=== PATIENT | female | born 1940 | race Caucasian/White ===

== ENCOUNTER 2017-09-09 10:00 | Inpatient (IN) | payer MEDICARE, SELFPAY ==
--- NOTE | 2017-09-09 08:21 | VDLE_ITS ---
Reason For Study: edema RIGHT LEFT CFV is partially compressible with decreased GSV is normal. flow. CFV is compressible, spontaneous, phasic, FV, POP V, T/P Trunk, PTV, Peroneal V, and competent, and demonstrates normal Gastroc V are dilated and noncompressible. augmentation. GSV is normal. Prox and mid FV are compressible. Distal FV Procedure is dilated and noncompressible. Exam performed portable in ED. Pop V, T/P Trunk, and Gastroc V are dilated The exam was diagnostic. and noncompressible. A preliminary report was called and/or faxed to Jessica QUINONES. Interpretation Summary Acute deep vein thrombosis is noted in the right common femoral vein. Acute deep vein thrombosis is noted in the right femoral vein. Acute deep vein thrombosis is noted in the right popliteal vein. Acute deep vein thrombosis is noted in the right tibio-peroneal trunk. Acute deep vein thrombosis is noted in the right posterior tibial vein. Acute deep vein thrombosis is noted in the right peroneal vein. Acute deep vein thrombosis is noted in the right gastrocnemius vein. Acute deep vein thrombosis is noted in the distal left femoral vein. Acute deep vein thrombosis is noted in the left popliteal vein. Acute deep vein thrombosis is noted in the left tibio-peroneal trunk. Acute deep vein thrombosis is noted in the left gastrocnemius vein. The left common femoral vein, posterior tibial vein, and peroneal vein are patent and compressible. The great saphenous veins are patent and compressible bilaterally. Ordering Physician: Fern Chris Performed By: Sanjay Fitch RVT
--- NOTE | 2017-09-09 11:40 | CT_ITS ---
STUDY: CTA CHEST REASON FOR EXAM: Female, 76 years old. Hypoxia RADIATION DOSAGE (If Supplied By Facility): CTDIvol = ( 17.14 ) mGy, DLP = ( 564.76 ) mGycm TECHNIQUE: The examination was performed with the intravenous administration of 100ml ml of Isovue 370 contrast material. Post-processing of the angiographic images was performed, with multiplanar reformation and 3D reconstruction. Individualized dose optimization techniques were used for this CT. COMPARISON: None. FINDINGS: Normal enhancement of the main pulmonary artery and right and left pulmonary arteries. Moderate size bilateral lobar, segmental and subsegmental pulmonary emboli. Normal thoracic aorta and visualized great vessels. There is no demonstrated aortic dissection. Normal heart and pericardium. Normal mediastinum. Normal hilar regions. Normal visualized trachea and bronchi. The lungs are well expanded. Normal pulmonary parenchyma. Normal pleura. Normal chest wall structures. There are degenerative changes of thoracic spine. Normal visualized upper abdomen. CT/CTA Chest W/WO Contrast IMPRESSION: Normal enhancement of the main pulmonary artery and right and left pulmonary arteries. Moderate size bilateral lobar, segmental and subsegmental pulmonary emboli. Electronically Signed: John Negrete MD at 8:03 EDT Tel , Service support ,
--- NOTE | 2017-09-09 12:09 | EKG12_ITS ---
Test Reason : SOB Blood Pressure : / mmHG Vent. Rate : 091 BPM Atrial Rate : 091 BPM P-R Int : 196 ms QRS Dur : 100 ms QT Int : 358 ms P-R-T Axes : 037 000 013 degrees QTc Int : 440 ms Normal sinus rhythm Normal ECG Confirmed by NAREN AMANDA, STACEY ([id number]), industrial editor BAKARI PONCE ([id number]) on 09/15/2017 5:24:05 PM Referred By: JAJA Confirmed By:STACEY SNEED MD
--- NOTE | 2017-09-09 15:02 | DT_ITS ---
This patient was seen during an EMR downtime September 06, 2017 - September 13, 2017. This patient may have a combination of paper and electronic documentation or all paper documentation. All documentation is viewable within the e-chart portion of [facility] for each patient visit.
--- NOTE | 2017-09-10 11:49 | ECHOD_ITS ---
Reason For Study: Bilateral pulm. embolus Procedure This was a 2D Doppler, Color Flow transthoracic echocardiogram. Exam performed portable in patient room. Left Ventricle Normal LV size. Left ventricular systolic function is normal. The estimated ejection fraction is 55 %. Septal bounce. Transmitral diastolic flow velocities suggest mild (stage 1) diastolic dysfunction (reversed pattern). No regional wall motion abnormalities noted. Right Ventricle Mildly dilated right ventricle. Mild global right ventricular systolic dysfunction. Atria Normal left atrium. Normal right atrium. Mitral Valve Normal mitral valve. Tricuspid Valve Normal tricuspid valve. Mild to moderate (1-2+) tricuspid valve insufficiency. Pulmonary artery systolic pressure is 52 mmHg. Moderate pulmonary hypertension. Aortic Valve Normal aortic valve. Trisinus/trileaflet aortic valve. Pulmonic Valve The pulmonic valve is not well visualized. Great Vessels Normal aortic root. Pericardium/Pleural No pericardial effusion. MMode/2D Measurements & Calculations LVIDd: 3.4 cm IVSd: 1.3 cm Ao root diam: 3.1 cm LVIDs: 2.6 cm LVPWd: 1.3 cm LA dimension: 2.6 cm RVDd: 3.0 cm FS: 23.6 % LAV(MOD-bp): 26.9 ml EDV(MOD-sp4): 34.6 ml SV(MOD-sp4): 24.8 ml LAV(MOD-bp) Indexed: 13.4 ml/m2 ESV(MOD-sp4): 9.9 ml LAV(MOD-sp2): 25.4 ml EF(MOD-sp4): 71.5 % LAV(MOD-sp4): 26.9 ml LA A4 area: 11.5 cm2 RA A4 area: 10.5 cm2 Doppler Measurements & Calculations MV E max sang: 65.0 cm/sec Lat Peak E' Sang: 8.0 cm/sec Med Peak E' Sang: 5.7 cm/sec MV A max sang: 104.6 cm/sec E/E' lat: 8.2 E/E' med: 11.4 MV E/A: 0.62 Ao V2 max: 181.0 cm/sec LV V1 max: 96.3 cm/sec PA V2 max: 86.1 cm/sec Ao max P.1 mmHg LV V1 max P.7 mmHg TR max sang: 346.2 cm/sec TR max P.9 mmHg Interpretation Summary Normal LV size. Left ventricular systolic function is normal. The estimated ejection fraction is 55 %. Transmitral diastolic flow velocities suggest mild (stage 1) diastolic dysfunction (reversed pattern). Pulmonary artery systolic pressure is 52 mmHg. Moderate pulmonary hypertension. Ordering Physician: Obinna Fair Referring Physician: MD Vel Graham Performed By: Salena, Yi, RDCS
--- NOTE | 2017-09-10 13:05 | EKG12_ITS ---
Test Reason : AM EKG Blood Pressure : / mmHG Vent. Rate : 090 BPM Atrial Rate : 090 BPM P-R Int : 198 ms QRS Dur : 080 ms QT Int : 352 ms P-R-T Axes : 041 -29 -19 degrees QTc Int : 430 ms Normal sinus rhythm Leftward axis Poor R wave progression Inferior infarct , age undetermined Abnormal ECG When compared with ECG of 20-MAR-2014 07:53, Nonspecific T wave abnormality now evident in Anterior leads Confirmed by BALTAZAR AMANDA, GENARO ([id number]), video tape editor BAKARI PONCE ([id number]) on 09/17/2017 1:54:36 PM Referred By: DR SCANLON Confirmed By:GENARO LEDESMA MD
[2017-09-11 12:36] LABS: Red Blood Cells-Urine 0 SEEN /hpf (0-5); Squamous Epithelial Cells - UA 0 SEEN /hpf (5-10)
[2017-09-11 12:36] LABS: BNP,B-Type NATRIURETIC PEPTIDE 67.4 pg/mL (0-100)
[2017-09-11 12:39] LABS: Amorphous Sediment 2+; Bacteria 1+ /hpf (None Seen); Color, Urine Yellow (Yellow); Glucose, Dipstick 1000 mg/dl (Normal); Hyaline Cast 0-5 SEEN /lpf (0-5); Ketone-Dipstick Negative (Negative); Leukocyte Esterase-Dipstick Negative /ul (Negative); Mucous, Urine 1+ /hpf (<or=2+); Nitrite-Dipstick Negative (Negative); Occult Blood-Urine Negative /ul (Negative); Protein-Dipstick 30 mg/dl (Negative); Specific Gravity, Urine 1.025 (1.002-1.030); Urine Bilirubin Dipstick Negative (Negative); Urine Clarity Clear (Clear); Urine Urobilinogen Normal (Normal); White Blood Cells 5-10 SEEN /hpf (0-5)
[2017-09-11 13:48] LABS: Glucose 322 mg/dL (74-106)
[2017-09-11 13:49] LABS: Anion Gap 9 (5-15); BUN 32 mg/dL (7-18); BUN/Creat Ratio 25.8 RATIO (10-20); Calcium,Total 9.4 mg/dL (8.5-10.1); Chloride 109 mmol/L (98-107); Creatinine, Serum 1.24 mg/dL (0.55-1.02); EST Glomerular Filtration Rate 45 mL/min (>60); Est Glom Filt Rate - Afr Amer 55 mL/min (>60); Potassium 4.4 mmol/L (3.5-5.1); Sodium Level 142 mmol/L (136-145)
[2017-09-12 13:05] LABS: Absolute Lymphocyte Count 2.47 X10^3/ul (0.83-4.51); Absolute Neutrophil Count 4.3 X10^3/uL (2.0-7.7); Basophil# 0.04 X10^3/uL; Basophil% 0.5 % (0-1); Eosinophil# 0.34 X10^3/uL; Eosinophils% 4.5 % (0-5); Hematocrit 36.1 % (37-47); Hemoglobin 11.8 g/dl (12.0-15.0); Lymphocyte # 2.47 X10^3/ul (4.0); Lymphocyte % 32.9 % (19-41); Mean Corp Hgb Conc 32.7 g/gl (32-36); Mean Corpuscular Hgb 29.4 pg (27.0-32.0); Mean Corpuscular Volume 89.8 fL (81-99); Mean Platelet Vol. 9.7 fl (6.2-12.0); Monocyte% 5.3 % (0-10); Neutrophil # 4.25 X10^3/uL (2.7-7.7); Neutrophil % 56.7 % (47-70); POSITIVE COUNT NO; POSITIVE DIFFERENTIAL NO; POSITIVE MORPHOLOGY NO; Platelet Count 145 K/mm3 (150-450); RBC Distribution Width CV 13.2 % (11.6-14.6); RBC Distribution Width SD 43.1 fl (35.1-43.9); Red Blood Count 4.02 M/mm3 (4.2-5.4); White Blood Count 7.5 K/mm3 (4.4-11.0)
[2017-09-13 17:18] LABS: Basophil# 0.05 X10^3/uL; Basophil% 0.5 % (0-1); Eosinophil# 0.19 X10^3/uL; Hematocrit 38.8 % (37-47); Hemoglobin 12.3 g/dl (12.0-15.0); Lymphocyte % 27.5 % (19-41); Mean Corp Hgb Conc 31.7 g/gl (32-36); Mean Corpuscular Hgb 29.2 pg (27.0-32.0); Mean Corpuscular Volume 92.2 fL (81-99); Mean Platelet Vol. 10.6 fl (6.2-12.0); Monocyte# 0.58 X10^3/uL; Monocyte% 6.1 % (0-10); Neutrophil # 6.01 X10^3/uL (2.7-7.7); Neutrophil % 63.6 % (47-70); POSITIVE COUNT NO; POSITIVE DIFFERENTIAL NO; POSITIVE MORPHOLOGY NO; Platelet Count 174 K/mm3 (150-450); RBC Distribution Width CV 13.5 % (11.6-14.6); RBC Distribution Width SD 43.9 fl (35.1-43.9); White Blood Count 9.5 K/mm3 (4.4-11.0)
[2017-09-13 22:24] LABS: ALB/GLOB Ratio 0.8 RATIO (0.9-2.4); AST(SGOT) 17 U/L (15-37); Alanine Aminotransfer ALT/SGPT 30 U/L (13-56); Albumin, Serum 3.4 g/dL (3.2-5.0); Alkaline Phosphatase 70 U/L (45-117); Anion Gap 8 (5-15); BUN 20 mg/dL (7-18); BUN/Creat Ratio 20.6 RATIO (10-20); Calcium,Total 9.5 mg/dL (8.5-10.1); Chloride 109 mmol/L (98-107); Cholesterol 191 mg/dL (200); Creatinine, Serum 0.97 mg/dL (0.55-1.02); EST Glomerular Filtration Rate 60 mL/min (>60); Est Glom Filt Rate - Afr Amer 73 mL/min (>60); Globulin 4.1 g/dL (2.2-4.2); Glucose 232 mg/dL (74-106); High Density Lipoprotein 45 mg/dL; Potassium 4.3 mmol/L (3.5-5.1); Protein, Total 7.5 g/dL (6.4-8.2); Sodium Level 143 mmol/L (136-145); Thyroid Stim Hormone (TSH) 3.73 uIU/mL (0.358-3.74); Triglycerides 175 mg/dL; Very Low Density Lipoprotein 35 mg/dL (5-40)
[2017-09-17 20:31] LABS: Bedside Glucose 224 mg/dL (70-110)
[2017-09-17 20:33] LABS: Bedside Glucose 229 mg/dL (70-110)
[2017-09-17 20:34] LABS: Bedside Glucose 245 mg/dL (70-110)
== END 2017-09-10 17:10 | disposition home or self-care (01) | DRG 176 ==
LOC: ED 15:01 → PCU 15:02
PROVIDERS: Admitting Provider Internal Medicine; Emergency Provider Emergency Medicine; Family Provider Family Medicine; PCP Family Medicine; Visit Provider Internal Medicine
DX: I26.99 Other pulmonary embolism without acute cor pulmonale (principal); R09.02 Hypoxemia; I82.413 Acute embolism and thrombosis of femoral vein, bilateral; I82.433 Acute embolism and thrombosis of popliteal vein, bilateral; I82.443 Acute embolism and thrombosis of tibial vein, bilateral; I82.4Z3 Acute embolism and thrombosis of unspecified deep veins of distal lower extremity, bilateral; E11.65 Type 2 diabetes mellitus with hyperglycemia; E11.40 Type 2 diabetes mellitus with diabetic neuropathy, unspecified; I10 Essential (primary) hypertension; M19.90 Unspecified osteoarthritis, unspecified site; G89.29 Other chronic pain; G25.81 Restless legs syndrome; Z79.84 Long term (current) use of oral hypoglycemic drugs; Z79.899 Other long term (current) drug therapy
CPT/HCPCS: 36415; 71275; 80048; 80053; 80061; 81001; 82962; 83735; 83880; 84443; 84484; 85025; 93005; 93306; 93970; 94640; 96361; 96365; 96366; 97162; 97166; 97802; 99284; J7030; Q9967; A4216; G8978; G8979; G8987; G8988; J2405

== ENCOUNTER 2017-10-05 21:52 | Emergency (ER) | payer MEDICARE, SELFPAY ==
[2017-10-05 21:53] VITALS: BP 172/92; PULSE 89; RESP 18; TEMP 36.5; O2SAT 98; BMI 39.4
[2017-10-05 22:05] VITALS: RESP 18
[2017-10-05 22:09] VITALS: BP 169/88
[2017-10-05] MEDS: Ibuprofen 600 MG Tablet PO (22:24)
[2017-10-05] MEDS: Penicillin Vk 250 MG Tablet 500 MG PO (22:24)
[2017-10-05] MEDS: oxyCODONE 5 MG Tablet PO (22:25)
--- NOTE | 2017-10-05 22:27 | ED.VISSUMM ---
- ER Visit Summary Date of Service: 10/05/17 Chief Complaint: Dental pain History of Present Illness: The patient is a 76 F who states that today around 1:00 or 2:00 she began having pain in the right lower tooth is probably a premolar. She states all of her teeth are badly to come out. She is on Xarelto. She needs to go through numerous steps to get dental extraction. Patient takes Percocet twice a day did not take her evening dose however. She presents here for pain medicine. Patient denies any chest pain new back pain shortness of breath or paresthesias in the arms or legs Physical Examination: Afebrile vital signs are stable Gen: Well-nourished well-developed Head: Normocephalic atraumatic Eyes: Perrl EOMI ENT: TMs clear no rhinorrhea moist mucous membranes widespread dental decay. The right lower premolar tooth does show focal decay and tenderness on palpation. There is no mandibular swelling. Neck: Supple no lymphadenopathy no JVD nontender CVS: Regular rate rhythm no murmurs normal S1-S2 Respiratory: No distress clear to auscultation bilaterally chest nontender Abdomen: Soft nontender nondistended normal bowel sounds no masses Back: Nontender Extremity: Nontender no edema Skin: Normal color no rash Neuro: alert orientated ?3 CN II-XII intact normal strength sensation reflexes gait cerebellar Psych: Normal affect normal mood Emergency Department Course and Treatment: I do not think that this represents aortic dissection are other catastrophic condition. Patient has evidence of dental decay. I gave her a dose of Motrin, OxyIR, and penicillin. Will discharge home with the same. She needs to see dentistry as soon as possible. Impression: 1. Odontalgia This note was generated with [employer] dictation software. It may contain incorrect words, spelling, and punctuation that were not noted in review of the chart prior to signing ED Disposition - Plan for ED Patient: Disposition: Home or Assisted Living Chief Complaint: Dental Instructions: ED Cavity Dental Prescriptions: Oxycodone [Oxyir] 5 mg PO Q6H PRN PRN 3 Days #10 tab PRN Reason: Pain Ibuprofen [Motrin] 800 mg PO TID PRN PRN #20 tab PRN Reason: Pain Penicillin V Potassium 500 mg PO 4X/DAY #40 tab Referrals: Vel Graham MD [Primary Care Provider] - As soon as possible Additional Instructions: See dentistry as soon as possible
--- NOTE | 2017-10-05 22:32 | ED.DCSUM_ITS ---
- ER Visit Summary Date of Service: 10/05/17 Chief Complaint: Dental pain History of Present Illness: The patient is a 76 F who states that today around 1 :00 or 2:00 she began having pain in the right lower tooth is probably a premolar. She states all of her teeth are badly to come out. She is on Xarelto. She needs to go through numerous steps to get dental extraction. Patient takes Percocet twice a day did not take her evening dose however. She presents here for pain medicine. Patient denies any chest pain new back pain shortness of breath or paresthesias in the arms or legs Physical Examination: Afebrile vital signs are stable Gen: Well-nourished well-developed Head: Normocephalic atraumatic Eyes: Perrl EOMI ENT: TMs clear no rhinorrhea moist mucous membranes widespread dental decay. The right lower premolar tooth does show focal decay and tenderness on palpation. There is no mandibular swelling. Neck: Supple no lymphadenopathy no JVD nontender CVS: Regular rate rhythm no murmurs normal S1-S2 Respiratory: No distress clear to auscultation bilaterally chest nontender Abdomen: Soft nontender nondistended normal bowel sounds no masses Back: Nontender Extremity: Nontender no edema Skin: Normal color no rash Neuro: alert orientated ?3 CN II-XII intact normal strength sensation reflexes gait cerebellar Psych: Normal affect normal mood Emergency Department Course and Treatment: I do not think that this represents aortic dissection are other catastrophic condition. Patient has evidence of dental decay. I gave her a dose of Motrin, OxyIR, and penicillin. Will discharge home with the same. She needs to see dentistry as soon as possible. Impression: 1. Odontalgia This note was generated with [employer] dictation software. It may contain incorrect words, spelling, and punctuation that were not noted in review of the chart prior to signing ED Disposition - Plan for ED Patient: Disposition: Home or Assisted Living Chief Complaint: Dental Instructions: ED Cavity Dental Prescriptions: Oxycodone [Oxyir] 5 mg PO Q6H PRN PRN 3 Days #10 tab PRN Reason: Pain Ibuprofen [Motrin] 800 mg PO TID PRN PRN #20 tab PRN Reason: Pain Penicillin V Potassium 500 mg PO 4X/DAY #40 tab Referrals: Vel Graham MD [Primary Care Provider] - As soon as possible Additional Instructions: See dentistry as soon as possible
[2017-10-05 22:50] VITALS: RESP 20
== END 2017-10-05 22:51 | disposition home or self-care (01) ==
PROVIDERS: Emergency Provider Emergency Medicine; Family Provider Family Medicine; PCP Family Medicine
DX: K08.89 Other specified disorders of teeth and supporting structures (principal); K02.9 Dental caries, unspecified; E11.9 Type 2 diabetes mellitus without complications; Z86.718 Personal history of other venous thrombosis and embolism; Z86.711 Personal history of pulmonary embolism; Z79.02 Long term (current) use of antithrombotics/antiplatelets; Z79.84 Long term (current) use of oral hypoglycemic drugs; Z79.891 Long term (current) use of opiate analgesic; Z79.899 Other long term (current) drug therapy
CPT/HCPCS: 99282

== ENCOUNTER 2018-10-31 15:51 | Emergency (ER) | payer MEDICARE, SELFPAY ==
[2018-10-31 15:51] VITALS: BP 132/62; PULSE 72; RESP 16; TEMP 36.8; O2SAT 92; BMI 38.9
--- NOTE | 2018-10-31 16:02 | ED.DCSUM_ITS ---
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 Negative for: Parasthesia, Weakness Narrative: When patient tripped, she twisted and was near her car and tried to catch herself with her right upper extremity, injuring her right upper arm in the process. She fell to her knees where she has chronic arthritis, and she was unable to get up but states that she chronically if falling to the ground, would not be able to get up because of severe arthritis in both of her knees. She states she has no other injury other than her right arm. She did not hit her head. She has chronic pain in her low back for which she takes Percocet in the a.m. and in the p.m., she took her Percocet earlier today for that. It is no different now with regards to the pain in her low back and she has no other neck or back injury/pain now. She denies any pain in her rib cage or trouble b reathing. She denies any recent illnesses. She takes Xarelto for a history of remote DVT and PEs. 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 Past Medical History - Allergies and Home Meds Allergies/Adverse Reactions: Allergies No Known Allergies Allergy (Verified 10/31/18 15:55) Primary Care Physician: Rojas Wilson MD [STAFF PHYSICIAN] - As soon as possible (call for follow up appt to be seen within next 1-2 weeks) Smoking Status: Never smoker Drugs: None - Family History Maternal Family History: Reports: No pertinent history Review of Systems General: Denies: Chills, Fever, Sweats Eyes: Denies: Visual changes - bilaterally, Diplopia ENT: Denies: Rhinorrhea, Sore throat Cardiovascular: Denies: Chest pain, Palpitations Respiratory: Denies: Dyspnea, Cough, Dyspnea on exertion Gastrointestinal: Denies: Abdominal pain, Nausea, Vomiting, Diarrhea, Melena, Hematochezia Genitourinary: Denies: Dysuria, Hematuria, Frequency Musculoskeletal: Reports: Arthralgias - both knees, chronic, Back pain - low back, chronic, unchanged, Extremity Pain - right upper arm. Denies: Neck pain Skin: Denies: Rash, Abrasions, Wounds Neurological: Denies: Headache, Weakness, Numbness Hematologic: Reports: Easy bruising, Easy bleeding Physical Exam Vital Signs/Narrative: Vital Signs Temp Pulse Resp BP Pulse Ox 10/31/18 15:51 98.2 F 72 16 132/62 H 92 General: Well nourished, Well developed Head: Normocephalic, Atraumatic Eyes: Perrl, EOMI ENT: No Trauma, Moist Mucous Membranes Neck: Nontender, Full ROM Cardiovascular: Regular rate, Regular rhythm, No murmurs Respiratory: No distress, CTA bilaterally, Chest nontender Abdomen: Soft, Nontender, Nondistended, Normal bowel sounds Back: Nontender Extremeties: Localized swelling with deformity and tenderness mid right Skin: Normal color, No rash Neurological: Alert, Oriented x3, Cranial nerves II-XII grossly intact, Normal Strength, Normal Sensation Psychological: Normal affect Diagnostic/Tx/Re-eval - Medical Decision Making X-ray shows a displaced oblique midshaft right humerus fracture, mid humerus. Discussed with Dr. Wilson, he recommends a posterior splint and a loose fitting sling and close outpatient follow-up with analgesia. Discussed with the patient and her daughter, she lives with her and will help her, they declined an offer for admission. Patient already has prescription for Percocet that she will use at home so no prescription necessary. She was given several doses of morphine here to control her pain. Procedures - Upper Extremity Splints Upper Extremity Splint: Orthoglass, Long arm - Neurovascularly intact distally after placement, Sling Splint Fabrication: Fabricated Location: Right ED Disposition - Plan for ED Patient: Disposition: Home or Assisted Living Diagnosis: Closed traumatic displaced fracture of shaft of right humerus Instructions: FRACTURE, Upper Extremity Referrals: Rojas Wilson MD [STAFF PHYSICIAN] - As soon as possible (call for follow up appt to be seen within next 1-2 weeks) Additional Instructions: Use sling, loosefitting so that you are arm dangles at your side, continue to use it at night while sleeping in recliner.
[2018-10-31] MEDS: Morphine 4 MG/ML Syringe IV ×2 (16:22→17:53)
--- NOTE | 2018-10-31 16:45 | RAD_ITS ---
STUDY: X-RAY - RIGHT HUMERUS REASON FOR EXAM: Female, 78 years old. Trauma TECHNIQUE: 3 view(s) of the humerus. COMPARISON: None. FINDINGS: There is an oblique fracture of the junction of proximal one third and distal two thirds of the right humeral shaft with the apex of the fracture directed medially and anteriorly. There is no significant overriding deformity. . There is no demonstrated soft tissue abnormality. RAD/Humerus min 2 Views IMPRESSION: Oblique fracture of the junction of proximal one third and distal two thirds of the right humeral shaft. Electronically Signed: Noel yL MD at 16:57 EDT , Service support ,
[2018-10-31 17:56] VITALS: BP 105/64; PULSE 83; RESP 16; O2SAT 91
[2018-10-31 19:10] VITALS: RESP 16
== END 2018-10-31 19:10 | disposition home or self-care (01) ==
PROVIDERS: Emergency Provider Emergency Medicine; Family Provider Family Medicine; PCP Family Medicine
DX: S42.331A Displaced oblique fracture of shaft of humerus, right arm, initial encounter for closed fracture (principal); G89.29 Other chronic pain; M54.5 Low back pain; I10 Essential (primary) hypertension; E78.5 Hyperlipidemia, unspecified; E11.9 Type 2 diabetes mellitus without complications; Z79.02 Long term (current) use of antithrombotics/antiplatelets; Z79.891 Long term (current) use of opiate analgesic; Z86.718 Personal history of other venous thrombosis and embolism; Z86.711 Personal history of pulmonary embolism; Z79.84 Long term (current) use of oral hypoglycemic drugs; Z79.899 Other long term (current) drug therapy; W01.0XXA Fall on same level from slipping, tripping and stumbling without subsequent striking against object, initial encounter; Y93.01 Activity, walking, marching and hiking; Y92.481 Parking lot as the place of occurrence of the external cause; Y99.8 Other external cause status
CPT/HCPCS: 29105; 73060; 96374; 96376; 99284; J7030

== ENCOUNTER 2018-12-28 14:42 | Inpatient (IN) | payer MEDICARE, MEDICAID, SELFPAY ==
[2018-12-28] VITALS (8 sets, daily range): BP systolic 151–168; BP diastolic 67–105; PULSE 84–107; RESP 16–18; TEMP 36.4–36.9; O2SAT 93–100; BMI 37.5; BMI 39.1
--- NOTE | 2018-12-28 15:07 | EKG12_ITS ---
Test Reason : GI BLEED Blood Pressure : / mmHG Vent. Rate : 089 BPM Atrial Rate : 089 BPM P-R Int : 194 ms QRS Dur : 092 ms QT Int : 342 ms P-R-T Axes : 030 -20 019 degrees QTc Int : 416 ms Normal sinus rhythm Incomplete right bundle branch block Borderline ECG Confirmed by ALVARO AMANDA, LONDON ([id number]), content editor JEYSON LOVELACE ([id number]) on 12/30/2018 10:21:55 A M Referred By: Obinna Fair Confirmed By:MONTEZ JOHN MD
[2018-12-28] MEDS: 0.9% Normal Saline 1,000 ML 1000 ML IV (15:26)
[2018-12-28 15:32] LABS: Absolute Lymphocyte Count 1.63 X10^3/uL (0.83-4.51); Absolute Neutrophil Count 4.2 X10^3/uL (2.0-7.7); Basophil# 0.04 X10^3/uL; Basophil% 0.6 % (0-1); Eosinophil# 0.33 X10^3/uL; Eosinophils% 4.9 % (0-5); Hematocrit 34.5 % (37-47); Hemoglobin 10.6 g/dL (12.0-15.0); Lymphocyte # 1.63 X10^3/ul (4.0); Lymphocyte % 24.4 % (19-41); Mean Corp Hgb Conc 30.7 g/dL (32-36); Mean Corpuscular Hgb 29.2 pg (27.0-32.0); Mean Platelet Vol. 9.5 fl (6.2-12.0); Monocyte% 7.5 % (0-10); NRBC Flagged by Analyzer 0 % (0-5); Neutrophil # 4.16 X10^3/uL (2.7-7.7); Neutrophil % 62.5 % (47-70); Platelet Count 189 K/mm3 (150-450); RBC Distribution Width SD 42.2 fl (35.1-43.9); Red Blood Count 3.63 M/mm3 (4.2-5.4); White Blood Count 6.7 K/mm3 (4.4-11.0)
[2018-12-28 15:37] LABS: Prothrombin Time (Protime)PT. 71.8 SECONDS (11.7-14.9)
[2018-12-28 15:38] LABS: International Normalized Ratio 8.5
[2018-12-28 15:46] LABS: Anion Gap 4 (5-15); BUN 28 mg/dL (7-18); BUN/Creat Ratio 22.4 RATIO (10-20); Calcium,Total 9.8 mg/dL (8.5-10.1); Chloride 105 mmol/L (98-107); Creatinine, Serum 1.25 mg/dL (0.55-1.02); EST Glomerular Filtration Rate 44 mL/min (>60); Est Glom Filt Rate - Afr Amer 54 mL/min (>60); Estimated Creatinine Clearance 33.06 ml/min; Glucose 202 mg/dL (74-106); Potassium 4.1 mmol/L (3.5-5.1); Sodium Level 136 mmol/L (136-145)
--- NOTE | 2018-12-28 16:36 | ED.VISSUMM ---
- ER Visit Summary Date of Service: 12/28/18 Chief Complaint: [Hematuria, weakness, falls] History of Present Illness: The patient is a 78 F [presents to the emergency department with hematuria x2 to 3 days. Patient states that she is been feeling off balance over the last several days and has had 2 falls in the last 2 weeks. Patient states the first fall was mechanical when she missed a footstool, landed on her buttocks. The second fall also she landed on her buttocks and did not hit her head. Patient states that several months ago she fell and broke her right arm so she is kind of been feeling off balance since that time. Patient also was switched over to Coumadin Xarelto 1 month ago. Has not had any Coumadin checks. She denies any headache. She denies dizziness. She denies chest pain or shortness of breath. Patient was seen by her primary care physician in the office today and referred to the ER.] Physical Examination: [HEENT-PERRLA, EOMI. Cranial nerves II through XII grossly intact. TMs clear. Mucous membranes moist. No adenopathy. Cardiovascular-regular rate and rhythm without murmur or ectopy Lungs-clear to auscultation, chest wall stable without crepitus or subcu emphysema Abdomen-normoactive bowel sounds, soft, nontender, no rebound or rigidity, no peritoneal signs. Extremities-intact ?4, normal range of motion, normal pulses, atraumatic] Test Results: [EKG obtained on arrival showed sinus rhythm with a ventricular rate of 89 bpm CBC with differential obtained showed a white count 6.7, hemoglobin 10.6, hematocrit 34.5, plates 189. Chemistries unremarkable. BUN 28 g 1.25. Troponin is less than 0.15. Urinalysis ordered and pending.] Emergency Department Course and Treatment: [Patient had IV line established was given a liter normal same fluid bolus. Patient was given vitamin K 5 mg subcu.] Treatment Plan: [Admit] Disposition: [Admit] Impression: [. Coumadin coagulopathy Frequent falls Generalized weakness] This note was generated with [employer] software. It may contain incorrect words, spelling, and punctuation that were not noted in review of the chart prior to signing ED Disposition - Plan for ED Patient: Referrals: Vel Graham MD [Primary Care Provider] -
--- NOTE | 2018-12-28 17:04 | HP.PCM_ITS ---
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 Patient has been feeling very weak, with no energy, off balance and fell twice in the last 2 weeks. She also complained of pain on the lumbar paraspinal region left more than right and left upper quadrant and right upper quadrant pain. She fell on her buttock there is small bruise over right lateral hip region. She denies hitting her head, denies ENT bleed, nausea or vomiting. No LOC. No scalp or neck bruise. She also noticed hematuria for last 2 days. Denies GI bleed. No dizziness or headache. In ED, INR was found 8.5. Mild anemic with H&H 10.6/34.5. Platelet count 189,000. Her baseline H&H runs around 12.3/38.8, last one in September 2017. EKG normal sinus rhythm with QTC 416 ms. Last EKG in September 2017 normal sinus rhythm with no significant change from previous EKG. Her right shoulder is in hard plastic splint because of recent fracture of proximal one third right humerus shaft October 2018 [] 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) Diabetes (Chronic) Allergies atorvastatin [From Lipitor] Allergy (Verified 12/28/18 14:47) Hives empagliflozin [From Jardiance] Allergy (Verified 12/28/18 14:47) Itching metformin Allergy (Verified 12/28/18 14:47) Other Home Medications: Ambulatory Orders Medication Instructions Recorded Gabapentin [Neurontin] 600 mg PO TID 03/20/14 glipiZIDE [Glucotrol] 5 mg PO TID 12/31/16 Ibuprofen [Motrin] 800 mg PO TID PRN PRN #20 tab 10/05/17 Lisinopril [Zestril] 5 mg PO DAILY 10/05/17 Pravastatin Sodium 40 mg PO DAILY 10/05/17 Rivaroxaban [Xarelto] 20 mg PO DAILY 10/05/17 Oxycodone HCl/Acetaminophen 1 tab PO BID 10/31/18 [Percocet 10-325 mg Tablet] Oxycodone HCl/Acetaminophen 12/28/18 [Oxycodon-Acetaminophen 7.5-325] Smoking Status: Never smoker - *Family History Maternal History Items: No pertinent history Review of Systems Constitutional: Reports: Malaise, Weakness, Fatigue. Denies: Chills, Fever, Weight Change HEENT: Denies: Head Aches, Sinus Congestion, Sinus Drainage Cardiovascular: Denies: Chest Pain, Palpitations Respiratory: Reports: Shortness of breath upon exertion. Denies: Cough, Shortness of breath at rest, Sputum production Gastrointestinal: Reports: Abdominal Pain. Denies: Constipation, Diarrhea, Hematemesis, Hematochezia, Nausea, Melena, Vomiting Genitourinary: Reports: Hematuria. Denies: Dysuria, Frequency Musculoskeletal: Reports: Joint Pain. Denies: Joint Tenderness Skin: Reports: Skin Changes - Bruising the right hip lateral region. Denies: Rash, Wounds Neurological: Reports: Balance problems, Incoordination. Denies: Focal weakness, Numbness, Tingling Psychiatric: Denies: Anxiety, Depression, Homicidal Ideations, Suicidal Ideations Hematologic/ Lymphatic: Denies: Easy Bruising, Easy Bleeding VTE Information - Inpt Only VTE Present on Admission: No VTE Mechan Device Prophylaxis: SCD's VTE Pharm Prophylaxis ordered?: No Reason prophylaxis not ordered:: Medical Contraindication - High INR 8.5 - Physical Exam General: Alert, Oriented x3, Cooperative HEENT: Atraumatic, PERRLA, EOMI, Normocephalic Oral: Dry Mucosa Neck: Supple, No JVD, Negative Carotid Bruits Lungs: Clear to auscultation, Normal air movement, No rhonchi, No wheeze, No rales Cardiovascular: Regular rate, Regular Rhythm, Normal S1, Normal S2, No murmurs Abdomen: Bowel Sounds Present, Soft, Non-Distended, No Hepato-splenomegaly, Tender - Tenderness predominantly over left upper quadrant and left lumbar/ paraspinal region. Mild tenderness also over right upper quadrant and right paraspinal region. Extremities: No edema, Capillary Refill Less than 3 Seconds Skin: No rashes, No breakdown Musculoskeletal: No Tenderness to Palpation of Joints or Extremities, Arthritic Changes Neurological: Cranial nerves II-XII grossly intact, Deep Tendon Reflexes 2+/4 and Symmetrical, Neuro grossly intact Psych/Mental Status: Normal Affect, Appropriate Vital Signs Temp Pulse Resp BP Pulse Ox 97.6 F L 92 18 156/90 H 95 12/28/18 14:43 12/28/18 14:43 12/28/18 14:43 12/28/18 14:43 12/28/18 14:43 Oxygen Delivery Method Room Air Weight: 219 lb Body Mass Index (BMI) 37.5 Finger Stick Blood Glucose 236 Intake and Output for Last 24 Hours 12/26/18 12/27/18 12/28/18 23:59 23:59 23:59 Intake Total 1000 / 1000 Balance 1000 / 1000 Laboratory Tests Past 24 Hrs 12/28/18 12/28/18 12/28/18 15:20 15:20 15:20 WBC 6.7 RBC 3.63 L Hgb 10.6 L Hct 34.5 L MCV 95.0 MCH 29.2 MCHC 30.7 L RDW Std Deviation 42.2 RDW Coeff of Mayank 12.0 Plt Count 189 MPV 9.5 Immature Gran % (Auto) 0.100 Neut % (Auto) 62.5 Lymph % (Auto) 24.4 Early % (Auto) 7.5 Eos % (Auto) 4.9 Baso % (Auto) 0.6 Absolute Neuts (auto) 4.2 Absolute Lymphs (auto) 1.63 Nucleated RBC % 0 PT 71.8 H INR 8.5 H* Sodium 136 Potassium 4.1 Chloride 105 Carbon Dioxide 27.0 Anion Gap 4 L BUN 28 H Creatinine 1.25 H Estim Creat Clear Calc 33.06 Est GFR (MDRD) Af Amer 54 L Est GFR (MDRD) Non-Af 44 L BUN/Creatinine Ratio 22.4 H Glucose 202 H Calcium 9.8 Troponin I < 0.015 Urine Color Urine Clarity Urine pH Ur Specific [place] Urine Protein Urine Glucose (UA) Urine Ketones Urine Occult Blood Urine Nitrite Urine Bilirubin Urine Urobilinogen Ur Leukocyte Esterase Urine RBC Urine WBC Ur Squamous Epith Cells Urine Bacteria Urine Mucus 12/28/18 16:55 WBC RBC Hgb Hct MCV MCH MCHC RDW Std Deviation RDW Coeff of Mayank Plt Count MPV Immature Gran % (Auto) Neut % (Auto) Lymph % (Auto) [place] % (Auto) Eos % (Auto) Baso % (Auto) Absolute Neuts (auto) Absolute Lymphs (auto) Nucleated RBC % PT INR Sodium Potassium Chloride Carbon Dioxide Anion Gap BUN Creatinine Estim Creat Clear Calc Est GFR (MDRD) Af Amer Est GFR (MDRD) Non-Af BUN/Creatinine Ratio Glucose Calcium Troponin I Urine Color Pending Urine Clarity Pending Urine pH Pending Ur Specific [place] Pending Urine Protein Pending Urine Glucose (UA) Pending Urine Ketones Pending Urine Occult Blood Pending Urine Nitrite Pending Urine Bilirubin Pending Urine Urobilinogen Pending Ur Leukocyte Esterase Pending Urine RBC Pending Urine WBC Pending Ur Squamous Epith Cells Pending Urine Bacteria Pending Urine Mucus Pending Assessment/Plan The patient is a 78 year old F with history of DVT/PE on Coumadin, could not afford Xarelto came to ED with hematuria for 2 days along with high INR. Patient has been feeling very weak, with no energy, off balance and fell twice in the last 2 weeks. She denies hitting her head, denies ENT bleed, nausea or vomiting. She also noticed hematuria for last 2 days. Denies GI bleed. No dizziness or headache. In ED, INR was found 8.5. Mild anemic with H&H 10.6/34.5. Platelet count 189,000. Her baseline H&H runs around 12.3/38.8, last one in September 2017. EKG normal sinus rhythm with QTC 416 ms. Last EKG in September 2017 normal sinus rhythm with no significant change from previous EKG. Her right shoulder is in hard plastic splint because of recent fracture of proximal one third right humerus shaft October 2018 1. Generalized weakness with fall with hematuria secondary to coagulopathy from Coumadin: Patient is being admitted to PCU. Monitor H&H every 6 hourly. UA is pending. Vitamin K 5 mg given in the ER. Monitor INR and CBC daily. PT and OT ordered. IV fluid Ringer lactate ordered. 2. Upper back pain and left and right upper quadrant abdominal pain after fall: There is suspicion of possible paraspinal/visceral injury/laceration after a fall in view of coagulopathy although she is able to walk and ambulate. Pain control. 3. Recent history of DVT/PE: Patient was admitted in September 2017 for bilateral PE and was discharged on Xarelto. Later on she was switched to Coumadin because of not able to afford Xarelto. She also had history of renal vein thrombosis and was on 9 months of Eliquis about 3- 4 years ago which was discontinued because of restless leg syndrome. Currently Coumadin on hold. Bilateral SCDs. 4. Diabetes mellitus type 2: Accu-Chek essences and cover with Humalog sliding scale. 5. Hypertension: Blood pressure is slightly elevated 151/78. Orthostatic blood pressure shows mild drop from 168/73 in supine to 158/60 in sitting to 151/77 and is standing. No significant change in heart rate. Continue IV fluid. Hold antihypertensive medication. 6. Recent right proximal humeral fracture shaft in October 2018: She follows orthopedic surgeon. No acute issues. She said her splint is about to come off. DVT prophylaxis: As mentioned above bilateral SCDs. Pharmacological prophylaxis contraindicated in view of colopathy [] Laboratory Results 12/28/18 15:20: WBC 6.7, RBC 3.63 L, Hgb 10.6 L, Hct 34.5 L, MCV 95.0, MCH 29.2, MCHC 30.7 L, RDW Std Deviation 42.2, RDW Coeff of Mayank 12.0, Plt Count 189, MPV 9.5, Immature Gran % (Auto) 0.100, Neut % (Auto) 62.5, Lymph % (Auto) 24.4, Early % (Auto) 7.5, Eos % (Auto) 4.9, Baso % (Auto) 0.6, Absolute Neuts (auto) 4.2, Absolute Lymphs (auto) 1.63, Nucleated RBC % 0 12/28/18 15:20: PT 71.8 H, INR 8.5 H* 12/28/18 15:20: Sodium 136, Potassium 4.1, Chloride 105, Carbon Dioxide 27.0, Anion Gap 4 L, BUN 28 H, Creatinine 1.25 H, Estim Creat Clear Calc 33.06, Est GFR (MDRD) Af Amer 54 L, Est GFR (MDRD) Non-Af 44 L, BUN/Creatinine Ratio 22.4 H , Glucose 202 H, Calcium 9.8, Troponin I < 0.015 12/28/18 16:55: Urine Color Pending, Urine Clarity Pending, Urine pH Pending, Ur Specific [place] Pending, Urine Protein Pending, Urine Glucose (UA) Pending, Urine Ketones Pending, Urine Occult Blood Pending, Urine Nitrite Pending, Urine Bilirubin Pending, Urine Urobilinogen Pending, Ur Leukocyte Esterase Pending, Urine RBC Pending, Urine WBC Pending, Ur Squamous Epith Cells Pending, Urine Bacteria Pending, Urine Mucus Pending Code Visit OBSV E&M: 52875 Initial observation care L3
--- NOTE | 2018-12-28 17:05 | CT_ITS ---
STUDY: CT ABDOMEN AND PELVIS WITHOUT CONTRAST REASON FOR EXAM: Female, 78 years old. 2 falls in past 2 days, upper abdominal pain, hematuria. RADIATION DOSAGE (If Supplied By Facility): CTDIvol = ( 26.13 ) mGy, DLP = ( 1416.80 ) mGycm TECHNIQUE: Transaxial images were obtained from the dome of the diaphragm to the symphysis pubis without oral contrast, and without intravenous contrast. Sagittal and coronal images were reconstructed. Individualized dose optimization techniques were used for this CT. COMPARISON: CT abdomen and pelvis with IV contrast March 20, 2014. FINDINGS: Mild elevation of right diaphragm. There is minor subsegmental atelectasis in the bilateral lung bases. The heart size is normal. Calcification again seen at the root of the aorta. Normal liver. The portal vein diameter is 9.5 mm. Normal gallbladder and extrahepatic biliary system. Normal spleen. Subcentimeter accessory spleen noted anterior to the splenic hilum. Normal pancreas. Normal bilateral adrenal glands. There is a horseshoe kidney deformity. There is severe atrophy of the upper pole of the right kidney, site of infarction on the previous CT. Normal left side kidney. No hydronephrosis Normal visualized stomach. Normal small intestine. Normal colon. The very small caliber appendix is visualized and appears normal. There is stable mild atherosclerotic calcification of the abdominal aorta, without a demonstrated aneurysm. Normal inferior vena cava. There is mild stranding in the left perirenal tissues/peritoneum that is of uncertain significance. Normal urinary bladder. Normal visualized uterus. There is a stable small umbilical hernia containing fat. Small gas lucency in the subcutaneous tissues of the anterior abdominal wall of the left lower quadrant is likely an injection site. There is a shallow, fat filled attempted direct left inguinal hernia, as well as some mild asymmetric fat filling in the left inguinal canal without herniation below the inferior inguinal ring. There are generally stable diffuse degenerative changes of the visualized spine. There is no demonstrated acute fracture. CT/Abdomen/Pelvis without Cont IMPRESSION: 1. No CT sign of acute abdominal or pelvic injury. Gas lucency in the subcutaneous tissues of the left lower abdominal wall is thought to be an injection site. 2. Horseshoe kidney anomaly again noted. There is atrophy in the upper pole right kidney, the site of infarction on previous exam. Minor left perinephric and left posterior parietal stranding, but no hydronephrosis. 3. Atherosclerotic vascular calcifications again noted. No demonstrated aortic aneurysm. 4. Stable mild elevation of the right diaphragm. Minor subsegmental atelectasis seen in the bilateral lung bases. 5. Stable small, fat-containing umbilical hernia, as well as stable, shallow attempted fat-containing direct left inguinal hernia. Electronically Signed: Servando Kitchen MD at 17:50 EDT , Service support ,
[2018-12-28 17:11] LABS: Color, Urine Red (Yellow); Glucose, Dipstick Normal (Normal); Ketone-Dipstick 5 mg/dl (Negative); Leukocyte Esterase-Dipstick 25 /ul (Negative); Nitrite-Dipstick Negative (Negative); Occult Blood-Urine 250 /ul (Negative); Protein-Dipstick 500 mg/dl (Negative); Specific Gravity, Urine 1.015 (1.002-1.030); Urine Bilirubin Dipstick Negative (Negative); Urine Clarity Turbid (Clear); Urine Urobilinogen Normal (Normal); Urine pH 6.5 (5.0 - 8.0)
[2018-12-28] MEDS: Phytonadione (Vit K) 10 MG/ML Ampul 5 MG SC (17:13)
[2018-12-28 17:23] LABS: Red Blood Cells-Urine > 100 SEEN /hpf (0-5); Renal Epithelial Cells 0-5 SEEN /hpf (0-5); Squamous Epithelial Cells - UA 10-25 SEEN /hpf (5-10); Transitional Epithelial - Ur 0-5 SEEN /hpf (0-5); White Blood Cells 25-50 SEEN /hpf (0-5)
[2018-12-28 17:24] LABS: Bacteria 4+ /hpf (None Seen); Mucous, Urine 4+ /hpf (<or=2+)
--- NOTE | 2018-12-28 18:23 | CASEMGMT ---
RN CM Assessment Introduced role of RN CM to patient and patient Dtrenee Landrum at bedside.? Patient is alert, oriented and able?to participate in RN CM Assessment. ?Care providers, pharmacy, and demographics verified. Presentation: Hematuria x2-3 days. Feeling Off balance over the last several days and 2 falls in the last 2 weeks. H/o DVT/PE on Coumadin, currently on hold. Was admitted September 2017 for bilt PE and was Dc'd on Xarelto but switched to Coumadin d/t unable to afford Xarelto. Admit Dx: Hematuria, Anemia, High INR Re-Admit: No Barriers/Issues: Broken Rt arm on october 31, 2018. Still healing from this but unable to go upstairs in her home, has been staying on LL of home, Dtr works but lives with patient and does assist patient since injury. Dtr states patient stays in her recliner while she is at work. Feels that patient needs a walker and a lift chair. PCP: Vel Graham Specialists: Ortho- Dr Gabriel Abbott at [facility] Preferred Pharmacy: [facility]Yes LNOK: Dtr- Lucita Parker LW/HPOA: None, would like information and completion. Living Arrangements:? Lives with Dtr Lucita in a Town house, states since arm injury cannot go up stairs d/t railings only on one side. Has been staying on the LL of home. 1 step to enter home. ADL?s: Ambulates with cane, Independent with ADLs. Dtr has been assisting her with ADLs since injury, such as meal prep, bathing and dressing. Transportation: Blanca Landrum DME: Cane, [employer]eter HHC: None SNF: None Goal: Home and thinks needs as stated above in issue. Denies any concerns, issues, or questions with DC planning at this time. Aware CM remains available for any emerging needs. DC PLAN: Home with possible walker and HH PT. SWATI Taveras
[2018-12-28] MEDS: 0.9% Normal Saline 1,000 ML 100 ML IV (18:49)
[2018-12-28] MEDS: oxyCODONE 5 MG Tablet PO (18:54)
[2018-12-28] MEDS: Acetaminophen 325 MG Tablet 650 MG PO (18:55)
[2018-12-28] MEDS: Gabapentin 600 MG Tablet PO (21:24)
[2018-12-28] MEDS: Insulin Lispro 100 UNIT/ML INSULN.PEN SC (21:24)
[2018-12-28 22:45] LABS: Bedside Glucose 205 mg/dL (70-110)
[2018-12-29] VITALS (11 sets, daily range): BP systolic 147–170; BP diastolic 54–93; PULSE 80–94; RESP 16–18; TEMP 36.7–37.2; O2SAT 94–96
--- NOTE | 2018-12-29 | FLU_PTH ---
PATIENT: DIANNA ZAMUDIO LOC: [facility] U#:[id number] AGE/SX: 78/F ROOM: [facility] RE12/30/[address]: Dr. Cyril Fabian MD : [id number] BED: 1 DIS: 01/05/2019 SPEC #: [id number] RECD: 12/29/18 15:48 STATUS: KT REGinger #: [id number] JUAN C: 12/29/18 00:[address]: Bijal Trejo NP DEPT: CYTOLOGY RECD BY: Marcia Cooper ENTERED: 12/30/18 09:09 SP TYPE: Fluid OTHR DR: DO Dr. Diane Hayes MD Dr. Mark Elderbrock, MD Dr. Prakash Chand, MD Tissues: Urine Procedures: Special Stain Group II Cytospin Fluid HEADER OPERATION: Not noted PRE-OP DIAGNOSIS: Hematuria, anemia, high INR TISSUE SUBMITTED: Urine for cytology DIAGNOSIS CYTOLOGY Urine for cytology (cytospin): Negative for malignant cells. AM:aileen 01/02/19 CYTOLOGY STUDY Slides are reviewed. CYTOLOGY GROSS Received is 9 ml of cloudy heather fluid labeled with the patient's name and and designated per the requisition as urine. Submitted for cytology preparation. /CC:cc 12/30/18 TC:5 CPT: 63204
[2018-12-29] MEDS: oxyCODONE 5 MG Tablet PO ×3 (01:46→16:02)
[2018-12-29] MEDS: Acetaminophen 325 MG Tablet 650 MG PO (04:44)
[2018-12-29 05:43] LABS: Absolute Lymphocyte Count 1.48 X10^3/uL (0.83-4.51); Absolute Neutrophil Count 4.5 X10^3/uL (2.0-7.7); Basophil# 0.04 X10^3/uL; Basophil% 0.6 % (0-1); Eosinophil# 0.16 X10^3/uL; Eosinophils% 2.3 % (0-5); Hematocrit 32.7 % (37-47); Hemoglobin 10.2 g/dL (12.0-15.0); Lymphocyte # 1.48 X10^3/ul (4.0); Lymphocyte % 21.4 % (19-41); Mean Corp Hgb Conc 31.2 g/dL (32-36); Mean Corpuscular Hgb 29.2 pg (27.0-32.0); Mean Corpuscular Volume 93.7 fL (81-99); Mean Platelet Vol. 9.8 fl (6.2-12.0); Monocyte% 10.1 % (0-10); NRBC Flagged by Analyzer 0 % (0-5); Neutrophil % 65.3 % (47-70); Platelet Count 190 K/mm3 (150-450); RBC Distribution Width CV 11.9 % (11.6-14.6); RBC Distribution Width SD 40.5 fl (35.1-43.9); Red Blood Count 3.49 M/mm3 (4.2-5.4); White Blood Count 6.9 K/mm3 (4.4-11.0)
[2018-12-29 05:57] LABS: Prothrombin Time (Protime)PT. 53.2 SECONDS (11.7-14.9)
[2018-12-29 06:00] LABS: International Normalized Ratio 5.8
[2018-12-29 06:13] LABS: Anion Gap 6 (5-15); BUN 21 mg/dL (7-18); BUN/Creat Ratio 21.2 RATIO (10-20); Calcium,Total 9.5 mg/dL (8.5-10.1); Chloride 111 mmol/L (98-107); Creatinine, Serum 0.99 mg/dL (0.55-1.02); EST Glomerular Filtration Rate 58 mL/min (>60); Est Glom Filt Rate - Afr Amer 70 mL/min (>60); Estimated Creatinine Clearance 39.99 ml/min; Glucose 172 mg/dL (74-106); Potassium 4.3 mmol/L (3.5-5.1); Sodium Level 142 mmol/L (136-145); Thyroid Stim Hormone (TSH) 2.66 uIU/mL (0.358-3.74)
[2018-12-29] MEDS: Insulin Lispro 100 UNIT/ML INSULN.PEN SC ×4 (06:35→22:17)
[2018-12-29] MEDS: glipiZIDE 5 MG Tablet PO ×3 (06:35→16:42)
[2018-12-29] MEDS: Gabapentin 600 MG Tablet PO ×3 (06:35→22:17)
[2018-12-29 06:46] LABS: Bedside Glucose 163 mg/dL (70-110)
[2018-12-29] MEDS: Lisinopril 5 MG Tablet PO (09:24)
[2018-12-29 12:20] LABS: Bedside Glucose 190 mg/dL (70-110)
--- NOTE | 2018-12-29 13:18 | CASEMGMT ---
SW spoke w/pt about completing LW/POA forms. Pt does not want to complete the forms today as she would like to speak w/her daughter about it, but did want information. SW reviewed the forms w/pt, and gave her a social work rack card. SW encouraged pt to call to set up an appointment when when she is ready to complete the forms. No further social service needs at this time. ESTEBAN Dawson
--- NOTE | 2018-12-29 13:50 | PCM.PROGNOTE ---
<Bijal Trejo - Last Filed: 12/29/18 14:42> Subjective: Patient seen and examined. Continues to have hematuria although she reports this is improving. Complains of mild left lower abdomen/pelvis pain which wraps around to her left lower back. Denies fever, chills. Denies other urinary symptoms. - Physical Exam General: Alert, Oriented x3, Cooperative HEENT: Atraumatic, PERRLA, EOMI, Normocephalic Neck: Supple, No JVD, Negative Carotid Bruits Lungs: Clear to auscultation, Normal air movement Cardiovascular: Regular rate, Regular Rhythm, Normal S1, Normal S2, No murmurs Abdomen: Bowel Sounds Present, Soft, Non-Distended, Obese, Tender - Left lower abdomen Extremities: No clubbing, No cyanosis, No edema, Capillary Refill Less than 3 Seconds Skin: No rashes, No breakdown Musculoskeletal: No Tenderness to Palpation of Joints or Extremities Neurological: Cranial nerves II-XII grossly intact, Neuro grossly intact Psych/Mental Status: Normal Affect, Appropriate Vital Signs Temp Pulse Resp BP Pulse Ox 98.0 F 90 18 147/69 H 96 12/29/18 09:15 12/29/18 12:00 12/29/18 09:15 12/29/18 09:15 12/29/18 09:15 Oxygen Delivery Method Room Air Weight: 220 lb 10.923 oz Body Mass Index (BMI) 39.1 Finger Stick Blood Glucose 236 Intake and Output for Last 24 Hours 12/27/18 12/28/18 12/29/18 23:59 23:59 23:59 Intake Total 1000 / 1240 1840 / 1840 Balance 1000 / 1240 1840 / 1840 Laboratory Tests Past 24 Hrs 12/28/18 12/28/18 12/28/18 15:20 15:20 15:20 WBC 6.7 RBC 3.63 L Hgb 10.6 L Hct 34.5 L MCV 95.0 MCH 29.2 MCHC 30.7 L RDW Std Deviation 42.2 RDW Coeff of Mayank 12.0 Plt Count 189 MPV 9.5 Immature Gran % (Auto) 0.100 Neut % (Auto) 62.5 Lymph % (Auto) 24.4 [place] % (Auto) 7.5 Eos % (Auto) 4.9 Baso % (Auto) 0.6 Absolute Neuts (auto) 4.2 Absolute Lymphs (auto) 1.63 Nucleated RBC % 0 PT 71.8 H INR 8.5 H* Sodium 136 Potassium 4.1 Chloride 105 Carbon Dioxide 27.0 Anion Gap 4 L BUN 28 H Creatinine 1.25 H Estim Creat Clear Calc 33.06 Est GFR (MDRD) Af Amer 54 L Est GFR (MDRD) Non-Af 44 L BUN/Creatinine Ratio 22.4 H Glucose 202 H Calcium 9.8 Troponin I < 0.015 TSH Urine Color Urine Clarity Urine pH Ur Specific [place] Urine Protein Urine Glucose (UA) Urine Ketones Urine Occult Blood Urine Nitrite Urine Bilirubin Urine Urobilinogen Ur Leukocyte Esterase Urine RBC Urine WBC Ur Squamous Epith Cells Ur Transition Epith Cell Ur Renal Epithelial Cell Urine Bacteria Urine Mucus 12/28/18 12/29/18 12/29/18 16:55 05:25 05:25 WBC 6.9 RBC 3.49 L Hgb 10.2 L Hct 32.7 L MCV 93.7 MCH 29.2 MCHC 31.2 L RDW Std Deviation 40.5 RDW Coeff of Mayank 11.9 Plt Count 190 MPV 9.8 Immature Gran % (Auto) 0.300 Neut % (Auto) 65.3 Lymph % (Auto) 21.4 [place] % (Auto) 10.1 H Eos % (Auto) 2.3 Baso % (Auto) 0.6 Absolute Neuts (auto) 4.5 Absolute Lymphs (auto) 1.48 Nucleated RBC % 0 PT INR Sodium 142 Potassium 4.3 Chloride 111 H Carbon Dioxide 25.0 Anion Gap 6 BUN 21 H Creatinine 0.99 Estim Creat Clear Calc 39.99 Est GFR (MDRD) Af Amer 70 Est GFR (MDRD) Non-Af 58 L BUN/Creatinine Ratio 21.2 H Glucose 172 H Calcium 9.5 Troponin I TSH 2.66 Urine Color Red Urine Clarity Turbid Urine pH 6.5 Ur Specific [place] 1.015 Urine Protein 500 H Urine Glucose (UA) Normal Urine Ketones 5 H Urine Occult Blood 250 H Urine Nitrite Negative Urine Bilirubin Negative Urine Urobilinogen Normal Ur Leukocyte Esterase 25 H Urine RBC > 100 SEEN Urine WBC 25-50 SEEN Ur Squamous Epith Cells 10-25 SEEN Ur Transition Epith Cell 0-5 SEEN Ur Renal Epithelial Cell 0-5 SEEN Urine Bacteria 4+ Urine Mucus 4+ 09/26/19 05:25 WBC RBC Hgb Hct MCV MCH MCHC RDW Std Deviation RDW Coeff of Mayank Plt Count MPV Immature Gran % (Auto) Neut % (Auto) Lymph % (Auto) [place] % (Auto) Eos % (Auto) Baso % (Auto) Absolute Neuts (auto) Absolute Lymphs (auto) Nucleated RBC % PT 53.2 H INR 5.8 H* Sodium Potassium Chloride Carbon Dioxide Anion Gap BUN Creatinine Estim Creat Clear Calc Est GFR (MDRD) Af Amer Est GFR (MDRD) Non-Af BUN/Creatinine Ratio Glucose Calcium Troponin I TSH Urine Color Urine Clarity Urine pH Ur Specific [place] Urine Protein Urine Glucose (UA) Urine Ketones Urine Occult Blood Urine Nitrite Urine Bilirubin Urine Urobilinogen Ur Leukocyte Esterase Urine RBC Urine WBC Ur Squamous Epith Cells Ur Transition Epith Cell Ur Renal Epithelial Cell Urine Bacteria Urine Mucus POC Glucose 12/29/18 12/29/18 12/28/18 12:12 06:34 21:15 POC Glucose 190 H 163 H 205 H Medical Necessity - Tobacco Use Smoking Status: Never smoker Assessment/Plan 1. Hematuria with supratherapeutic INR-patient received phytonadoine 5mg X1. INR trending down. CT of abdomen and pelvis shows no acute abdominal or pelvic injury. Still unclear etiology of hematuria? UA with 4+ bacteria although this was clean-catch. No leukocytosis. Afebrile. Obtain straight cath UA. Urine culture pending. Consult Dr. Wharton. 2. Normocytic anemia-stable, trend CBC. 3. Mild dehydration-resolved with IV fluids. 4. History of DVT/PE-previously on Xarelto which was not covered by her insurance and transitioned to Coumadin. 5. Type 2 diabetes mellitus-continue home glipizide regimen. Accu-Cheks ACHS with SSI. 6. Hypertension-continue home lisinopril regimen. 7. Recent right proximal humeral fracture shaft October 2017-continue outpatient follow-up with orthopedic surgery. PT/OT. Recent repeat fall. Complains of left upper leg pain. Obtain x-ray. PT/OT. DVT prophylaxis-SCDs, Coumadin on hold This patient was seen by [facility] under the supervision of Dr. Mesa. <Ana Mesa - Last Filed: 01/17/19 09:34> - Physical Exam Vital Signs Temp Pulse Resp BP Pulse Ox 98.4 F 84 16 164/80 H 96 01/05/19 15:00 01/05/19 15:00 01/05/19 15:00 01/05/19 15:00 01/05/19 15:00 Oxygen Delivery Method Room Air Weight: 220 lb 10.923 oz Body Mass Index (BMI) 39.1 Finger Stick Blood Glucose 236 Assessment/Plan I agree with the PE as documented above. Pt denies dysuria. She does have some lower abd pain. The CT of the abd and pelvis shows a horseshoe kidney with a prior renal infarct. No acute findings. The urine is sausage meat trimmer but, still with hematuria. In order to prevent thrombosis with rapid reversal of the anticoagulant. She may have sustained a kidney contusion from recent fall. Pt agreeable to transfusion as needed and will allow the INR to drift down now. She received 1 dose of vitamin K. Will follow up with Dr. Wharton in the office next week. Discussed with Bijal and orders have been written. Code Visit Inpatient E&M: 25995 Subs Hosp L2
--- NOTE | 2018-12-29 13:51 | RAD_ITS ---
STUDY: X-RAY - PELVIS AND LEFT HIP REASON FOR EXAM: Female, 78 years old. Left hip pain. Recent falls. TECHNIQUE: 3 views of the pelvis and hip. COMPARISON: CT abdomen and pelvis December 28, 2018. FINDINGS: There is a non-specific bowel gas pattern. Normal visualized soft tissue structures. There are [id number] degenerative changes in the visualized lumbar spine, directly involving the lumbar facets. There are cortical and enthesophytes at the lateral margins of the bilateral iliac wings. Normal bilateral sacroiliac joints and visualized sacrum. Normal bilateral superior and inferior pubic rami. There are mild degenerative changes of the pubic symphysis with articular narrowing and sclerosis. Normal bilateral ischial tuberosities. Unremarkable single view of the right hip. Normal visualized femoral head. Normal acetabulum. Normal hip joint. There is no demonstrated osseous destructive lesion or acute fracture. RAD/HIP, UNI W/ Pelvis 2-3 Views IMPRESSION: Normal x-ray examination of the left hip. Incidental note of degenerative changes in the lumbar spine and pubic symphysis. Electronically Signed: Servando Kitchen MD at 16:34 EDT , Service support ,
--- NOTE | 2018-12-29 14:40 | CT_ITS ---
STUDY: CT ABDOMEN AND PELVIS WITH CONTRAST REASON FOR EXAM: Female, 78 years old. Recent falls, hematuria. RADIATION DOSAGE (If Supplied By Facility): CTDIvol = ( 18.33 ) mGy, DLP = ( 2190.85 ) mGycm TECHNIQUE: Transaxial images were obtained from the dome of the diaphragm to the symphysis pubis without oral contrast. IV Isovue 370 75CC was administered. Sagittal and coronal images were reconstructed. Individualized dose optimization techniques were used for this CT. COMPARISON: CT abdomen and pelvis without contrast December 28, 2018; CT abdomen and pelvis with oral and IV contrast March 20, 2014. FINDINGS: Mild elevation of the right diaphragm. There is stable mild subsegmental atelectasis in the lung bases. The heart size is normal. There is calcification in the aortic valve annulus as well as atelectatic scar calcifications of the coronary arteries. Normal liver. The patent portal vein diameter is 11 mm. Normal gallbladder and extrahepatic biliary system. The diameter of the common bile duct is 6 mm. Normal spleen. Normal pancreas. Normal bilateral adrenal glands. 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 Delayed views note some small, rounded low-density structures along side the nondistended pelvicalyceal moieties, consistent with peripelvic cysts. There is minor perinephric stranding, perhaps slightly greater on the left, with some minimal thickening of the left posterolateral peritoneum at the midabdomen. No hydronephrosis. Normal visualized stomach. Normal small intestine. Normal colon. Subcentimeter rim calcified structure lateral to the proximal sigmoid colon (series 4 image 54, series 601 image 41) may be a small lymph node. The appendix is not visualized. There is stable mild atherosclerotic calcification of the abdominal aorta, without a demonstrated aneurysm. Normal inferior vena cava. Normal retroperitoneum. Normal urinary bladder. Normal visualized uterus. Small gas lucency in the subcutaneous tissues of the anterior abdominal wall the left lower quadrant again noted, possibly an injection site. There is a stable small umbilical hernia containing fat. Mildly asymmetric fatty filling of the left inguinal canal is unchanged. There are stable diffuse degenerative changes of the visualized spine. CT/Abdomen/Pelvis W IV Cont ONLY IMPRESSION: 1. 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 There are several small parapelvic cysts, better seen today post IV contrast. No hydronephrosis. 2. Minor perinephric stranding as well as minor thickening of the left posterolateral peritoneum unchanged. This remains of uncertain significance. 3. Atherosclerotic vascular calcifications again noted. No demonstrated aneurysm. 4. Stable mild elevation of right diaphragm. 5. Stable small, fat filled umbilical hernia and mild asymmetric fatty filling of the left inguinal canal. Electronically Signed: Servando Kitchen MD at 16:08 EDT , Service support ,
[2018-12-29 15:54] LABS: Cytology, Body Fluid / CSF SEE PATHOLOGY REPORT; Mucous, Urine 0 SEEN /hpf (<or=2+)
[2018-12-29 15:59] LABS: Color, Urine Amber (Yellow); Glucose, Dipstick 250 mg/dl (Normal); Ketone-Dipstick Negative (Negative); Leukocyte Esterase-Dipstick 25 /ul (Negative); Nitrite-Dipstick Positive (Negative); Occult Blood-Urine 250 /ul (Negative); Protein-Dipstick 100 mg/dl (Negative); Urine Bilirubin Dipstick Negative (Negative); Urine Clarity Sl. Cloudy (Clear); Urine Urobilinogen Normal (Normal)
[2018-12-29 16:06] LABS: Bedside Glucose 202 mg/dL (70-110)
[2018-12-29 16:35] LABS: Amorphous Sediment 1+ URATE; Bacteria RARE /hpf (None Seen); Red Blood Cells-Urine > 100 SEEN /hpf (0-5); Squamous Epithelial Cells - UA 0-5 SEEN /hpf (5-10); White Blood Cells 0-5 SEEN /hpf (0-5)
[2018-12-29] MEDS: Loratadine 10 MG Tablet PO (16:42)
[2018-12-29] MEDS: Pravastatin 40 MG Tablet PO (16:44)
[2018-12-29 22:35] LABS: Bedside Glucose 190 mg/dL (70-110)
[2018-12-30] VITALS (12 sets, daily range): BP systolic 153–162; BP diastolic 69–85; PULSE 73–101; RESP 14–18; TEMP 36.5–36.9; O2SAT 94–96
[2018-12-30] MEDS: Acetaminophen 325 MG Tablet 650 MG PO (05:09)
[2018-12-30] MEDS: proCHLORPERazine 10 MG/2 ML Vial 5 MG IV (05:10)
[2018-12-30] MEDS: 0.9% NaCl Peripheral Flush Adult/Peds IV (05:13)
[2018-12-30 06:33] LABS: Hematocrit 31.3 % (37-47); Mean Corp Hgb Conc 31.9 g/dL (32-36); Mean Corpuscular Hgb 29.6 pg (27.0-32.0); Mean Corpuscular Volume 92.6 fL (81-99); Mean Platelet Vol. 10.1 fl (6.2-12.0); Platelet Count 187 K/mm3 (150-450); RBC Distribution Width CV 11.9 % (11.6-14.6); RBC Distribution Width SD 40.1 fl (35.1-43.9); Red Blood Count 3.38 M/mm3 (4.2-5.4); White Blood Count 7.5 K/mm3 (4.4-11.0)
[2018-12-30] MEDS: glipiZIDE 5 MG Tablet PO ×3 (06:33→15:47)
[2018-12-30] MEDS: Gabapentin 600 MG Tablet PO ×3 (06:33→22:04)
[2018-12-30] MEDS: Insulin Lispro 100 UNIT/ML INSULN.PEN SC ×4 (06:34→22:04)
[2018-12-30 06:39] LABS: International Normalized Ratio 3.2; Prothrombin Time (Protime)PT. 33.3 SECONDS (11.7-14.9)
[2018-12-30 06:40] LABS: Bedside Glucose 250 mg/dL (70-110)
[2018-12-30] MEDS: oxyCODONE 5 MG Tablet PO (06:41)
[2018-12-30 06:59] LABS: Anion Gap 10 (5-15); BUN 20 mg/dL (7-18); Calcium,Total 9.7 mg/dL (8.5-10.1); Chloride 111 mmol/L (98-107); Creatinine, Serum 1.11 mg/dL (0.55-1.02); EST Glomerular Filtration Rate 51 mL/min (>60); Est Glom Filt Rate - Afr Amer 61 mL/min (>60); Estimated Creatinine Clearance 35.67 ml/min; Glucose 243 mg/dL (74-106); Potassium 4.2 mmol/L (3.5-5.1); Sodium Level 142 mmol/L (136-145)
[2018-12-30] MEDS: Lisinopril 5 MG Tablet PO (08:11)
[2018-12-30 11:20] LABS: Bedside Glucose 176 mg/dL (70-110)
--- NOTE | 2018-12-30 11:35 | CASEMGMT ---
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 Reviewed and explained [facility] form in regards to her treatment. Notified patient that outpatient billing us determined by her insurance policy and status during hospital stay is reviewed for changes in condition that may warrant inpatient stay. Patient states understanding and signed [facility] form which was placed in patient chart. Copy provided to patient and patient denies any questions or concerns at this time. Clement Huynh RNCM
[2018-12-30 16:05] LABS: Bedside Glucose 217 mg/dL (70-110)
[2018-12-30] MEDS: Pravastatin 40 MG Tablet PO (17:43)
--- NOTE | 2018-12-30 20:22 | PCM.PROGNOTE ---
Subjective: Eduardo catheter was inserted for urine retention today > 600 cc's. I suspect this was likely due to clot. The urine is less red today and is more a pink tinged and you can see through it. CT of the abd and pelvis did not show any tumor and no identifiable source of bleeding. She denies pelvic or abdominal pain. INR is 3.3 today. She was only started on warfarin 1 month ago. Prior to that she was on Xarelto but the insurance company increased the co-pay and she is unable to afford this. She recently was approved for Medicaid and we will need to check in to whether she will be able to resume Xarelto. She denies dizziness, lightheadedness, nausea, vomiting. She had some nausea earlier today but this resolved and she is currently eating pudding and saltines and drinking fluids. Objective: PHYSICAL EXAM: GENERAL: alert, oriented X 3, Cooperative, NAD, sitting in the recliner at the bedside ORAL: dry mucosa, no mucosal lesions NECK: No JVD, supple, trachea midline LUNGS: CTA, symmetric chest expansion HEART: RRR, Normal S1 and S2, no rub, no gallop ABDOMEN: soft, NT, ND, BS present, no guarding with palpation EXTREMITIES: no edema, no cyanosis, no calf tenderness SKIN: No rashes, no breakdown NEUROLOGIC: no focal neurologic deficits PSYCH: appropriate, flat affect, pleasant - Physical Exam Vital Signs Temp Pulse Resp BP Pulse Ox 98.2 F 92 14 153/69 H 96 12/30/18 19:30 12/30/18 19:30 12/30/18 19:30 12/30/18 19:30 12/30/18 19:30 Oxygen Delivery Method Room Air Weight: 220 lb 10.923 oz Body Mass Index (BMI) 39.1 Finger Stick Blood Glucose 236 Intake and Output for Last 24 Hours 12/28/18 12/29/18 12/30/18 23:59 23:59 23:59 Intake Total 1000 / 1240 2520 / 2520 270 / 270 Output Total 500 / 500 840 / 840 Balance 1000 / 1240 2019 / 2019 -570 / -570 Microbiology Past 72 Hours 12/28/18 16:55 Urine Culture - Final Urine, Clean Catch Mixed Gram Pos & Gram Neg Org Laboratory Tests Past 24 Hrs 12/30/18 12/30/18 12/30/18 06:00 06:00 06:00 WBC 7.5 RBC 3.38 L Hgb 10.0 L Hct 31.3 L MCV 92.6 MCH 29.6 MCHC 31.9 L RDW Std Deviation 40.1 RDW Coeff of Mayank 11.9 Plt Count 187 MPV 10.1 PT 33.3 H INR 3.2 Sodium 142 Potassium 4.2 Chloride 111 H Carbon Dioxide 21.0 Anion Gap 10 BUN 20 H Creatinine 1.11 H Estim Creat Clear Calc 35.67 Est GFR (MDRD) Af Amer 61 Est GFR (MDRD) Non-Af 51 L BUN/Creatinine Ratio 18.0 Glucose 243 H Calcium 9.7 POC Glucose 12/30/18 12/30/18 12/30/18 15:44 10:59 06:32 POC Glucose 217 H 176 H 250 H 12/29/18 22:16 POC Glucose 190 H Medical Necessity - Tobacco Use Smoking Status: Never smoker Assessment/Plan Impressions 1. Gross hematuria with supratherapeutic INR of 8.5 at admission. Currently 3.2 and will continue to hold warfarin. The urine is less bloody. No masses on the kidneys and no evidence of bladder abnormality 2. Supratherapeutic INR 3. Acute on chronic normocytic anemia secondary to acute blood loss secondary to hematuria 4. Dehydration -she was instructed to increase her fluid intake 5. History of recurrent DVT/pulmonary embolus - would like to go back on Xarelto at [place]....her insurance recently changed and will check on her co-pay 6. Diabetes mellitus type 2-Home medicines have been continued 7. Recent fracture of the right proximal humerus secondary to a fall-treated by Dr. Abbott at [facility]. Brace is in place Insert a 3-way catheter and start continuous bladder irrigation Continue to hold warfarin Recheck lab in the a.m. Will talk with the 7th grade social studies teacher in the a.m. and see if Medicaid will cover the Xarelto. When the INR drops to less than 2 we will transition to a continuous heparin infusion and if the hemoglobin remains stable on full dose anticoagulation will likely transition to either Xarelto or warfarin. Code Visit Inpatient E&M: 76214 Subs Hosp L2
[2018-12-30 22:21] LABS: Bedside Glucose 175 mg/dL (70-110)
[2018-12-31] VITALS (9 sets, daily range): BP systolic 131–162; BP diastolic 45–75; PULSE 57–97; RESP 16–20; TEMP 36.7–37; O2SAT 93–96
[2018-12-31] MEDS: Gabapentin 600 MG Tablet PO ×3 (06:35→21:48)
[2018-12-31] MEDS: glipiZIDE 5 MG Tablet PO ×3 (06:35→16:56)
[2018-12-31] MEDS: Insulin Lispro 100 UNIT/ML INSULN.PEN SC ×3 (06:36→16:56)
[2018-12-31 06:40] LABS: Bedside Glucose 193 mg/dL (70-110)
[2018-12-31 07:08] LABS: International Normalized Ratio 2.2; Prothrombin Time (Protime)PT. 24.3 SECONDS (11.7-14.9)
[2018-12-31 07:37] LABS: ALB/GLOB Ratio 0.6 RATIO (0.9-2.4); AST(SGOT) 16 U/L (15-37); Alanine Aminotransfer ALT/SGPT 14 U/L (13-56); Albumin, Serum 2.6 g/dL (3.2-5.0); Alkaline Phosphatase 92 U/L (45-117); Anion Gap 7 (5-15); BUN 27 mg/dL (7-18); BUN/Creat Ratio 14.8 RATIO (10-20); Calcium,Total 9.6 mg/dL (8.5-10.1); Chloride 109 mmol/L (98-107); Creatinine, Serum 1.82 mg/dL (0.55-1.02); EST Glomerular Filtration Rate 29 mL/min (>60); Est Glom Filt Rate - Afr Amer 35 mL/min (>60); Estimated Creatinine Clearance 21.75 ml/min; Globulin 4.2 g/dL (2.2-4.2); Glucose 218 mg/dL (74-106); Magnesium 2.2 mg/dL (1.6-2.6); Phosphorus 3.2 mg/dL (2.5-4.9); Potassium 4.4 mmol/L (3.5-5.1); Protein, Total 6.8 g/dL (6.4-8.2); Sodium Level 140 mmol/L (136-145)
[2018-12-31 08:28] LABS: Hematocrit 31.2 % (37-47); Hemoglobin 9.9 g/dL (12.0-15.0)
--- NOTE | 2018-12-31 09:54 | US_ITS ---
STUDY: RENAL ULTRASOUND - COMPLETE REASON FOR EXAM: Female, 78 years old. Acute renal failure TECHNIQUE: Ultrasound evaluation of the kidneys was performed with real-time and static jonas-scale imaging. COMPARISON: None. FINDINGS: RIGHT KIDNEY: Normal location of the right kidney, which is normal in size. The right kidney measures 8.5 x 5.4 x 4.4 cm. There is a normal cortex of the right kidney. The renal cortex measures 1.1 cm. There are multiple subcentimeter right renal cysts, the largest measuring 9 x 8 x 6 mm. There are no right renal calculi. There is no right hydronephrosis. DISTAL RIGHT URETER: There is non-visualization of the distal right ureter. There is no demonstrated right ureterovesical junction calculus. There is no demonstrated right ureteral jet. LEFT KIDNEY: Normal location of the left kidney, which is normal in size. The left kidney measures 13.6 x 5.6 x 5.8 cm. There is a normal cortex of the left kidney. The renal cortex measures 1.2 cm. There are multiple left renal cysts, the largest measuring 1.3 x 1.4 x 1.2 cm. There are no left renal calculi. There is no left hydronephrosis. DISTAL LEFT URETER: There is non-visualization of the distal left ureter. There is no demonstrated left ureterovesical junction calculus. There is no demonstrated left ureteral jet. BLADDER: A Eduardo catheter is present within a decompressed urinary bladder. US/Kidney and Bladder IMPRESSION: Bilateral renal cysts. A horseshoe kidney demonstrated on recent CT study is not appreciated on this ultrasonographic study. Electronically Signed: Noel Ly MD at 16:56 EDT , Service support ,
[2018-12-31] MEDS: Lisinopril 5 MG Tablet PO (10:19)
[2018-12-31 11:55] LABS: Bedside Glucose 219 mg/dL (70-110)
[2018-12-31] MEDS: Pravastatin 40 MG Tablet PO (16:56)
[2018-12-31] MEDS: Acetaminophen 325 MG Tablet 650 MG PO (17:02)
[2018-12-31 18:20] LABS: Bedside Glucose 173 mg/dL (70-110)
--- NOTE | 2018-12-31 18:42 | PN_ITS ---
Subjective: All events of the past 24 hours of been reviewed. She remains afebrile. She is hemodynamically stable and maintaining an appropriate oxygen saturation on room air. Hemoglobin is slowly drifting down and today is 9.9. INR today is 2.2. The creatinine is increased to 1.82 today from 1.11 on 12/30/2018. Difficult to interpret the intake and output secondary to bladder irrigation. The urine in the tubing is not grossly bloody but there still are some clots and there is a lot of sediment Appetite and intake are poor. Affect is flat and she is discouraged over the events of the past 2 months. she missed her appt with the orthopod and she wants her brace off the RUE Ultrasound of the kidneys was obtained today because of the marked increase in the creatinine and the right kidney is of normal size. There are multiple subcentimeter right renal cysts and there is no hydronephrosis. There are no calculi. The right ureter has no stones. The left kidney is normal in size with multiple left renal cysts and there are no renal calculi. There is no hydronephrosis and there are no ureteral stones. Bladder is decompressed. The horseshoe kidney appreciated on the CT scan is not apparent on the ultrasound. Objective: PHYSICAL EXAM: GENERAL: alert, oriented X 3, Cooperative, NAD, lethargic and depressed. ORAL: dry mucosa, no mucosal lesions NECK: No JVD, supple, trachea midline LUNGS: CTA, symmetric chest expansion HEART: RRR, Normal S1 and S2, no rub, no gallop ABDOMEN: soft, NT, ND, BS present, no guarding with palpation EXTREMITIES: no edema, no cyanosis, no calf tenderness SKIN: No rashes, no breakdown NEUROLOGIC: no focal neurologic deficits PSYCH: appropriate, flat affect, pleasant - Physical Exam Vital Signs Temp Pulse Resp BP Pulse Ox 98.6 F 94 20 H 131/59 H 94 12/31/18 16:30 12/31/18 16:30 12/31/18 16:30 12/31/18 16:30 12/31/18 16:30 Oxygen Delivery Method Room Air Weight: 220 lb 10.923 oz Body Mass Index (BMI) 39.1 Finger Stick Blood Glucose 236 Intake and Output for Last 24 Hours 12/29/18 12/30/18 12/31/18 23:59 23:59 23:59 Intake Total 2520 / 2520 510 / 510 360 / 360 Output Total 500 / 500 2790 / 2790 1700 / 1700 Balance 2019 / 2019 -2280 / -2280 -1340 / -1340 Microbiology Past 72 Hours 12/28/18 16:55 Urine Culture - Final Urine, Clean Catch Mixed Gram Pos & Gram Neg Org Laboratory Tests Past 24 Hrs 12/31/18 12/31/18 12/31/18 06:25 06:25 07:55 Hgb 9.9 L Hct 31.2 L PT 24.3 H INR 2.2 Sodium 140 Potassium 4.4 Chloride 109 H Carbon Dioxide 24.0 Anion Gap 7 BUN 27 H Creatinine 1.82 H Estim Creat Clear Calc 21.75 Est GFR (MDRD) Af Amer 35 L Est GFR (MDRD) Non-Af 29 L BUN/Creatinine Ratio 14.8 Glucose 218 H Calcium 9.6 Phosphorus 3.2 Magnesium 2.2 Total Bilirubin 0.60 AST 16 ALT 14 Alkaline Phosphatase 92 Total Protein 6.8 Albumin 2.6 L Globulin 4.2 Albumin/Globulin Ratio 0.6 L POC Glucose 12/31/18 12/31/18 12/31/18 16:51 11:35 06:33 POC Glucose 173 H 219 H 193 H 12/30/18 22:02 POC Glucose 175 H Medical Necessity - Tobacco Use Smoking Status: Never smoker Assessment/Plan 78-year-old female with a past medical history of recurrent PEs, on lifelong anticoagulation, who presented to the emergency room complaining of gross hematuria and a INR of 8.5. She received 1 dose of 5 mg of vitamin K and the INR has been allowed to drift down. We have not completely reversed her due to her history of recurrent DVT/PE and I did not want to make her hypercoagulable. She has not required transfusion. Impressions 1. Gross hematuria with supratherapeutic INR of 8.5 at admission. Currently down to 2.2 and will continue to hold warfarin. The urine is less bloody. No masses on the kidneys and no evidence of bladder abnormality. No hydronephrosis or hydroureter on the US today and no renal or ureteral calculi. The bladder is decompressed. 2. Supratherapeutic INR at admission 3. Acute on chronic normocytic anemia secondary to acute blood loss secondary to hematuria....no need for a transfusion at this time 4. Dehydration -she was instructed to increase her fluid intake yesterday but intake is poor so will start IV fluids today and recheck lab in the AM 5. History of recurrent DVT/pulmonary embolus - would like to go back on Xarelto at [place]....her insurance recently changed and will check on her co-pay prior to DC 6. Diabetes mellitus type 2-Home medicines have been continued 7. Recent fracture of the right proximal humerus secondary to a fall-treated by Dr. Abbott at [facility]. Brace is in place 8. 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 Can likely hold for a few days and use Lovenox or SC heparin when the INR drops below 1.6. Continue TEDS and SCD's She will follow up with Dr. Wharton in the office....she was out of town last week but, She may be able to see her Wednesday if she is still in the hospital Code Visit Inpatient E&M: 54647 Subs Hosp L2
[2018-12-31] MEDS: 0.9% Normal Saline 1,000 ML 100 ML IV (21:28)
[2018-12-31 22:31] LABS: Bedside Glucose 137 mg/dL (70-110)
[2019-01-01] VITALS (9 sets, daily range): BP systolic 130–176; BP diastolic 68–94; PULSE 77–92; RESP 18–20; TEMP 36.8–37.2; O2SAT 92–95
[2019-01-01] MEDS: 0.9% Normal Saline 1,000 ML 100 ML IV ×2 (02:26→12:21)
[2019-01-01 06:28] LABS: Absolute Neutrophil Count 8.5 X10^3/uL (2.0-7.7); Basophil# 0.03 X10^3/uL; Basophil% 0.3 % (0-1); Eosinophil# 0.11 X10^3/uL; Hemoglobin 9.5 g/dL (12.0-15.0); Lymphocyte % 12.7 % (19-41); Mean Corp Hgb Conc 31.7 g/dL (32-36); Mean Corpuscular Hgb 29.1 pg (27.0-32.0); Mean Platelet Vol. 10.1 fl (6.2-12.0); Monocyte# 0.88 X10^3/uL; NRBC Flagged by Analyzer 0 % (0-5); Neutrophil # 8.53 X10^3/uL (2.7-7.7); Neutrophil % 77.6 % (47-70); Platelet Count 204 K/mm3 (150-450); RBC Distribution Width SD 40.8 fl (35.1-43.9); Red Blood Count 3.26 M/mm3 (4.2-5.4)
[2019-01-01 06:29] LABS: International Normalized Ratio 1.7; Prothrombin Time (Protime)PT. 19.9 SECONDS (11.7-14.9)
[2019-01-01] MEDS: glipiZIDE 5 MG Tablet PO ×3 (06:34→16:06)
[2019-01-01] MEDS: Gabapentin 600 MG Tablet PO ×3 (06:34→21:34)
[2019-01-01 06:45] LABS: Anion Gap 6 (5-15); BUN 29 mg/dL (7-18); BUN/Creat Ratio 14.6 RATIO (10-20); Calcium,Total 9.6 mg/dL (8.5-10.1); Chloride 107 mmol/L (98-107); Creatinine, Serum 1.98 mg/dL (0.55-1.02); EST Glomerular Filtration Rate 26 mL/min (>60); Est Glom Filt Rate - Afr Amer 32 mL/min (>60); Glucose 150 mg/dL (74-106); Sodium Level 137 mmol/L (136-145)
[2019-01-01 06:45] LABS: Bedside Glucose 148 mg/dL (70-110)
[2019-01-01] MEDS: Lisinopril 5 MG Tablet PO (10:21)
[2019-01-01 11:45] LABS: Bedside Glucose 191 mg/dL (70-110)
[2019-01-01] MEDS: Insulin Lispro 100 UNIT/ML INSULN.PEN SC ×2 (11:45→21:34)
[2019-01-01] MEDS: Acetaminophen 325 MG Tablet 650 MG PO ×2 (12:21→22:54)
--- NOTE | 2019-01-01 12:27 | PCM.PN.HOSP ---
Subjective: Flat and states that she is tired, no acute events overnight Vitals/I&O's: Vital Signs Temp Pulse Resp BP Pulse Ox 99.0 F 85 18 141/68 H 93 01/01/19 03:40 01/01/19 06:56 01/01/19 03:40 01/01/19 03:40 01/01/19 03:40 Oxygen Delivery Method Room Air Weight: 220 lb 10.923 oz Body Mass Index (BMI) 39.1 Finger Stick Blood Glucose 236 Intake and Output for Last 24 Hours 12/30/18 12/31/18 01/01/19 23:59 23:59 23:59 Intake Total 510 / 510 2451.67 / 2451.67 1595.00 / 1595.00 Output Total 2790 / 2790 2775 / 2775 550 / 550 Balance -2280 / -2280 -323.33 / -323.33 1045.00 / 1045.00 General: Alert, Oriented x3, Cooperative, No apparent distress, - - Tired HEENT: Atraumatic, PERRLA, EOMI, Normocephalic Oral: Dry Mucosa Neck: Supple, No JVD Lungs: Clear to auscultation, Normal air movement, No rhonchi, No wheeze, No rales Cardiovascular: Regular rate, Regular Rhythm, Normal S1, Normal S2, No murmurs Abdomen: Soft, Non Tender, Non-Distended, No Hepato-splenomegaly Extremities: No edema, Capillary Refill Less than 3 Seconds Skin: No rashes, No breakdown Neurological: Neuro grossly intact, Sensory exam intact to light touch and pain Psych/Mental Status: Appropriate, Flat Affect Microbiology Past 72 Hours 12/28/18 16:55 Urine, Clean Catch Urine Culture - Final Mixed Gram Pos & Gram Neg Org Laboratory Results 12/31/18 16:51: POC Glucose 173 H 12/31/18 21:47: POC Glucose 137 H 01/01/19 05:30: PT 19.9 H, INR 1.7 01/01/19 05:30: WBC 11.0, RBC 3.26 L, Hgb 9.5 L, Hct 30.0 L, MCV 92.0, MCH 29.1, MCHC 31.7 L, RDW Std Deviation 40.8, RDW Coeff of Mayank 12.0, Plt Count 204, MPV 10.1, Immature Gran % (Auto) 0.400, Neut % (Auto) 77.6 H, Lymph % (Auto) 12.7 L, [place] % (Auto) 8.0, Eos % (Auto) 1.0, Baso % (Auto) 0.3, Absolute Neuts (auto) 8.5 H, Absolute Lymphs (auto) 1.40, Nucleated RBC % 0 01/01/19 05:30: Sodium 137, Potassium 4.0, Chloride 107, Carbon Dioxide 24.0, Anion Gap 6, BUN 29 H, Creatinine 1.98 H, Estim Creat Clear Calc 20.00, Est GFR (MDRD) Af Amer 32 L, Est GFR (MDRD) Non-Af 26 L, BUN/Creatinine Ratio 14.6, Glucose 150 H, Calcium 9.6 01/01/19 06:33: POC Glucose 148 H 01/01/19 11:36: POC Glucose 191 H Current Medications Acetaminophen (Tylenol) 650 mg PO Q6H PRN PRN PRN Reason: Mild pain 1-3/Temp > 100.7 F Last Admin: 01/01/19 12:21 Dose: 650 mg Documented by: Al Hydroxide/Mg Hydroxide (Mylanta Ii) 30 ml PO Q6H PRN PRN PRN Reason: Gastric Burning Albuterol Sulfate (Ventolin Aerosols) 2.5 mg INHALATION Q2H PRN PRN PRN Reason: SOB/Wheezing Dextrose (D50w Syringe) 0 gm IV X1 PRN; Protocol PRN Reason: Hypoglycemia Gabapentin (Neurontin) 600 mg PO TID [facility] Last Admin: 01/01/19 06:34 Dose: 600 mg Documented by: Glipizide (Glucotrol) 5 mg PO TIDAC [facility] Last Admin: 01/01/19 10:21 Dose: 5 mg Documented by: Glucagon () 1 mg IM .X1 PRN PRN Reason: Hypoglycemia Sodium Chloride () 1,000 mls @ 100 mls/hr IV .Q10H [facility] Last Admin: 01/01/19 12:21 Dose: 100 mls/hr Documented by: Insulin Human Lispro (Humalog Kwikpen (Bkc)) 0 unit SC [facility]; Protocol Last Admin: 01/01/19 11:45 Dose: 2 u Documented by: Lisinopril (Zestril) 5 mg PO DAILY [facility] Last Admin: 01/01/19 10:21 Dose: 5 mg Documented by: Melatonin (Melatonin) 3 mg PO QHS PRN PRN PRN Reason: INSOMNIA Morphine Sulfate () 2 mg IV Q3H PRN PRN PRN Reason: Severe Pain (7-10/10) Oxycodone HCl (Oxyir) 5 mg PO Q4H PRN PRN PRN Reason: Moderate Pain (4-6/10) Last Admin: 12/30/18 06:41 Dose: 5 mg Documented by: Pravastatin Sodium (Pravachol) 40 mg PO DINNER [facility] Last Admin: 12/31/18 16:56 Dose: 40 mg Documented by: Prochlorperazine Edisylate (Compazine Iv) 5 mg IV Q4H PRN PRN PRN Reason: Breakthrough Nausea/Vomiting Last Admin: 12/30/18 05:10 Dose: 5 mg Documented by: Sodium Chloride () 10 - 40 ml IV UD PRN PRN Reason: SALINE FLUSH Last Admin: 12/30/18 05:13 Dose: 10 ml Documented by: Medical Necessity - Tobacco Use Smoking Status: Never smoker Assessment/Plan 1. Gross hematuria with supratherapeutic INR and acute on chronic normocytic anemia/history of recurrent DVTs and PEs/ABILIO and dehydration -On admission her INR was 8.5, currently down to 1.7 -We will check on co-pay for Xarelto tomorrow -Consult to Dr. Wharton -Her creatinine has been steadily increasing for the last several days, will discontinue her lisinopril and increase her IV fluids 2. DM 2 -We will continue her glimepiride and her sliding scale insulin -Accu-Cheks AC at bedtime 3. Right humeral fracture -She had a recent fall and was seen by an orthopedic surgeon at [facility] -He with her brace and pain medication 4. Depression -Given her continued flat affect and being tired, will start her on Effexor DVT: Coumadin/Lovenox Code Visit Inpatient E&M: 91492 Subs Hosp L2
[2019-01-01] MEDS: Venlafaxine HCl 25 MG Tablet PO ×2 (16:06→21:34)
[2019-01-01] MEDS: Pravastatin 40 MG Tablet PO (16:06)
[2019-01-01 16:51] LABS: Bedside Glucose 133 mg/dL (70-110)
[2019-01-01] MEDS: 0.9% Normal Saline 1,000 ML 150 ML IV (19:37)
[2019-01-01] MEDS: Morphine 2 MG/ML Syringe IV (21:38)
[2019-01-01] MEDS: 0.9% NaCl Peripheral Flush Adult/Peds IV (21:38)
[2019-01-01] MEDS: proCHLORPERazine 10 MG/2 ML Vial 5 MG IV (21:51)
[2019-01-01 22:36] LABS: Bedside Glucose 168 mg/dL (70-110)
[2019-01-02] VITALS (10 sets, daily range): BP systolic 132–160; BP diastolic 59–76; PULSE 70–84; RESP 16–18; TEMP 36.7–37; O2SAT 92–97
[2019-01-02] MEDS: 0.9% Normal Saline 1,000 ML 150 ML IV (02:10)
[2019-01-02 05:35] LABS: Absolute Lymphocyte Count 1.25 X10^3/uL (0.83-4.51); Absolute Neutrophil Count 7.4 X10^3/uL (2.0-7.7); Basophil# 0.03 X10^3/uL; Basophil% 0.3 % (0-1); Eosinophil# 0.07 X10^3/uL; Eosinophils% 0.7 % (0-5); Hemoglobin 7.9 g/dL (12.0-15.0); Lymphocyte # 1.25 X10^3/ul (4.0); Lymphocyte % 13.1 % (19-41); Mean Corp Hgb Conc 31.6 g/dL (32-36); Mean Corpuscular Volume 91.9 fL (81-99); Mean Platelet Vol. 9.9 fl (6.2-12.0); Monocyte# 0.73 X10^3/uL; Monocyte% 7.7 % (0-10); NRBC Flagged by Analyzer 0 % (0-5); Neutrophil % 77.8 % (47-70); Platelet Count 212 K/mm3 (150-450); RBC Distribution Width CV 11.9 % (11.6-14.6); RBC Distribution Width SD 40.3 fl (35.1-43.9); Red Blood Count 2.72 M/mm3 (4.2-5.4); White Blood Count 9.5 K/mm3 (4.4-11.0)
[2019-01-02 06:08] LABS: Anion Gap 5 (5-15); BUN 28 mg/dL (7-18); BUN/Creat Ratio 18.3 RATIO (10-20); Calcium,Total 8.9 mg/dL (8.5-10.1); Chloride 112 mmol/L (98-107); Creatinine, Serum 1.53 mg/dL (0.55-1.02); EST Glomerular Filtration Rate 35 mL/min (>60); Est Glom Filt Rate - Afr Amer 42 mL/min (>60); Estimated Creatinine Clearance 25.88 ml/min; Glucose 166 mg/dL (74-106); Potassium 4.3 mmol/L (3.5-5.1); Sodium Level 141 mmol/L (136-145)
[2019-01-02] MEDS: Insulin Lispro 100 UNIT/ML INSULN.PEN SC ×3 (06:48→22:10)
[2019-01-02] MEDS: glipiZIDE 5 MG Tablet PO ×3 (06:48→16:41)
[2019-01-02] MEDS: Gabapentin 600 MG Tablet PO ×3 (06:48→22:10)
[2019-01-02 06:53] LABS: International Normalized Ratio 1.6; Prothrombin Time (Protime)PT. 18.7 SECONDS (11.7-14.9)
[2019-01-02 07:01] LABS: Bedside Glucose 162 mg/dL (70-110)
[2019-01-02] MEDS: Venlafaxine HCl 25 MG Tablet PO ×2 (09:11→22:10)
[2019-01-02] MEDS: Enoxaparin 30 MG/0.3 ML Syringe SC (09:11)
--- NOTE | 2019-01-02 10:07 | PN_ITS ---
Subjective: Seems to have a little bit more energy today, and she is eating a little bit more today for breakfast Vitals/I&O's: Vital Signs Temp Pulse Resp BP Pulse Ox 98.4 F 72 16 132/59 H 96 01/02/19 08:00 01/02/19 08:00 01/02/19 08:00 01/02/19 08:00 01/02/19 08:00 Oxygen Delivery Method Room Air Weight: 220 lb 10.923 oz Body Mass Index (BMI) 39.1 Finger Stick Blood Glucose 236 Intake and Output for Last 24 Hours 12/31/18 01/01/19 01/02/19 23:59 23:59 23:59 Intake Total 2451.67 / 2451.67 3828.33 / 3828.33 925.0 / 925.0 Output Total 2775 / 2775 870 / 870 750 / 750 Balance -323.33 / -323.33 2958.33 / 2958.33 175.0 / 175.0 General: Alert, Oriented x3, Cooperative, No apparent distress, - - Tired, pale HEENT: Atraumatic, PERRLA, EOMI, Normocephalic Oral: Dry Mucosa Neck: Supple, No JVD Lungs: Clear to auscultation, Normal air movement, No rhonchi, No wheeze, No rales Cardiovascular: Regular rate, Regular Rhythm, Normal S1, Normal S2, No murmurs Abdomen: Soft, Non Tender, Non-Distended, No Hepato-splenomegaly Extremities: No edema, Capillary Refill Less than 3 Seconds Skin: No rashes, No breakdown Neurological: Neuro grossly intact, Sensory exam intact to light touch and pain Psych/Mental Status: Appropriate, Flat Affect Microbiology Past 72 Hours 12/28/18 16:55 Urine, Clean Catch Urine Culture - Final Mixed Gram Pos & Gram Neg Org Laboratory Results 01/01/19 11:36: POC Glucose 191 H 01/01/19 16:45: POC Glucose 133 H 01/01/19 21:26: POC Glucose 168 H 01/02/19 05:05: WBC 9.5, RBC 2.72 L, Hgb 7.9 L, Hct 25.0 L, MCV 91.9, MCH 29.0, MCHC 31.6 L, RDW Std Deviation 40.3, RDW Coeff of Mayank 11.9, Plt Count 212, MPV 9.9, Immature Gran % (Auto) 0.400, Neut % (Auto) 77.8 H, Lymph % (Auto) 13.1 L, [place] % (Auto) 7.7, Eos % (Auto) 0.7, Baso % (Auto) 0.3, Absolute Neuts (auto) 7.4, Absolute Lymphs (auto) 1.25, Nucleated RBC % 0 01/02/19 05:05: Sodium 141, Potassium 4.3, Chloride 112 H, Carbon Dioxide 24.0, Anion Gap 5, BUN 28 H, Creatinine 1.53 H, Estim Creat Clear Calc 25.88, Est GFR (MDRD) Af Amer 42 L, Est GFR (MDRD) Non-Af 35 L, BUN/Creatinine Ratio 18.3, Glucose 166 H, Calcium 8.9 01/02/19 05:05: PT 18.7 H, INR 1.6 01/02/19 06:47: POC Glucose 162 H Current Medications Acetaminophen (Tylenol) 650 mg PO Q6H PRN PRN PRN Reason: Mild pain 1-3/Temp > 100.7 F Last Admin: 01/01/19 22:54 Dose: 650 mg Documented by: Al Hydroxide/Mg Hydroxide (Mylanta Ii) 30 ml PO Q6H PRN PRN PRN Reason: Gastric Burning Albuterol Sulfate (Ventolin Aerosols) 2.5 mg INHALATION Q2H PRN PRN PRN Reason: SOB/Wheezing Dextrose (D50w Syringe) 0 gm IV X1 PRN; Protocol PRN Reason: Hypoglycemia Enoxaparin Sodium (Lovenox) 30 mg SC DAILY [facility] Last Admin: 01/02/19 09:11 Dose: 30 mg Documented by: Gabapentin (Neurontin) 600 mg PO TID [facility] Last Admin: 01/02/19 06:48 Dose: 600 mg Documented by: Glipizide (Glucotrol) 5 mg PO TIDAC [facility] Last Admin: 01/02/19 06:48 Dose: 5 mg Documented by: Glucagon () 1 mg IM .X1 PRN PRN Reason: Hypoglycemia Hydralazine HCl (Apresoline Iv) 10 mg IV Q4H PRN PRN PRN Reason: SBP > 160 Sodium Chloride () 1,000 mls @ 15 mls/hr IV .Q48H [facility] Last Infusion: 01/02/19 04:25 Dose: 15 mls/hr Documented by: Insulin Human Lispro (Humalog Kwikpen (Bkc)) 0 unit SC ACHS [facility]; Protocol Last Admin: 01/02/19 06:48 Dose: 2 u Documented by: Magnesium Hydroxide (Milk Of Magnesia) 30 ml PO DAILY [facility] Last Admin: 01/02/19 09:12 Dose: Not Given Documented by: Melatonin (Melatonin) 3 mg PO QHS PRN PRN PRN Reason: INSOMNIA Morphine Sulfate () 2 mg IV Q3H PRN PRN PRN Reason: Severe Pain (7-10/10) Last Admin: 01/01/19 21:38 Dose: 2 mg Documented by: Oxycodone HCl (Oxyir) 5 mg PO Q4H PRN PRN PRN Reason: Moderate Pain (4-6/10) Last Admin: 12/30/18 06:41 Dose: 5 mg Documented by: Polyethylene Glycol (Miralax) 17 gm PO DAILY PRN PRN Reason: Constipation Pravastatin Sodium (Pravachol) 40 mg PO DINNER [facility] Last Admin: 01/01/19 16:06 Dose: 40 mg Documented by: Prochlorperazine Edisylate (Compazine Iv) 5 mg IV Q4H PRN PRN PRN Reason: Breakthrough Nausea/Vomiting Last Admin: 01/01/19 21:51 Dose: 5 mg Documented by: Sodium Chloride () 10 - 40 ml IV UD PRN PRN Reason: SALINE FLUSH Last Admin: 01/01/19 21:38 Dose: 10 ml Documented by: Venlafaxine HCl (Effexor) 25 mg PO BID [facility] Last Admin: 01/02/19 09:11 Dose: 25 mg Documented by: Medical Necessity - Tobacco Use Smoking Status: Never smoker Assessment/Plan 1. Gross hematuria with supratherapeutic INR and acute on chronic normocytic anemia/history of recurrent DVTs and PEs/ABILIO and dehydration -On admission her INR was 8.5, currently down to 1.6, will start her on Lovenox -We will check on co-pay for Xarelto -Consult to prabhakar Ramos pending -Her creatinine has been steadily increasing for the last several days, will discontinue her lisinopril and increase her IV fluids 2. DM 2 -We will continue her glimepiride and her sliding scale insulin -Accu-Cheks AC at bedtime 3. Right humeral fracture -She had a recent fall and was seen by an orthopedic surgeon at [facility] -Continue with her brace and pain medication 4. Depression -Continue with Effexor 25 mg p.o. twice daily DVT: Lovenox Code Visit Inpatient E&M: 41457 Subs Hosp L2
[2019-01-02 11:50] LABS: Bedside Glucose 182 mg/dL (70-110)
[2019-01-02 16:21] LABS: Bedside Glucose 136 mg/dL (70-110)
[2019-01-02] MEDS: Pravastatin 40 MG Tablet PO (16:41)
--- NOTE | 2019-01-02 17:56 | PCM.CONS.U ---
Reason for Consult Date of Consultation: 01/02/19 Reason for Consultation: Gross hematuria History of Present Illness: The patient is a 78 year old female admitted to the hospital with a supratherapeutic INR up to 8. She also reported falling at home. She was admitted for gross hematuria catheter has been placed on continuous bladder irrigation. At this point the urine is crystal clear with no bleeding whatsoever. I think the catheter irrigation can be stopped and the catheter can be removed. I reviewed her CAT scan she does have a horseshoe kidney but no obvious stones tumors or masses in the kidney ureter or bladder. Ultrasound of kidney and bladder is about the same. 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) Diabetes (Chronic) Allergies empagliflozin [From Jardiance] Allergy (Verified 12/28/18 17:33) Itching/RASH metformin Allergy (Verified 12/28/18 17:33) decreased appetite atorvastatin [From Lipitor] Adverse Reaction (Verified 12/28/18 17:33) frequent urination Home Medications: Ambulatory Orders Medication Instructions Recorded Gabapentin [Neurontin] 600 mg PO TID 03/20/14 glipiZIDE [Glucotrol] 5 mg PO TID 12/31/16 Ibuprofen [Motrin] 800 mg PO TID PRN PRN #20 tab 10/05/17 Lisinopril [Zestril] 5 mg PO DINNER 10/05/17 Pravastatin Sodium 40 mg PO DINNER 10/05/17 Oxycodone HCl/Acetaminophen 1 tab PO Q6H PRN PRN 10/31/18 [Percocet 10-325 mg Tablet] Ranitidine [Zantac] 150 mg PO DINNER 12/28/18 Warfarin [Coumadin (PBKC)] 5 mg PO DAILY 12/28/18 Lives: Spouse/ Significant Other Smoking Status: Never smoker Tobacco Use: Non-smoker Alcohol: None Drugs: None - *Family History Maternal History Items: No pertinent history Review of Systems Constitutional: Denies: Chills, Fever, Weight Change HEENT: Denies: Head Aches, Sinus Congestion, Sinus Drainage Cardiovascular: Denies: Chest Pain, Palpitations Respiratory: Denies: Cough, Shortness of breath at rest, Sputum production Gastrointestinal: Denies: Abdominal Pain, Nausea, Vomiting Genitourinary: Reports: Hematuria Musculoskeletal: Denies: Joint Pain, Joint Tenderness Skin: Denies: Rash, Wounds Physical Exam - Physical Exam Vital Signs Temp 98.2 F 01/02/19 14:00 Pulse 84 01/02/19 16:00 Resp 16 01/02/19 14:00 BP 140/64 H 01/02/19 14:00 Pulse Ox 97 01/02/19 14:00 Intake & Output 12/31/18 01/01/19 01/02/19 23:59 23:59 23:59 Intake Total 2451.67 / 2451.67 3828.33 / 3828.33 1325.0 / 1325.0 Output Total 2775 / 2775 870 / 870 750 / 750 Balance -323.33 / -323.33 2958.33 / 2958.33 575.0 / 575.0 Weight: 100.1 kg Intake: Oral 1200 / 1200 960 / 960 650 / 650 Intake, IV Amount 1251.67 / 1251.67 2868.33 / 2868.33 675.0 / 675.0 0.9% Normal Saline 1,000 ML @ 751.67 / 751.67 2868.33 / 2868.33 675.0 / 675.0 15 mls/hr IV .Q48H [facility] Rx#: [id number] 0.9% Normal Saline 500 ML @ 999 500 / 500 mls/hr IV .Q31M [facility] Rx#: [id number] Output: Urine 2775 / 2775 850 / 850 550 / 550 #2 Urine 200 / 200 Emesis 20 / 20 Other: Intake, Continuous Bladder 3,000 3,000 3,000 Irrigation Number of Voids 3 Number of Bowel Movements 1 Output, Continuous Bladder 3,250 3,300 2,800 Irrigation General: Alert HEENT: Atraumatic Oral: Moist Mucosa Neck: Supple Lungs: Normal air movement Cardiovascular: Regular rate, Regular Rhythm Abdomen: Soft, Obese Rectal: Exam deferred Laboratory Tests Past 24 Hrs 12/29/18 01/02/19 01/02/19 15:45 05:05 05:05 WBC 9.5 RBC 2.72 L Hgb 7.9 L Hct 25.0 L MCV 91.9 MCH 29.0 MCHC 31.6 L RDW Std Deviation 40.3 RDW Coeff of Mayank 11.9 Plt Count 212 MPV 9.9 Immature Gran % (Auto) 0.400 Neut % (Auto) 77.8 H Lymph % (Auto) 13.1 L [place] % (Auto) 7.7 Eos % (Auto) 0.7 Baso % (Auto) 0.3 Absolute Neuts (auto) 7.4 Absolute Lymphs (auto) 1.25 Nucleated RBC % 0 PT INR Sodium 141 Potassium 4.3 Chloride 112 H Carbon Dioxide 24.0 Anion Gap 5 BUN 28 H Creatinine 1.53 H Estim Creat Clear Calc 25.88 Est GFR (MDRD) Af Amer 42 L Est GFR (MDRD) Non-Af 35 L BUN/Creatinine Ratio 18.3 Glucose 166 H Calcium 8.9 Miscellaneous Cytology SEE PATHOLOGY REPORT 01/02/19 05:05 WBC RBC Hgb Hct MCV MCH MCHC RDW Std Deviation RDW Coeff of Mayank Plt Count MPV Immature Gran % (Auto) Neut % (Auto) Lymph % (Auto) [place] % (Auto) Eos % (Auto) Baso % (Auto) Absolute Neuts (auto) Absolute Lymphs (auto) Nucleated RBC % PT 18.7 H INR 1.6 Sodium Potassium Chloride Carbon Dioxide Anion Gap BUN Creatinine Estim Creat Clear Calc Est GFR (MDRD) Af Amer Est GFR (MDRD) Non-Af BUN/Creatinine Ratio Glucose Calcium Miscellaneous Cytology Assessment/Plan 78-year-old female who was admitted for gross hematuria. At this point the bleeding is stopped. Her INR is back down to normal. I think we can stop continuous bladder irrigation and have a catheter removed all speak to the nurse tonight about removing the catheter to see if the patient can void normally. Spoke to the patient letter know that there is no obvious findings on CAT scan or ultrasound for the cause of the bleeding certainly is possible that a small bleeder/bladder tumor can be missed on CAT scan so I recommend outpatient follow-up for cystoscopy. On discharge from the hospital she can contact urology for an outpatient cystoscopy call me with questions
[2019-01-02 22:15] LABS: Bedside Glucose 167 mg/dL (70-110)
[2019-01-03] VITALS (14 sets, daily range): BP systolic 141–167; BP diastolic 60–79; PULSE 70–94; RESP 18–20; TEMP 36.4–36.9; O2SAT 93–97
[2019-01-03] MEDS: proCHLORPERazine 10 MG/2 ML Vial 5 MG IV ×2 (01:39→11:26)
[2019-01-03] MEDS: 0.9% NaCl Peripheral Flush Adult/Peds IV ×2 (01:39→07:05)
[2019-01-03] MEDS: Gabapentin 600 MG Tablet PO ×3 (07:04→22:26)
[2019-01-03] MEDS: glipiZIDE 5 MG Tablet PO ×2 (07:04→17:34)
[2019-01-03] MEDS: hydrALAZINE 20 MG/ML Vial 10 MG IV ×2 (07:05→11:26)
[2019-01-03 07:16] LABS: Bedside Glucose 129 mg/dL (70-110)
[2019-01-03 07:55] LABS: Absolute Lymphocyte Count 1.38 X10^3/uL (0.83-4.51); Absolute Neutrophil Count 5.2 X10^3/uL (2.0-7.7); Basophil# 0.04 X10^3/uL; Basophil% 0.5 % (0-1); Eosinophil# 0.25 X10^3/uL; Eosinophils% 3.4 % (0-5); Hematocrit 27.7 % (37-47); Lymphocyte # 1.38 X10^3/ul (4.0); Lymphocyte % 18.7 % (19-41); Mean Corp Hgb Conc 32.5 g/dL (32-36); Mean Corpuscular Hgb 29.2 pg (27.0-32.0); Mean Corpuscular Volume 89.9 fL (81-99); Mean Platelet Vol. 9.3 fl (6.2-12.0); Monocyte# 0.47 X10^3/uL; Monocyte% 6.4 % (0-10); NRBC Flagged by Analyzer 0 % (0-5); Neutrophil # 5.19 X10^3/uL (2.7-7.7); Neutrophil % 70.2 % (47-70); Platelet Count 269 K/mm3 (150-450); RBC Distribution Width CV 11.9 % (11.6-14.6); RBC Distribution Width SD 39.2 fl (35.1-43.9); Red Blood Count 3.08 M/mm3 (4.2-5.4); White Blood Count 7.4 K/mm3 (4.4-11.0)
[2019-01-03 08:21] LABS: International Normalized Ratio 1.4; Prothrombin Time (Protime)PT. 16.8 SECONDS (11.7-14.9)
[2019-01-03 08:39] LABS: Anion Gap 10 (5-15); BUN 22 mg/dL (7-18); BUN/Creat Ratio 19.1 RATIO (10-20); Calcium,Total 9.3 mg/dL (8.5-10.1); Chloride 111 mmol/L (98-107); Creatinine, Serum 1.15 mg/dL (0.55-1.02); EST Glomerular Filtration Rate 49 mL/min (>60); Est Glom Filt Rate - Afr Amer 59 mL/min (>60); Estimated Creatinine Clearance 34.43 ml/min; Glucose 139 mg/dL (74-106); Potassium 3.7 mmol/L (3.5-5.1); Sodium Level 144 mmol/L (136-145)
[2019-01-03] MEDS: Enoxaparin 30 MG/0.3 ML Syringe SC (10:02)
[2019-01-03] MEDS: Venlafaxine HCl 25 MG Tablet PO ×2 (10:02→22:26)
[2019-01-03 11:26] LABS: Bedside Glucose 113 mg/dL (70-110)
--- NOTE | 2019-01-03 13:29 | CASEMGMT ---
Per physician patient is medically ready for discharge today, but patient is telling him she does not feel like she can go home. SW met with patient and gave her a list of facilities that are in network with her insurance. She was going to talk with her daughter. SW checked back with patient and she and her daughter would like [facility]. SW called [facility] post acute referral line and left a message with referral. Await response. Plan: [facility] pending their acceptance and insurance approval. Micki JAMA MSW
--- NOTE | 2019-01-03 13:48 | PN_ITS ---
Subjective: Sitting up in the chair, is more interactive and talkative. She did have an episode of diarrhea last night and therefore C. difficile was ordered which was negative. Vitals/I&O's: Vital Signs Temp Pulse Resp BP Pulse Ox 98.3 F 86 18 162/75 H 95 01/03/19 13:15 01/03/19 13:15 01/03/19 13:15 01/03/19 13:15 01/03/19 13:15 Oxygen Delivery Method Room Air Weight: 220 lb 10.923 oz Body Mass Index (BMI) 39.1 Finger Stick Blood Glucose 236 Intake and Output for Last 24 Hours 01/01/19 01/02/19 01/03/19 23:59 23:59 23:59 Intake Total 3828.33 / 3828.33 1725.0 / 1725.0 600 / 600 Output Total 870 / 870 1700 / 1700 1200 / 1200 Balance 2958.33 / 2958.33 25.0 / 25.0 -600 / -600 General: Alert, Oriented x3, Cooperative, No apparent distress HEENT: Atraumatic, PERRLA, EOMI, Normocephalic Oral: Dry Mucosa Neck: Supple, No JVD Lungs: Clear to auscultation, Normal air movement, No rhonchi, No wheeze, No rales Cardiovascular: Regular rate, Regular Rhythm, Normal S1, Normal S2, No murmurs Abdomen: Soft, Non Tender, Non-Distended, No Hepato-splenomegaly Extremities: No edema, Capillary Refill Less than 3 Seconds Skin: No rashes, No breakdown Neurological: Neuro grossly intact, Sensory exam intact to light touch and pain Psych/Mental Status: Appropriate, normal affect Microbiology Past 72 Hours 01/03/19 06:55 Stool C. difficile DNA Amplification - Final Laboratory Results 12/29/18 15:45: Miscellaneous Cytology SEE PATHOLOGY REPORT 01/02/19 16:13: POC Glucose 136 H 01/02/19 22:10: POC Glucose 167 H 01/03/19 07:03: POC Glucose 129 H 01/03/19 07:43: WBC 7.4, RBC 3.08 L, Hgb 9.0 L, Hct 27.7 L, MCV 89.9, MCH 29.2, MCHC 32.5, RDW Std Deviation 39.2, RDW Coeff of Mayank 11.9, Plt Count 269, MPV 9.3, Immature Gran % (Auto) 0.800, Neut % (Auto) 70.2 H, Lymph % (Auto) 18.7 L, [place] % (Auto) 6.4, Eos % (Auto) 3.4, Baso % (Auto) 0.5, Absolute Neuts (auto) 5.2, Absolute Lymphs (auto) 1.38, Nucleated RBC % 0 01/03/19 07:43: PT 16.8 H, INR 1.4 01/03/19 07:43: Sodium 144, Potassium 3.7, Chloride 111 H, Carbon Dioxide 23.0, Anion Gap 10, BUN 22 H, Creatinine 1.15 H, Estim Creat Clear Calc 34.43, Est GFR (MDRD) Af Amer 59 L, Est GFR (MDRD) Non-Af 49 L, BUN/Creatinine Ratio 19.1, Glucose 139 H, Calcium 9.3 01/03/19 11:18: POC Glucose 113 H Current Medications Acetaminophen (Tylenol) 650 mg PO Q6H PRN PRN PRN Reason: Mild pain 1-3/Temp > 100.7 F Last Admin: 01/01/19 22:54 Dose: 650 mg Documented by: Al Hydroxide/Mg Hydroxide (Mylanta Ii) 30 ml PO Q6H PRN PRN PRN Reason: Gastric Burning Albuterol Sulfate (Ventolin Aerosols) 2.5 mg INHALATION Q2H PRN PRN PRN Reason: SOB/Wheezing Dextrose (D50w Syringe) 0 gm IV X1 PRN; Protocol PRN Reason: Hypoglycemia Enoxaparin Sodium (Lovenox) 30 mg SC DAILY [facility] Last Admin: 01/03/19 10:02 Dose: 30 mg Documented by: Gabapentin (Neurontin) 600 mg PO TID [facility] Last Admin: 01/03/19 13:20 Dose: 600 mg Documented by: Glipizide (Glucotrol) 5 mg PO TIDAC [facility] Last Admin: 01/03/19 11:20 Dose: Not Given Documented by: Glucagon () 1 mg IM .X1 PRN PRN Reason: Hypoglycemia Hydralazine HCl (Apresoline Iv) 10 mg IV Q4H PRN PRN PRN Reason: SBP > 160 Last Admin: 10/01/19 11:26 Dose: 10 mg Documented by: Sodium Chloride () 1,000 mls @ 15 mls/hr IV .Q48H [facility] Last Admin: 01/03/19 07:04 Dose: Not Given Documented by: Insulin Human Lispro (Humalog Kwikpen (Bkc)) 0 unit SC ACHS [facility]; Protocol Last Admin: 01/03/19 11:19 Dose: Not Given Documented by: Magnesium Hydroxide (Milk Of Magnesia) 30 ml PO DAILY [facility] Last Admin: 01/03/19 10:03 Dose: Not Given Documented by: Melatonin (Melatonin) 3 mg PO QHS PRN PRN PRN Reason: INSOMNIA Morphine Sulfate () 2 mg IV Q3H PRN PRN PRN Reason: Severe Pain (7-10/10) Last Admin: 01/01/19 21:38 Dose: 2 mg Documented by: Oxycodone HCl (Oxyir) 5 mg PO Q4H PRN PRN PRN Reason: Moderate Pain (4-6/10) Last Admin: 12/30/18 06:41 Dose: 5 mg Documented by: Polyethylene Glycol (Miralax) 17 gm PO DAILY PRN PRN Reason: Constipation Pravastatin Sodium (Pravachol) 40 mg PO DINNER [facility] Last Admin: 01/02/19 16:41 Dose: 40 mg Documented by: Prochlorperazine Edisylate (Compazine Iv) 5 mg IV Q4H PRN PRN PRN Reason: Breakthrough Nausea/Vomiting Last Admin: 01/03/19 11:26 Dose: 5 mg Documented by: Sodium Chloride () 10 - 40 ml IV UD PRN PRN Reason: SALINE FLUSH Last Admin: 01/03/19 07:05 Dose: 10 ml Documented by: Venlafaxine HCl (Effexor) 25 mg PO BID [facility] Last Admin: 01/03/19 10:02 Dose: 25 mg Documented by: Medical Necessity - Tobacco Use Smoking Status: Never smoker Tobacco Use: Non-smoker Assessment/Plan 1. Gross hematuria with supratherapeutic INR and acute on chronic normocytic anemia/history of recurrent DVTs and PEs/ABILIO and dehydration/HTN -On admission her INR was 8.5, currently down to 1.4, will start her on Lovenox -We will check on co-pay for Xarelto -Consult to Dr. Martinez, Cystoscopy as an outpatient, stop CBI and try voiding trial -Her creatinine has been steadily increasing for the last several days, restart her lisinopril 2. DM 2 -We will continue her glimepiride and her sliding scale insulin -Accu-Cheks AC at bedtime 3. Right humeral fracture -She had a recent fall and was seen by an orthopedic surgeon at [facility] -Continue with her brace and pain medication 4. Depression -Continue with Effexor 25 mg p.o. twice daily Dispo: She feels weak today and is unsure that should be able to go home, will obtain a PT/OT evaluation and possible rehab placement DVT: Lovenox Code Visit Inpatient E&M: 15795 Subs Hosp L2
[2019-01-03] MEDS: Loperamide 2 MG Capsule PO (14:47)
[2019-01-03 17:06] LABS: Bedside Glucose 122 mg/dL (70-110)
[2019-01-03] MEDS: Pravastatin 40 MG Tablet PO (17:34)
[2019-01-03] MEDS: Lisinopril 5 MG Tablet PO (17:37)
[2019-01-03 22:35] LABS: Bedside Glucose 130 mg/dL (70-110)
[2019-01-04] VITALS (8 sets, daily range): BP systolic 149–157; BP diastolic 62–84; PULSE 73–90; RESP 18; TEMP 36.6–37.4; O2SAT 95–98
[2019-01-04 06:14] LABS: International Normalized Ratio 1.4; Prothrombin Time (Protime)PT. 16.8 SECONDS (11.7-14.9)
[2019-01-04] MEDS: Gabapentin 600 MG Tablet PO ×3 (06:43→22:06)
[2019-01-04] MEDS: glipiZIDE 5 MG Tablet PO ×3 (06:43→16:16)
[2019-01-04 06:50] LABS: Bedside Glucose 121 mg/dL (70-110)
--- NOTE | 2019-01-04 07:40 | CASEMGMT ---
SW received a voice mail from [facility] in TCU and they are not in network with [facility]. SW will have to talk with patient to see what other facility she would be willing to go to. Micki JAMA MSW
--- NOTE | 2019-01-04 09:29 | PCM.PN.HOSP ---
Subjective: Feels like she has more energy today, but she still has some dry heaves and intermittent diarrhea though it is improved. Her C. difficile test was negative. Vitals/I&O's: Vital Signs Temp Pulse Resp BP Pulse Ox 99.2 F H 79 18 149/65 H 96 01/04/19 03:34 01/04/19 07:43 01/04/19 03:34 01/04/19 03:34 01/04/19 03:34 Oxygen Delivery Method Room Air Weight: 220 lb 10.923 oz Body Mass Index (BMI) 39.1 Finger Stick Blood Glucose 236 Intake and Output for Last 24 Hours 01/02/19 01/03/19 01/04/19 23:59 23:59 23:59 Intake Total 1725.0 / 1725.0 1640.75 / 1640.75 240 / 240 Output Total 1700 / 1700 2100 / 2100 600 / 600 Balance 25.0 / 25.0 -459.25 / -459.25 -360 / -360 General: Alert, Oriented x3, Cooperative, No apparent distress HEENT: Atraumatic, PERRLA, EOMI, Normocephalic Oral: Dry Mucosa Neck: Supple, No JVD Lungs: Clear to auscultation, Normal air movement, No rhonchi, No wheeze, No rales Cardiovascular: Regular rate, Regular Rhythm, Normal S1, Normal S2, No murmurs Abdomen: Soft, Non Tender, Non-Distended, No Hepato-splenomegaly Extremities: No edema, Capillary Refill Less than 3 Seconds Skin: No rashes, No breakdown Neurological: Neuro grossly intact, Sensory exam intact to light touch and pain Psych/Mental Status: Appropriate, normal affect Microbiology Past 72 Hours 01/03/19 06:55 Stool C. difficile DNA Amplification - Final Laboratory Results 01/03/19 11:18: POC Glucose 113 H 01/03/19 16:57: POC Glucose 122 H 01/03/19 22:22: POC Glucose 130 H 01/04/19 05:10: PT 16.8 H, INR 1.4 01/04/19 06:41: POC Glucose 121 H Current Medications Acetaminophen (Tylenol) 650 mg PO Q6H PRN PRN PRN Reason: Mild pain 1-3/Temp > 100.7 F Last Admin: 01/01/19 22:54 Dose: 650 mg Documented by: Al Hydroxide/Mg Hydroxide (Mylanta Ii) 30 ml PO Q6H PRN PRN PRN Reason: Gastric Burning Albuterol Sulfate (Ventolin Aerosols) 2.5 mg INHALATION Q2H PRN PRN PRN Reason: SOB/Wheezing Dextrose (D50w Syringe) 0 gm IV X1 PRN; Protocol PRN Reason: Hypoglycemia Enoxaparin Sodium (Lovenox) 30 mg SC DAILY [facility] Last Admin: 01/03/19 10:02 Dose: 30 mg Documented by: Gabapentin (Neurontin) 600 mg PO TID [facility] Last Admin: 01/04/19 06:43 Dose: 600 mg Documented by: Glipizide (Glucotrol) 5 mg PO TIDAC [facility] Last Admin: 01/04/19 06:43 Dose: 5 mg Documented by: Glucagon () 1 mg IM .X1 PRN PRN Reason: Hypoglycemia Hydralazine HCl (Apresoline Iv) 10 mg IV Q4H PRN PRN PRN Reason: SBP > 160 Last Admin: 01/03/19 11:26 Dose: 10 mg Documented by: Insulin Human Lispro (Humalog Kwikpen (Bkc)) 0 unit SC [facility]; Protocol Last Admin: 01/04/19 07:45 Dose: Not Given Documented by: Lisinopril (Zestril) 5 mg PO DINNER [facility] Last Admin: 01/03/19 17:37 Dose: 5 mg Documented by: Magnesium Hydroxide (Milk Of Magnesia) 30 ml PO DAILY [facility] Last Admin: 01/04/19 09:02 Dose: Not Given Documented by: Melatonin (Melatonin) 3 mg PO QHS PRN PRN PRN Reason: INSOMNIA Morphine Sulfate () 2 mg IV Q3H PRN PRN PRN Reason: Severe Pain (7-10/10) Last Admin: 01/01/19 21:38 Dose: 2 mg Documented by: Oxycodone HCl (Oxyir) 5 mg PO Q4H PRN PRN PRN Reason: Moderate Pain (4-6/10) Last Admin: 12/30/18 06:41 Dose: 5 mg Documented by: Polyethylene Glycol (Miralax) 17 gm PO DAILY PRN PRN Reason: Constipation Pravastatin Sodium (Pravachol) 40 mg PO DINNER [facility] Last Admin: 01/03/19 17:34 Dose: 40 mg Documented by: Prochlorperazine Edisylate (Compazine Iv) 5 mg IV Q4H PRN PRN PRN Reason: Breakthrough Nausea/Vomiting Last Admin: 01/03/19 11:26 Dose: 5 mg Documented by: Sodium Chloride () 10 - 40 ml IV UD PRN PRN Reason: SALINE FLUSH Last Admin: 01/03/19 07:05 Dose: 10 ml Documented by: Venlafaxine HCl (Effexor) 25 mg PO BID [facility] Last Admin: 01/03/19 22:26 Dose: 25 mg Documented by: Medical Necessity - Tobacco Use Smoking Status: Never smoker Tobacco Use: Non-smoker Assessment/Plan 1. Gross hematuria with supratherapeutic INR and acute on chronic normocytic anemia/history of recurrent DVTs and PEs/ABILIO and dehydration/HTN -On admission her INR was 8.5, currently down to 1.4, will continue her on Lovenox -We will check on co-pay for Xarelto -Consult to Dr. Martinez, Cystoscopy as an outpatient, stop CBI and try voiding trial -Her creatinine has been increasing and peaked at 1.98, she was increased on her IV fluids and her lisinopril had been held. She was 1.15 as of yesterday and her lisinopril has been restarted blood pressure. -Her hematuria has resolved and her anemia has improved with a hemoglobin of 9 yesterday, will plan to discharge to a custodial facility for rehab prior to discharge home. 2. DM 2 -We will continue her glimepiride and her sliding scale insulin -Accu-Cheks AC at bedtime 3. Right humeral fracture -She had a recent fall and was seen by an orthopedic surgeon at [facility] -Continue with her brace and pain medication 4. Depression -Continue with Effexor 25 mg p.o. twice daily DVT: Lovenox Code Visit Inpatient E&M: 78141 [facility] Hosp L2
[2019-01-04] MEDS: Venlafaxine HCl 25 MG Tablet PO (09:58)
[2019-01-04] MEDS: Enoxaparin 30 MG/0.3 ML Syringe SC (09:58)
--- NOTE | 2019-01-04 10:29 | CASEMGMT ---
SW spoke with patient letting her know that TCU is out of network. She said she would like [facility] [place]. SW called and left a message with referral and also faxed referral. SW will check back to make sure the referral was received and they can take patient. LANEY called Zaira at [facility] and they can take patient and she started the pre-cert. Plan: [facility] pending pre-cert. Micki JAMA MSW
[2019-01-04 11:36] LABS: Bedside Glucose 149 mg/dL (70-110)
--- NOTE | 2019-01-04 15:41 | CASEMGMT ---
LANEY spoke with patient and her daughter and let them know that [facility] can accept her, but we have to wait on insurance to approve her to go before we can send her. LANEY apologized for not letting them know sooner. Plan: d/c to [facility] pending insurance approval Micki JAMA MSW
--- NOTE | 2019-01-04 15:45 | NURSING ---
Pt asking what med she got placed on for depression. This nurse educated pt that she was started on Effexor, pt states she does not want to take this med. She states this medication makes her feel worse, and she does not believe she is depressed. MD notified and stated med could be d/c if patient was not willing to take
[2019-01-04] MEDS: Pravastatin 40 MG Tablet PO (16:16)
[2019-01-04] MEDS: Lisinopril 5 MG Tablet PO (16:16)
[2019-01-04 16:31] LABS: Bedside Glucose 142 mg/dL (70-110)
[2019-01-04 23:00] LABS: Bedside Glucose 124 mg/dL (70-110)
[2019-01-05 02:00] VITALS: BP 144/87; PULSE 82; RESP 18; TEMP 36.8; O2SAT 95
[2019-01-05 03:03] VITALS: PULSE 73
[2019-01-05 03:40] VITALS: BP 164/79; PULSE 80; RESP 18; TEMP 36.9; O2SAT 93
[2019-01-05 05:17] LABS: Absolute Lymphocyte Count 1.41 X10^3/uL (0.83-4.51); Absolute Neutrophil Count 4.9 X10^3/uL (2.0-7.7); Basophil# 0.03 X10^3/uL; Basophil% 0.4 % (0-1); Eosinophil# 0.22 X10^3/uL; Eosinophils% 3.1 % (0-5); Hemoglobin 8.3 g/dL (12.0-15.0); Lymphocyte # 1.41 X10^3/ul (4.0); Lymphocyte % 19.8 % (19-41); Mean Corp Hgb Conc 31.9 g/dL (32-36); Mean Corpuscular Hgb 29.1 pg (27.0-32.0); Mean Corpuscular Volume 91.2 fL (81-99); Monocyte# 0.52 X10^3/uL; Monocyte% 7.3 % (0-10); NRBC Flagged by Analyzer 0 % (0-5); Neutrophil # 4.91 X10^3/uL (2.7-7.7); Neutrophil % 68.8 % (47-70); Platelet Count 300 K/mm3 (150-450); RBC Distribution Width CV 12.2 % (11.6-14.6); RBC Distribution Width SD 40.5 fl (35.1-43.9); Red Blood Count 2.85 M/mm3 (4.2-5.4); White Blood Count 7.1 K/mm3 (4.4-11.0)
[2019-01-05 05:41] LABS: Anion Gap 8 (5-15); BUN 16 mg/dL (7-18); BUN/Creat Ratio 15.2 RATIO (10-20); Calcium,Total 9.2 mg/dL (8.5-10.1); Chloride 113 mmol/L (98-107); Creatinine, Serum 1.05 mg/dL (0.55-1.02); EST Glomerular Filtration Rate 54 mL/min (>60); Est Glom Filt Rate - Afr Amer 66 mL/min (>60); Estimated Creatinine Clearance 37.71 ml/min; Glucose 126 mg/dL (74-106); Potassium 3.3 mmol/L (3.5-5.1); Sodium Level 145 mmol/L (136-145)
[2019-01-05 06:11] LABS: International Normalized Ratio 1.3; Prothrombin Time (Protime)PT. 15.6 SECONDS (11.7-14.9)
[2019-01-05] MEDS: glipiZIDE 5 MG Tablet PO ×2 (06:35→11:18)
[2019-01-05] MEDS: Gabapentin 600 MG Tablet PO ×2 (06:35→14:43)
[2019-01-05 06:45] LABS: Bedside Glucose 132 mg/dL (70-110)
[2019-01-05 07:00] VITALS: PULSE 77
[2019-01-05 09:28] VITALS: BP 135/87; PULSE 75; RESP 16; TEMP 36.9; O2SAT 95
[2019-01-05] MEDS: Loperamide 2 MG Capsule PO (09:31)
[2019-01-05] MEDS: Enoxaparin 30 MG/0.3 ML Syringe SC (09:32)
--- NOTE | 2019-01-05 10:02 | CASEMGMT ---
Received call from Zaira rosado [place] and patient was denied for correction. SW let patient know this information. She was not happy and asked why. SW told her they feel she does not meet criteria for correction level of care. They feel that home with home health would be more appropriate for her at this time. She said the only way she can go home is if she has a walker and a lift chair. LANEY told her we can get her a walker, but SW cannot guarantee a lift chair is covered by insurance. LANEY told her we can check into this. SW called [facility] and they said the mechanism may be covered but the lift chair would not be covered. LANEY called [facility] and they too said it would not be covered by Medicaid. However, if patient was on [employer] she could possibly qualify for a lift chair. SW will talk to patient about this again. Micki JAMA MSW
[2019-01-05 11:41] LABS: Bedside Glucose 114 mg/dL (70-110)
--- NOTE | 2019-01-05 14:54 | CASEMGMT ---
LANEY let RN JUAN know the information about the lift chair. She is working with patient now on setting up equipment. Micki JAMA MSW
[2019-01-05 15:00] VITALS: BP 164/80; PULSE 81; PULSE 84; RESP 16; TEMP 36.9; O2SAT 96
--- NOTE | 2019-01-05 15:00 | DCINST_ITS ---
You will use the following diet at home:: Calorie/Carbohydrate Controlled (specify 1200, 1400, etc) - 1600 Your food should be the consistency of: Regular Your liquids should be the consistency of: Regular/Thin Discharge Activity: Return to Normal Activity Call your doctor if you observe: Fever of 101 or Higher, Shortness of breath, Dizziness, Fainting spells, Swelling in the ankles, Chest pain, Increased palpitations (irregular heartbeat) Additional Instructions: Obtain a CBC on Wednesday01/09/2019 Allergies/Adverse Reactions: Allergies empagliflozin [From Jardiance] Allergy (Verified 12/28/18 17:33) Itching/RASH metformin Allergy (Verified 12/28/18 17:33) decreased appetite atorvastatin [From Lipitor] Adverse Reaction (Verified 12/28/18 17:33) frequent urination Medications to take at Discharge Gabapentin [Neurontin] 600 mg PO TID 03/20/14 glipiZIDE [Glucotrol] 5 mg PO TID 12/31/16 Ibuprofen [Motrin] 800 mg PO TID PRN PRN #20 tab 10/05/17 Lisinopril [Zestril] 5 mg PO DINNER 10/05/17 Pravastatin Sodium 40 mg PO DINNER 10/05/17 Oxycodone HCl/Acetaminophen [Percocet 10-325 mg Tablet] 1 tab PO Q6H PRN PRN 10/31/18 Ranitidine [Zantac] 150 mg PO DINNER 12/28/18 Primary Care Physician: Vel Graham MD [Primary Care Provider] - Please follow up with your Primary Care Physician in: 3-5 days Test Results: Test results from this visit will be discussed in further detail at your follow- up appointment, if applicable.
--- NOTE | 2019-01-05 15:36 | DS.PCM_ITS ---
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 No CT sign of acute abdominal or pelvic injury. Gas lucency in the subcutaneous tissues of the left lower abdominal wall is thought to be an injection site. 2. Horseshoe kidney anomaly again noted. There is atrophy in the upper pole right kidney, the site of infarction on previous exam. Minor left perinephric and left posterior parietal stranding, but no hydronephrosis. 3. Atherosclerotic vascular calcifications again noted. No demonstrated aortic aneurysm. 4. Stable mild elevation of the right diaphragm. Minor subsegmental atelectasis seen in the bilateral lung bases. 5. Stable small, fat-containing umbilical hernia, as well as stable, shallow attempted fat-containing direct left inguinal hernia. XR Left Hip/Pelvis: IMPRESSION: Normal x-ray examination of the left hip. Incidental note of degenerative changes in the lumbar spine and pubic symphysis. Renal US: IMPRESSION: Bilateral renal cysts. A horseshoe kidney demonstrated on recent CT study is not appreciated on this ultrasonographic study. Consults: Urology Operations: None Procedures: None Summary of Care Provided: Per HPI: The patient is a 78 year old F with history of DVT/PE on Coumadin, could not afford Xarelto came to ED with hematuria for 2 days along with high INR. Patient has been feeling very weak, with no energy, off balance and fell twice in the last 2 weeks. She also complained of pain on the lumbar paraspinal region left more than right and left upper quadrant and right upper quadrant pain. She fell on her buttock there is small bruise over right lateral hip region. She denies hitting her head, denies ENT bleed, nausea or vomiting. No LOC. No scalp or neck bruise. She also noticed hematuria for last 2 days. Denies GI bleed. No dizziness or headache. In ED, INR was found 8.5. Mild anemic with H&H 10.6/34.5. Platelet count 189,000. Her baseline H&H runs around 12.3/38.8, last one in September 2017. EKG normal sinus rhythm with QTC 416 ms. Last EKG in September 2017 normal sinus rhythm with no significant change from previous EKG. Her right shoulder is in hard plastic splint because of recent fracture of proximal one third right humerus shaft October 2018 Hospital Course: 1. Gross hematuria with supratherapeutic INR and acute on chronic normocytic anemia/history DVT and PE/ABILIO dehydration/[id number]-fsac-old female presented to the hospital with a supratherapeutic INR of 8.5 as well as hematuria. She initially had a Eduardo placed for continuous bladder irrigation and her Coumadin was held. Initially she has able to afford her Xarelto however the co-pay for her monthly payments went up to $120 a month. She states that she has had one episode of blood clots a year ago. She states prior to that she had been on Eliquis for period of time for a renal vein thrombosis after a trauma, but she did not tolerate the Eliquis very well. She states that she is never had any DVTs or PEs prior to the event last year. Her hemoglobin was monitored and it dropped to 7.9, she never required a transfusion and she is now 8.3. As her INR corrected to 1.4, she was started on Lovenox for DVT prophylaxis, she stopped having hematuria and was able to void on her own after the Eduardo was removed 2 days prior to discharge. I did discuss with her the risks of going home on Coumadin, being that she could continue to bleed from her bladder and need to come back in the hospital for significant anemia. The risk of going home without anticoagulation is having a recurrent DVT and PE, however the general guidelines for a first-time DVT or PE is 3 to 6 months of anticoagulation. She is going to follow-up with Dr. Martinez in the outpatient setting for possible cystoscopy to see where the source of bleeding is from. We did check the cost of Xarelto, and will be $8.50 a month for her prescription. If it is determined that she is to go back on a blood thinner she would prefer to go back onto Xarelto especially since it is now much more affordable. I discussed the risks and benefits of either going home on a blood thinner going home on no blood thinner with both the patient and her daughter, I discussed with them the signs and symptoms of a DVT and/or a PE as well as signs and symptoms of bleeding. They understand that if she demonstrates any of this that she is to return to the ER. She will need to have a CBC obtained by her PCP on Wednesday to monitor her hemoglobin. 2. Her other medical diagnoses were evaluated and her home medications were continued where appropriate Objective: General: Alert, Oriented x3, Cooperative, No apparent distress HEENT: Atraumatic, PERRLA, EOMI, Normocephalic Oral: Dry Mucosa Neck: Supple, No JVD Lungs: Clear to auscultation, Normal air movement, No rhonchi, No wheeze, No rales Cardiovascular: Regular rate, Regular Rhythm, Normal S1, Normal S2, No murmurs Abdomen: Soft, Non Tender, Non-Distended, No Hepato-splenomegaly Extremities: No edema, Capillary Refill Less than 3 Seconds Skin: No rashes, No breakdown Neurological: Neuro grossly intact, Sensory exam intact to light touch and pain Psych/Mental Status: Appropriate, normal affect - Physical Exam Vital Signs Temp Pulse Resp BP Pulse Ox 98.4 F 81 16 164/80 H 96 01/05/19 15:00 01/05/19 15:00 01/05/19 15:00 01/05/19 15:00 01/05/19 15:00 Oxygen Delivery Method Room Air Weight: 220 lb 10.923 oz Body Mass Index (BMI) 39.1 Finger Stick Blood Glucose 236 Intake and Output for Last 24 Hours 01/03/19 01/04/19 01/05/19 23:59 23:59 23:59 Intake Total 1640.75 / 1640.75 480 / 480 200 / 200 Output Total 2100 / 2100 1000 / 1000 900 / 900 Balance -459.25 / -459.25 -520 / -520 -700 / -700 Microbiology Past 72 Hours 01/03/19 06:55 C. difficile DNA Amplification - Final Stool Laboratory Tests Past 24 Hrs 01/05/19 01/05/19 01/05/19 05:05 05:05 05:05 WBC 7.1 RBC 2.85 L Hgb 8.3 L Hct 26.0 L MCV 91.2 MCH 29.1 MCHC 31.9 L RDW Std Deviation 40.5 RDW Coeff of Mayank 12.2 Plt Count 300 MPV 9.0 Immature Gran % (Auto) 0.600 Neut % (Auto) 68.8 Lymph % (Auto) 19.8 [place] % (Auto) 7.3 Eos % (Auto) 3.1 Baso % (Auto) 0.4 Absolute Neuts (auto) 4.9 Absolute Lymphs (auto) 1.41 Nucleated RBC % 0 PT 15.6 H INR 1.3 Sodium 145 Potassium 3.3 L Chloride 113 H Carbon Dioxide 24.0 Anion Gap 8 BUN 16 Creatinine 1.05 H Estim Creat Clear Calc 37.71 Est GFR (MDRD) Af Amer 66 Est GFR (MDRD) Non-Af 54 L BUN/Creatinine Ratio 15.2 Glucose 126 H Calcium 9.2 POC Glucose 01/05/19 01/05/19 01/04/19 11:16 06:33 22:02 POC Glucose 114 H 132 H 124 H 01/04/19 16:15 POC Glucose 142 H Discharge Activity: Return to Normal Activity Call your doctor if you observe: Fever of 101 or Higher, Shortness of breath, Dizziness, Fainting spells, Swelling in the ankles, Chest pain, Increased palpitations (irregular heartbeat) Home Medications: Medications to take at Discharge Gabapentin [Neurontin] 600 mg PO TID 03/20/14 glipiZIDE [Glucotrol] 5 mg PO TID 12/31/16 Ibuprofen [Motrin] 800 mg PO TID PRN PRN #20 tab 10/05/17 Lisinopril [Zestril] 5 mg PO DINNER 10/05/17 Pravastatin Sodium 40 mg PO DINNER 10/05/17 Oxycodone HCl/Acetaminophen [Percocet 10-325 mg Tablet] 1 tab PO Q6H PRN PRN 10/31/18 Ranitidine [Zantac] 150 mg PO DINNER 12/28/18 Primary Care Physician: Vel Graham MD [Primary Care Provider] - Please follow up with your Primary Care Physician in: 3-5 days Please Follow Up With: Vel Graham MD Disposition: Home Patient Condition:: Stable Medical Necessity - Tobacco Use Smoking Status: Never smoker Tobacco Use: Non-smoker Meaningful Use Info Meaningful Use Diagnoses (Choose all that apply): None applicable Code Visit Inpatient E&M: 43773 Disch Hosp
--- NOTE | 2019-01-05 16:06 | CASEMGMT ---
Case Management Progress Note: This engineering writer to bedside earlier with patient and patient Dtr Lucita present. Aware by LANEY Micki that did not get approved for SNF. Patient states that she wants to go home and denies offered HH for PT- list was provided, states that patient had in the past and they stole from him and did not help. Dtr states that she is rebel to help the patient at home. Patient states needing Walker, [facility] list provided and chose [facility]. Called [facility] [phone], rachel Davis states that it would take the same time to deliver to bedside as it would for patient/dtr to go poultry picker. Confirmed fax number. Prescription and information faxed to [facility]. Called and confirmed with Marcelo received fax and to deliver to bedside. Called patient pharmacy [facility] [phone], s/w Chana and states prescription Xarelto is $8.50. Patient and provider made aware of this. Confirmed patient has walker at bedside, No further needs identified. Clement Huynh RNCM
--- NOTE | 2019-01-06 15:49 | CASEMGMT ---
JONI CM Discharge Follow-up Phone Call: MAREN: Zahra Strata: 3 Call Date: 01/06/19 Discharge Date: 01/05/19 Time of Call: 2557 Duration: 0 ? Admitting Diagnosis: Gross Hematuria, ABILIO Discharge follow-up call attempted to pt's cell phone number. Message received stating voicemail had not been set up. Toño Hood RN
== END 2019-01-05 17:18 | disposition home or self-care (01) | DRG 813 ==
LOC: ED 15:13 → PCU 17:10
PROVIDERS: Family Medicine; Internal Medicine; Nurse Practitioner Family; Admitting Provider Internal Medicine; Emergency Provider Emergency Medicine; Family Provider Family Medicine; PCP Family Medicine; Referring Provider Internal Medicine; Visit Provider Family Medicine
DX: D68.32 Hemorrhagic disorder due to extrinsic circulating anticoagulants (principal); D62 Acute posthemorrhagic anemia; N17.9 Acute kidney failure, unspecified; R31.0 Gross hematuria; T45.515A Adverse effect of anticoagulants, initial encounter; E11.9 Type 2 diabetes mellitus without complications; S42.301D Unspecified fracture of shaft of humerus, right arm, subsequent encounter for fracture with routine healing; W19.XXXD Unspecified fall, subsequent encounter; E86.0 Dehydration; I10 Essential (primary) hypertension; E66.9 Obesity, unspecified; E78.5 Hyperlipidemia, unspecified; M51.16 Intervertebral disc disorders with radiculopathy, lumbar region; Q63.1 Lobulated, fused and horseshoe kidney; Z79.84 Long term (current) use of oral hypoglycemic drugs; Z68.39 Body mass index [BMI] 39.0-39.9, adult; Z86.711 Personal history of pulmonary embolism; R29.6 Repeated falls
CPT/HCPCS: 36415; 73502; 74176; 74177; 76770; 80048; 80053; 81001; 82962; 83735; 84100; 84443; 84484; 85014; 85018; 85025; 85027; 85610; 87086; 87088; 87493; 88108; 88305; 88313; 93005; 97110; 97116; 97162; 97166; 97530; 97535; 97802; 99285; J7030; J7040; Q9967; A4216

== ENCOUNTER 2019-12-08 19:10 | Emergency (ER) | payer MEDICARE, MEDICAID, SELFPAY ==
[2019-12-08 19:10] VITALS: BMI 37.5
--- NOTE | 2019-12-08 19:10 | CT_ITS ---
STUDY: CT CERVICAL SPINE WITHOUT CONTRAST REASON FOR EXAM: Female, 79 years old. FELL DOWN STEPS. No LOC. Hx of HTN, diabetes and HLD RADIATION DOSAGE (If Supplied By Facility): CTDIvol = ( 44.99 ) mGy, DLP = ( 812.98 ) mGycm TECHNIQUE: High resolution transaxial imaging was performed without contrast material. Sagittal and coronal images were reconstructed. Individualized dose optimization techniques were used for this CT. COMPARISON: None FINDINGS: Normal craniovertebral junction. Normal anterior atlantoaxial articulation. Normal odontoid process. Normal cervical lordosis. Normal vertebral bodies and posterior osseous elements. C2-3: Normal endplates. Normal disc height and morphology. Degenerative left facet hypertrophy. Normal central canal and intervertebral neuroforamina. C3-4: Minimal spurring at the endplates. Narrowed disc height. Normal central canal. Facet hypertrophy and uncovertebral spurring narrowing the left intervertebral neural foramen. C4-5: Mild spurring at the endplates. Normal disc height and morphology. Normal central canal. Facet hypertrophy and uncovertebral spurring narrowing the left intervertebral neural foramen. C5-6: Mild spurring at the endplates. Normal disc height and morphology. Normal central canal. Uncovertebral spurring slightly narrowing the right intervertebral neural foramen. Facet hypertrophy narrowing the left intervertebral neural foramen. C6-7: Normal endplates. Normal disc height and morphology. Normal central canal. Facet hypertrophy slightly narrowing the left intervertebral neural foramen. C7-T1: Normal endplates. Normal disc height and morphology. Normal central canal and intervertebral neuroforamina. Normal visualized soft tissue structures. CT/Brain/Head without Contrast IMPRESSION: Degenerative changes of the cervical spine. Electronically Signed: Michael Sorto DO at 19:54 EDT Tel [phone], Service support ,
[2019-12-08 19:11] VITALS: BP 161/86; PULSE 84; RESP 17; TEMP 36.6; O2SAT 98; BMI 45.0
--- NOTE | 2019-12-08 19:11 | RAD_ITS ---
STUDY: X-RAY - RIGHT HAND REASON FOR EXAM: Female, 79 years old. Right hand pain after fall TECHNIQUE: 3 view(s) of the hand. COMPARISON: None. FINDINGS: Normal radiocarpal articulation. Normal distal radioulnar joint. Normal visualized carpal bones. Normal carpal articulations Normal carpometacarpal articulation of the thumb. Normal second through fifth carpometacarpal joints. Normal metacarpi. Normal metacarpophalangeal joint of the thumb. Degenerative spurring with narrowing at the interphalangeal joint of the thumb. Normal proximal and distal phalanges of the thumb. Normal metacarpophalangeal joints of the second through fifth fingers. Degenerative changes and narrowing at the proximal and distal interphalangeal joints of the second through fifth fingers. Normal phalanges of the second through fifth fingers. The soft tissue structures are unremarkable. RAD/Hand Min 3 Views IMPRESSION: Degenerative changes of the digits. Electronically Signed: Michael Sorto DO at 20:33 EDT Tel [phone], Service support ,
--- NOTE | 2019-12-08 19:11 | RAD_ITS ---
STUDY: X-RAY - LEFT SHOULDER REASON FOR EXAM: Female, 79 years old. Left shoulder pain after fall TECHNIQUE: 4 view(s) of the shoulder. COMPARISON: None. FINDINGS: Normal glenohumeral articulation. Normal acromioclavicular joint. Degenerative hypertrophy of the acromion. Distal clavicular fracture is noted. Normal humeral head and visualized proximal humerus. The soft tissue structures are unremarkable. Normal visualized pulmonary apex. RAD/Shoulder min 2 Views IMPRESSION: Distal fracture of the clavicle. Electronically Signed: Michael Sorto DO at 20:36 EDT Tel [phone], Service support ,
--- NOTE | 2019-12-08 19:11 | CT_ITS ---
STUDY: CT BRAIN WITHOUT CONTRAST REASON FOR EXAM: Female, 79 years old. FELL DOWN STEPS. No LOC. Hx of HTN, diabetes and HLD RADIATION DOSAGE (If Supplied By Facility): CTDIvol = ( 27.55 ) mGy, DLP = ( 589.94 ) mGycm TECHNIQUE: Transaxial CT imaging of the brain was performed without administration of intravenous contrast material. Individualized dose optimization techniques were used for this CT. COMPARISON: No relevant priors. FINDINGS: Right frontal and left lateral scalp focal swelling/hematoma. Normal calvarium. Normal size ventricles and extra-axial spaces for the patient''s age. Mild white matter microangiopathic ischemic changes of the cerebral hemispheres. Normal basal ganglia and thalami. Normal brainstem. Normal cerebellum. There is no intracranial hemorrhage. There are no findings of an acute ischemic infarction. Normal visualized paranasal sinuses. CT/Spine Cervical without Contras IMPRESSION: Age-related changes of the brain. Scalp swelling is noted. Electronically Signed: Michael Sroto DO at 19:57 EDT Tel [phone], Service support ,
--- NOTE | 2019-12-08 19:12 | RAD_ITS ---
STUDY: X-RAY - RIGHT KNEE REASON FOR EXAM: Female, 79 years old. Bilateral knee pain after fall TECHNIQUE: 4 view(s) of the knee. COMPARISON: None. FINDINGS: Normal visualized distal femur. Normal visualized proximal tibia and fibula. Normal proximal tibiofibular articulation. Mild spurring and narrowing at the medial femorotibial compartment. Normal lateral femorotibial compartment. Mild spurring and narrowing at the patellofemoral articulation. The soft tissue structures are unremarkable. RAD/Knee 4 or More Views IMPRESSION: Degenerative changes of the knee. Electronically Signed: Michael Sorto DO at 20:34 EDT Tel [phone], Service support ,
--- NOTE | 2019-12-08 19:13 | ED.VIS.GEN ---
History of Present Illness Chief Complaint: Fall Informant: Patient Onset: Today Context: Sudden Onset Timing: Continuous Current Severity: Moderate Maximum Severity: Moderate Narrative: The patient is a 79-year-old female who is on Xarelto for history of pulmonary embolus that presents to the emergency department after mechanical fall. Patient was at the top of 13 [address] stairs. She states that there is a lip on the top stair and she lost her balance. She states that she slowly rolled down the stairs. She struck her head but did not lose consciousness. She hit her left shoulder, right hand, and both knees. She was ambulatory on the scene. Her major complaint currently is of pain in her shoulder. She states this was strictly mechanical. She is otherwise been in her normal state of health. Prior similar symptoms: No Recent Illness/Hospitalization: No Past Medical History - Allergies and Home Meds Allergies/Adverse Reactions: Allergies empagliflozin [From Jardiance] Allergy (Verified 12/08/19 19:10) Itching/RASH metformin Allergy (Verified 12/08/19 19:10) decreased appetite atorvastatin [From Lipitor] Adverse Reaction (Verified 12/08/19 19:10) frequent urination Primary Care Physician: Vel Graham MD [Primary Care Provider] - Prior records reviewed: Yes Past Medical History: - - PE, hypertension, hyperlipidemia Surgical History: noncontributory Smoking Status: Never smoker - Family History Maternal Family History: Reports: No pertinent history Review of Systems General: Denies: Chills, Fever, Sweats Eyes: Denies: Visual changes - bilaterally, Diplopia ENT: Denies: Rhinorrhea, Sore throat Cardiovascular: Denies: Chest pain, Palpitations Respiratory: Denies: Dyspnea, Cough, Dyspnea on exertion Gastrointestinal: Denies: Abdominal pain, Nausea, Vomiting, Diarrhea, Melena, Hematochezia Genitourinary: Denies: Dysuria, Hematuria, Frequency Musculoskeletal: Denies: Back pain, Extremity Pain Skin: Denies: Rash, Wounds Neurological: Denies: Headache, Weakness, Numbness Physical Exam Inital Vital Signs reviewed: Yes General: Well nourished, Well developed, No Acute Distress Head: Normocephalic, Trauma - Contusion of her forehead with slight abrasion. Eyes: Perrl, EOMI ENT: Moist mucous membranes, No rhinorrhea Neck: Supple, Nontender Cardiovascular: Regular rate, Regular rhythm, No murmurs Respiratory: No distress, CTA bilaterally, Chest nontender Abdomen: Soft, Nontender, Nondistended, Normal bowel sounds Back: Nontender, Normal Inspection Extremities: No edema, Tenderness - Patient has mild tenderness over the left shoulder without any laxity. There is some pain at the base of the right thumb. She has contusions over both knees but extension is preserved. Skin: Normal color, No rash Neurological: Alert, Oriented x3, Cranial nerves II-XII grossly intact, Normal Strength, Normal Sensation Psychological: Normal affect, Normal Mood Diagnostic/Tx/Re-eval Clinical Impression(s) from Imaging Studies Brain CT 12/08/19 19:10 IMPRESSION: Degenerative changes of the cervical spine. Electronically Signed: Michael Sorto DO at 19:54 EDT Tel [phone], Service support , Cervical Spine CT 12/08/19 19:11 IMPRESSION: Age-related changes of the brain. Scalp swelling is noted. Electronically Signed: Michael Sorto DO at 19:57 EDT Tel [phone], Service support , Hand X-Ray 12/08/19 19:11 IMPRESSION: Degenerative changes of the digits. Electronically Signed: Michael Sorto DO at 20:33 EDT Tel [phone], Service support , Shoulder X-Ray 12/08/19 19:11 IMPRESSION: Distal fracture of the clavicle. Electronically Signed: Michael Sorto DO at 20:36 EDT Tel [phone], Service support , Knee X-Ray 12/08/19 19:12 IMPRESSION: Degenerative changes of the knee. Electronically Signed: Michael Sorto DO at 20:34 EDT Tel [phone], Service support , Knee X-Ray 12/08/19 19:40 IMPRESSION: Mild degenerative changes of the knee. Electronically Signed: Michael Sorto DO at 20:36 EDT Tel [phone], Service support , - Medical Decision Making Patient presents with mechanical fall downstairs. She does have slight contusion over the forehead. She had no loss of consciousness, but she is on anticoagulants. She also had some pain in the left shoulder, right hand, and both knees. Noncontrast head CT was obtained and was unremarkable for acute process. CT of the cervical spine was also obtained. There is no evidence of fracture. X-ray of the left shoulder does demonstrate distal clavicle fracture. There is no skin tenting and she is neurovascular intact. X-rays of the knees were negative for acute process. X-rays of the hand were also negative. On reevaluation, the patient is resting comfortably. At this point, I do feel that she is safe for outpatient follow-up. She is placed in a sling for comfort and be given a short course of analgesics. She does have established orthopedic care and will follow-up. Impression 1. Fall downstairs 2. Scalp contusion with hematoma 3. Closed left distal end of clavicle fracture 4. Bilateral knee contusion ED Disposition - Plan for ED Patient: Instructions: ED Mechanical Fall, ED Clavicle Fracture Prescriptions: Oxycodone HCl/Acetaminophen [Percocet 5/325] 1 tab PO Q6H PRN PRN 3 Days #12 tab PRN Reason: Pain Prescription Printed Referrals: Paul Abbott MD [STAFF PHYSICIAN] -
[2019-12-08 19:19] VITALS: O2SAT 98
--- NOTE | 2019-12-08 19:40 | RAD_ITS ---
STUDY: X-RAY - LEFT KNEE REASON FOR EXAM: Female, 79 years old. Bilateral knee pain after fall TECHNIQUE: 4 view(s) of the knee. COMPARISON: None. FINDINGS: Normal visualized distal femur. Normal visualized proximal tibia and fibula. Normal proximal tibiofibular articulation. Mild spurring at the medial femorotibial compartment. Normal lateral femorotibial compartment. Mild spurring and narrowing at the patellofemoral articulation. The soft tissue structures are unremarkable. RAD/Knee 4 or More Views IMPRESSION: Mild degenerative changes of the knee. Electronically Signed: Michael Sorto DO at 20:36 EDT Tel [phone], Service support ,
[2019-12-08] MEDS: oxyCODONE 5 MG Tablet PO (20:09)
[2019-12-08 20:46] VITALS: BP 167/91; PULSE 89; RESP 18; O2SAT 94
== END 2019-12-08 20:49 | disposition home or self-care (01) ==
LOC: ED 19:42
PROVIDERS: Emergency Provider Emergency Medicine; PCP Family Medicine
DX: S42.032A Displaced fracture of lateral end of left clavicle, initial encounter for closed fracture (principal); S00.03XA Contusion of scalp, initial encounter; S80.01XA Contusion of right knee, initial encounter; S80.02XA Contusion of left knee, initial encounter; I10 Essential (primary) hypertension; E78.5 Hyperlipidemia, unspecified; Z86.711 Personal history of pulmonary embolism; Z79.02 Long term (current) use of antithrombotics/antiplatelets; Z79.899 Other long term (current) drug therapy; W10.9XXA Fall (on) (from) unspecified stairs and steps, initial encounter; Y93.01 Activity, walking, marching and hiking; Y92.009 Unspecified place in unspecified non-institutional (private) residence as the place of occurrence of the external cause; Y99.8 Other external cause status
CPT/HCPCS: 70450; 72125; 73030; 73130; 73564; 99285

== ENCOUNTER 2020-03-22 13:25 | Emergency (ER) | payer MEDICARE, MEDICAID, SELFPAY ==
[2020-03-22 13:25] VITALS: BP 150/112; PULSE 99; RESP 16; TEMP 36.7; O2SAT 97; BMI 47.9
--- NOTE | 2020-03-22 13:36 | RAD_ITS ---
STUDY: X-RAY - RIGHT ELBOW REASON FOR EXAM: Female, 79 years old. FALL, SKIN TEAR POSTERIORLY TECHNIQUE: 3 view(s) of the elbow. COMPARISON: None. FINDINGS: Normal visualized humerus, radius and ulna. Normal radiocapitellar and ulnotrochlear articulations. The soft tissue structures are unremarkable. RAD/Elbow min 3 Views IMPRESSION: Normal x-ray examination of the elbow. Electronically Signed: Willie Crow, at 14:31 EST , Service support ,
--- NOTE | 2020-03-22 13:38 | ED.DCSUM_ITS ---
History of Present Illness Chief Complaint: Fall Informant: Patient Onset: Today Current Severity: Mild Maximum Severity: Mild Narrative: Patient presents after a fall at home. She was using her walker and had just gone to the bathroom. 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 Per EMS report she was complaining of sternal pain. Patient denies any pain at the time of my examination. She states typically her daughter can help slide her to the doorway and help her stand up, but the patient states her legs did not seem to want to work right for her to be able to get herself up at home today. She denies striking her head. - Past Medical History (1) DVT (deep venous thrombosis) Status: Chronic (2) Diabetes Status: Chronic (3) HTN (hypertension) Status: Chronic (4) Hyperlipidemia Status: Chronic (5) Pulmonary emboli Status: Chronic Past Medical History - Allergies and Home Meds Allergies/Adverse Reactions: Allergies empagliflozin [From Jardiance] Allergy (Verified 03/22/20 13:28) Itching/RASH metformin Allergy (Verified 03/22/20 13:28) decreased appetite atorvastatin [From Lipitor] Adverse Reaction (Verified 03/22/20 13:28) frequent urination Primary Care Physician: Vel Graham MD [Primary Care Provider] - Prior records reviewed: Yes Surgical History: noncontributory Lives: With Family Smoking Status: Never smoker - Family History Maternal Family History: Reports: No pertinent history Review of Systems General: Denies: Chills, Fever Eyes: Denies: Visual changes - bilaterally ENT: Denies: Bilateral ear pain Cardiovascular: Denies: Chest pain Respiratory: Denies: Dyspnea, Cough Gastrointestinal: Denies: Abdominal pain, Vomiting, Diarrhea Musculoskeletal: Denies: Extremity Pain Skin: Reports: Abrasions Neurological: Reports: Weakness - Generalized weakness Hematologic: Denies: Easy bruising, Easy bleeding Allergy: Denies: Uticaria Physical Exam Vital Signs/Narrative: Vital Signs Temp Pulse Resp BP Pulse Ox 03/22/20 13:25 98.1 F 99 16 150/112 H 97 Inital Vital Signs reviewed: Yes General: Well nourished, Well developed Head: Normocephalic ENT: Moist mucous membranes Cardiovascular: Regular rate, Regular rhythm Respiratory: No distress, CTA bilaterally Abdomen: Soft, Nontender, Normal bowel sounds Extremities: - - 1 x 2 cm skin tear to the right extensor elbow. Mild bony tenderness. Full range of motion. 3+ bilateral lower extremity edema. Patient is able to lift both legs up off the bed without difficulty. Neurological: Alert, Oriented x3 Psychological: Normal affect Diagnostic/Tx/Re-eval Impressions Elbow X-Ray 03/22/20 13:36 IMPRESSION: Normal x-ray examination of the elbow. Electronically Signed: Willie Mignon, at 14:31 EST , Service support , Chest X-Ray 03/22/20 14:00 IMPRESSION: Minimal increased linear marking at the right lung base suggestive of linear atelectasis and/or scarring. Electronically Signed: Willie Mignon, at 14:28 EST , Service support , 03/22/20 13:36 Elbow min 3 Views [RAD] Stat 03/22/20 14:00 Chest PA and Lateral [RAD] Stat - Medical Decision Making Chest x-ray per my review reveals chronic changes. Right elbow x-ray reveals no bony fracture. Patient was able to get up and ambulate to the restroom with a walker. The skin tear on her right elbow will be cleansed and dressed. Patient is given wound care instructions. ED Disposition - Plan for ED Patient: Disposition: Home or Assisted Living Diagnosis: Fall, Avulsion of skin of elbow Instructions: ED Mechanical Fall, ED Chest Wall Contusion, ED Skin Avulsion Referrals: Vel Graham MD [Primary Care Provider] - 1 Week if not improving
--- NOTE | 2020-03-22 14:00 | RAD_ITS ---
STUDY: X-RAY CHEST REASON FOR EXAM: Female, 79 years old. Fall, sternal pain TECHNIQUE: AP and lateral views of the chest. COMPARISON: None. FINDINGS: Minimal increased linear markings at the right lung base suggestive of linear atelectasis and/or scarring. There is no demonstrated pleural abnormality. Normal size heart. Normal mediastinum and portillo. Normal visualized pulmonary arteries. There is atherosclerotic tortuosity of the aortic arch and descending thoracic aorta. There are degenerative changes of the visualized thoracic spine. Normal visualized ribs, clavicles, and shoulders. There is no demonstrated abnormality of the visualized soft tissue structures of the upper abdomen. RAD/Chest PA and Lateral IMPRESSION: Minimal increased linear marking at the right lung base suggestive of linear atelectasis and/or scarring. Electronically Signed: Willie Crow, at 14:28 EST , Service support ,
[2020-03-22 15:07] VITALS: BP 138/74; PULSE 72; RESP 16; O2SAT 95
== END 2020-03-22 15:08 | disposition home or self-care (01) ==
PROVIDERS: Emergency Provider Emergency Medicine; PCP Family Medicine
DX: S51.001A Unspecified open wound of right elbow, initial encounter (principal); E11.9 Type 2 diabetes mellitus without complications; I10 Essential (primary) hypertension; E78.5 Hyperlipidemia, unspecified; Z86.718 Personal history of other venous thrombosis and embolism; Z86.711 Personal history of pulmonary embolism; Z79.84 Long term (current) use of oral hypoglycemic drugs; Z79.899 Other long term (current) drug therapy; W18.30XA Fall on same level, unspecified, initial encounter; Y93.89 Activity, other specified; Y92.009 Unspecified place in unspecified non-institutional (private) residence as the place of occurrence of the external cause; Y99.8 Other external cause status
CPT/HCPCS: 71046; 73080; 99284

== ENCOUNTER 2020-04-15 10:01 | Observation (INO) | payer MEDICARE, MEDICAID, SELFPAY ==
[2020-04-15] VITALS (13 sets, daily range): BP systolic 163–222; BP diastolic 75–117; PULSE 88–99; RESP 16–21; TEMP 36.4–36.6; O2SAT 92–98; BMI 51.6; BMI 44.9; BMI 45.0
--- NOTE | 2020-04-15 | RAD_ITS ---
STUDY: X-RAY CHEST REASON FOR EXAM: Female, 79 years old. WEAKNESS TECHNIQUE: Single AP portable view of the chest. COMPARISON: Comparison is made with prior study dated 03/22/2020. FINDINGS: EKG electrodes are seen. Limited inspiratory effort with stable increased linear markings at the lung bases suggestive of linear atelectasis and/or scarring. There is no demonstrated pleural abnormality. Normal size heart. Normal mediastinum and portillo. Normal visualized pulmonary arteries. There is atherosclerotic tortuosity of the aortic arch and descending thoracic aorta. There are diffuse degenerative changes of the visualized thoracic spine. There is degenerative osteoarthritis of the bilateral shoulders. There is no demonstrated abnormality of the visualized soft tissue structures of the upper abdomen. RAD/Chest 1 View (Portable) IMPRESSION: Limited inspiratory effort with persistent increased markings at the lung bases suggestive of linear atelectasis and/or scarring. Electronically Signed: Willie Crow, at 11:24 EST , Service support ,
--- NOTE | 2020-04-15 10:14 | EKG12_ITS ---
Test Reason : WEAKNESS Blood Pressure : / mmHG Vent. Rate : 093 BPM Atrial Rate : 088 BPM P-R Int : 000 ms QRS Dur : 098 ms QT Int : 342 ms P-R-T Axes : 000 -21 018 degrees QTc Int : 425 ms Incomplete right bundle branch block Abnormal ECG Confirmed by BALTAZAR AMANDA, GENARO ([id number]), mapping editor JEYSON LOVELACE ([id number]) on 04/17/2020 8:17:16 AM Referred By: FIONA Confirmed By:GENARO LEDESMA MD
--- NOTE | 2020-04-15 10:17 | ED.VIS.GEN ---
History of Present Illness Chief Complaint: Weakness Narrative: Patient presenting for evaluation secondary to generalized weakness. Patient has a underlying history of diabetes hypertension lives at home with daughter. Apparently the patient has been basically nonambulatory since [place]. Daughter feels as if she can no longer care for the patient. Patient reports that she has generalized weakness, this is nonlateralizing. Patient denies recent illness such as fever cough nausea vomiting or diarrhea. No exacerbating relieving factors associated with this. Review of systems otherwise negative. Past Medical History - Allergies and Home Meds Allergies/Adverse Reactions: Allergies empagliflozin [From Jardiance] Allergy (Verified 04/15/20 10:09) Itching/RASH metformin Allergy (Verified 04/15/20 10:09) decreased appetite atorvastatin [From Lipitor] Adverse Reaction (Verified 04/15/20 10:09) frequent urination Primary Care Physician: Vel Graham MD [Primary Care Provider] - Prior records reviewed: Yes Past Medical History: - - Diabetes, hypertension, hyperlipidemia, past history of DVT Surgical History: noncontributory Lives: With Family Smoking Status: Never smoker Alcohol: None Drugs: None - Family History Maternal Family History: Reports: No pertinent history Review of Systems General: Reports: - - Generalized weakness Eyes: Denies: Visual changes - bilaterally, Diplopia ENT: Denies: Rhinorrhea, Sore throat Cardiovascular: Denies: Chest pain, Palpitations Respiratory: Denies: Dyspnea, Cough, Dyspnea on exertion Gastrointestinal: Denies: Abdominal pain, Nausea, Vomiting, Diarrhea, Melena, Hematochezia Genitourinary: Denies: Dysuria, Hematuria, Frequency Musculoskeletal: Denies: Back pain, Extremity Pain Skin: Denies: Rash, Wounds Neurological: Denies: Headache, Weakness, Numbness Physical Exam Vital Signs/Narrative: Vital Signs Temp Pulse Resp BP Pulse Ox 04/15/20 10:03 97.7 F L 98 20 H 219/117 H 94 Inital Vital Signs reviewed: Yes General: Well nourished, Well developed, Obese Head: Normocephalic, Atraumatic Eyes: Perrl, EOMI ENT: Moist mucous membranes, No rhinorrhea Neck: Supple, Nontender Cardiovascular: Regular rate, Regular rhythm, No murmurs, - - 2+ radial, 2+ DP pulses bilaterally symmetric Respiratory: No distress, CTA bilaterally, Chest nontender Abdomen: Soft, Nontender, Nondistended, Normal bowel sounds Back: Nontender, Normal Inspection Extremities: Nontender, No edema Skin: Normal color, No rash Neurological: Alert, Oriented x3, Cranial nerves II-XII grossly intact, Normal Strength, Normal Sensation, - - NIH stroke scale 0 Psychological: Normal affect, Normal Mood Diagnostic/Tx/Re-eval Chest X-Ray - ED: 1 View, Read by ED Physician, - - Limited inspiratory effort with no obvious evidence of infiltrate Clinical Impression(s) from Imaging Studies Chest X-Ray 04/15/20 00:00 IMPRESSION: Limited inspiratory effort with persistent increased markings at the lung bases suggestive of linear atelectasis and/or scarring. Electronically Signed: Willie Mignon, at 11:24 EST , Service support , Laboratory Data 04/15/20 04/15/20 04/15/20 10:40 10:40 11:45 WBC 6.0 RBC 3.52 L Hgb 10.0 L Hct 32.0 L MCV 90.9 MCH 28.4 MCHC 31.3 L RDW Std Deviation 49.8 H RDW Coeff of Mayank 15.2 H Plt Count 129 L MPV 10.0 Immature Gran % (Auto) 0.500 Neut % (Auto) 68.2 Lymph % (Auto) 18.6 L [place] % (Auto) 6.7 Eos % (Auto) 5.5 H Baso % (Auto) 0.5 Absolute Neuts (auto) 4.1 Absolute Lymphs (auto) 1.11 Nucleated RBC % 0 Sodium 143 Potassium 3.8 Chloride 111 H Carbon Dioxide 29.0 Anion Gap 3 L BUN 21 H Creatinine 1.22 H Estim Creat Clear Calc 27.74 Est GFR (MDRD) Af Amer 55 L Est GFR (MDRD) Non-Af 45 L BUN/Creatinine Ratio 17.2 Glucose 153 H Calcium 10.6 H Troponin I < 0.015 Urine Color Yellow Urine Clarity Clear Urine pH 6.0 Ur Specific [place] 1.010 Urine Protein 100 H Urine Glucose (UA) Normal Urine Ketones Negative Urine Occult Blood 250 H Urine Nitrite Negative Urine Bilirubin Negative Urine Urobilinogen Normal Ur Leukocyte Esterase 25 H Urine RBC 0-5 SEEN Urine WBC 0-5 SEEN Ur Squamous Epith Cells 0-5 SEEN Urine Bacteria 3+ Urine Mucus 0 SEEN - Medical Decision Making Patient presented secondary to generalized weakness. Patient was hypertensive, she was given a dose of her lisinopril. Chest x-ray by my personal review as well as radiology shows poor inspiratory effort, no obvious evidence of infiltrate. Laboratory work-up does not show significant evidence of electrolyte derangement renal insufficiency, troponin was found to be negative coronavirus was found to be negative. Patient is cleared at this point for admission to a rehab facility. Social work is working to coordinate placement from the emergency department. After extensive coordination from social work, ultimately the shelter still wanted the patient to be admitted. Patient will be admitted to the hospitalist. ED Disposition - Plan for ED Patient: Disposition: Acute Care Hospital [facility] Diagnosis: Weakness
[2020-04-15 10:52] LABS: Absolute Lymphocyte Count 1.11 X10^3/uL (0.83-4.51); Absolute Neutrophil Count 4.1 X10^3/uL (2.0-7.7); Basophil# 0.03 X10^3/uL; Basophil% 0.5 % (0-1); Eosinophil# 0.33 X10^3/uL; Eosinophils% 5.5 % (0-5); Lymphocyte # 1.11 X10^3/ul (4.0); Lymphocyte % 18.6 % (19-41); Mean Corp Hgb Conc 31.3 g/dL (32-36); Mean Corpuscular Hgb 28.4 pg (27.0-32.0); Mean Corpuscular Volume 90.9 fL (81-99); Monocyte% 6.7 % (0-10); NRBC Flagged by Analyzer 0 % (0-5); Neutrophil # 4.08 X10^3/uL (2.7-7.7); Neutrophil % 68.2 % (47-70); Platelet Count 129 K/mm3 (150-450); RBC Distribution Width CV 15.2 % (11.6-14.6); RBC Distribution Width SD 49.8 fl (35.1-43.9); Red Blood Count 3.52 M/mm3 (4.2-5.4)
[2020-04-15 11:08] LABS: Anion Gap 3 (5-15); BUN 21 mg/dL (7-18); BUN/Creat Ratio 17.2 RATIO (10-20); Calcium,Total 10.6 mg/dL (8.5-10.1); Chloride 111 mmol/L (98-107); Creatinine, Serum 1.22 mg/dL (0.55-1.02); EST Glomerular Filtration Rate 45 mL/min (>60); Est Glom Filt Rate - Afr Amer 55 mL/min (>60); Estimated Creatinine Clearance 27.74 ml/min; Glucose 153 mg/dL (74-106); Potassium 3.8 mmol/L (3.5-5.1); Sodium Level 143 mmol/L (136-145)
--- NOTE | 2020-04-15 11:50 | CM.ED ---
SOCIAL WORK Informant: Dr. Dacosta Reason for Consult: Discharge Planning Met with patient in room and spoke with patient's daughter, Lucita over the phone. Patient lives home with daughter and since [place] has had increased weakness and inability to walk. Daughter and patient believe patient would benefit from SNF prior to home going. Requesting referral to [facility]. Work up being completed at this time. Once medically cleared will send referral to [facility]. Michelle Calros, MINISTER ASSISTANT, FABRIC WORKER LEADER
[2020-04-15 12:02] LABS: Mucous, Urine 0 SEEN /hpf (<or=2+)
[2020-04-15 12:06] LABS: Color, Urine Yellow (Yellow); Glucose, Dipstick Normal (Normal); Ketone-Dipstick Negative (Negative); Leukocyte Esterase-Dipstick 25 /ul (Negative); Nitrite-Dipstick Negative (Negative); Occult Blood-Urine 250 /ul (Negative); Protein-Dipstick 100 mg/dl (Negative); Urine Bilirubin Dipstick Negative (Negative); Urine Clarity Clear (Clear); Urine Urobilinogen Normal (Normal)
[2020-04-15 12:14] LABS: Bacteria 3+ /hpf (None Seen); Red Blood Cells-Urine 0-5 SEEN /hpf (0-5); Squamous Epithelial Cells - UA 0-5 SEEN /hpf (5-10); White Blood Cells 0-5 SEEN /hpf (0-5)
--- NOTE | 2020-04-15 13:15 | CM.ED ---
SOCIAL WORK Updated by Dr. Dacosta patient is medically cleared. Referral called and faxed to [facility], spoke with Tavia. Discussed [employer] insurance and possibility of accepting patient from ER. Tavia reports will review. Awaiting acceptance at this time. Michelle Carlos, IT NETWORK ARCHITECT, CONTACT CENTER PROFESSIONAL
--- NOTE | 2020-04-15 13:50 | CM.ED ---
SOCIAL WORK Call to Tavia at [facility] to discuss referral. Tavia reports will need PT/OT evaluation completed prior to acceptance. Call to Therapy to update. PT/OT to prabhakar in ED. D. Terrance, DYNAMICS AX SOLUTION ARCHITECT, PARTY BUS DRIVER
[2020-04-15] MEDS: Lisinopril 5 MG Tablet PO ×2 (14:07→18:26)
--- NOTE | 2020-04-15 14:40 | CM.ED ---
SOCIAL WORK Therapy in with patient at this time.
--- NOTE | 2020-04-15 15:27 | CM.ED ---
SOCIAL WORK PT/OT christy faxed to [facility] at this time. Michelle Carlos, INDEPENDENT DRIVER, DISPLAYER MERCHANDISE
--- NOTE | 2020-04-15 15:41 | CM.ED ---
SOCIAL WORK Spoke with Tavia from [facility] and [facility] in [facility]'s business office. Discussed [employer] waiving precert process. They report unable to accept patient from ER until authorization from [employer] obtained. [facility] reports precert was submitted to [facility] and will call once authorization received. Dr. Dacosta, patient and daughter updated on the above. Dr. Dacosta to contact hospitalist for admission. Plan: Admit, awaiting auth from [facility] for [facility]. Michelle Carlos, INTERACTIVE MEDIA SPECIALIST, WAREHOUSE FOREMAN
--- NOTE | 2020-04-15 16:00 | HP.PCM_ITS ---
Problem List (1) Failure to thrive in adult Status: Acute (2) Uncontrolled hypertension Status: Acute (3) Chronic back pain Status: Chronic Qualifiers: Back pain location: back pain in unspecified location Back pain laterality: unspecified Qualified Code(s): M54.9 - Dorsalgia, unspecified; G89.29 - Other chronic pain (4) Diabetes mellitus, type II Status: Chronic Qualifiers: Diabetes mellitus furniture polisher insulin use: without assisted use Diabetes mellitus complication status: with other specified complication Qualified Code(s): E11.69 - Type 2 diabetes mellitus with other specified complication (5) Morbid obesity Status: Chronic (6) CKD (chronic kidney disease), stage III Status: Chronic Qualifiers: Chronic kidney disease stage 3 subtype: unspecified whether 3a or 3b Qualified Code(s): N18.30 - Chronic kidney disease, stage 3 unspecified (7) Chronic anemia Status: Chronic (8) GERD (gastroesophageal reflux disease) Status: Chronic Qualifiers: Esophagitis presence: esophagitis presence not specified Qualified Code(s): K21.9 - Gastro-esophageal reflux disease without esophagitis (9) Peripheral neuropathy Status: Chronic Qualifiers: Qualified Code(s): G62.9 - Polyneuropathy, unspecified (10) Hyperlipidemia Status: Chronic Qualifiers: Hyperlipidemia type: hyperchylomicronemia Qualified Code(s): 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 (11) DVT (deep venous thrombosis) Status: Chronic Qualifiers: Affected thrombotic vein of extremity: unspecified vein of extremity Chronicity: unspecified Laterality: unspecified laterality (12) Horseshoe kidney Status: Chronic History of Present Illness Date of Admission: 04/15/20 Chief Complaint: Weakness, unable to care for self at home The patient is a 79 y/o F w/ PMHx: HTN, HLD, 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 She has been nearly wheelchair-bound but this has been worsening over the last several months with difficulty even bearing weight for transfer. She denies any recent fever, chills, nausea, emesis, abdominal pain, chest pain, dysuria. Work-up in the ED included initially T 97.7, heart rate 98, BP 219/117 noting that she had not taken her blood pressure medications for the day with improvement to 165/99 following, respiratory rate 16, 94% on room air, CBC with WC 6, hemoglobin 10, platelet 129 with no marked shift, BMP with chloride 111, BUN/creatinine 21/1.22, glucose 153, troponin less than 0.015, urinalysis with specific gravity 1.010, protein 100, occult blood 250, leukocyte esterase 25, negative nitrite, 0-5 WBC, 3+ urine bacteria but no dysuria or urinary complaints per patient with urine culture pending, EKG with sinus rhythm with occasional PVC otherwise no acute evidence of ischemia. 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) Diabetes (Chronic) Allergies empagliflozin [From Jardiance] Allergy (Verified 04/15/20 10:09) Itching/RASH metformin Allergy (Verified 04/15/20 10:09) decreased appetite atorvastatin [From Lipitor] Adverse Reaction (Verified 04/15/20 10:09) frequent urination Home Medications: Ambulatory Orders Medication Instructions Recorded Gabapentin [Neurontin] 400 mg PO TID 03/20/14 glipiZIDE [Glucotrol] 5 mg PO TID 12/31/16 Lisinopril [Zestril] 5 mg PO DINNER 10/05/17 Pravastatin Sodium 40 mg PO DINNER 10/05/17 Famotidine [Pepcid] 20 mg PO DAILY 12/08/19 Acetaminophen [Tylenol Extra 500 - 1,000 mg PO DAILY PRN PRN 04/15/20 Strength] Glucosamine Sulfate 1,000 mg PO DAILY 04/15/20 Naproxen Sodium [Aleve] 220 mg PO DAILY PRN PRN 04/15/20 Pioglitazone [Actos] 15 mg PO DINNER 04/15/20 Rivaroxaban [Xarelto] 20 mg PO DAILY 04/15/20 Surgical History: - - x1, tonsillectomy. 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 Smoking Status: Never smoker Alcohol: None Drugs: None - *Family History Maternal History Items: Heart Disease Paternal History Items: Heart Disease Review of Systems Constitutional: Reports: Malaise, Weakness, Fatigue. Denies: Anorexia, Chills, Fever, Weight Change HEENT: Denies: Head Aches, Sinus Congestion, Sinus Drainage Cardiovascular: Reports: Edema. Denies: Chest Pain, Palpitations Respiratory: Reports: Shortness of breath upon exertion. Denies: Cough, Shortness of breath at rest, Sputum production Gastrointestinal: Denies: Abdominal Pain, Nausea, Vomiting Genitourinary: Denies: Dysuria Musculoskeletal: Reports: Back Pain, Joint Pain. Denies: Joint Tenderness Skin: Denies: Rash, Wounds Neurological: Reports: - - Chronic bilateral lower extremity neuropathy.. Denies: Focal weakness, Numbness, Tingling Psychiatric: Denies: Anxiety, Depression, Homicidal Ideations, Suicidal Ideations Hematologic/ Lymphatic: Reports: Anemia, Easy Bruising, Easy Bleeding VTE Information - Inpt Only VTE Present on Admission: No VTE Mechan Device Prophylaxis: SCD's VTE Pharm Prophylaxis ordered?: No Reason prophylaxis not ordered:: Treatment Not Indicated - Continue patient home Xarelto regimen. Patient Problems: Active and Suspected Problems Weakness (Acute) Uncontrolled hypertension (Acute) Subjective: Patient seated upright in the ED bed, fatigued appearing, denies any acute complaints at this time. Objective: Physical Examination: General: awake, alert, oriented x 3 and cooperative, seated upright in the ED bed in no apparent distress. Skin: normal color, turgor, no icterus, cyanosis except noted bilateral lower extremities mild stasis disease. HEENT: AT/NC, EOMI, PERRLA, MMM, no carotid bruits, difficult to discern JVD secondary to thickened neck. Lungs: Diminished breath sounds, greater bases, moderate effort, no rales, ronchi or wheezing. Heart: Regular rate and rhythm; no gallop, rub audible. Abdomen: soft, morbidly obese, NTTP, difficult to discern distention given habitus, distant normal BS, unable to discern HSM secondary to morbidly obese habitus. Extremities: no cyanosis or clubbing, see skin, bilateral lower extremity pedal to mid frank 2+ pitting edema which is chronic she notes, discomfort with bilateral lower extremity palpation which she notes is chronic. Neurological: patient awake, alert, oriented as noted; cognitive function intac t; pupils equally reactive to light and accomodation; cranial nerves II-XII grossly normal, moving all 4 extremities, no focal deficits, strength moderately to severely global decrease, worsening progressively she notes. Psychiatric: affect appears fatigued otherwise normal, no acute evidence of depressive or anxiety feelings. - Physical Exam Vitals/I&O's: Vital Signs Temp Pulse Resp BP Pulse Ox 97.7 F L 95 21 H 167/91 H 93 04/15/20 10:03 04/15/20 15:44 04/15/20 15:44 04/15/20 15:44 04/15/20 15:44 Oxygen Delivery Method Room Air Weight: 264 lb 8.875 oz Body Mass Index (BMI) 51.6 Finger Stick Blood Glucose 236 Microbiology Past 72 Hours 04/15/20 12:12 Mucosa - Nose SARS-CoV-2 Antigen (Rapid) - Final Laboratory Results 04/15/20 10:40: WBC 6.0, RBC 3.52 L, Hgb 10.0 L, Hct 32.0 L, MCV 90.9, MCH 28.4, MCHC 31.3 L, RDW Std Deviation 49.8 H, RDW Coeff of Mayank 15.2 H, Plt Count 129 L , MPV 10.0, Immature Gran % (Auto) 0.500, Neut % (Auto) 68.2, Lymph % (Auto) 18.6 L, [place] % (Auto) 6.7, Eos % (Auto) 5.5 H, Baso % (Auto) 0.5, Absolute Neuts (auto) 4.1, Absolute Lymphs (auto) 1.11, Nucleated RBC % 0 04/15/20 10:40: Sodium 143, Potassium 3.8, Chloride 111 H, Carbon Dioxide 29.0, Anion Gap 3 L, BUN 21 H, Creatinine 1.22 H, Estim Creat Clear Calc 27.74, Est GFR (MDRD) Af Amer 55 L, Est GFR (MDRD) Non-Af 45 L, BUN/Creatinine Ratio 17.2, Glucose 153 H, Calcium 10.6 H, Troponin I < 0.015 04/15/20 11:45: Urine Color Yellow, Urine Clarity Clear, Urine pH 6.0, Ur Specific [place] 1.010, Urine Protein 100 H, Urine Glucose (UA) Normal, Urine Ketones Negative, Urine Occult Blood 250 H, Urine Nitrite Negative, Urine Bilirubin Negative, Urine Urobilinogen Normal, Ur Leukocyte Esterase 25 H, Urine RBC 0-5 SEEN, Urine WBC 0-5 SEEN, Ur Squamous Epith Cells 0-5 SEEN, Urine Bacteria 3+, Urine Mucus 0 SEEN Assessment/Plan All Active Problems Weakness (Acute) Uncontrolled hypertension (Acute) Failure to thrive in adult (Acute) The patient is a 79 y/o F w/ PMHx: HTN, HLD, 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 1. Failure to thrive in adult, debility: Patient unable to care for self at home even with daughter assist, attempted placement to skilled facility in the emergency room, unfortunately unsuccessful, will admit to medical surgical floor, maintain on fall precautions, continue physical and occupational therapy assessment as well as case management evaluation for discharge planning to jail facility once appropriate. Will defer any repeat labs but may obtain these if any concerns. Attempting blood pressure medication adjustment given elevated blood pressures in the ED as noted. 2. Hypertension, uncontrolled: Patient with elevated blood pressure in the ED, had not taken her medications, improved with regimen however low, will add Nor vasc, continue to monitor and adjust as needed, as needed IV hydralazine currently. 3. Chronic back pain and peripheral neuropathy: We will continue patient home gabapentin regimen, maintain on fall precautions, therapy and case management consulted as noted above for planned placement. 4. Diabetes mellitus type II: Hold oral home regimen, ADA diet, accu checks w/ ISS. 5. Chronic normocytic anemia: Admission hemoglobin 10, previously noted 9-10 range, stable, may repeat labs as needed. 6. Chronic Kidney Disease Stage III with history of horseshoe kidney: Admission BUN/Cr 21/1.22, baseline renal function 1.1-1.5, repeat BMP in AM. 7. Hyperlipidemia: We will continue patient on statin therapy. 8. Morbid Obesity: Weight loss and lifestyle changes encouraged, nutrition consulted. 9. Suspected COLLIN: Denies, encourage outpatient sleep study. 10. History of DVT: We will continue patient home Xarelto regimen. 11. GERD: We will continue PPI. 12. DVT prophylaxis: SCDs, continue home Xarelto regimen. 13. CODE status: Patient HEBERT is Lucita her daughter she notes and she notes she is unsure if living will is in place. Discussed CODE status at length including difference between FULL code, DNR-CCA and DNR-CC status. Following discussions about the differences in these status, requested Full Code status. Advanced Care Planning Face to Face Time: 16 minutes. OBSV E&M: [id number] Initial observation care L3 Procedures: 39420 Advncd Care Plan 30 Min
[2020-04-15 17:44] LABS: Magnesium 2.2 mg/dL (1.6-2.6)
[2020-04-15] MEDS: Pravastatin 40 MG Tablet PO (18:26)
[2020-04-15] MEDS: amLODIPine 5 MG Tablet PO (18:32)
[2020-04-15] MEDS: 0.9% Saline Lock 10 ML Syringe IV (22:20)
[2020-04-15] MEDS: hydrALAZINE 20 MG/ML Vial 10 MG IV (22:20)
[2020-04-15] MEDS: Insulin Lispro 100 UNIT/ML INSULN.PEN SC (22:47)
[2020-04-15 23:00] LABS: Bedside Glucose 220 mg/dL (70-110)
[2020-04-16 04:21] VITALS: BP 187/88; PULSE 92; RESP 16; TEMP 37.2; O2SAT 96
[2020-04-16 05:41] VITALS: BP 187/88; PULSE 92
[2020-04-16] MEDS: hydrALAZINE 20 MG/ML Vial 10 MG IV (05:41)
[2020-04-16] MEDS: 0.9% Saline Lock 10 ML Syringe IV (05:42)
[2020-04-16] MEDS: Insulin Lispro 100 UNIT/ML INSULN.PEN SC ×2 (07:02→12:41)
[2020-04-16 07:11] LABS: Bedside Glucose 226 mg/dL (70-110)
--- NOTE | 2020-04-16 07:33 | PN_ITS ---
Patient Problems: Active and Suspected Problems Weakness (Acute) Uncontrolled hypertension (Acute) Failure to thrive in adult (Acute) Objective: No fever or chills. Admitted for debility secondary to physical decline. Baseline physical capacity on wheelchair Vitals/I&O's: Vital Signs Temp Pulse Resp BP Pulse Ox 99.0 F 92 16 187/88 H 96 04/16/20 04:21 04/16/20 05:41 04/16/20 04:21 04/16/20 05:41 04/16/20 04:21 Oxygen Delivery Method Room Air Weight: 292 lb 8.854 oz Body Mass Index (BMI) 44.9 Finger Stick Blood Glucose 236 Intake and Output for Last 24 Hours 04/14/20 04/15/20 04/16/20 23:59 23:59 23:59 Intake Total 240 / 640 600 / 600 Output Total 1400 / 1400 Balance 240 / -10 -800 / -800 Microbiology Past 72 Hours 04/15/20 12:12 Mucosa - Nose SARS-CoV-2 Antigen (Rapid) - Final Laboratory Results 04/15/20 10:40: WBC 6.0, RBC 3.52 L, Hgb 10.0 L, Hct 32.0 L, MCV 90.9, MCH 28.4, MCHC 31.3 L, RDW Std Deviation 49.8 H, RDW Coeff of Mayank 15.2 H, Plt Count 129 L, MPV 10.0, Immature Gran % (Auto) 0.500, Neut % (Auto) 68.2, Lymph % (Auto) 18.6 L, [place] % (Auto) 6.7, Eos % (Auto) 5.5 H, Baso % (Auto) 0.5, Absolute Neuts (auto) 4.1, Absolute Lymphs (auto) 1.11, Nucleated RBC % 0 04/15/20 10:40: Sodium 143, Potassium 3.8, Chloride 111 H, Carbon Dioxide 29.0, Anion Gap 3 L, BUN 21 H, Creatinine 1.22 H, Estim Creat Clear Calc 27.74, Est GFR (MDRD) Af Amer 55 L, Est GFR (MDRD) Non-Af 45 L, BUN/Creatinine Ratio 17.2, Glucose 153 H, Calcium 10.6 H, Troponin I < 0.015 04/15/20 10:40: Magnesium 2.2 04/15/20 11:45: Urine Color Yellow, Urine Clarity Clear, Urine pH 6.0, Ur Specific [place] 1.010, Urine Protein 100 H, Urine Glucose (UA) Normal, Urine Ketones Negative, Urine Occult Blood 250 H, Urine Nitrite Negative, Urine Bilirubin Negative, Urine Urobilinogen Normal, Ur Leukocyte Esterase 25 H, Urine RBC 0-5 SEEN, Urine WBC 0-5 SEEN, Ur Squamous Epith Cells 0-5 SEEN, Urine Bacteria 3+, Urine Mucus 0 SEEN 04/15/20 22:42: POC Glucose 220 H 04/16/20 07:00: POC Glucose 226 H Current Medications Acetaminophen (Acetaminophen 325 Mg Tablet) 650 mg PO Q6H PRN PRN PRN Reason: Pain Score 1-10/Temp > 100.7 F Al Hydroxide/Mg Hydroxide (Mag Hydrox/Al Hydrox/Simeth 30 Ml Udc) 30 ml PO Q6H PRN PRN PRN Reason: Gastric Burning Albuterol Sulfate (Albuterol 2.5 Mg/3 Ml Vial.Neb.) 2.5 mg INHALATION Q2H PRN PRN PRN Reason: Dyspnea, wheezing Amlodipine Besylate (Amlodipine 5 Mg Tablet) 5 mg PO DAILY [facility] Famotidine (Famotidine 20 Mg Tablet) 20 mg PO DAILY [facility] Gabapentin (Gabapentin 400 Mg Capsule) 400 mg PO TIDCM [facility] Guaifenesin (Guaifenesin 10 Ml Udc (200mg/10ml)) 20 ml PO Q4H PRN PRN PRN Reason: COUGH Hydralazine HCl (Hydralazine 20 Mg/Ml Vial) 10 mg IV Q4H PRN PRN PRN Reason: SBP > 160 Last Admin: 04/16/20 05:41 Dose: 10 mg Documented by: Insulin Human Lispro (Insulin Lispro 100 Unit/Ml Insuln.Pen) 0 unit [facility]; Protocol Last Admin: 04/16/20 07:02 Dose: 2 u Documented by: Lisinopril (Lisinopril 5 Mg Tablet) 5 mg PO DINNER [facility] Last Admin: 04/15/20 18:26 Dose: 5 mg Documented by: Magnesium Hydroxide (Magnesium Hydroxide 30 Ml Udc) 30 ml PO DAILY PRN PRN PRN Reason: Constipation Melatonin (Melatonin 3 Mg Tablet) 3 mg PO QHS PRN PRN PRN Reason: INSOMNIA Nitroglycerin (Nitroglycerin (Inpatient Use) 0.4 Mg Tab.Subl) 0.4 mg SUBLINGUAL Q5M PRN PRN Reason: CARDIAC/CHEST PAIN Ondansetron HCl (Ondansetron 4 Mg/2 Ml Vial) 4 mg IV Q8H PRN PRN PRN Reason: NAUSEA/VOMITING Pravastatin Sodium (Pravastatin 40 Mg Tablet) 40 mg PO DINNER [facility] Last Admin: 04/15/20 18:26 Dose: 40 mg Documented by: Prochlorperazine Edisylate (Prochlorperazine 10 Mg/2 Ml Vial) 5 mg IV Q4H PRN PRN PRN Reason: Breakthrough nausea/vomiting Psyllium Hydrophilic Mucilloid (Psyllium 1 Packet) 1 packet PO DAILY PRN PRN PRN Reason: Constipation Rivaroxaban (Rivaroxaban 20 Mg Tablet) 20 mg PO DAILY@1700 HELEN Senna/Docusate Sodium (Senna/Docusate Sodium 1 Tablet) 2 tablet PO BID PRN PRN PRN Reason: Constipation Sodium Chloride (0.9% Saline Lock 10 Ml Syringe) 10 - 40 ml IV UD PRN PRN Reason: SALINE FLUSH Last Admin: 04/16/20 05:42 Dose: 10 ml Documented by: Throat Lozenges (Benzocaine/Menthol 1 Lozenge) 1 lozenge MUCOUS MEM Q2H PRN PRN PRN Reason: SORE THROAT STROKE Vital Signs/Narrative: Vital Signs Temp Pulse Resp BP Pulse Ox 04/16/20 05:41 92 187/88 H 04/16/20 04:21 99.0 F 92 16 187/88 H 96 Medical Necessity - Tobacco Use Smoking Status: Never smoker Assessment/Plan All Active Problems Weakness (Acute) Uncontrolled hypertension (Acute) Failure to thrive in adult (Acute) The patient is a 79 y/o F HTN, HLD, CKD stage III with history of horseshoe kidney, Hx DVT on xarelto, Morbidly obese, Chronic back pain, Diabetes mellitus type II who presents to the [facility] ED on 04/15/20 with history of inability to care for self, daughter has been assisting, she notes she has been declining over several months with chronic back discomfort and chronic lower extremity neuropathies. 1. Failure to thrive in adult, debility: Patient is being admitted to medical surgical floor. Fall precaution. PT and OT. Case management consult to help discharge planning. m 2. Hypertension, uncontrolled: Blood pressure is elevated at time of admission. Her dose of Norvasc and lisinopril increased to 10 mg daily. On 10 mg IV hydralazine as needed as needed for systolic blood pressure more than 180 mmHg. 3. Chronic back pain and peripheral neuropathy: continue patient home gabapentin regimen, maintain on fall precautions, therapy and case management consulted as noted above for planned placement. 4. Diabetes mellitus type II: Hold oral home regimen, ADA diet, accu checks w/ ISS. 5. Chronic normocytic anemia: Admission hemoglobin 10, previously noted 9-10 range, stable, may repeat labs as needed. 6. Chronic Kidney Disease Stage III with history of horseshoe kidney: Admission BUN/Cr 21/1.22, baseline renal function 1.1-1.5, repeat BMP in AM. 7. Hyperlipidemia: We will continue patient on statin therapy. 8. Morbid Obesity: Weight loss and lifestyle changes encouraged, nutrition consulted. 9. Suspected COLLIN: Denies, encourage outpatient sleep study. 10. History of DVT: We will continue patient home Xarelto regimen. 11. GERD: We will continue PPI. 12. DVT prophylaxis: SCDs, continue home Xarelto regimen.
[2020-04-16 10:40] VITALS: BP 150/95; PULSE 104; RESP 16; TEMP 37; O2SAT 94
[2020-04-16] MEDS: Gabapentin 400 MG Capsule PO (10:49)
[2020-04-16] MEDS: Famotidine 20 MG Tablet PO (10:49)
[2020-04-16] MEDS: Lisinopril 5 MG Tablet 10 MG PO (10:52)
[2020-04-16] MEDS: amLODIPine 10 MG Tablet PO (10:52)
--- NOTE | 2020-04-16 10:52 | PCM.TXEXTCAR ---
- Diet 04/15/20 17:14 Diet: Consistent Carb - Calorie Controlled Food consistency:: Regular Liquid Consistency:: Regular/Thin How many daily calories?: 1800 calorie - Routine Orders/Code Status Suppository Type: Dulcolax 10mg Suppository Frequency: Daily PRN Code Status: Full Code - Therapies Weight Bearing: Weight bearing as tolerated Extremity Affected:: Bilateral Lower Physical Therapy: Eval and Treat Occupational Therapy: Eval and Treat Speech Therapy: Eval and Treat - Allergies/Procedures Done in Hospital Allergies/Adverse Reactions: Allergies empagliflozin [From Jardiance] Allergy (Verified 04/15/20 10:09) Itching/RASH metformin Allergy (Verified 04/15/20 10:09) decreased appetite atorvastatin [From Lipitor] Adverse Reaction (Verified 04/15/20 10:09) frequent urination - Type of Care/Length of Stay Estimated LOS: Convalescent Care Less Than 30 days Type of Care Needed: Skilled Rehab Potential: Good Prognosis: Good - Additional Orders/Day of Discharge Day of Discharge: 04/16/20 - Follow Up Care Primary Care Physician: Vel Graham MD [Primary Care Provider] - Please follow up with your Primary Care Physician in: in 1-2 week
--- NOTE | 2020-04-16 10:53 | DS.PCM_ITS ---
Discharge Date and Diagnosis - Problem List Patient Problems: Active and Suspected Problems Weakness (Acute) Uncontrolled hypertension (Acute) Failure to thrive in adult (Acute) Date of Admission: 04/15/20 Date of Discharge: 04/16/20 - Primary Discharge Diagnosis Acute Problems: Active Problems Weakness (Acute) Uncontrolled hypertension (Acute) Failure to thrive in adult (Acute) - Secondary Discharge Diagnosis Chronic Problems: Chronic Problems HTN (hypertension) (Chronic) Hyperlipidemia (Chronic) Pulmonary emboli (Chronic) DVT (deep venous thrombosis) (Chronic) Chronic back pain (Chronic) Diabetes mellitus, type II (Chronic) Morbid obesity (Chronic) CKD (chronic kidney disease), stage III (Chronic) Chronic anemia (Chronic) GERD (gastroesophageal reflux disease) (Chronic) Chronic back pain (Chronic) Peripheral neuropathy (Chronic) Horseshoe kidney (Chronic) Obesity (BMI 35.0-39.9 without comorbidity) (Chronic) 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 1. Failure to thrive in adult, debility: Patient is being admitted to medical surgical floor. Fall precaution. PT and OT. Discussed with the case management. Patient is being discharged to SNF for further physical rehabilitation. 2. Hypertension, uncontrolled: Blood pressure is elevated at time of admission. On 10 mg IV hydralazine as needed as needed for systolic blood pressure more than 180 mmHg. Dose of Norvasc and lisinopril increased. 3. Chronic back pain and peripheral neuropathy: continue patient home gabapentin regimen, maintain on fall precautions, therapy and case management consulted as noted above for planned placement. 4. Diabetes mellitus type II: Dose of hypoglycemic incidents revised. Glipizide dose increased to 10 mg twice daily, Actos 15 mg daily. Continue Accu-Cheks before meals and at bedtime in group home patient may need supplemental Humalog insulin. 5. Chronic normocytic anemia: Admission hemoglobin 10, previously noted 9-10 range, stable. 6. Chronic Kidney Disease Stage III with history of horseshoe kidney: Admission BUN/Cr 21/1.22, baseline renal function 1.1-1.5. Patient creatinine is at baseline 7. Hyperlipidemia: continue patient on statin therapy. 8. Morbid Obesity: Weight loss and lifestyle changes encouraged, nutrition consulted. 9. Suspected COLLIN: Denies, encourage outpatient sleep study. 10. History of DVT: continue patient home Xarelto regimen. 11. GERD: continue PPI. 12. DVT prophylaxis: SCDs, continue home Xarelto regimen. Discharge medication reconciliation done. Discharge follow-up instructions completed. Discharge process discussed with the patient and all questions were answered to patient's satisfaction. Total time spent, exact 35 minutes on discharge meds reconciliation, examination, coordination of care with nurses and ancillary staff, review of imaging and blood test and discussion with the patient on follow-up instructions Patient Problems: Active and Suspected Problems Weakness (Acute) Uncontrolled hypertension (Acute) Failure to thrive in adult (Acute) Objective: Patient has mild anxiety. Has weakness of legs left more than right. Physically deconditioned. Morbid obesity. No acute symptoms of chest pain or shortness of breath. Denies dysuria or acute lower urinary tract symptoms. Physical exam General: Alert, Oriented x3, Cooperative HEENT: Atraumatic, PERRLA, EOMI, Normocephalic Oral: No Gingival or Mucosal Lesions/ Ulcerations Neck: Supple, No JVD, Negative Carotid Bruits Lungs: Air entry diminished in bilateral lung bases. No crepitation/rhonchi Cardiovascular: Regular rate, Regular Rhythm, Normal S1, Normal S2, ejection systolic murmur grade 3/6 over left second ICS Abdomen: Bowel Sounds Present, Soft, Non Tender, Non-Distended : No renal angle tenderness. No suprapubic tenderness. Extremities: No edema, Capillary Refill Less than 3 Seconds Skin: No rashes, No breakdown Musculoskeletal: No Tenderness to Palpation of Joints or Extremities weakness of both lower extremities, left more than right. Left lower leg is chronically tender. Neurological: Cranial nerves II-XII grossly intact, Deep Tendon Reflexes 2+/4 and Symmetrical, Neuro grossly intact. Psych/Mental Status: Mild anxiety - Physical Exam Vitals/I&O's: Vital Signs Temp Pulse Resp BP Pulse Ox 99.0 F 92 16 187/88 H 96 04/16/20 04:21 04/16/20 05:41 04/16/20 04:21 04/16/20 05:41 04/16/20 04:21 Oxygen Delivery Method Room Air Weight: 292 lb 8.854 oz Body Mass Index (BMI) 44.9 Finger Stick Blood Glucose 236 Intake and Output for Last 24 Hours 04/14/20 04/15/20 04/16/20 23:59 23:59 23:59 Intake Total 240 / 640 600 / 600 Output Total 1400 / 1400 Balance 240 / -10 -800 / -800 Microbiology Past 72 Hours 04/15/20 12:12 Mucosa - Nose SARS-CoV-2 Antigen (Rapid) - Final Laboratory Results 04/15/20 10:40: WBC 6.0, RBC 3.52 L, Hgb 10.0 L, Hct 32.0 L, MCV 90.9, MCH 28.4, MCHC 31.3 L, RDW Std Deviation 49.8 H, RDW Coeff of Mayank 15.2 H, Plt Count 129 L , MPV 10.0, Immature Gran % (Auto) 0.500, Neut % (Auto) 68.2, Lymph % (Auto) 18.6 L, [place] % (Auto) 6.7, Eos % (Auto) 5.5 H, Baso % (Auto) 0.5, Absolute Neuts (auto) 4.1, Absolute Lymphs (auto) 1.11, Nucleated RBC % 0 04/15/20 10:40: Sodium 143, Potassium 3.8, Chloride 111 H, Carbon Dioxide 29.0, Anion Gap 3 L, BUN 21 H, Creatinine 1.22 H, Estim Creat Clear Calc 27.74, Est GFR (MDRD) Af Amer 55 L, Est GFR (MDRD) Non-Af 45 L, BUN/Creatinine Ratio 17.2, Glucose 153 H, Calcium 10.6 H, Troponin I < 0.015 04/15/20 10:40: Magnesium 2.2 04/15/20 11:45: Urine Color Yellow, Urine Clarity Clear, Urine pH 6.0, Ur Specific [place] 1.010, Urine Protein 100 H, Urine Glucose (UA) Normal, Urine Ketones Negative, Urine Occult Blood 250 H, Urine Nitrite Negative, Urine Bilirubin Negative, Urine Urobilinogen Normal, Ur Leukocyte Esterase 25 H, Urine RBC 0-5 SEEN, Urine WBC 0-5 SEEN, Ur Squamous Epith Cells 0-5 SEEN, Urine Bacteria 3+, Urine Mucus 0 SEEN 04/15/20 22:42: POC Glucose 220 H 04/16/20 07:00: POC Glucose 226 H Current Medications Acetaminophen (Acetaminophen 325 Mg Tablet) 650 mg PO Q6H PRN PRN PRN Reason: Pain Score 1-10/Temp > 100.7 F Al Hydroxide/Mg Hydroxide (Mag Hydrox/Al Hydrox/Simeth 30 Ml Udc) 30 ml PO Q6H PRN PRN PRN Reason: Gastric Burning Albuterol Sulfate (Albuterol 2.5 Mg/3 Ml Vial.Neb.) 2.5 mg INHALATION Q2H PRN PRN PRN Reason: Dyspnea, wheezing Amlodipine Besylate (Amlodipine 10 Mg Tablet) 10 mg PO DAILY [facility] Famotidine (Famotidine 20 Mg Tablet) 20 mg PO DAILY [facility] Gabapentin (Gabapentin 400 Mg Capsule) 400 mg PO TIDCM [facility] Guaifenesin (Guaifenesin 10 Ml Udc (200mg/10ml)) 20 ml PO Q4H PRN PRN PRN Reason: COUGH Hydralazine HCl (Hydralazine 20 Mg/Ml Vial) 10 mg IV Q4H PRN PRN PRN Reason: SBP > 180 Insulin Human Lispro (Insulin Lispro 100 Unit/Ml Insuln.Pen) 0 unit SC [facility]; Protocol Last Admin: 04/16/20 07:02 Dose: 2 u Documented by: Lisinopril (Lisinopril 5 Mg Tablet) 10 mg PO DAILY [facility] Melatonin (Melatonin 3 Mg Tablet) 3 mg PO QHS PRN PRN PRN Reason: INSOMNIA Nitroglycerin (Nitroglycerin (Inpatient Use) 0.4 Mg Tab.Subl) 0.4 mg SUBLINGUAL Q5M PRN PRN Reason: CARDIAC/CHEST PAIN Ondansetron HCl (Ondansetron 4 Mg/2 Ml Vial) 4 mg IV Q8H PRN PRN PRN Reason: NAUSEA/VOMITING Pravastatin Sodium (Pravastatin 40 Mg Tablet) 40 mg PO DINNER [facility] Last Admin: 04/15/20 18:26 Dose: 40 mg Documented by: Prochlorperazine Edisylate (Prochlorperazine 10 Mg/2 Ml Vial) 5 mg IV Q4H PRN PRN PRN Reason: Breakthrough nausea/vomiting Psyllium Hydrophilic Mucilloid (Psyllium 1 Packet) 1 packet PO DAILY PRN PRN PRN Reason: Constipation Rivaroxaban (Rivaroxaban 20 Mg Tablet) 20 mg PO DAILY@1700 HELEN Senna/Docusate Sodium (Senna/Docusate Sodium 1 Tablet) 2 tablet PO BID PRN PRN PRN Reason: Constipation Sodium Chloride (0.9% Saline Lock 10 Ml Syringe) 10 - 40 ml IV UD PRN PRN Reason: SALINE FLUSH Last Admin: 04/16/20 05:42 Dose: 10 ml Documented by: Throat Lozenges (Benzocaine/Menthol 1 Lozenge) 1 lozenge MUCOUS MEM Q2H PRN PRN PRN Reason: SORE THROAT Home Medications: Medications to take at Discharge Gabapentin [Neurontin] 400 mg PO TID 03/20/14 Pravastatin Sodium 40 mg PO DINNER 10/05/17 Famotidine [Pepcid] 20 mg PO DAILY 12/08/19 Acetaminophen [Tylenol] 500 - 1,000 mg PO DAILY PRN PRN 04/15/20 Glucosamine Sulfate 1,000 mg PO DAILY 04/15/20 Pioglitazone [Actos] 15 mg PO DINNER 04/15/20 Rivaroxaban [Xarelto] 20 mg PO DAILY 04/15/20 Amlodipine [Norvasc] 10 mg PO DAILY tab 04/16/20 Lisinopril [Zestril] 10 mg PO DAILY tab 04/16/20 Senna/Docusate Sodium [Senokot-S] 2 tab PO BID PRN PRN tab 04/16/20 glipiZIDE [Glucotrol] 10 mg PO BID #0 04/16/20 Primary Care Physician: Vel Graham MD [Primary Care Provider] - Please follow up with your Primary Care Physician in: in 1-2 week Medical Necessity - Tobacco Use Smoking Status: Never smoker Meaningful Use Info Meaningful Use Diagnoses (Choose all that apply): None applicable OBSV E&M: 52697 Observation care discharge
--- NOTE | 2020-04-16 12:40 | CASEMGMT ---
Social Work Note LANEY spoke with Tavia at [facility]. Tavia states pre-cert has been obtained and pt is able to discharge today. LANEY updated physician. LANEY faxed completed discharge paperwork to [facility] including transfer to extended care facility, signed medication list, any scripts, COVID test, COVID screening tool. Original in SNF folder and copy on pt's chart. RN states pt is able to transport via cot. SW accessed trip assist, earliest they are able to transport pt is 3:30pm. LANEY completed transportation form, placed on SNF folder and copy on pt's chart. LANEY completed PAS/RR in HENS. Original in SNF folder and copy on pt's chart. LANEY updated RN on transportation time. LANEY placed a call to [facility] and spoke with Susan as Tavia is not available. LANEY updated Susan on transportation time. SW updated pt on discharge and transportation time. Pt states understanding, agreeable to plan. LANEY placed a call to pt's daughter Lucita and updated her on approval for SNF and transportation time. Lucita states a red tote bag was dropped off for pt, wants to make sure pt has it. LANEY updated RN who will see about red tote bag. Plan: Discharge to [facility] skilled today with physician's ambulance transporting pt at 3:30pm. Sheyla Hillman CORRESPONDENCE COORDINATOR, INFORMATICA
[2020-04-16 12:50] LABS: Bedside Glucose 214 mg/dL (70-110)
--- NOTE | 2020-04-16 13:25 | CHAPLAIN ---
Type of Pastoral Visit _x__ Initial Visit ___ Follow-up Visit ___ On-call Visit ___ General Patient Visit ___ Spiritual Assessment ___ Family Conference ___ Bereavement ___ Rapid Response ___ Code Blue ___ Other (describe below) Pastoral Care Referral From _x__ Patient ___ Family ___ Nurse ___ Physician ___ Medical Device Sales ___ Plastics Spreading Machine Operator ___ Other (describe below) Sacrament/Intervention _x__ Active listening ___ Anointing ___ Confucianist ___ Bereavement ___ Communion ___ Rhea exploration ___ ___ Life review _x__ Prayer ___ Reconciliation ___ Sacrament of Sick _x__ Supportive presence ___ Wedding ___ Other (describe below) Pastoral Comments
[2020-04-16 15:15] VITALS: BP 151/81; PULSE 98; RESP 18; TEMP 36.9; O2SAT 95
--- NOTE | 2020-04-16 16:08 | NURSING ---
at 1520 report called to Osiel at [facility].
--- NOTE | 2020-04-18 13:31 | CM.ED ---
SOCIAL WORK Received call from Jabier with Adult Protective Services. Updated on patient's discharge to [facility] for continuity of care. Michelle Carlos, REED MAKER, WATER TENDER
== END 2020-04-16 15:58 | disposition skilled nursing facility (03) ==
LOC: ED 15:57 → MS3 16:32
PROVIDERS: Admitting Provider Family Medicine; Emergency Provider Emergency Medicine; PCP Family Medicine; Visit Provider Internal Medicine
DX: R53.1 Weakness (principal); R62.7 Adult failure to thrive; Z68.43 Body mass index [BMI] 50.0-59.9, adult; I12.9 Hypertensive chronic kidney disease with stage 1 through stage 4 chronic kidney disease, or unspecified chronic kidney disease; E78.5 Hyperlipidemia, unspecified; E11.22 Type 2 diabetes mellitus with diabetic chronic kidney disease; N18.30 Chronic kidney disease, stage 3 unspecified; Q63.1 Lobulated, fused and horseshoe kidney; E66.01 Morbid (severe) obesity due to excess calories; G89.29 Other chronic pain; E11.42 Type 2 diabetes mellitus with diabetic polyneuropathy; K21.9 Gastro-esophageal reflux disease without esophagitis; Z86.711 Personal history of pulmonary embolism; Z86.718 Personal history of other venous thrombosis and embolism; Z79.84 Long term (current) use of oral hypoglycemic drugs; Z79.899 Other long term (current) drug therapy; Z79.01 Long term (current) use of anticoagulants; Z99.3 Dependence on wheelchair; D64.9 Anemia, unspecified
CPT/HCPCS: 71045; 80048; 81001; 82962; 83735; 84484; 85025; 87086; 87088; 87186; 87426; 93005; 96374; 96376; 97110; 97162; 97166; 97530; 99218; 99251; 99285; A4216; G0378; G0463

== ENCOUNTER 2020-06-22 19:46 | Inpatient (IN) | payer MEDICARE, MEDICAID, SELFPAY ==
[2020-04-15 17:19] VITALS: BMI 44.9
[2020-06-22 19:48] VITALS: BP 154/118; PULSE 106; RESP 20; TEMP 36.8; O2SAT 92; BMI 40.1
--- NOTE | 2020-06-22 20:29 | ED.VIS.GEN ---
History of Present Illness Chief Complaint: Alt LOC Informant: Family - Oriented daughter she can have altered level of conscious which fluctuates with normal levels of consciousness., Psychiatric Nursing Assistant, SNF Onset: Today Context: Sudden Onset - Presumed Timing: Continuous Quality: Nonverbal Location: Nursing facility Current Severity: Severe Maximum Severity: Severe Worsened by: Unknown Relieved by: Unknown Associated Symptoms: Unable to obtain Narrative: Since a elderly woman with multiple medical problems who presents because of decreased level of conscious. She is not able to answer any questions. She will open her eyes to noxious stimuli. She withdraws to noxious stimuli. Prior similar symptoms: Yes - Per daughter Recent Illness/Hospitalization: No - Past Medical History (1) Failure to thrive in adult Status: Acute (2) CKD (chronic kidney disease), stage III Status: Chronic (3) Chronic anemia Status: Chronic (4) DVT (deep venous thrombosis) Status: Chronic (5) Diabetes mellitus, type II Status: Chronic (6) GERD (gastroesophageal reflux disease) Status: Chronic (7) HTN (hypertension) Status: Chronic (8) Horseshoe kidney Status: Chronic (9) Hyperlipidemia Status: Chronic (10) Obesity (BMI 35.0-39.9 without comorbidity) Status: Chronic (11) Peripheral neuropathy Status: Chronic (12) Pulmonary emboli Status: Chronic (13) Renal infarct Status: Chronic Past Medical History - Allergies and Home Meds Allergies/Adverse Reactions: Allergies empagliflozin [From Jardiance] Allergy (Verified 06/22/20 19:53) Itching/RASH metformin Allergy (Verified 06/22/20 19:53) decreased appetite atorvastatin [From Lipitor] Adverse Reaction (Verified 06/22/20 19:53) frequent urination Primary Care Physician: Vel Graham MD [Primary Care Provider] - Prior records reviewed: Yes Surgical History: noncontributory, - - x1, tonsillectomy. Lives: Snf Smoking Status: Former smoker Alcohol: None Drugs: None - Family History Paternal Family History: Reports: Heart Disease Maternal Family History: Reports: Heart Disease Review of Systems ROS: Unable to Obtain Physical Exam Vital Signs/Narrative: Vital Signs Temp Pulse Resp BP Pulse Ox 06/22/20 19:48 98.3 F 106 H 20 H 154/118 H 92 Inital Vital Signs reviewed: Yes General: Well nourished, Well developed, Obese, No Acute Distress Head: Normocephalic, Atraumatic Eyes: Perrl, EOMI. Negative for: Pale conjunctiva, Scleral icterus ENT: No rhinorrhea, TM's clear Neck: Supple, Nontender, No lymphadenopathy, No JVD Cardiovascular: Regular rhythm, No murmurs, Normal S1, Normal S2, Tachycardia Respiratory: No distress, CTA bilaterally, Chest nontender Abdomen: Soft, Nontender, Nondistended, Normal bowel sounds Rectal: Deferred Back: Nontender Extremities: Nontender, Edema Skin: No rash, No Trauma. Negative for: Cyanosis, Diaphoresis, Jaundice Neurological: Cranial nerves II-XII grossly intact, - - Draws to noxious stimuli and opens her eyes to noxious stimuli.. Negative for: Alert, Oriented x3 Psychological: - - Unable to determine Diagnostic/Tx/Re-eval Chest X-Ray - ED: 1 View, Read by ED Physician, Read by Radiologist, Normal, Heart, Lungs, Mediastinum, Bony Structures, No Acute Disease Impressions Chest X-Ray 06/22/20 20:47 IMPRESSION: No acute radiographic abnormalities. Poor inspiratory effort with persistent atelectasis and/or scarring in the left lung base. Electronically Signed: Alec Menjivar MD at 21:05 EDT Tel , Service support , 06/22/20 20:47 Chest PA and Lateral [RAD] Stat Laboratory Results 06/22/20 06/22/20 06/22/20 20:27 20:33 20:33 WBC 7.0 RBC 4.46 Hgb 12.7 Hct 40.9 MCV 91.7 MCH 28.5 MCHC 31.1 L RDW Std Deviation 50.8 H RDW Coeff of Mayank 15.2 H Plt Count 216 MPV 9.7 Immature Gran % (Auto) 0.400 Neut % (Auto) 71.3 H Lymph % (Auto) 19.6 [place] % (Auto) 7.1 Eos % (Auto) 1.0 Baso % (Auto) 0.6 Absolute Neuts (auto) 5.0 Absolute Lymphs (auto) 1.38 Nucleated RBC % 0 Sodium 142 Potassium 3.8 Chloride 107 Carbon Dioxide 33.0 H Anion Gap 2 L BUN 25 H Creatinine 1.69 H Estim Creat Clear Calc 24.07 Est GFR (MDRD) Af Amer 38 L Est GFR (MDRD) Non-Af 31 L BUN/Creatinine Ratio 14.8 Glucose 117 H Lactic Acid Calcium 14.1 H* Urine Color Yellow Urine Clarity Cloudy Urine pH 7.0 Ur Specific [place] 1.010 Urine Protein 30 H Urine Glucose (UA) Normal Urine Ketones Negative Urine Occult Blood 50 H Urine Nitrite Positive H Urine Bilirubin Negative Urine Urobilinogen Normal Ur Leukocyte Esterase 500 H Urine RBC 0-5 SEEN Urine WBC >100 SEEN Ur Squamous Epith Cells 0-5 SEEN Urine Bacteria 1+ Urine Mucus 0 SEEN 06/22/20 20:33 WBC RBC Hgb Hct MCV MCH MCHC RDW Std Deviation RDW Coeff of Mayank Plt Count MPV Immature Gran % (Auto) Neut % (Auto) Lymph % (Auto) [place] % (Auto) Eos % (Auto) Baso % (Auto) Absolute Neuts (auto) Absolute Lymphs (auto) Nucleated RBC % Sodium Potassium Chloride Carbon Dioxide Anion Gap BUN Creatinine Estim Creat Clear Calc Est GFR (MDRD) Af Amer Est GFR (MDRD) Non-Af BUN/Creatinine Ratio Glucose Lactic Acid 1.2 Calcium Urine Color Urine Clarity Urine pH Ur Specific [place] Urine Protein Urine Glucose (UA) Urine Ketones Urine Occult Blood Urine Nitrite Urine Bilirubin Urine Urobilinogen Ur Leukocyte Esterase Urine RBC Urine WBC Ur Squamous Epith Cells Urine Bacteria Urine Mucus - Rhythm Strip Rhythm Strip: Sinus Tach Rate: 104 Ectopy: None - Medical Decision Making With altered mental status will obtain appropriate blood work, chest x-ray and urine to assess for metabolic versus infectious cause. Patient's urine is turbid. Suspect causes a urinary tract infection. Will obtain appropriate additional labs if needed and treat with Rocephin since she does not have allergy to penicillin. Patient has 2 sirs criteria. Lactate is normal. Patient was treated with Rocephin and hospitalist was paged for admission. Cause of hyperglycemia is uncertain. ED Disposition - Plan for ED Patient: Disposition: Acute Care Hospital [facility] Diagnosis: Urinary tract infection, Infectious encephalopathy, Hypercalcemia, Sepsis Referrals: Vel Graham MD [Primary Care Provider] -
[2020-06-22 20:31] LABS: Mucous, Urine 0 SEEN /hpf (<or=2+)
[2020-06-22 20:32] LABS: Color, Urine Yellow (Yellow); Glucose, Dipstick Normal (Normal); Ketone-Dipstick Negative (Negative); Leukocyte Esterase-Dipstick 500 /ul (Negative); Nitrite-Dipstick Positive (Negative); Occult Blood-Urine 50 /ul (Negative); Protein-Dipstick 30 mg/dl (Negative); Urine Bilirubin Dipstick Negative (Negative); Urine Clarity Cloudy (Clear); Urine Urobilinogen Normal (Normal)
[2020-06-22 20:38] LABS: White Blood Cells >100 SEEN /hpf (0-5)
[2020-06-22 20:39] LABS: Bacteria 1+ /hpf (None Seen)
[2020-06-22 20:40] LABS: Red Blood Cells-Urine 0-5 SEEN /hpf (0-5); Squamous Epithelial Cells - UA 0-5 SEEN /hpf (5-10)
[2020-06-22 20:42] LABS: Absolute Lymphocyte Count 1.38 X10^3/uL (0.83-4.51); Basophil# 0.04 X10^3/uL; Basophil% 0.6 % (0-1); Eosinophil# 0.07 X10^3/uL; Hematocrit 40.9 % (37-47); Hemoglobin 12.7 g/dL (12.0-15.0); Lymphocyte # 1.38 X10^3/ul (4.0); Lymphocyte % 19.6 % (19-41); Mean Corp Hgb Conc 31.1 g/dL (32-36); Mean Corpuscular Hgb 28.5 pg (27.0-32.0); Mean Corpuscular Volume 91.7 fL (81-99); Mean Platelet Vol. 9.7 fl (6.2-12.0); Monocyte% 7.1 % (0-10); NRBC Flagged by Analyzer 0 % (0-5); Neutrophil # 5.01 X10^3/uL (2.7-7.7); Neutrophil % 71.3 % (47-70); Platelet Count 216 K/mm3 (150-450); RBC Distribution Width CV 15.2 % (11.6-14.6); RBC Distribution Width SD 50.8 fl (35.1-43.9); Red Blood Count 4.46 M/mm3 (4.2-5.4)
--- NOTE | 2020-06-22 20:47 | RAD_ITS ---
INDICATION: Evaluate for pneumonia dyspnea and tachypnea EXAMINATION/TECHNIQUE: X-RAY - XR Chest 2 Views COMPARISON: 04/15/2020. FINDINGS: Poor inspiratory effort. Persistent linear streaky opacities in the left lung base most likely represent atelectasis and/or scarring. Tortuous thoracic aorta. The heart is not enlarged. No pleural effusion or pneumothorax. No acute osseous abnormalities. RAD/Chest PA and Lateral IMPRESSION: No acute radiographic abnormalities. Poor inspiratory effort with persistent atelectasis and/or scarring in the left lung base. Electronically Signed: Alec Menjivar MD at 21:05 EDT Tel , Service support ,
--- NOTE | 2020-06-22 21:10 | ED.RN ---
[address] was called for pts medication list. Four pages were sent three times with only two medications listed. These were updated in [place].
[2020-06-22 21:11] LABS: Lactic Acid 1.2 mmol/L (0.4-1.9)
[2020-06-22 21:21] LABS: Anion Gap 2 (5-15); BUN 25 mg/dL (7-18); BUN/Creat Ratio 14.8 RATIO (10-20); Calcium,Total 14.1 mg/dL (8.5-10.1); Chloride 107 mmol/L (98-107); Creatinine, Serum 1.69 mg/dL (0.55-1.02); EST Glomerular Filtration Rate 31 mL/min (>60); Est Glom Filt Rate - Afr Amer 38 mL/min (>60); Estimated Creatinine Clearance 24.07 ml/min; Glucose 117 mg/dL (74-106); Potassium 3.8 mmol/L (3.5-5.1); Sodium Level 142 mmol/L (136-145)
--- NOTE | 2020-06-22 21:42 | HP.PCM_ITS ---
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 (6) Pulmonary emboli Status: Chronic (7) DVT (deep venous thrombosis) Status: Chronic Qualifiers: Affected thrombotic vein of extremity: unspecified vein of extremity Chronicity: unspecified Laterality: unspecified laterality (8) Weakness Status: Chronic (9) Chronic back pain Status: Chronic Qualifiers: Back pain location: back pain in unspecified location Back pain laterality: unspecified Qualified Code(s): M54.9 - Dorsalgia, unspecified; G89.29 - Other chronic pain (10) Uncontrolled hypertension Status: Chronic (11) Diabetes mellitus, type II Status: Chronic Qualifiers: Diabetes mellitus fci insulin use: without fci use Diabetes mellitus complication status: with other specified complication Qualified Code(s): E11.69 - Type 2 diabetes mellitus with other specified complication (12) Morbid obesity Status: Chronic (13) CKD (chronic kidney disease), stage III Status: Chronic Qualifiers: Chronic kidney disease stage 3 subtype: unspecified whether 3a or 3b Qualified Code(s): N18.30 - Chronic kidney disease, stage 3 unspecified (14) Chronic anemia Status: Chronic (15) GERD (gastroesophageal reflux disease) Status: Chronic Qualifiers: Esophagitis presence: esophagitis presence not specified Qualified Code(s): K21.9 - Gastro-esophageal reflux disease without esophagitis (16) Chronic back pain Status: Chronic (17) Peripheral neuropathy Status: Chronic Qualifiers: Qualified Code(s): G62.9 - Polyneuropathy, unspecified (18) Failure to thrive in adult Status: Chronic (19) Infectious encephalopathy Status: Acute (20) Hypercalcemia Status: Acute (21) Sepsis Status: Acute (22) Horseshoe kidney Status: Chronic (23) Obesity (BMI 35.0-39.9 without comorbidity) Status: Chronic (24) 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 History was obtained from emergency department doctor as patient did not why she was brought to the emergency department. She could not provide history secondary to confusion. Past Medical History Past Medical History (Chronic Problems): Chronic Problems HTN (hypertension) (Chronic) Hyperlipidemia (Chronic) Pulmonary emboli (Chronic) DVT (deep venous thrombosis) (Chronic) Weakness (Chronic) Chronic back pain (Chronic) Uncontrolled hypertension (Chronic) Diabetes mellitus, type II (Chronic) Morbid obesity (Chronic) CKD (chronic kidney disease), stage III (Chronic) Chronic anemia (Chronic) GERD (gastroesophageal reflux disease) (Chronic) Chronic back pain (Chronic) Peripheral neuropathy (Chronic) Failure to thrive in adult (Chronic) Horseshoe kidney (Chronic) Obesity (BMI 35.0-39.9 without comorbidity) (Chronic) Lumbar disc herniation with radiculopathy (Chronic) Renal infarct (Chronic) Diabetes (Chronic) Allergies empagliflozin [From Jardiance] Allergy (Verified 06/22/20 19:53) Itching/RASH metformin Allergy (Verified 06/22/20 19:53) decreased appetite atorvastatin [From Lipitor] Adverse Reaction (Verified 06/22/20 19:53) frequent urination Home Medications: Ambulatory Orders Medication Instructions Recorded Gabapentin [Neurontin] 400 mg PO TID 03/20/14 Pravastatin Sodium 40 mg PO DINNER 10/05/17 Famotidine [Pepcid] 20 mg PO DAILY 12/08/19 Acetaminophen [Tylenol] 500 - 1,000 mg PO DAILY PRN PRN 04/15/20 Glucosamine Sulfate 1,000 mg PO DAILY 04/15/20 Pioglitazone [Actos] 15 mg PO DINNER 04/15/20 Rivaroxaban [Xarelto] 20 mg PO DAILY 04/15/20 Amlodipine [Norvasc] 10 mg PO DAILY tab 04/16/20 Lisinopril [Zestril] 10 mg PO DAILY tab 04/16/20 Senna/Docusate Sodium [Senokot-S] 2 tab PO BID PRN PRN tab 04/16/20 glipiZIDE [Glucotrol] 10 mg PO BID #0 04/16/20 Cholecalciferol (Vitamin D3) 2,000 unit PO DAILY 06/22/20 [Vitamin D3] Denosumab [Prolia] 60 mg SQ X1 06/22/20 Surgical History: - - x1, tonsillectomy. 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 Lives: Jail Smoking Status: Former smoker Alcohol: None Drugs: None - *Family History Paternal History Items: Heart Disease Maternal History Items: Heart Disease Review of Systems Unable to obtain accurate/complete ROS d/t: Confusion VTE Information - Inpt Only VTE Present on Admission: No VTE Mechan Device Prophylaxis: None VTE Pharm Prophylaxis ordered?: No Reason prophylaxis not ordered:: Treatment Not Indicated - Home Xarelto continued Patient Problems: Active and Suspected Problems Urinary tract infection (Acute) Infectious encephalopathy (Acute) Hypercalcemia (Acute) Sepsis (Acute) Acute encephalopathy (Acute) Hypercalcemia (Acute) - Physical Exam Vitals/I&O's: Vital Signs Temp Pulse Resp BP Pulse Ox 98.3 F 106 H 20 H 154/118 H 92 06/22/20 19:48 06/22/20 19:48 06/22/20 19:48 06/22/20 19:48 06/22/20 19:48 Weight: 106 kg Body Mass Index (BMI) 40.1 Finger Stick Blood Glucose 236 General: Alert, Confused HEENT: Atraumatic, PERRLA, EOMI, Normocephalic Neck: Supple, No JVD, Negative Carotid Bruits Lungs: Clear to auscultation, Normal air movement, Tachypneic Cardiovascular: Normal S1, Normal S2, No murmurs, Tachycardic Abdomen: Bowel Sounds Present, Soft, Non Tender Extremities: No edema, Capillary Refill Less than 3 Seconds Skin: No rashes, No breakdown Musculoskeletal: No Tenderness to Palpation of Joints or Extremities Neurological: Cranial nerves II-XII grossly intact Psych/Mental Status: Normal Affect, Appropriate Laboratory Results 06/22/20 20:27: Urine Color Yellow, Urine Clarity Cloudy, Urine pH 7.0, Ur Specific [place] 1.010, Urine Protein 30 H, Urine Glucose (UA) Normal, Urine Ketones Negative, Urine Occult Blood 50 H, Urine Nitrite Positive H, Urine Bilirubin Negative, Urine Urobilinogen Normal, Ur Leukocyte Esterase 500 H, Urine RBC 0-5 SEEN, Urine WBC >100 SEEN, Ur Squamous Epith Cells 0-5 SEEN, Urine Bacteria 1+, Urine Mucus 0 SEEN 06/22/20 20:33: WBC 7.0, RBC 4.46, Hgb 12.7, Hct 40.9, MCV 91.7, MCH 28.5, MCHC 31.1 L, RDW Std Deviation 50.8 H, RDW Coeff of Mayank 15.2 H, Plt Count 216, MPV 9.7, Immature Gran % (Auto) 0.400, Neut % (Auto) 71.3 H, Lymph % (Auto) 19.6, [place] % (Auto) 7.1, Eos % (Auto) 1.0, Baso % (Auto) 0.6, Absolute Neuts (auto) 5.0, Absolute Lymphs (auto) 1.38, Nucleated RBC % 0 06/22/20 20:33: Sodium 142, Potassium 3.8, Chloride 107, Carbon Dioxide 33.0 H, Anion Gap 2 L, BUN 25 H, Creatinine 1.69 H, Estim Creat Clear Calc 24.07, Est GFR (MDRD) Af Amer 38 L, Est GFR (MDRD) Non-Af 31 L, BUN/Creatinine Ratio 14.8, Glucose 117 H, Calcium 14.1 H* 06/22/20 20:33: Lactic Acid 1.2 Assessment/Plan All Active Problems Urinary tract infection (Acute) Infectious encephalopathy (Acute) Hypercalcemia (Acute) Sepsis (Acute) Acute encephalopathy (Acute) Hypercalcemia (Acute) The patient is a 79 year old F with a significant history of hypertension; DVT; PE; and lives at a snf and was sent to the emergency department because of confusion; and found to meet SIRS criteria and with abnormal urinalysis and hypercalcemia. Acute infectious and metabolic encephalopathy Secondary to sepsis from UTI; and hypercalcemia Treatment as below. Sepsis secondary to UTI Heart rate of more than 90; respiratory rate of more than 20 Review of medical department labs showed abnormal urinalysis with elevated urine protein; urine occult blood; urine nitrite and urine leukocyte esterase. 1+ urine bacteria. Received ceftriaxone at emergency department. Old records were reviewed. Urine culture on 04/16/2020 was positive for presumptive UTI that was sensitive to ceftriaxone. Will order ceftriaxone daily. Lactic acid 1.2. Urine culture and blood culture was obtained at emergency department; follow Hypercalcemia Calcium on presentation was 14.1. Her calcium on 04/15/2020 was 10.6. Previous calcium before 04/15/2020 was all normal. Stop outpatient vitamin D if patient is still on. Check vitamin D level. Hydr ate with normal saline. Trend BMP. Diabetes mellitus Patient with mild hyperglycemia on presentation Continue home Actos. Hold home glipizide.. Accu-Chek QA [facility] with correction scale insulin ordered. Hypertension Blood pressure is not within goal Continue home blood pressure medications. As needed hydralazine ordered. Trend blood pressure and adjust blood pressure medications. DVT prophylaxis SCD ordered. Resume Xarelto for history PE and DVT if patient continues to be on. Miscellaneous: At this time Nursing staff is unable to get hold of snf to check medications. Med reconciliation to be done as soon as nursing staff are able to get a hold of snf staff and outpatient meds verified. Inpatient E&M: [id number] Init Hosp L3
[2020-06-22 21:50] VITALS: BP 183/99; PULSE 110; RESP 24; TEMP 36.6; O2SAT 93
[2020-06-22] MEDS: Ceftriaxone 1 GM/50 ML BAG IV (22:17)
[2020-06-22 22:45] VITALS: BP 147/75; PULSE 102; RESP 16; TEMP 36.8; O2SAT 94
[2020-06-22 22:48] VITALS: BMI 38.3; BMI 40.1
[2020-06-22 23:00] VITALS: PULSE 99
[2020-06-22] MEDS: 0.9% Normal Saline 1,000 ML 100 ML IV (23:02)
[2020-06-23] VITALS (11 sets, daily range): BP systolic 145–160; BP diastolic 73–102; PULSE 76–96; RESP 16–18; TEMP 36.6–37.1; O2SAT 91–97
[2020-06-23 01:01] LABS: Bedside Glucose 126 mg/dL (70-110)
[2020-06-23 06:24] LABS: Absolute Lymphocyte Count 1.38 X10^3/uL (0.83-4.51); Absolute Neutrophil Count 4.1 X10^3/uL (2.0-7.7); Basophil# 0.04 X10^3/uL; Basophil% 0.6 % (0-1); Eosinophil# 0.23 X10^3/uL; Eosinophils% 3.7 % (0-5); Hematocrit 32.7 % (37-47); Hemoglobin 9.9 g/dL (12.0-15.0); Lymphocyte # 1.38 X10^3/ul (4.0); Lymphocyte % 22.2 % (19-41); Mean Corp Hgb Conc 30.3 g/dL (32-36); Mean Corpuscular Hgb 27.9 pg (27.0-32.0); Mean Corpuscular Volume 92.1 fL (81-99); Monocyte# 0.48 X10^3/uL; Monocyte% 7.7 % (0-10); NRBC Flagged by Analyzer 0 % (0-5); Neutrophil # 4.07 X10^3/uL (2.7-7.7); Neutrophil % 65.3 % (47-70); Platelet Count 233 K/mm3 (150-450); RBC Distribution Width CV 15.1 % (11.6-14.6); RBC Distribution Width SD 51.6 fl (35.1-43.9); Red Blood Count 3.55 M/mm3 (4.2-5.4); White Blood Count 6.2 K/mm3 (4.4-11.0)
[2020-06-23] MEDS: 0.9% Saline Lock 10 ML Syringe IV (06:53)
[2020-06-23 07:02] LABS: Anion Gap 4 (5-15); BUN 24 mg/dL (7-18); BUN/Creat Ratio 14.9 RATIO (10-20); Calcium,Total 13.6 mg/dL (8.5-10.1); Chloride 110 mmol/L (98-107); Creatinine, Serum 1.61 mg/dL (0.55-1.02); EST Glomerular Filtration Rate 33 mL/min (>60); Est Glom Filt Rate - Afr Amer 40 mL/min (>60); Estimated Creatinine Clearance 24.21 ml/min; Glucose 126 mg/dL (74-106); Potassium 3.6 mmol/L (3.5-5.1); Sodium Level 144 mmol/L (136-145)
[2020-06-23 07:06] LABS: Bedside Glucose 129 mg/dL (70-110)
[2020-06-23] MEDS: 0.9% Normal Saline 1,000 ML 100 ML IV (08:44)
[2020-06-23] MEDS: Polyethylene Glycol 3350 17 GM PACKET PO (08:44)
[2020-06-23] MEDS: amLODIPine 10 MG Tablet PO (08:45)
[2020-06-23] MEDS: Pioglitazone Hydrochloride 15 MG Tablet PO (08:45)
[2020-06-23] MEDS: Ferrous Sulfate 325 MG Tablet PO (08:45)
--- NOTE | 2020-06-23 10:04 | PN_ITS ---
Patient Problems: Active and Suspected Problems Urinary tract infection (Acute) Infectious encephalopathy (Acute) Hypercalcemia (Acute) Sepsis (Acute) Acute encephalopathy (Acute) Hypercalcemia (Acute) Subjective: Patient: I have a lot of questions Me: What others questions? Patient: No answer Vitals/I&O's: Vital Signs Temp Pulse Resp BP Pulse Ox 36.8 C 90 18 158/84 H 97 06/23/20 08:40 06/23/20 08:40 06/23/20 08:40 06/23/20 08:40 06/23/20 08:40 Oxygen Delivery Method Room Air Weight: 98.2 kg Body Mass Index (BMI) 38.3 Finger Stick Blood Glucose 236 Intake and Output for Last 24 Hours 06/21/20 06/22/20 06/23/20 23:59 23:59 23:59 Intake Total 50 / 110 1135 / 1135 Balance 50 / 110 1135 / 1135 General: Alert, No apparent distress, Confused HEENT: Atraumatic, Normocephalic Oral: Moist Mucosa, No Gingival or Mucosal Lesions/ Ulcerations Neck: No Nodes, Thyroid Normal Size and Texture Lungs: Clear to auscultation, Normal air movement, No rhonchi, No wheeze Cardiovascular: Regular rate, Regular Rhythm, Normal S1, Normal S2, No murmurs Abdomen: Bowel Sounds Present, Soft, Non Tender, Non-Distended, No Hepato- splenomegaly Extremities: No edema, No Calf Tenderness Skin: No rashes, No breakdown Musculoskeletal: No Tenderness to Palpation of Joints or Extremities, No Muscle Wasting Neurological: Muscle tone normal, Coordination normal Psych/Mental Status: Normal Affect, Appropriate Laboratory Results 06/22/20 20:27: Urine Color Yellow, Urine Clarity Cloudy, Urine pH 7.0, Ur Specific [place] 1.010, Urine Protein 30 H, Urine Glucose (UA) Normal, Urine Ketones Negative, Urine Occult Blood 50 H, Urine Nitrite Positive H, Urine Bilir ubin Negative, Urine Urobilinogen Normal, Ur Leukocyte Esterase 500 H, Urine RBC 0-5 SEEN, Urine WBC >100 SEEN, Ur Squamous Epith Cells 0-5 SEEN, Urine Bacteria 1+, Urine Mucus 0 SEEN 06/22/20 20:33: WBC 7.0, RBC 4.46, Hgb 12.7, Hct 40.9, MCV 91.7, MCH 28.5, MCHC 31.1 L, RDW Std Deviation 50.8 H, RDW Coeff of Mayank 15.2 H, Plt Count 216, MPV 9.7, Immature Gran % (Auto) 0.400, Neut % (Auto) 71.3 H, Lymph % (Auto) 19.6, Kimble % (Auto) 7.1, Eos % (Auto) 1.0, Baso % (Auto) 0.6, Absolute Neuts (auto) 5.0, Absolute Lymphs (auto) 1.38, Nucleated RBC % 0 06/22/20 20:33: Sodium 142, Potassium 3.8, Chloride 107, Carbon Dioxide 33.0 H, Anion Gap 2 L, BUN 25 H, Creatinine 1.69 H, Estim Creat Clear Calc 24.07, Est GFR (MDRD) Af Amer 38 L, Est GFR (MDRD) Non-Af 31 L, BUN/Creatinine Ratio 14.8, Glucose 117 H, Calcium 14.1 H* 06/22/20 20:33: Lactic Acid 1.2 06/22/20 23:36: POC Glucose 126 H 06/23/20 05:55: WBC 6.2, RBC 3.55 L, Hgb 9.9 L, Hct 32.7 L, MCV 92.1, MCH 27.9, MCHC 30.3 L, RDW Std Deviation 51.6 H, RDW Coeff of Mayank 15.1 H, Plt Count 233, MPV 10.0, Immature Gran % (Auto) 0.500, Neut % (Auto) 65.3, Lymph % (Auto) 22.2, Kimble % (Auto) 7.7, Eos % (Auto) 3.7, Baso % (Auto) 0.6, Absolute Neuts (auto) 4.1, Absolute Lymphs (auto) 1.38, Nucleated RBC % 0 06/23/20 05:55: Sodium 144, Potassium 3.6, Chloride 110 H, Carbon Dioxide 30.0, Anion Gap 4 L, BUN 24 H, Creatinine 1.61 H, Estim Creat Clear Calc 24.21, Est GFR (MDRD) Af Amer 40 L, Est GFR (MDRD) Non-Af 33 L, BUN/Creatinine Ratio 14.9, Glucose 126 H, Calcium 13.6 H* 06/23/20 05:55: Vitamin D 25-Hydroxy Pending 06/23/20 05:55: Vit D 1,25-Dihydroxy Pending 06/23/20 06:52: POC Glucose 129 H Current Medications Acetaminophen (Acetaminophen 325 Mg Tablet) 650 mg PO Q6H PRN PRN PRN Reason: Pain Score 1-10/Temp > 100.7 F Amlodipine Besylate (Amlodipine 10 Mg Tablet) 10 mg PO DAILY [facility] Last Admin: 06/23/20 08:45 Dose: 10 mg Documented by: Dextrose (Dextrose 50%-Water 25 Gm/50 Ml Disp.Syrin) 0 gm IV X1 PRN; Protocol PRN Reason: Hypoglycemia Donepezil HCl (Donepezil Hcl 5 Mg Tablet) 5 mg PO QHS [facility] Ferrous Sulfate (Ferrous Sulfate 325 Mg Tablet) 325 mg PO DAILYCM [facility] Last Admin: 06/23/20 08:45 Dose: 325 mg Documented by: Glucagon (Glucagon 1 Mg/Ml Syringe) 1 mg IM .X1 PRN PRN Reason: Hypoglycemia Sodium Chloride () 1,000 mls @ 100 mls/hr IV .Q10H [facility] Last Infusion: 06/23/20 09:47 Dose: 0 mls/hr Documented by: Ceftriaxone Sodium (Rocephin) 1 gm in 50 mls @ 100 mls/hr IV Q24@2200 [facility] Insulin Human Lispro (Insulin Lispro 100 Unit/Ml Insuln.Pen) 0 unit SC ACHS [facility]; Protocol Last Admin: 06/23/20 06:54 Dose: Not Given Documented by: Labetalol HCl (Labetalol (Prefilled) 20 Mg/4 Ml) 10 mg IV Q6H PRN PRN PRN Reason: SBP >160 OR DBP > 120 Magnesium Hydroxide (Magnesium Hydroxide 30 Ml Udc) 30 ml PO DAILY PRN PRN PRN Reason: constipation Mirtazapine (Mirtazapine 15 Mg Tablet) 7.5 mg PO QHS [facility] Ondansetron HCl (Ondansetron 4 Mg/2 Ml Vial) 4 mg IV Q8H PRN PRN PRN Reason: NAUSEA/VOMITING Pioglitazone HCl (Pioglitazone Hydrochloride 15 Mg Tablet) 15 mg PO DAILY [facility] Last Admin: 06/23/20 08:45 Dose: 15 mg Documented by: Polyethylene Glycol (Polyethylene Glycol 3350 17 Gm Packet) 17 gm PO DAILY [facility] Last Admin: 06/23/20 08:44 Dose: 17 gm Documented by: Pravastatin Sodium (Pravastatin 40 Mg Tablet) 40 mg PO QHS [facility] Rivaroxaban (Rivaroxaban 20 Mg Tablet) 20 mg PO DAILY@1700 [facility] Senna/Docusate Sodium (Senna/Docusate Sodium 1 Tablet) 2 tablet PO BID PRN PRN PRN Reason: Constipation Sodium Chloride (0.9% Saline Lock 10 Ml Syringe) 10 - 40 ml IV UD PRN PRN Reason: SALINE FLUSH Last Admin: 06/23/20 06:53 Dose: 10 ml Documented by: STROKE Vital Signs/Narrative: Vital Signs Temp Pulse Resp BP Pulse Ox 06/23/20 08:40 36.8 C 90 18 158/84 H 97 06/23/20 08:00 91 06/23/20 07:00 96 Medical Necessity - Tobacco Use Smoking Status: Never smoker Assessment/Plan All Active Problems Urinary tract infection (Acute) Infectious encephalopathy (Acute) Hypercalcemia (Acute) Sepsis (Acute) Acute encephalopathy (Acute) Hypercalcemia (Acute) 79-year-old female presents with confusion. Confusion is likely multifactorial due to hypercalcemia as well as sepsis and UTI. 1. Hypercalcemia Symptomatic with confusion Etiology unclear but suspect related with patient's use of vitamin D Plan * Continue IV fluids * Will give zoledronic acid * Recheck this afternoon. If minimal improvement or even worsening, may need to increase the fluid rate. * Check LFTs to see if the patient's corrected calcium is * Hold vitamin D * Follow-up 25-hydroxy vitamin D level. 1, 25 hydroxy vitamin D level was checked but that is a send out will not be back for several days 2. Metabolic encephalopathy Secondary to hypercalcemia as well as sepsis and UTI but complicated by the patient's underlying dementia Consider imaging if no improvement with correction of these issues. Hold gabapentin 3. Sepsis Present on arrival met 2 of 4 SIRS criteria Secondary to UTI Clinically improved Follow-up cultures 4. UTI On ceftriaxone Adjust antibiotics accordingly based on urine culture results. 5. Diabetes mellitus type 2 Fair control at this time Resume insulin glargine and pioglitazone, hold glipizide for now Continue sliding scale 6. Hypertension Fair control Continue amlodipine 7. History of VTE Continue with the rivaroxaban 8. VTE prophylaxis: Not indicated as patient is already anticoagulated. Inpatient E&M: [id number] [facility] L3
[2020-06-23] MEDS: Insulin Lispro 100 UNIT/ML INSULN.PEN SC ×3 (11:15→21:56)
[2020-06-23 11:51] LABS: Bedside Glucose 160 mg/dL (70-110)
[2020-06-23 14:28] LABS: Anion Gap 4 (5-15); BUN 24 mg/dL (7-18); BUN/Creat Ratio 15.1 RATIO (10-20); Calcium,Total 13.4 mg/dL (8.5-10.1); Chloride 109 mmol/L (98-107); Creatinine, Serum 1.59 mg/dL (0.55-1.02); EST Glomerular Filtration Rate 33 mL/min (>60); Est Glom Filt Rate - Afr Amer 40 mL/min (>60); Estimated Creatinine Clearance 24.51 ml/min; Glucose 182 mg/dL (74-106); Potassium 3.5 mmol/L (3.5-5.1); Sodium Level 143 mmol/L (136-145)
[2020-06-23 14:32] LABS: AST(SGOT) 14 U/L (15-37); Alanine Aminotransfer ALT/SGPT 16 U/L (13-56); Albumin, Serum 2.9 g/dL (3.2-5.0); Alkaline Phosphatase 53 U/L (45-117); Bilirubin, Direct 0.13 mg/dL (0.00-0.30); Globulin 4.1 g/dL (2.2-4.2)
[2020-06-23] MEDS: Rivaroxaban 20 MG Tablet PO (16:41)
[2020-06-23 16:50] LABS: Bedside Glucose 161 mg/dL (70-110)
[2020-06-23] MEDS: Donepezil HCl 5 MG Tablet PO (21:55)
[2020-06-23] MEDS: Pravastatin 40 MG Tablet PO (21:55)
[2020-06-23] MEDS: Mirtazapine 15 MG Tablet 7.5 MG PO (21:55)
[2020-06-23] MEDS: Ceftriaxone 1 GM/50 ML BAG IV (21:57)
[2020-06-24] VITALS (7 sets, daily range): BP systolic 145–179; BP diastolic 74–103; PULSE 86–101; RESP 16–18; TEMP 36.6–37.3; O2SAT 93–96
[2020-06-24 01:05] LABS: Bedside Glucose 171 mg/dL (70-110)
[2020-06-24] MEDS: 0.9% Normal Saline 1,000 ML 100 ML IV (03:32)
[2020-06-24] MEDS: Labetalol (Prefilled) 20 MG/4 ML 10 MG IV (04:45)
[2020-06-24 06:55] LABS: Bedside Glucose 148 mg/dL (70-110)
[2020-06-24 07:15] LABS: Absolute Lymphocyte Count 0.68 X10^3/uL (0.83-4.51); Absolute Neutrophil Count 5.6 X10^3/uL (2.0-7.7); Basophil# 0.02 X10^3/uL; Basophil% 0.3 % (0-1); Eosinophil# 0.29 X10^3/uL; Eosinophils% 4.2 % (0-5); Hematocrit 31.4 % (37-47); Hemoglobin 9.9 g/dL (12.0-15.0); Lymphocyte # 0.68 X10^3/ul (4.0); Lymphocyte % 9.8 % (19-41); Mean Corp Hgb Conc 31.5 g/dL (32-36); Mean Corpuscular Hgb 28.5 pg (27.0-32.0); Mean Corpuscular Volume 90.5 fL (81-99); Mean Platelet Vol. 9.3 fl (6.2-12.0); Monocyte# 0.31 X10^3/uL; Monocyte% 4.5 % (0-10); NRBC Flagged by Analyzer 0 % (0-5); Neutrophil # 5.61 X10^3/uL (2.7-7.7); Neutrophil % 80.9 % (47-70); Platelet Count 198 K/mm3 (150-450); RBC Distribution Width CV 14.9 % (11.6-14.6); RBC Distribution Width SD 49.3 fl (35.1-43.9); Red Blood Count 3.47 M/mm3 (4.2-5.4); White Blood Count 6.9 K/mm3 (4.4-11.0)
[2020-06-24 07:47] LABS: Anion Gap 3 (5-15); BUN 22 mg/dL (7-18); BUN/Creat Ratio 14.3 RATIO (10-20); Calcium,Total 12.1 mg/dL (8.5-10.1); Chloride 110 mmol/L (98-107); Creatinine, Serum 1.54 mg/dL (0.55-1.02); EST Glomerular Filtration Rate 35 mL/min (>60); Est Glom Filt Rate - Afr Amer 42 mL/min (>60); Estimated Creatinine Clearance 25.31 ml/min; Glucose 159 mg/dL (74-106); Potassium 3.3 mmol/L (3.5-5.1); Sodium Level 140 mmol/L (136-145)
[2020-06-24] MEDS: Ondansetron 4 MG/2 ML Vial IV (08:41)
[2020-06-24] MEDS: Ferrous Sulfate 325 MG Tablet PO (08:53)
[2020-06-24] MEDS: Famotidine 20 MG Tablet PO (09:00)
[2020-06-24] MEDS: Polyethylene Glycol 3350 17 GM PACKET PO (09:00)
[2020-06-24] MEDS: Pioglitazone Hydrochloride 15 MG Tablet PO (09:00)
[2020-06-24] MEDS: amLODIPine 10 MG Tablet PO (09:00)
--- NOTE | 2020-06-24 09:32 | CASEMGMT ---
RN CM Note: Palliative Care screening tool completed. Pt did not meet for referral. Meche KAPADIAN RN ACM
--- NOTE | 2020-06-24 11:23 | CASEMGMT ---
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 LANEY called daughter Marcella, confirmed plan is for pt to return to [facility] at discharge, she asked SW to let pt know. SW did let pt know she will be returning to [facility], pt states, okay. SW faxed updates to [facility], COVID test ordered. LANEY will continue with transfer process once COVID test has come back and discharge instructions are completed. ESTEBAN Dawson
[2020-06-24 11:40] LABS: Bedside Glucose 303 mg/dL (70-110)
[2020-06-24] MEDS: Insulin Lispro 100 UNIT/ML INSULN.PEN SC (12:35)
--- NOTE | 2020-06-24 15:31 | PCM.TXEXTCAR ---
- Diet 06/23/20 13:15 Diet: Cardiac: Calorie-Controlled Food consistency:: Easy to Chew Liquid Consistency:: Regular/Thin Dietary Modifications:: Consistent Carbohydrate Type of Dietary Supplement:: Glucerna Shake Is pt able to select menu?: No Diet Comments: 120ml rome glucerna shake TID w/ meals How many daily calories?: 1800 calorie - Routine Orders/Code Status Routine Lab Work: BMP - 06/26/20, - - serum calcium 06/26/20 - Therapies Weight Bearing: resume previous activity - Problem/Diagnosis (1) Dementia Status: Acute (2) Hyperparathyroidism Status: Acute (3) Chronic back pain Status: Chronic (4) Diabetes mellitus, type II Status: Chronic (5) Hypercalcemia Status: Acute (6) Hypercalcemia Status: Acute (7) Chronic kidney disease (CKD) stage G3b/A3, moderately decreased glomerular filtration rate (GFR) between 30-44 mL/min/1.73 square meter and albuminuria creatinine ratio greater than 300 mg/g Status: Chronic - Allergies/Procedures Done in Hospital Allergies/Adverse Reactions: Allergies empagliflozin [From Jardiance] Allergy (Verified 06/22/20 19:53) Itching/RASH metformin Allergy (Verified 06/22/20 19:53) decreased appetite atorvastatin [From Lipitor] Adverse Reaction (Verified 06/22/20 19:53) frequent urination Procedures: None - Type of Care/Length of Stay Estimated LOS: More Than 30 Days Type of Care Needed: Intermediate Rehab Potential: Fair Prognosis: Fair - Additional Orders/Day of Discharge H&P will serve as current which was dated: 06/22/20 Day of Discharge: 06/24/20 - Dietary and Speech Recommendations Dietitian Recommendations/Changes: Will offer 120ml rome glucerna shake TID w/ meals. Will change diet to 1800 calorie; carb-controlled; cardiac with easy-to chew/soft foods. - Follow Up Care Primary Care Physician: Judah Guerrero MD [STAFF PHYSICIAN] -
--- NOTE | 2020-06-24 15:47 | PHA.DC.MR ---
Pharmacy Service has performed discharge medication reconciliation for this patient. The patient's discharge medication list was reviewed for discrepancies and discrepancies were resolved. Per Dr. Nevarez, leon to get rid of duplicate Lantus orders. Dr. Nevarez updated medication list for cephalexin dosing, changed to 500mg Q12 due to CrCl. Home Medications Gabapentin [Neurontin] 400 mg PO TID 03/20/14 Pravastatin Sodium 40 mg PO QHS 10/05/17 Famotidine [Pepcid] 20 mg PO DAILY 12/08/19 Acetaminophen [Tylenol] 500 - 1,000 mg PO DAILY PRN PRN 04/15/20 Glucosamine Sulfate 1,000 mg PO DAILY 04/15/20 Denosumab [Prolia] 60 mg SQ X1 06/22/20 Acetaminophen [Tylenol Extra Strength] 500 mg PO TID 06/23/20 Amlodipine [Norvasc] 10 mg PO DAILY 06/23/20 Bisacodyl [Dulcolax] 10 mg PO Q12H PRN PRN 06/23/20 Ferrous Sulfate 325 mg PO DAILY 06/23/20 Glipizide 10 mg PO BID 06/23/20 Insulin Glargine,Hum.rec.anlog [Lantus] 10 unit SQ QHS 06/23/20 Insulin Glargine,Hum.rec.anlog [Lantus] 15 unit SQ BREAKFAST 06/23/20 Lisinopril [Zestril] 20 mg PO DAILY 06/23/20 Magnesium Hydroxide [Milk Of Magnesia] 30 ml PO DAILY PRN PRN 06/23/20 Mirtazapine [Remeron] 0.5 tablet PO QHS 06/23/20 Ondansetron HCl [Zofran] 4 mg PO Q6H PRN PRN 06/23/20 Pioglitazone [Actos] 15 mg PO DAILY 06/23/20 Polyethylene Glycol 3350 [Miralax] 17 gm PO DAILY 06/23/20 Rivaroxaban [Xarelto] 20 mg PO DAILY 06/23/20 Senna [Senokot] 1 tablet PO BID 06/23/20 Cephalexin [Keflex] 500 mg PO TID 5 Days #15 capsule 06/24/20 Donepezil HCl [Aricept] 10 mg PO QHS #1 tablet 06/24/20
--- NOTE | 2020-06-24 15:50 | CASEMGMT ---
Patient is ready for discharge back to [facility] at [facility]. LANEY faxed orders to [facility]. Orders were faxed to Zaira in admissions and to the nursing unit where patient will be going. LANEY arranged for patient to get picked up at 1630 via cot by [facility]. LANEY spoke with Sheyla at [facility] and let her know patient is being picked up at 1830. Patient's daughter was notified of patient's return earlier today. Plan: d/c back to [facility] at [facility] under intermediate level of care. [facility] transported via cot. Micki JAMA
[2020-06-24] MEDS: Rivaroxaban 20 MG Tablet PO (17:07)
[2020-06-24 17:11] LABS: Bedside Glucose 122 mg/dL (70-110)
[2020-06-25 15:32] LABS: Vitamin D 1,25-Dihydroxy 6.3 pg/mL (19.9-79.3)
--- NOTE | 2020-06-25 18:05 | DS.PCM_ITS ---
Discharge Date and Diagnosis - Problem List Patient Problems: Active and Suspected Problems Urinary tract infection (Acute) Infectious encephalopathy (Acute) Hypercalcemia (Acute) Sepsis (Acute) Acute encephalopathy (Acute) Hypercalcemia (Acute) Dementia (Acute) Hyperparathyroidism (Acute) Date of Admission: 06/22/20 Date of Discharge: 06/24/20 - Primary Discharge Diagnosis Acute Problems: Active Problems #1 sepsis secondary to acute cystitis #2 acute cystitis secondary to E. coli #3 hypercalcemia-secondary to hyperparathyroidism #4 hyperparathyroidism #5 dementia #6 metabolic encephalopathy secondary to hypercalcemia on a backdrop of dementia #7 type 2 diabetes #8 essential hypertension #9 chronic kidney disease stage IIIb secondary to type 2 diabetes - Secondary Discharge Diagnosis Chronic Problems: Chronic Problems HTN (hypertension) (Chronic) Hyperlipidemia (Chronic) Pulmonary emboli (Chronic) DVT (deep venous thrombosis) (Chronic) Weakness (Chronic) Chronic back pain (Chronic) Uncontrolled hypertension (Chronic) Diabetes mellitus, type II (Chronic) Morbid obesity (Chronic) CKD (chronic kidney disease), stage III (Chronic) Chronic anemia (Chronic) GERD (gastroesophageal reflux disease) (Chronic) Chronic back pain (Chronic) Peripheral neuropathy (Chronic) Failure to thrive in adult (Chronic) Chronic kidney disease (CKD) stage G3b/A3, moderately decreased glomerular filtration rate (GFR) between 30-44 mL/min/1.73 square meter and albuminuria creatinine ratio greater than 300 mg/g (Chronic) Horseshoe kidney (Chronic) Obesity (BMI 35.0-39.9 without comorbidity) (Chronic) 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 Patient was noted to have a history of hypercalcemia at the extended care facility and had recent labs which showed an elevated PTH indicating hyperparathyroidism. Patient was scheduled to see an boiler testing technician as an outpatient. Labs done in the emergency room showed a normal white blood cell count, patient's creatinine was elevated at 1.69, BUN was 25, patient's calcium levels 14.1, urinalysis indicated the patient had a urinary tract infection with greater than 100 white blood cells and +1 bacteria. Hest x-ray showed no evidence of acute disease such as a pneumonia or CHF. Patient was admitted to PCU, she was given IV fluids, she was placed on IV Rocephin, and she received zoledronic acid. Patient's calcium trended downward. She still exhibited cognitive impairment however and I contacted the nurse practitioner at the long term to verify that the patient did have a diagnosis of dementia. On 06/24/2020, patient was seen and examined: On examination she appeared her stated age, she does not appear to be in any distress. Vital signs as documented. Skin warm and dry and without overt rashes. Neck without JVD, thyroid appears normal, trachea is midline, neck is supple. Lungs clear, normal air movement was noted. Heart exam notable for regular rhythm, normal sounds and absence of murmurs, rubs or gallops. Abdomen unremarkable and without evidence of organomegaly, masses, or abdominal aortic enlargement, bowel sounds are present in all 4 quadrants, no abdominal tenderness was noted. Extremities nonedematous, no cyanosis was noted, no clubbing was noted. Neuro: Cranial nerves II through XII are grossly intact, no focal motor deficits were noted, se nsation to light touch and pinprick is intact, motor exam 5/5 throughout. Psych: Patient is alert, she did not answer questions however, she appeared to have cognitive impairment. Patient was discharged back to her detention facility on 06/24/2020 in stable condition.. Patient Problems: Active and Suspected Problems Urinary tract infection (Acute) Infectious encephalopathy (Acute) Hypercalcemia (Acute) Sepsis (Acute) Acute encephalopathy (Acute) Hypercalcemia (Acute) Dementia (Acute) Hyperparathyroidism (Acute) - Physical Exam Vitals/I&O's: Vital Signs Temp Pulse Resp BP Pulse Ox 97.9 F 94 16 150/99 H 95 06/24/20 16:15 06/24/20 16:29 06/24/20 16:15 06/24/20 16:15 06/24/20 16:15 Oxygen Delivery Method Room Air Weight: 98.2 kg Body Mass Index (BMI) 38.3 Finger Stick Blood Glucose 236 Intake and Output for Last 24 Hours 06/23/20 06/24/20 06/25/20 23:59 23:59 23:59 Intake Total 3125 / 3185 1120 / 1120 Balance 3125 / 3185 1120 / 1120 Microbiology Past 72 Hours 06/22/20 22:05 Blood Culture (Wb) - Anticubital Right Blood Culture - Preliminary No growth in 48 hours. 06/22/20 20:27 Urine, Clean Catch Urine Culture - Final Escherichia coli 06/24/20 11:15 Mucosa - Nose SARS-CoV-2 Antigen (Rapid) - Final Laboratory Results 06/23/20 05:55: Vit D 1,25-Dihydroxy 6.3 L Home Medications: Medications to take at Discharge Gabapentin [Neurontin] 400 mg PO TID 03/20/14 Pravastatin Sodium 40 mg PO QHS 10/05/17 Famotidine [Pepcid] 20 mg PO DAILY 12/08/19 Acetaminophen [Tylenol] 500 - 1,000 mg PO DAILY PRN PRN 04/15/20 Glucosamine Sulfate 1,000 mg PO DAILY 04/15/20 Denosumab [Prolia] 60 mg SQ X1 06/22/20 Acetaminophen [Tylenol Extra Strength] 500 mg PO TID 06/23/20 Amlodipine [Norvasc] 10 mg PO DAILY 06/23/20 Bisacodyl [Dulcolax] 10 mg PO Q12H PRN PRN 06/23/20 Ferrous Sulfate 325 mg PO DAILY 06/23/20 Glipizide 10 mg PO BID 06/23/20 Insulin Glargine,Hum.rec.anlog [Lantus] 10 unit SQ QHS 06/23/20 Insulin Glargine,Hum.rec.anlog [Lantus] 15 unit SQ BREAKFAST 06/23/20 Lisinopril [Zestril] 20 mg PO DAILY 06/23/20 Magnesium Hydroxide [Milk Of Magnesia] 30 ml PO DAILY PRN PRN 06/23/20 Mirtazapine [Remeron] 0.5 tablet PO QHS 06/23/20 Ondansetron HCl [Zofran] 4 mg PO Q6H PRN PRN 06/23/20 Pioglitazone [Actos] 15 mg PO DAILY 06/23/20 Polyethylene Glycol 3350 [Miralax] 17 gm PO DAILY 06/23/20 Rivaroxaban [Xarelto] 20 mg PO DAILY 06/23/20 Senna [Senokot] 1 tablet PO BID 06/23/20 Cephalexin [Keflex] 500 mg PO TID 5 Days #15 capsule 06/24/20 Donepezil HCl [Aricept] 10 mg PO QHS #1 tablet 06/24/20 Following Prescriptions Were Given to Patient: Donepezil HCl [Aricept] 10 mg PO QHS #1 tablet Cephalexin [Keflex] 500 mg PO TID 5 Days #15 capsule Primary Care Physician: Judah Guerrero MD [STAFF PHYSICIAN] - Disposition: [facility]it[facility]iary facility Minutes spent on discharge:: 32 Patient Condition:: Stable Medical Necessity - Tobacco Use Smoking Status: Never smoker Meaningful Use Info Meaningful Use Diagnoses (Choose all that apply): None applicable Inpatient E&M: [id number] [facility]
== END 2020-06-24 18:38 | disposition skilled nursing facility (03) | DRG 641 ==
LOC: ED 21:26 → PCU 21:51
PROVIDERS: Admitting Provider Hospitalist; Emergency Provider Emergency Medicine; PCP Family Medicine; Visit Provider Internal Medicine
DX: E83.52 Hypercalcemia (principal); N30.00 Acute cystitis without hematuria; Z68.41 Body mass index [BMI] 40.0-44.9, adult; B96.20 Unspecified Escherichia coli [E. coli] as the cause of diseases classified elsewhere; E21.3 Hyperparathyroidism, unspecified; F03.90 Unspecified dementia, unspecified severity, without behavioral disturbance, psychotic disturbance, mood disturbance, and anxiety; I12.9 Hypertensive chronic kidney disease with stage 1 through stage 4 chronic kidney disease, or unspecified chronic kidney disease; N18.32 Chronic kidney disease, stage 3b; E11.22 Type 2 diabetes mellitus with diabetic chronic kidney disease; Z87.891 Personal history of nicotine dependence; E66.9 Obesity, unspecified; Z79.84 Long term (current) use of oral hypoglycemic drugs; Z79.899 Other long term (current) drug therapy; E11.65 Type 2 diabetes mellitus with hyperglycemia
CPT/HCPCS: 36415; 71046; 80048; 80076; 81001; 82306; 82652; 82962; 83605; 85025; 87040; 87077; 87086; 87088; 87186; 87426; 97162; 97166; 97802; 99285; J3489; J7030; J7050; P9612; A4216; J2405

== ENCOUNTER 2020-08-19 10:56 | Emergency (ER) | payer MEDICARE, MEDICAID, SELFPAY ==
[2020-06-22 22:48] VITALS: BMI 38.3
[2020-08-19 10:58] VITALS: BP 122/48; PULSE 82; RESP 18; TEMP 36.6; O2SAT 97; BMI 40.4
--- NOTE | 2020-08-19 11:40 | US_ITS ---
STUDY: ULTRASOUND OF THE FEMALE PELVIS - COMPLETE REASON FOR EXAM: Female, 79 years old. Pelvic pain LMP: Unknown. TECHNIQUE: Transabdominal and Transvaginal TECHNICAL QUALITY: Adequate. COMPARISON: None. FINDINGS: The uterus is anteverted and is in a midline position. The uterus measures 10.7 x 5.0 x 3.8 cm. Normal uterine cervix. The endometrium measures 16 mm in thickness, and is hyperechoic. There is a 5.2 cm mass in the lower uterine segment, likely fibroid.. I.U.D. - The patient does not have an I.U.D. Neither ovary visualized. There is no fluid in the cul-de-sac. The bladder is sonographically normal US/Transvaginal Non- IMPRESSION: Abnormally thickened endometrium at 16 mm. Further evaluation recommended as endometrial carcinoma needs to be excluded 5.2 x 4.2 x 3.8 cm mass in the lower uterine segment, likely fibroid. No suspicious adnexal mass or free fluid Electronically Signed: Servando Sutton MD at 13:13 EDT , Service support ,
--- NOTE | 2020-08-19 11:42 | EDS_ITS ---
HPI HPI - Female History of Present Illness Chief Complaint: Vag Bleeding Narrative Narrative: 79-year-old female presenting with vaginal bleeding. She states the was just told today when it was noted her adult diaper was changed. She says she has some very mild suprapubic pain. She does not feel dizzy or lightheaded. She has no nausea or vomiting. She denies any injury. Patient is anticoagulated on Xarelto for history of blood clots. PFSH PFS Medical History Diabetes GERD (gastroesophageal reflux disease) Kidney disease Home Medications gabapentin 400 mg PO TID 03/20/14 [History Last Taken 04/14/20] pravastatin 40 mg PO QHS 10/05/17 [History Last Taken 06/21/20] acetaminophen 500 mg PO Q6H PRN PRN 04/15/20 [History Last Taken 04/14/20] glucosamine sulfate 1,000 mg PO DAILY 04/15/20 [History Last Taken 06/22/20] amlodipine 10 mg PO DAILY 06/23/20 [History Last Taken 06/22/20] bisacodyl 10 mg PO DAILY PRN PRN 06/23/20 [History Last Taken Unknown] ferrous sulfate 325 mg PO DAILY 06/23/20 [History Last Taken 06/22/20] insulin glargine 10 unit SQ QHS 06/23/20 [History Last Taken 06/21/20] insulin glargine 15 unit SQ BREAKFAST 06/23/20 [History Last Taken Unknown] lisinopril 20 mg PO DAILY 06/23/20 [History Last Taken 06/22/20] magnesium hydroxide 30 ml PO DAILY PRN PRN 06/23/20 [History Last Taken Unknown] ondansetron HCl 4 mg PO Q6H PRN PRN 06/23/20 [History Last Taken Unknown] pioglitazone 15 mg PO DAILY 06/23/20 [History Last Taken 06/22/20] rivaroxaban 20 mg PO DAILY 06/23/20 [History Last Taken 06/22/20] donepezil 10 mg PO QHS #1 tablet 06/24/20 [Rx Last Taken Unknown] cholecalciferol (vitamin D3) 1,250 mcg PO QWEEK 08/19/20 [History Last Taken Unknown] sodium phosphates [Enema] 1 ml [place] DAILY PRN PRN 08/19/20 [History Last Taken Unknown] teriparatide 20 mcg SUBCUT DAILY 08/19/20 [History Last Taken Unknown] Allergy/AdvReac Type Severity Reaction Status Date / Time empagliflozin Allergy Itching/VALENTIN Verified 08/19/20 12:02 [From Jardiance] H metformin Allergy decreased Verified 08/19/20 12:02 appetite atorvastatin [From Lipitor] AdvReac frequent Verified 08/19/20 12:02 urination Social History Smoking Status: Never smoker ROS ROS ED Constitutional Constitutional ED: Denies chills, fever(s) or sweats Eyes Eyes: Denies blurry vision or change in vision ENT ENT ED: Denies ear pain, rhinorrhea or sore throat Cardiovascular Cardiovascular: Denies chest pain, palpitations or racing heartbeat Respiratory/Chest Respiratory/Chest: Denies cough, dyspnea or sputum Gastrointestinal Gastrointestinal: Denies abdominal pain, constipation, diarrhea or vomiting Genitourinary Genitourinary ED: Reports other Details: Suprapubic pain and vaginal bleeding ; Denies dysuria, hematuria or urinary frequency Musculoskeletal Musculoskeletal: Denies arthralgias, myalgias or neck pain Integumentary Denies abscess, Abrasions or rash Neurologic Neurologic: Denies headache(s), paresthesias or weakness Psychiatric Psychiatric: Denies anxiety, depression, suicidal ideation or suicidal thoughts Endocrine Endocrinology: Denies polydipsia or polyuria EXAM Physical Exam Const Vital Signs: 08/19/20 10:58 08/19/20 13:17 Temperature 97.9 F Temperature Source Oral Pulse Rate 82 77 Respiratory Rate 18 16 Blood Pressure 122/48 H 109/66 Blood Pressure Mean 72 80 Pulse Ox 97 98 Oxygen Delivery Method Room Air Room Air Positive obese General Appearance ED: NAD; Negative for pallor Nutritional Appearance: obese HEENT Reports normocephalic, head/scalp atraumatic and moist mucous membranes Eyes PERRL and EOMs intact bilaterally Neck no lymphadenopathy and supple Chest Wall inspection of chest normal and palpation of chest normal Resp normal respiratory effort and clear to auscultation bilaterally Auscultation: Negative for rales, rhonchi or wheezes Cardio regular rate and regular rhythm GI normal to inspection, nondistended, normoactive bowel sounds and non-distended Auscultation: normoactive bowel sounds Palpation: soft Narrative: Mild suprapubic tenderness. Vaginal but is present. There does not appear to be any brisk bleeding. Back/Spine no CVA tenderness General Back: Negative for CVA tenderness Cervical Spine: Negative for cervical spine tenderness Extremity normal to inspection General Extremety ED: Yes edema and tenderness General Extremity: edema Neuro oriented x3 and CN's II-XII intact bilaterally Sensorium / Orientation: alert Psych mental status grossly normal Attitude: No agitated Skin no rashes or lesions noted and no wounds General Skin Exam: Negative for jaundice or pallor MDM MDM MDM Narrative Medical decision making narrative: Patient presents with vaginal bleeding. There is only a small amount of blood vaginally. She has mild pain in the suprapubic region. I did obtain an ultrasound transvaginally which showed some thickened endometrium with concern for malignancy. Patient's lab work all appears to be at baseline. I spoke with Dr. Mendez regarding follow-up for her and he is amenable to see her in the office and do a biopsy. Patient is counseled on findings and concerns. I feel she is safe to be discharged back to her nursing facility. She is given return precautions. Impression: 1. Dysfunctional uterine bleeding 2. Concern for cervical cancer Lab Data Attestation: I reviewed the patient's lab results. Labs: Laboratory Results - last 24 hr 08/19/20 08/19/20 08/19/20 11:50 11:50 11:50 WBC 7.1 RBC 3.67 L Hgb 10.3 L Hct 33.6 L MCV 91.6 MCH 28.1 MCHC 30.7 L RDW Std Deviation 50.0 H RDW Coeff of Mayank 14.9 H Plt Count 244 MPV 9.9 Immature Gran % (Auto) 0.300 Neut % (Auto) 64.8 Lymph % (Auto) 24.1 [place] % (Auto) 7.1 Eos % (Auto) 3.1 Baso % (Auto) 0.6 Absolute Neuts (auto) 4.6 Absolute Lymphs (auto) 1.72 Nucleated RBC % 0 Sodium 140 Potassium 4.9 Chloride 111 H Carbon Dioxide 26.0 Anion Gap 3 L BUN 22 H Creatinine 1.55 H Estim Creat Clear Calc 24.04 Est GFR (MDRD) Af Amer 42 L Est GFR (MDRD) Non-Af 34 L BUN/Creatinine Ratio 14.2 Glucose 74 Calcium 10.1 Total Bilirubin 0.30 AST 10 L ALT 12 L Alkaline Phosphatase 63 Total Protein 7.2 Albumin 3.0 L Globulin 4.2 Albumin/Globulin Ratio 0.7 L Blood Type A POSITIVE Antibody Screen NEGATIVE Radiography Diagnostic Testing: Radiology Impression Transvaginal US 08/19/20 11:40 IMPRESSION: Abnormally thickened endometrium at 16 mm. Further evaluation recommended as endometrial carcinoma needs to be excluded 5.2 x 4.2 x 3.8 cm mass in the lower uterine segment, likely fibroid. No suspicious adnexal mass or free fluid Electronically Signed: Servando Sutton MD at 13:13 EDT , Service support , Discharge Plan Triage Chief Complaint: Vag Bleeding ED Provider: Justin Lozano Dx/Rx/DC Orders Instructions: ED Dysfunctional Uterine Bleeding Prescriptions: No Action gabapentin 300 MG capsule 400 mg PO TID RF: 0 pravastatin 40 MG tablet 40 mg PO QHS RF: 0 glucosamine sulfate 1,000 MG capsule 1,000 mg PO DAILY RF: 0 acetaminophen 500 MG tablet 500 mg PO Q6H PRN PRN (Reason: Pain 1-10 Or Fever) RF: 0 pioglitazone 15 MG tablet 15 mg PO DAILY RF: 0 insulin glargine 100 UNIT/ML solution 15 unit SQ BREAKFAST RF: 0 magnesium hydroxide 30 ML suspension 30 ml PO DAILY PRN PRN (Reason: constipation) RF: 0 ferrous sulfate 325 MG tablet 325 mg PO DAILY RF: 0 rivaroxaban 20 MG tablet 20 mg PO DAILY RF: 0 insulin glargine 100 UNIT/ML solution 10 unit SQ QHS RF: 0 ondansetron HCl 4 MG tablet 4 mg PO Q6H PRN PRN (Reason: Nausea) RF: 0 bisacodyl 5 MG tablet 10 mg PO DAILY PRN PRN (Reason: Constipation) RF: 0 amlodipine 10 MG tablet 10 mg PO DAILY RF: 0 lisinopril 5 MG tablet 20 mg PO DAILY RF: 0 donepezil 5 MG tablet 10 mg PO QHS Qty: 1 RF: 0 Enema 19-7 gram/118 mL Enema 1 ml AK DAILY PRN PRN (Reason: Constipation) RF: 0 cholecalciferol (vitamin D3) 1,250 mcg (50,000 unit) Capsule 1,250 mcg PO QWEEK RF: 0 teriparatide 20 mcg/dose (600mcg/2.4mL) Pen Injector 20 mcg SUBCUT DAILY RF: 0 Primary Care Provider: Vel Graham Referrals: Anthony Mendez MD [STAFF PHYSICIAN] - As soon as possible Vel Graham MD [Primary Care Provider] - Disposition Disposition: Retirement Facility Discharge Location: [facility]
[2020-08-19 12:01] LABS: Absolute Lymphocyte Count 1.72 X10^3/uL (0.83-4.51); Absolute Neutrophil Count 4.6 X10^3/uL (2.0-7.7); Basophil# 0.04 X10^3/uL; Basophil% 0.6 % (0-1); Eosinophil# 0.22 X10^3/uL; Eosinophils% 3.1 % (0-5); Hematocrit 33.6 % (37-47); Hemoglobin 10.3 g/dL (12.0-15.0); Lymphocyte # 1.72 X10^3/ul (0.83-4.51); Lymphocyte % 24.1 % (19-41); Mean Corp Hgb Conc 30.7 g/dL (32-36); Mean Corpuscular Hgb 28.1 pg (27.0-32.0); Mean Corpuscular Volume 91.6 fL (81-99); Mean Platelet Vol. 9.9 fl (6.2-12.0); Monocyte# 0.51 X10^3/uL; Monocyte% 7.1 % (0-10); NRBC Flagged by Analyzer 0 % (0-5); Neutrophil # 4.63 X10^3/uL (2.7-7.7); Neutrophil % 64.8 % (47-70); Platelet Count 244 K/mm3 (150-450); RBC Distribution Width CV 14.9 % (11.6-14.6); Red Blood Count 3.67 M/mm3 (4.2-5.4); White Blood Count 7.1 K/mm3 (4.4-11.0)
[2020-08-19 12:17] LABS: ALB/GLOB Ratio 0.7 RATIO (0.9-2.4); AST(SGOT) 10 U/L (15-37); Alanine Aminotransfer ALT/SGPT 12 U/L (13-56); Alkaline Phosphatase 63 U/L (45-117); Anion Gap 3 (5-15); BUN 22 mg/dL (7-18); BUN/Creat Ratio 14.2 RATIO (10-20); Calcium,Total 10.1 mg/dL (8.5-10.1); Chloride 111 mmol/L (98-107); Creatinine, Serum 1.55 mg/dL (0.55-1.02); EST Glomerular Filtration Rate 34 mL/min (>60); Est Glom Filt Rate - Afr Amer 42 mL/min (>60); Estimated Creatinine Clearance 24.04 ml/min; Globulin 4.2 g/dL (2.2-4.2); Glucose 74 mg/dL (74-106); Potassium 4.9 mmol/L (3.5-5.1); Protein, Total 7.2 g/dL (6.4-8.2); Sodium Level 140 mmol/L (136-145)
[2020-08-19 13:17] VITALS: BP 109/66; PULSE 77; RESP 16; O2SAT 98
[2020-08-19 14:07] LABS: Mucous, Urine 0 SEEN /hpf (<or=2+)
[2020-08-19 14:09] LABS: Color, Urine Yellow (Yellow); Glucose, Dipstick Normal (Normal); Ketone-Dipstick Negative (Negative); Leukocyte Esterase-Dipstick 100 /ul (Negative); Nitrite-Dipstick Positive (Negative); Occult Blood-Urine 150 /ul (Negative); Protein-Dipstick Negative (Negative); Urine Bilirubin Dipstick Negative (Negative); Urine Urobilinogen Normal (Normal)
[2020-08-19 14:10] LABS: Urine Clarity Sl Cloudy (Clear)
[2020-08-19 14:16] LABS: Red Blood Cells-Urine 5-10 SEEN /hpf (0-5); Squamous Epithelial Cells - UA 0-5 SEEN /hpf (5-10); White Blood Cells 10-25 SEEN /hpf (0-5)
[2020-08-19 14:17] LABS: Bacteria 2+ /hpf (None Seen)
--- NOTE | 2020-08-19 15:20 | ED.RN ---
Luigi called for pt ETA 60-90 min.
--- NOTE | 2020-08-19 15:28 | EDS_ITS ---
HPI HPI - Female History of Present Illness Chief Complaint: Vag Bleeding PFSH PFSH Medical History Diabetes GERD (gastroesophageal reflux disease) Kidney disease Home Medications gabapentin 400 mg PO TID 03/20/14 [History Last Taken 04/14/20] pravastatin 40 mg PO QHS 10/05/17 [History Last Taken 06/21/20] acetaminophen 500 mg PO Q6H PRN PRN 04/15/20 [History Last Taken 04/14/20] glucosamine sulfate 1,000 mg PO DAILY 04/15/20 [History Last Taken 06/22/20] amlodipine 10 mg PO DAILY 06/23/20 [History Last Taken 06/22/20] bisacodyl 10 mg PO DAILY PRN PRN 06/23/20 [History Last Taken Unknown] ferrous sulfate 325 mg PO DAILY 06/23/20 [History Last Taken 06/22/20] insulin glargine 10 unit SQ QHS 06/23/20 [History Last Taken 06/21/20] insulin glargine 15 unit SQ BREAKFAST 06/23/20 [History Last Taken Unknown] lisinopril 20 mg PO DAILY 06/23/20 [History Last Taken 06/22/20] magnesium hydroxide 30 ml PO DAILY PRN PRN 06/23/20 [History Last Taken Unknown] ondansetron HCl 4 mg PO Q6H PRN PRN 06/23/20 [History Last Taken Unknown] pioglitazone 15 mg PO DAILY 06/23/20 [History Last Taken 06/22/20] rivaroxaban 20 mg PO DAILY 06/23/20 [History Last Taken 06/22/20] donepezil 10 mg PO QHS #1 tablet 06/24/20 [Rx Last Taken Unknown] cephalexin 500 mg PO BID #14 cap 08/19/20 [Rx Last Taken Unknown] cholecalciferol (vitamin D3) 1,250 mcg PO QWEEK 08/19/20 [History Last Taken Unknown] sodium phosphates [Enema] 1 ml CA DAILY PRN PRN 08/19/20 [History Last Taken Unknown] teriparatide 20 mcg SUBCUT DAILY 08/19/20 [History Last Taken Unknown] Allergy/AdvReac Type Severity Reaction Status Date / Time empagliflozin Allergy Itching/VALENTIN Verified 08/19/20 12:02 [From Jardiance] H metformin Allergy decreased Verified 08/19/20 12:02 appetite atorvastatin [From Lipitor] AdvReac frequent Verified 08/19/20 12:02 urination Social History Smoking Status: Never smoker EXAM Physical Exam Const Vital Signs: 08/19/20 10:58 08/19/20 13:17 Temperature 97.9 F Temperature Source Oral Pulse Rate 82 77 Respiratory Rate 18 16 Blood Pressure 122/48 H 109/66 Blood Pressure Mean 72 80 Pulse Ox 97 98 Oxygen Delivery Method Room Air Room Air MDM MDM Lab Data Labs: Laboratory Results - last 24 hr 08/19/20 08/19/20 08/19/20 11:50 11:50 11:50 WBC 7.1 RBC 3.67 L Hgb 10.3 L Hct 33.6 L MCV 91.6 MCH 28.1 MCHC 30.7 L RDW Std Deviation 50.0 H RDW Coeff of Mayank 14.9 H Plt Count 244 MPV 9.9 Immature Gran % (Auto) 0.300 Neut % (Auto) 64.8 Lymph % (Auto) 24.1 [place] % (Auto) 7.1 Eos % (Auto) 3.1 Baso % (Auto) 0.6 Absolute Neuts (auto) 4.6 Absolute Lymphs (auto) 1.72 Nucleated RBC % 0 Sodium 140 Potassium 4.9 Chloride 111 H Carbon Dioxide 26.0 Anion Gap 3 L BUN 22 H Creatinine 1.55 H Estim Creat Clear Calc 24.04 Est GFR (MDRD) Af Amer 42 L Est GFR (MDRD) Non-Af 34 L BUN/Creatinine Ratio 14.2 Glucose 74 Calcium 10.1 Total Bilirubin 0.30 AST 10 L ALT 12 L Alkaline Phosphatase 63 Total Protein 7.2 Albumin 3.0 L Globulin 4.2 Albumin/Globulin Ratio 0.7 L Urine Color Urine Clarity Urine pH Ur Specific [place] Urine Protein Urine Glucose (UA) Urine Ketones Urine Occult Blood Urine Nitrite Urine Bilirubin Urine Urobilinogen Ur Leukocyte Esterase Urine RBC Urine WBC Ur Squamous Epith Cells Urine Bacteria Urine Mucus Blood Type A POSITIVE Antibody Screen NEGATIVE 08/19/20 14:03 WBC RBC Hgb Hct MCV MCH MCHC RDW Std Deviation RDW Coeff of Mayank Plt Count MPV Immature Gran % (Auto) Neut % (Auto) Lymph % (Auto) [place] % (Auto) Eos % (Auto) Baso % (Auto) Absolute Neuts (auto) Absolute Lymphs (auto) Nucleated RBC % Sodium Potassium Chloride Carbon Dioxide Anion Gap BUN Creatinine Estim Creat Clear Calc Est GFR (MDRD) Af Amer Est GFR (MDRD) Non-Af BUN/Creatinine Ratio Glucose Calcium Total Bilirubin AST ALT Alkaline Phosphatase Total Protein Albumin Globulin Albumin/Globulin Ratio Urine Color Yellow Urine Clarity Sl Cloudy Urine pH 5.0 Ur Specific [place] 1.010 Urine Protein Negative Urine Glucose (UA) Normal Urine Ketones Negative Urine Occult Blood 150 H Urine Nitrite Positive H Urine Bilirubin Negative Urine Urobilinogen Normal Ur Leukocyte Esterase 100 H Urine RBC 5-10 SEEN Urine WBC 10-25 SEEN Ur Squamous Epith Cells 0-5 SEEN Urine Bacteria 2+ Urine Mucus 0 SEEN Blood Type Antibody Screen Radiography Diagnostic Testing: Radiology Impression Transvaginal US 08/19/20 11:40 IMPRESSION: Abnormally thickened endometrium at 16 mm. Further evaluation recommended as endometrial carcinoma needs to be excluded 5.2 x 4.2 x 3.8 cm mass in the lower uterine segment, likely fibroid. No suspicious adnexal mass or free fluid Electronically Signed: Servando Sutton MD at 13:13 EDT , Service support , Discharge Plan Triage Chief Complaint: Vag Bleeding ED Provider: Justin Lozano Dx/Rx/DC Orders Instructions: ED Dysfunctional Uterine Bleeding, ED Bladder Infection, Female (Adult) Prescriptions: New cephalexin 500 mg capsule 500 mg PO BID Qty: 14 RF: 0 No Action gabapentin 300 MG capsule 400 mg PO TID RF: 0 pravastatin 40 MG tablet 40 mg PO QHS RF: 0 glucosamine sulfate 1,000 MG capsule 1,000 mg PO DAILY RF: 0 acetaminophen 500 MG tablet 500 mg PO Q6H PRN PRN (Reason: Pain 1-10 Or Fever) RF: 0 pioglitazone 15 MG tablet 15 mg PO DAILY RF: 0 insulin glargine 100 UNIT/ML solution 15 unit SQ BREAKFAST RF: 0 magnesium hydroxide 30 ML suspension 30 ml PO DAILY PRN PRN (Reason: constipation) RF: 0 ferrous sulfate 325 MG tablet 325 mg PO DAILY RF: 0 rivaroxaban 20 MG tablet 20 mg PO DAILY RF: 0 insulin glargine 100 UNIT/ML solution 10 unit SQ QHS RF: 0 ondansetron HCl 4 MG tablet 4 mg PO Q6H PRN PRN (Reason: Nausea) RF: 0 bisacodyl 5 MG tablet 10 mg PO DAILY PRN PRN (Reason: Constipation) RF: 0 amlodipine 10 MG tablet 10 mg PO DAILY RF: 0 lisinopril 5 MG tablet 20 mg PO DAILY RF: 0 donepezil 5 MG tablet 10 mg PO QHS Qty: 1 RF: 0 Enema 19-7 gram/118 mL Enema 1 ml CA DAILY PRN PRN (Reason: Constipation) RF: 0 cholecalciferol (vitamin D3) 1,250 mcg (50,000 unit) Capsule 1,250 mcg PO QWEEK RF: 0 teriparatide 20 mcg/dose (600mcg/2.4mL) Pen Injector 20 mcg SUBCUT DAILY RF: 0 Primary Care Provider: Vel Graham Referrals: Anthony Mendez MD [STAFF PHYSICIAN] - As soon as possible Vel Graham MD [Primary Care Provider] - Disposition Disposition: Long Term Facility Discharge Location: [facility]
[2020-08-19] MEDS: Cephalexin 250 MG Capsule 500 MG PO (15:33)
[2020-08-19 15:34] VITALS: BP 132/89; PULSE 82; RESP 15; O2SAT 98
== END 2020-08-19 16:01 | disposition skilled nursing facility (03) ==
PROVIDERS: Emergency Provider Student in an Organized Health Care Education/Training Program; PCP Family Medicine
DX: N93.8 Other specified abnormal uterine and vaginal bleeding (principal); E11.9 Type 2 diabetes mellitus without complications; K21.9 Gastro-esophageal reflux disease without esophagitis; E66.9 Obesity, unspecified; Z86.718 Personal history of other venous thrombosis and embolism; Z79.4 Long term (current) use of insulin; Z79.02 Long term (current) use of antithrombotics/antiplatelets; Z79.899 Other long term (current) drug therapy
CPT/HCPCS: 76830; 80053; 81001; 85025; 86850; 86900; 86901; 87077; 87086; 87088; 87186; 99285; A4216

== ENCOUNTER → 2020-08-28 | Outpatient (CLI) | payer MEDICAID, SELFPAY ==
[2020-08-19 10:58] VITALS: BMI 40.4
--- NOTE | 2020-08-28 15:15 | EMB_PTH ---
PATIENT: DIANNA ZAMUDIO LOC: [facility] U#:[id number] AGE/SX: 79/F ROOM: RE08/28/[address]: Dr. Anthony Mendez MD : [id number] BED: DIS: 08/28/2020 SPEC #: [id number] RECD: 08/29/20 09:59 STATUS: KT VALDOVINOS #: [id number] JUAN C: 08/28/20 15:[address]: Anthony Mendez DEPT: SURGICAL PATHOLOGY RECD BY: Inez Camacho ENTERED: 08/29/20 09:59 SP TYPE: ENDOM BX/C ISABELLE DR: Dr. Vel Graham MD Tissues: Endometrium, NOS Procedures: Surgery Specimen Level IV HEADER OPERATION: Endometrial biopsy PRE-OP DIAGNOSIS: PMB N95.0 TISSUE SUBMITTED: Endometrial biopsy MICROSCOPIC DIAGNOSIS Endometrial biopsy: Scant strips of benign endometrial epithelium and superficial fragments of benign endometrial tissue, consistent with atrophic endometrium and blood clots. See comment. SJ:aileen 08/30/2020 COMMENT The specimen predominantly consists of blood clots. Clinical correlation and appropriate follow up are necessary. MICROSCOPIC DESCRIPTION Slides are reviewed. GROSS DESCRIPTION Received in fixative is one container labeled with the patient's name and designated endometrial biopsy. The specimen consists of multiple irregular and elongated fragments of red-patricia soft tissue that in aggregate measure 2.5 x 2.5 x 0.2 cm. The specimen is totally submitted in one cassette. / AM:aileen 08/29/20 TC:5 CPT: 14789
== END | disposition home or self-care (01) ==
LOC: LABSPEC 16:27
PROVIDERS: PCP Family Medicine; Visit Provider Obstetrics & Gynecology
DX: N95.0 Postmenopausal bleeding (principal)
CPT/HCPCS: 88305

== ENCOUNTER 2020-11-25 08:14 | Day surgery (SDC) | payer MEDICARE, MEDICAID, SELFPAY ==
--- NOTE | 2020-11-20 13:27 | EKG12_ITS ---
Test Reason : PRE OP Blood Pressure : / mmHG Vent. Rate : 083 BPM Atrial Rate : 083 BPM P-R Int : 194 ms QRS Dur : 092 ms QT Int : 350 ms P-R-T Axes : 019 -10 038 degrees QTc Int : 411 ms Normal sinus rhythm Normal ECG Confirmed by NAREN AMANDA, STACEY ([id number]), avid editor JEYSON LOVELACE ([id number]) on 11/21/2020 9:19:03 AM Referred By: Anthony Mendez Confirmed By:STACEY SNEED MD
--- NOTE | 2020-11-20 13:30 | RAD_ITS ---
STUDY: X-RAY CHEST REASON FOR EXAM: Female, 80 years old. PRE-OP TECHNIQUE: AP and lateral views of the chest. COMPARISON: Comparison is made with prior study done 06/22/2020. FINDINGS: The lungs are clear and expanded. There is no demonstrated pleural abnormality. Normal size heart. Normal mediastinum and portillo. Normal visualized pulmonary arteries. There is atherosclerotic tortuosity of the aortic arch and descending thoracic aorta. Normal visualized thoracic spine. There is degenerative osteoarthritis of the bilateral shoulders. There is no demonstrated abnormality of the visualized soft tissue structures of the upper abdomen. RAD/Chest PA and Lateral IMPRESSION: No acute abnormality is seen. Stable examination. Electronically Signed: Willie Crow MD at 13:53 EDT , Service support ,
[2020-11-20 14:52] LABS: Hematocrit 32.1 % (37-47); Hemoglobin 9.8 g/dL (12.0-15.0); Mean Corp Hgb Conc 30.5 g/dL (32-36); Mean Corpuscular Hgb 28.1 pg (27.0-32.0); Mean Platelet Vol. 9.5 fl (6.2-12.0); Platelet Count 223 K/mm3 (150-450); RBC Distribution Width CV 14.1 % (11.6-14.6); RBC Distribution Width SD 47.6 fl (35.1-43.9); Red Blood Count 3.49 M/mm3 (4.2-5.4); White Blood Count 5.2 K/mm3 (4.4-11.0)
[2020-11-20 15:04] LABS: International Normalized Ratio 1.2
[2020-11-20 15:05] LABS: Partial Thromboplast Time 32.1 Seconds (24.1-36.2)
[2020-11-20 15:31] LABS: ALB/GLOB Ratio 0.8 RATIO (0.9-2.4); AST(SGOT) 11 U/L (15-37); Alanine Aminotransfer ALT/SGPT 13 U/L (13-56); Albumin, Serum 3.3 g/dL (3.2-5.0); Alkaline Phosphatase 67 U/L (45-117); Anion Gap 4 (5-15); BUN 18 mg/dL (7-18); BUN/Creat Ratio 13.5 RATIO (10-20); Calcium,Total 10.4 mg/dL (8.5-10.1); Chloride 106 mmol/L (98-107); Creatinine, Serum 1.33 mg/dL (0.55-1.02); EST Glomerular Filtration Rate 41 mL/min (>60); Est Glom Filt Rate - Afr Amer 50 mL/min (>60); Globulin 4.3 g/dL (2.2-4.2); Glucose 125 mg/dL (74-106); Potassium 3.9 mmol/L (3.5-5.1); Protein, Total 7.6 g/dL (6.4-8.2); Sodium Level 140 mmol/L (136-145)
--- NOTE | 2020-11-24 14:43 | HP.PCM_ITS ---
History and Physical Date of Admission: 11/25/20 Surgical History and Physical Jo Ann Parker, a 80 year old female 1 0 0 0 1, presents for D and C and hysteroscopy on November 25, 2020 at 10:00. -- Postmenopausal Bleeding -- PMB which began 08-16-20. Jo Ann claims it started suddenly. It is located in the vagina. Jo Ann characterizes the quality red vaginal discharge. US done while at ED and was told she had a thickened uterine lining; Additional comments are: Recent endometrial biopsy was benign. On Xarelto (stopped last ). MEDICATIONS HISTORY: Patient is also takin. amlodipine 10 mg tablet, One pill by mouth once a day 2. cephalexin 500 mg capsule, One pill by mouth once a day 3. cholecalciferol (vitamin D3) 125 mcg (5,000 unit) capsule, One pill by mouth once a day 4. donepezil 10 mg tablet, One pill by mouth once a day at hs 5. ferrous sulfate 325 mg (65 mg iron) tablet, One pill by mouth once a day 6. gabapentin 400 mg capsule, One pill by mouth three times a day 7. Glucosamine 500 mg tablet, Two pills by mouth once a day 8. lisinopril 20 mg tablet, 1 PO QD 9. pravastatin 40 mg tablet, One pill by mouth once a day 10. Semglee Pen U-100 Insulin 100 unit/mL (3 mL) subcutaneous, As Directed 11. teriparatide 20 mcg/dose (620 mcg/2.48 mL) subcutaneous pen injector, As Di rected 12. Xarelto 15 mg tablet, One pill by mouth once a day ALLERGIES: Atorvastatin, Itching, non-specific, empagliflozin, Tingling, Metformin, Severe nausea & vomiting, Lasix, Rash, itching, Jardiance and Hives and/or rash Infections - Chicken pox, Mumps and Measles Illnesses - KIdney Disease, Diabetes,Osteoarthritis,Hyperlipidemia,Dementia Accidents - None Hospitalizations - see surgery Review of Systems: GENERAL - Denies fever, or chills SKIN - Denies skin changes EYES - Denies visual changes EARS - Denies difficulty hearing NOSE - Denies nasal congestion or bleeding MOUTH - Denies sore throat or difficulty swallowing NECK - Denies pain or swelling RESPIRATORY - Denies shortness of breath or wheezing CARDIOVASCULAR - Denies palpitations or chest pain GASTROINTESTINAL - Denies nausea, vomiting, diarrhea, constipation GENITOURINARY - Denies dysuria, frequency of urination, incontinence of urine MUSCULOSKELETAL - Denies joint or muscle pain NEUROLOGICAL - Denies localized numbness or weakness PSYCHIATRIC - Denies depression or anxiety ENDOCRINE - Denies heat or cold intolerance, weight loss or gain HEMATO-IMMUNOLOGIC - Denies excesive bleeding with cuts SOCIAL HISTORY: Alcohol Use - None Smoking - Never Diet - no special diet Lifestyle - moderate stress lifestyle and Exercise - minimal Seat Belt Use - always Employer - Retired Illicit Drug Use - None Sexual Activity - sexually inactive Spouse-Sig Other Name - Lucita(Daughter) Spouse-Sig Other Occupation - [employer] ([employer]) Children Name(s) - 1 child Control - postmenopausal FAMILY HISTORY: MENSTRUAL HISTORY: LMP Known?- Postmenopausal PAST PREGNANCIES: Total Pregnancies - 1; Full Term Pregnancies - 1; Premature - 0; Abortions, Induced - 0; Abortions, Spontaneous - 0; Ectopics - 0; Multiple Births - 0; Living Children - 1 SURGICAL HISTORY: 1. T and A, 1948 ; - 2. 10/13[birth year]1978 ; - PHYSICAL EXAM BP- 138/86 Sitting, Right arm, large cuff Weight- 219.0 lbs Height- 62 inch BMI:40.1 CONSTITUTIONAL - NAD, well nourished, and well developed, uses a wheelchair and ; However she can walk NEUROLOGICAL - Cranial nerves II-XII grossly intact PSYCHIATRIC - A and O to time, place, person, mood and affect External Genitial Vagina - non-tender without lesions Urethra/Urethral Meatus - non-tender Bladder - non-tender Vagina - loss of rugae and blood in vagina Cervix - without cervical motion tenderness and has normal size and features without evident lesions Uterus - 5-6 cm in size, mobile and nontender and exam compromised by habitus Adnexa - clear without massess or tenderness and exam limited by habitus ASSESSMENT/PLAN: 1. Postmenopausal Bleeding Patient with continued postmenopausal bleeding with negative endometrial biopsy. Discussed options for treatment and plan to proceed with a diagnostic hysteroscopy and fractional dilation and curettage. Discussed risks, benefits, alternatives and all questions were answered.
[2020-11-25] VITALS (10 sets, daily range): BP systolic 72–153; BP diastolic 40–97; PULSE 54–84; RESP 12–16; TEMP 35.6–36.6; O2SAT 89–98; BMI 40.0
[2020-11-25] MEDS: Lactated Ringers 1,000 ML 100 ML IV ×2 (09:05→11:15)
[2020-11-25 09:16] LABS: Bedside Glucose 113 mg/dL (70-110)
--- NOTE | 2020-11-25 10:04 | PCM.OPRPT ---
Report of Operation Date of Procedure: 11/25/20 Pre-Operative Diagnosis: Postmenopausal Bleeding Post-Operative Diagnosis: Postmenopausal Bleeding and Endometrial Polyps Surgery/Procedure Performed:: Diagnostic Hysteroscopy, Dilation and Curettage Description of Surgical Findings:: 8 cm endometrial cavity without fibroids present. Multiple 1 to 2 cm endometrial polyps present and removed. Cervix with minimal descensus which would make robotic assisted vaginal hysterectomy preferred should this procedure be necessary Surgeon: Anthony Mendez Type of Anesthesia: Local MAC Anesthesiologist: Wilmer Suresh Specimen's removed: Endometrial and endocervical curettings Estimated Blood Loss (mL): Minimal Fluids Replaced: Crystalloid Description of Procedure: Surgeon: Anthony Mendez MD, FACOG Indications: This is a 80 year old patient who has the above diagnosis. The patient has been counseled regarding the risk and indications of this procedure including the possibility of bleeding, infection, and injury to surrounding structures such as bowel bladder. All questions were answered and we consider the patient well-informed. Procedure: The patient was taken to the operating room where after induction of general anesthesia, she was placed in the dorsolithotomy position and prepped and draped in the usual sterile fashion. Anterior cervix was grasped with the tenaculum and dilated to about 4-5 mm. A 3 mm hysteroscope was placed in the uterus of the above findings were noted. Cervix was dilated to about 7-8 mm and uterus was gently curetted removing all contents. Hysteroscope was reinserted and all polyps were noted to be removed. In the course of the procedure approximately 100 cc of saline distending media was used and virtually all of this was recovered. Patient tolerated procedure well was taken to recovery room in satisfactory condition sponge instrument and needle counts were all reportedly correct. Estimated blood loss for the case was minimal. Grafts/Implants Used: None Complications None Admit VTE Documentation VTE Present on Admission: Yes VTE Mechan Device Prophylaxis: SCD's
--- NOTE | 2020-11-25 10:07 | PCM.DC ---
Discharge Instructions Diet Discharge Diet: No restrictions Activity Discharge Activity: Return to Normal Activity, May Shower and May Take a Tub Bath May resume sexual activity in: 1-2 weeks Additional Activity Instructions:: Nothing in vagina for 1 to 2 weeks. Okay the use ibuprofen or Tylenol per package directions for any cramping you may have over the next few days. Dressing / Incision Call your doctor if you observe: Fever of 101 or Higher, Inability to urinate and Inability to have a bowel movement Follow Up Care Please Follow Up With: Anthony Mendez MD When: 2 to 3 weeks Test Results: Test results from this visit will be discussed in further detail at your follow-up appointment, if applicable. Discharge Plan Admission Primary Reason for Your Visit: Postmenopausal bleeding Attending Provider: Anthony Mendez Primary Care Provider: Vel Graham Discharge Orders/Prescriptions Prescriptions: Continued gabapentin 300 MG capsule 400 mg PO TID RF: 0 pravastatin 40 MG tablet 40 mg PO QHS RF: 0 glucosamine sulfate 1,000 MG capsule 1,000 mg PO DAILY RF: 0 acetaminophen 500 MG tablet 500 mg PO Q6H PRN PRN (Reason: Pain 1-10 Or Fever) RF: 0 pioglitazone [Actos] 15 MG tablet 15 mg PO DAILY RF: 0 Lantus U-100 Insulin 100 UNIT/ML solution 15 unit SQ BREAKFAST RF: 0 magnesium hydroxide 30 ML suspension 30 ml PO DAILY PRN PRN (Reason: constipation) RF: 0 ferrous sulfate 325 MG tablet 325 mg PO DAILY RF: 0 rivaroxaban 20 MG tablet 20 mg PO DAILY RF: 0 insulin glargine 100 UNIT/ML solution 10 unit SQ QHS RF: 0 ondansetron HCl 4 MG tablet 4 mg PO Q6H PRN PRN (Reason: Nausea) RF: 0 bisacodyl 5 MG tablet 10 mg PO DAILY PRN PRN (Reason: Constipation) RF: 0 amlodipine 10 MG tablet 10 mg PO DAILY RF: 0 lisinopril 5 MG tablet 20 mg PO DAILY RF: 0 donepezil 5 MG tablet 10 mg PO QHS Qty: 1 RF: 0 Enema 19-7 gram/118 mL Enema 1 ml MT DAILY PRN PRN (Reason: Constipation) RF: 0 cholecalciferol (vitamin D3) 1,250 mcg (50,000 unit) Capsule 1,250 mcg PO QWEEK RF: 0 teriparatide 20 mcg/dose (600mcg/2.4mL) Pen Injector 20 mcg SUBCUT QWEEK RF: 0 Referrals / Follow Up: Vel Graham MD [Primary Care Provider] - Disposition Disposition (needs filled in before D/C Order can be placed): Home, Self Care
--- NOTE | 2020-11-25 10:10 | EMB_PTH ---
PATIENT: DIANNA ZAMUDIO LOC: [facility] U#:[id number] AGE/SX: 80/F ROOM: RE11/25/[address]: Dr. Anthony Mendez MD : [id number] BED: DIS: 11/25/2020 SPEC #: [id number] RECD: 11/25/20 10:52 STATUS: KT BONIFACIO #: [id number] JUAN C: 11/25/20 10:[address]: Anthony Mendez DEPT: SURGICAL PATHOLOGY RECD BY: Inez Camacho ENTERED: 11/25/20 12:42 SP TYPE: ENDOM BX/C ISABELLE DR: Dr. Vel Graham MD Tissues: A - Endometrium, NOS B - Endocervical Procedures: Surgery Specimen Level IV HEADER OPERATION: Hysteroscopy, D & C PRE-OP DIAGNOSIS: Postmenopausal bleeding TISSUE SUBMITTED: A ? Endometrial curettings, B ? Endocervical curettings MICROSCOPIC DIAGNOSIS A. Endometrial curettings: Polypoid fragments of endometrial tissue, consistent with endometrial polyp with simple cystic hyperplasia without atypia. B. Endocervical curettings: Scant fragments of benign endocervical epithelium and mucous, no pathologic diagnosis. SJ:aileen 11/26/2020 COMMENT Please make reference to previous specimen ([id number]) endometrial biopsy with diagnosis of ?scant strips of benign endometrial epithelium and superficial fragments of benign endometrial tissue, consistent with atrophic endometrium and blood clots.? MICROSCOPIC DESCRIPTION Slides are reviewed. GROSS DESCRIPTION A - Received in fixative is one container labeled with the patient's name and designated endometrial curettings. The specimen consists of multiple irregular fragments of patricia-pink soft tissue mixed with hemorrhagic tissue and polypoid fragments of tissue that in aggregate measure 2.5 x 2.5 x 0.3 cm. The specimen is totally submitted in one cassette. B - Received in fixative is one container labeled with the patient's name and designated endocervical curettings. The specimen consists of multiple irregular fragments of patricia mucoid tissue that in aggregate measure 2 x 0.5 x 0.1 cm. The specimen is totally submitted in one cassette. / CEASAR:aileen 11/25/20 TC:5 CPT: 79267 x2
== END 2020-11-25 13:22 | disposition home or self-care (01) ==
LOC: SDC 08:15 → AC 08:16
PROVIDERS: PCP Family Medicine; Referring Provider Obstetrics & Gynecology; Visit Provider Obstetrics & Gynecology
PROC: 0UDB8ZZ Extraction of Endometrium, Via Natural or Artificial Opening Endoscopic (ICD-10-PCS; CPT 58558; principal; 2020-11-25 10:00)
DX: N85.01 Benign endometrial hyperplasia (principal); N95.0 Postmenopausal bleeding; E11.9 Type 2 diabetes mellitus without complications; E78.00 Pure hypercholesterolemia, unspecified; I27.20 Pulmonary hypertension, unspecified; F03.90 Unspecified dementia, unspecified severity, without behavioral disturbance, psychotic disturbance, mood disturbance, and anxiety; M19.90 Unspecified osteoarthritis, unspecified site; Z79.01 Long term (current) use of anticoagulants; Z79.4 Long term (current) use of insulin; Z79.899 Other long term (current) drug therapy
CPT/HCPCS: 00952; 58558; 36415; 71046; 80053; 82962; 85027; 85610; 85730; 86850; 86900; 86901; 88305; 93005; J7120; J2405

== ENCOUNTER 2021-04-09 12:35 | Observation (INO) | payer MEDICARE, SELFPAY ==
[2021-04-09] VITALS (7 sets, daily range): BP systolic 128–190; BP diastolic 68–111; PULSE 73–95; RESP 16–19; TEMP 36.4–37.6; O2SAT 95–100; BMI 39.4
--- NOTE | 2021-04-09 12:50 | EKG12_ITS ---
Test Reason : LEG PAIN Blood Pressure : / mmHG Vent. Rate : 081 BPM Atrial Rate : 080 BPM P-R Int : 000 ms QRS Dur : 098 ms QT Int : 374 ms P-R-T Axes : 000 -14 073 degrees QTc Int : 434 ms Sinus vs. Ectopic Atrial Rhythm Low voltage QRS Abnormal ECG somatic/motion artifact Poor R wave Progerssion Confirmed by BALTAZAR AMANDA, GENARO ([id number]), photography editor TARAH JIMENEZ ([id number]) on 04/10/2021 11:18:26 AM Referred By: AB Confirmed By:GENARO LEDESMA MD
[2021-04-09 13:12] LABS: Absolute Neutrophil Count 5.5 X10^3/uL (2.0-7.7); Basophil# 0.04 X10^3/uL; Basophil% 0.5 % (0-1); Eosinophil# 0.12 X10^3/uL; Eosinophils% 1.6 % (0-5); Hemoglobin 9.4 g/dL (12.0-15.0); Lymphocyte % 17.4 % (19-41); Mean Corp Hgb Conc 32.4 g/dL (32-36); Mean Corpuscular Hgb 30.2 pg (27.0-32.0); Mean Corpuscular Volume 93.2 fL (81-99); Mean Platelet Vol. 9.8 fl (6.2-12.0); Monocyte# 0.48 X10^3/uL; Monocyte% 6.4 % (0-10); NRBC Flagged by Analyzer 0 % (0-5); Neutrophil # 5.52 X10^3/uL (2.7-7.7); Neutrophil % 73.8 % (47-70); Platelet Count 204 K/mm3 (150-450); RBC Distribution Width CV 12.8 % (11.6-14.6); RBC Distribution Width SD 43.8 fl (35.1-43.9); Red Blood Count 3.11 M/mm3 (4.2-5.4); White Blood Count 7.5 K/mm3 (4.4-11.0)
[2021-04-09 13:24] LABS: ALB/GLOB Ratio 0.8 RATIO (0.9-2.4); AST(SGOT) 15 U/L (15-37); Alanine Aminotransfer ALT/SGPT 15 U/L (13-56); Albumin, Serum 3.4 g/dL (3.2-5.0); Alkaline Phosphatase 55 U/L (45-117); Anion Gap 8 (5-15); BUN 38 mg/dL (7-18); BUN/Creat Ratio 20.1 RATIO (10-20); Calcium,Total 10.7 mg/dL (8.5-10.1); Chloride 114 mmol/L (98-107); Creatinine, Serum 1.89 mg/dL (0.55-1.02); EST Glomerular Filtration Rate 27 mL/min (>60); Est Glom Filt Rate - Afr Amer 33 mL/min (>60); Glucose 133 mg/dL (74-106); Potassium 4.1 mmol/L (3.5-5.1); Protein, Total 7.4 g/dL (6.4-8.2); Sodium Level 143 mmol/L (136-145); Troponin-I HS 9 pg/mL (3.0-54.0)
--- NOTE | 2021-04-09 13:26 | RAD_ITS ---
STUDY: X-RAY CHEST REASON FOR EXAM: Female, 80 years old. Weakness TECHNIQUE: Single AP portable view of the chest. COMPARISON: Comparison is made with prior study 11/20/2020. FINDINGS: EKG electrodes are seen. Limited inspiratory effort. Increased markings at the lung bases with areas of confluence suggestive bibasilar infiltration and/or atelectasis. Normal size heart. Normal mediastinum and portillo. Normal visualized pulmonary arteries. There is atherosclerotic tortuosity of the aortic arch and descending thoracic aorta. There are diffuse degenerative changes of the visualized thoracic spine. Normal visualized ribs, clavicles, and shoulders. There is no demonstrated abnormality of the visualized soft tissue structures of the upper abdomen. RAD/Chest 1 View (Portable) IMPRESSION: Bibasilar infiltrates. Electronically Signed: Willie Crow MD at 13:42 EST , Service support ,
[2021-04-09 13:31] LABS: Mucous, Urine 0 SEEN /hpf (<or=2+); Squamous Epithelial Cells - UA 0 SEEN /hpf (5-10)
[2021-04-09 13:43] LABS: Color, Urine Yellow (Yellow); Glucose, Dipstick Normal (Normal); Ketone-Dipstick Negative (Negative); Leukocyte Esterase-Dipstick 500 /ul (Negative); Nitrite-Dipstick Positive (Negative); Occult Blood-Urine 150 /ul (Negative); Protein-Dipstick 100 mg/dl (Negative); Urine Bilirubin Dipstick Negative (Negative); Urine Clarity Sl. Cloudy (Clear); Urine Urobilinogen Normal (Normal)
[2021-04-09 14:25] LABS: Bacteria 3+ /hpf (None Seen); Red Blood Cells-Urine 0-5 SEEN /hpf (0-5); White Blood Cells 25-50 SEEN /hpf (0-5)
[2021-04-09] MEDS: 0.9% Normal Saline 1,000 ML 999 ML IV (14:37)
[2021-04-09] MEDS: Ceftriaxone 1 GM/50 ML BAG IV (15:01)
--- NOTE | 2021-04-09 17:19 | EDS_ITS ---
HPI HPI - Fall History of Present Illness Chief Complaint: Fall Narrative Narrative: 80-year-old female presenting with history of falls. She states that over the last 2 days she has had 2 falls in which she could not get up off the floor and spent several hours on the floor. She was not able to get up on her own. She does have a history of debility and states that she had been transferring fairly well to and from the toilet but she has been weak the last c ouple of days. She states that her legs are weak. She denies hitting her head or LOC. She does admit to history of UTIs. She has not had fevers or chills. [facility] Medical History Arthritis Back pain Diabetes Diabetes DVT (deep venous thrombosis) Easy bruising Excessive bleeding Gastric reflux GERD (gastroesophageal reflux disease) High cholesterol History of pain when walking History of renal disease Hypertension Injury of head and neck Insulin dependent diabetes mellitus Kidney disease Non-smoker Pulmonary embolism Shortness of breath on exertion Uses wheelchair Wears glasses Home Medications gabapentin 400 mg PO TID 03/20/14 [History Last Taken 04/14/20] pravastatin 40 mg PO QHS 10/05/17 [History Last Taken 06/21/20] acetaminophen 500 mg PO Q6H PRN PRN 04/15/20 [History Last Taken 04/14/20] glucosamine sulfate 1,000 mg PO DAILY 04/15/20 [History Last Taken 06/22/20] Lantus U-100 Insulin 15 unit SQ BREAKFAST 06/23/20 [History Last Taken Unknown] amlodipine 10 mg PO DAILY 06/23/20 [History Last Taken 11/24/20 20:00] bisacodyl 10 mg PO DAILY PRN PRN 06/23/20 [History Last Taken Unknown] ferrous sulfate 325 mg PO DAILY 06/23/20 [History Last Taken 06/22/20] insulin glargine 10 unit SQ QHS 06/23/20 [History Last Taken 06/21/20] lisinopril 20 mg PO DAILY 06/23/20 [History Last Taken 11/24/20 20:00] magnesium hydroxide 30 ml PO DAILY PRN PRN 06/23/20 [History Last Taken Unknown] ondansetron HCl 4 mg PO Q6H PRN PRN 06/23/20 [History Last Taken Unknown] pioglitazone [Actos] 15 mg PO DAILY 06/23/20 [History Last Taken 06/22/20] rivaroxaban 20 mg PO DAILY 06/23/20 [History Last Taken 06/22/20] donepezil 10 mg PO QHS #1 tablet 06/24/20 [Rx Last Taken Unknown] Enema 1 ml NV DAILY PRN PRN 08/19/20 [History Last Taken Unknown] cholecalciferol (vitamin D3) 1,250 mcg PO QWEEK 08/19/20 [History Last Taken Unknown] teriparatide 20 mcg SUBCUT QWEEK 08/19/20 [History Last Taken Unknown] Allergy/AdvReac Type Severity Reaction Status Date / Time empagliflozin Allergy Itching/VALENTIN Verified 04/09/21 12:37 [From Jardiance] H furosemide [From Lasix] Allergy Rash Verified 04/09/21 12:37 metformin Allergy decreased Verified 04/09/21 12:37 appetite warfarin [From Coumadin] Allergy Other Verified 04/09/21 12:37 Surgical History Hx of section Hx of tonsillectomy Social History Smoking Status: Never smoker ROS ROS ED ROS Narrative Generalized weakness Constitutional Constitutional ED: Denies chills or fever(s) Eyes Eyes: Denies blurry vision or diplopia ENT ENT ED: Denies rhinorrhea or sore throat Cardiovascular Cardiovascular: Denies chest pain or palpitations Respiratory/Chest Respiratory/Chest: Denies cough or dyspnea Gastrointestinal Gastrointestinal: Denies abdominal pain, nausea or vomiting Genitourinary Genitourinary ED: Denies dysuria or hematuria Musculoskeletal Musculoskeletal: Denies arthralgias or myalgias Integumentary Denies Abrasions or rash Neurologic Neurologic: Denies headache(s) or paresthesias EXAM Physical Exam Const Vital Signs: 04/09/21 12:37 04/09/21 14:36 04/09/21 14:38 Temperature 98.2 F 97.5 F L 97.5 F L Temperature Source Temporal Temporal Temporal Pulse Rate 95 81 82 Respiratory Rate 17 19 H 16 Respiratory Effort Normal Non-Labored Respiratory Depth Normal Respiratory Pattern Normal Blood Pressure 190/68 H 128/100 H 128/100 H Blood Pressure Mean 108 109 109 Pulse Ox 100 98 99 Oxygen Delivery Method Room Air Room Air Room Air 04/09/21 16:27 Temperature Temperature Source Pulse Rate 84 Respiratory Rate 19 H Respiratory Effort Respiratory Depth Respiratory Pattern Blood Pressure 174/79 H Blood Pressure Mean 110 Pulse Ox 100 Oxygen Delivery Method Room Air Positive well nourished General Appearance ED: NAD HEENT Reports normocephalic atraumatic Eyes PERRL and EOMs intact bilaterally Resp normal respiratory effort and clear to auscultation bilaterally Cardio regular rate and regular rhythm Extremity normal to inspection and full ROM Neuro oriented x3, CN's II-XII intact bilaterally, moves all extremities and no focal motor deficits Sensorium / Orientation: alert Psych mental status grossly normal and thought process normal Skin Lesions: no lesions Rashes: no rashes MDM MDM MDM Narrative Medical decision making narrative: Patient presenting with weakness and falls. I did obtain blood work and patient does not have a white blood cell count. Hemoglobin is near baseline at 9.4. Creatinine slightly elevated 1.89 and patient was given IV fluids. Electrolytes were normal. Urinalysis positive for UTI. Patient given Rocephin and urine culture sent. Rapid COVID was negative. Chest x-ray on my interpretation shows no acute cardiopulmonary process however the radiologist reads this as bibasilar infiltrates and for this reason a COVID PCR was sent which is also negative. Based on her vital signs and her work-up I do not believe there is an infectious etiology patient in the lungs. Her EKG shows a sinus rhythm with a ventricular rate of 81 bpm and there is some artifact of mitral rotation. I do not see anything that looks ischemic. High- sensitivity troponin is 9. I do have concern that the patient fell and is generally weak and the daughter expressed concern that she could not take care of her because she has to work. Given the concern I did speak with the hospitalist and he is comfortable with observing her overnight. Patient's CPK is pending and this was discussed with the hospitalist. Impression: 1. Dehydration 2. UTI 3. False Lab Data Attestation: I reviewed the patient's lab results. Labs: Laboratory Results - last 24 hr 04/09/21 04/09/21 04/09/21 13:00 13:00 13:25 WBC 7.5 RBC 3.11 L Hgb 9.4 L Hct 29.0 L MCV 93.2 MCH 30.2 MCHC 32.4 RDW Std Deviation 43.8 RDW Coeff of Mayank 12.8 Plt Count 204 MPV 9.8 Immature Gran % (Auto) 0.300 Neut % (Auto) 73.8 H Lymph % (Auto) 17.4 L Gordon % (Auto) 6.4 Eos % (Auto) 1.6 Baso % (Auto) 0.5 Absolute Neuts (auto) 5.5 Absolute Lymphs (auto) 1.30 Nucleated RBC % 0 Sodium 143 Potassium 4.1 Chloride 114 H Carbon Dioxide 21.0 Anion Gap 8 BUN 38 H Creatinine 1.89 H Estim Creat Clear Calc 19.40 Est GFR (MDRD) Af Amer 33 L Est GFR (MDRD) Non-Af 27 L BUN/Creatinine Ratio 20.1 H Glucose 133 H Calcium 10.7 H Total Bilirubin 0.40 AST 15 ALT 15 Alkaline Phosphatase 55 Troponin I High Sens 9 Total Protein 7.4 Albumin 3.4 Globulin 4.0 Albumin/Globulin Ratio 0.8 L Urine Color Yellow Urine Clarity Sl. Cloudy Urine pH 5.0 Ur Specific [place] 1.020 Urine Protein 100 H Urine Glucose (UA) Normal Urine Ketones Negative Urine Occult Blood 150 H Urine Nitrite Positive H Urine Bilirubin Negative Urine Urobilinogen Normal Ur Leukocyte Esterase 500 H Urine RBC 0-5 SEEN Urine WBC 25-50 SEEN Ur Squamous Epith Cells 0 SEEN Urine Bacteria 3+ Urine Mucus 0 SEEN COVID-19 (KALYANI) 04/09/21 13:50 WBC RBC Hgb Hct MCV MCH MCHC RDW Std Deviation RDW Coeff of Mayank Plt Count MPV Immature Gran % (Auto) Neut % (Auto) Lymph % (Auto) Gordon % (Auto) Eos % (Auto) Baso % (Auto) Absolute Neuts (auto) Absolute Lymphs (auto) Nucleated RBC % Sodium Potassium Chloride Carbon Dioxide Anion Gap BUN Creatinine Estim Creat Clear Calc Est GFR (MDRD) Af Amer Est GFR (MDRD) Non-Af BUN/Creatinine Ratio Glucose Calcium Total Bilirubin AST ALT Alkaline Phosphatase Troponin I High Sens Total Protein Albumin Globulin Albumin/Globulin Ratio Urine Color Urine Clarity Urine pH Ur Specific [place] Urine Protein Urine Glucose (UA) Urine Ketones Urine Occult Blood Urine Nitrite Urine Bilirubin Urine Urobilinogen Ur Leukocyte Esterase Urine RBC Urine WBC Ur Squamous Epith Cells Urine Bacteria Urine Mucus COVID-19 ([facility]YANI) Not Detected Radiography Diagnostic Testing: Clinical Impression(s) from Imaging Studies Chest X-Ray 04/09/21 13:26 IMPRESSION: Bibasilar infiltrates. Electronically Signed: Willie Crow MD at 13:42 EST , Service support , Discharge Plan Triage Chief Complaint: Fall ED Provider: Justin Lozano Dx/Rx/DC Orders Prescriptions: No Action gabapentin 300 MG capsule 400 mg PO TID RF: 0 pravastatin 40 MG tablet 40 mg PO QHS RF: 0 glucosamine sulfate 1,000 MG capsule 1,000 mg PO DAILY RF: 0 acetaminophen 500 MG tablet 500 mg PO Q6H PRN PRN (Reason: Pain 1-10 Or Fever) RF: 0 pioglitazone [Actos] 15 MG tablet 15 mg PO DAILY RF: 0 Lantus U-100 Insulin 100 UNIT/ML solution 15 unit SQ BREAKFAST RF: 0 magnesium hydroxide 30 ML suspension 30 ml PO DAILY PRN PRN (Reason: constipation) RF: 0 ferrous sulfate 325 MG tablet 325 mg PO DAILY RF: 0 rivaroxaban 20 MG tablet 20 mg PO DAILY RF: 0 insulin glargine 100 UNIT/ML solution 10 unit SQ QHS RF: 0 ondansetron HCl 4 MG tablet 4 mg PO Q6H PRN PRN (Reason: Nausea) RF: 0 bisacodyl 5 MG tablet 10 mg PO DAILY PRN PRN (Reason: Constipation) RF: 0 amlodipine 10 MG tablet 10 mg PO DAILY RF: 0 lisinopril 5 MG tablet 20 mg PO DAILY RF: 0 donepezil 5 MG tablet 10 mg PO QHS Qty: 1 RF: 0 Enema 19-7 gram/118 mL Enema 1 ml NV DAILY PRN PRN (Reason: Constipation) RF: 0 cholecalciferol (vitamin D3) 1,250 mcg (50,000 unit) Capsule 1,250 mcg PO QWEEK RF: 0 teriparatide 20 mcg/dose (600mcg/2.4mL) Pen Injector 20 mcg SUBCUT QWEEK RF: 0 Primary Care Provider: Vel Graham
[2021-04-09 17:27] LABS: CPK Total, Creatine Kinase 127 U/L (26-192)
--- NOTE | 2021-04-09 17:55 | PCM.HP.STD ---
Documented by User: LONA Paris 04/09/21 18:04 HPI - General General Date of Admission: 04/09/21 Date of Service: 04/09/21 Chief Complaint: Falls, weakness HPI Narrative DIANNA ZAMUDIO, is a 80 F who presents with complaints of increased falls and weakness at home. Patient states that she has fallen twice in the last 2 days and today she spent several hours on the floor because she cannot get up on her own. Patient has been at intermediate facilities on and off over the past year. Patient states that she has had a history of UTIs however she is asymptomatic at this time. [facility] Medical History Arthritis Back pain Diabetes Diabetes DVT (deep venous thrombosis) Easy bruising Excessive bleeding Gastric reflux GERD (gastroesophageal reflux disease) High cholesterol History of pain when walking History of renal disease Hypertension Injury of head and neck Insulin dependent diabetes mellitus Kidney disease Non-smoker Pulmonary embolism Shortness of breath on exertion Uses wheelchair Wears glasses Home Medications pravastatin 40 mg PO QHS 10/05/17 [History Last Taken 04/08/21] acetaminophen 1,000 mg PO Q6H PRN PRN 04/15/20 [History Last Taken 04/14/20] Lantus U-100 Insulin 15 unit SQ BREAKFAST 06/23/20 [History Last Taken 04/08/21] amlodipine 10 mg PO DAILY 06/23/20 [History Last Taken 04/08/21] insulin glargine 7 unit SQ QHS 06/23/20 [History Last Taken 04/08/21] pioglitazone [Actos] 15 mg PO DAILY 06/23/20 [History Last Taken 04/08/21] rivaroxaban 20 mg PO DAILY 06/23/20 [History Last Taken 04/08/21] donepezil 5 mg PO QHS 04/09/21 [History Last Taken 04/08/21] gabapentin 400 mg PO TID 04/09/21 [History Last Taken 04/08/21] lisinopril 20 mg PO DAILY 04/09/21 [History Last Taken 04/08/21] Allergy/AdvReac Type Severity Reaction Status Date / Time empagliflozin Allergy Itching/VALENTIN Verified 04/09/21 12:37 [From Jardiance] H furosemide [From Lasix] Allergy Rash Verified 04/09/21 12:37 metformin Allergy decreased Verified 04/09/21 12:37 appetite warfarin [From Coumadin] Allergy Other Verified 04/09/21 12:37 Surgical History Hx of section Hx of tonsillectomy Social History Smoking Status: Never smoker ROS Constitutional Constitutional: Reports weakness; Denies anorexia, chills, fatigue or fever(s) Cardiovascular Cardiovascular: Denies chest pain, edema, palpitations or syncope Respiratory/Chest Respiratory/Chest: Denies cough, shortness of breath at rest, shortness of breath with exertion or wheezing Gastrointestinal Gastrointestinal: Denies abdominal pain, constipation, diarrhea, nausea or vomiting Genitourinary Genitourinary: Denies dysuria Musculoskeletal Musculoskeletal: Denies back pain, extremity pain, joint pain or joint stiffness Integumentary Integumentary: Denies dry skin Neurologic Neurologic: Reports weakness; Denies abnormal gait, abnormal speech, confusion or dizziness Psychiatric Psychiatric: Denies anxiety or depression Vital Signs Vital Signs Vital Signs: 04/09/21 12:37 04/09/21 14:36 04/09/21 14:38 Temperature 98.2 F 97.5 F L 97.5 F L Temperature Source Temporal Temporal Temporal Pulse Rate 95 81 82 Respiratory Rate 17 19 H 16 Respiratory Effort Normal Non-Labored Respiratory Depth Normal Respiratory Pattern Normal Blood Pressure 190/68 H 128/100 H 128/100 H Blood Pressure Mean 108 109 109 Pulse Ox 100 98 99 Oxygen Delivery Method Room Air Room Air Room Air 04/09/21 16:27 Temperature Temperature Source Pulse Rate 84 Respiratory Rate 19 H Respiratory Effort Respiratory Depth Respiratory Pattern Blood Pressure 174/79 H Blood Pressure Mean 110 Pulse Ox 100 Oxygen Delivery Method Room Air Weight Weight: 215 lb 9.793 oz Body Mass Index (BMI) 39.4 Physical Exam Const alert and oriented x3 General Appearance: cooperative HEENT normocephalic and head/scalp atraumatic Eyes conjunctivae normal and no scleral icterus Neck supple General: trachea midline Resp normal respiratory effort, normal air movement and clear to auscultation bilaterally Effort and Inspection: tachypneic Cardio regular rate, regular rhythm, S1 normal heart sound, S2 normal heart sound and peripheral pulses 2+ throughout GI normal to inspection, nondistended, normoactive bowel sounds, soft to palpation and non-tender Extremity normal capillary refill and no clubbing, cyanosis or edema General Extremity: no tenderness to palpation of joints or extremities Skin General Skin Exam: no breakdown and turgor normal Lesions: no lesions Rashes: no rashes Neuro oriented x3, moves all extremities, no focal motor deficits and no sensory deficits noted Psych thought process normal, cooperative and affect normal Appearance: appropriate Results Lab / Micro Data Result Diagrams: 04/09/21 13:00 04/09/21 13:00 Labs: Laboratory Results - last 24 hr 04/09/21 13:00: WBC 7.5, RBC 3.11 L, Hgb 9.4 L, Hct 29.0 L, MCV 93.2, MCH 30.2, MCHC 32.4, RDW Std Deviation 43.8, RDW Coeff of Mayank 12.8, Plt Count 204, MPV 9.8, Immature Gran % (Auto) 0.300, Neut % (Auto) 73.8 H, Lymph % (Auto) 17.4 L, [place] % (Auto) 6.4, Eos % (Auto) 1.6, Baso % (Auto) 0.5, Absolute Neuts (auto) 5.5, Absolute Lymphs (auto) 1.30, Nucleated RBC % 0 04/09/21 13:00: Sodium 143, Potassium 4.1, Chloride 114 H, Carbon Dioxide 21.0, Anion Gap 8, BUN 38 H, Creatinine 1.89 H, Estim Creat Clear Calc 19.40, Est GFR (MDRD) Af Amer 33 L, Est GFR (MDRD) Non-Af 27 L, BUN/Creatinine Ratio 20.1 H, Glucose 133 H, Calcium 10.7 H, Total Bilirubin 0.40, AST 15, ALT 15, Alkaline Phosphatase 55, Troponin I High Sens 9, Total Protein 7.4, Albumin 3.4, Globulin 4.0, Albumin/Globulin Ratio 0.8 L 04/09/21 13:00: Total Creatine Kinase 127 04/09/21 13:25: Urine Color Yellow, Urine Clarity Sl. Cloudy, Urine pH 5.0, Ur Specific [place] 1.020, Urine Protein 100 H, Urine Glucose (UA) Normal, Urine Ketones Negative, Urine Occult Blood 150 H, Urine Nitrite Positive H, Urine Bilirubin Negative, Urine Urobilinogen Normal, Ur Leukocyte Esterase 500 H, Urine RBC 0-5 SEEN, Urine WBC 25-50 SEEN, Ur Squamous Epith Cells 0 SEEN, Urine Bacteria 3+, Urine Mucus 0 SEEN 04/09/21 13:50: COVID-19 ([facility]YANI) Not Detected Micro: Microbiology 04/09/21 13:05 Nasal Secretion SARS-CoV-2 Antigen (Rapid) - Final Radiology Impression Chest X-Ray 04/09/21 13:26 IMPRESSION: Bibasilar infiltrates. Electronically Signed: Willie Crow MD at 13:42 EST , Service support , Assessment & Plan Assessment/Plan (1) CKD (chronic kidney disease), stage III: QUALIFIERS: Chronic kidney disease stage 3 subtype: unspecified whether 3a or 3b Qualified Code(s): N18.30 - Chronic kidney disease, stage 3 unspecified (2) Weakness: PLAN: 1. Acute on chronic kidney disease stage III -[facility] -Patient received 1 L bolus in ER -BMP and CBC ordered for a.m. -Patient's baseline creatinine 1.3-1.5, currently 1.89 2. Urinary tract infection -UA demonstrates protein 100, occult blood 150, positive nitrites, leukocyte Estrace 500, white blood cells 25-50 with 3+ urine bacteria -Patient received dose of Rocephin in ER will continue -Urine culture pending 3. Debility -PT and OT to eval and treat -Fall precautions ordered -Case management consulted due to probable SNF placement 4. Diabetes mellitus type 2 -AC at bedtime blood sugars with sliding scale insulin ordered 5. Hypertension -Patient denies taking any of her home medications today -Will reorder home medication regimen including amlodipine, lisinopril once doses are verified -No signs per protocol We will continue patient's home medications for chronic diseases once they are verified by nursing. DVT prophylaxis-chronically anticoagulated with Xarelto This patient was seen by LONA Paris under the supervision of Dr. Fontanez. Documented by User: Dr. Juan Fontanez, 04/09/21 18:33 [facility] Medical History Arthritis Back pain Diabetes Diabetes DVT (deep venous thrombosis) Easy bruising Excessive bleeding Gastric reflux GERD (gastroesophageal reflux disease) High cholesterol History of pain when walking History of renal disease Hypertension Injury of head and neck Insulin dependent diabetes mellitus Kidney disease Non-smoker Pulmonary embolism Shortness of breath on exertion Uses wheelchair Wears glasses Home Medications pravastatin 40 mg PO QHS 10/05/17 [History Last Taken 04/08/21] acetaminophen 1,000 mg PO Q6H PRN PRN 04/15/20 [History Last Taken 04/14/20] Lantus U-100 Insulin 15 unit SQ BREAKFAST 06/23/20 [History Last Taken 04/08/21] amlodipine 10 mg PO DAILY 06/23/20 [History Last Taken 04/08/21] insulin glargine 7 unit SQ QHS 06/23/20 [History Last Taken 04/08/21] pioglitazone [Actos] 15 mg PO DAILY 06/23/20 [History Last Taken 04/08/21] rivaroxaban 20 mg PO DAILY 06/23/20 [History Last Taken 04/08/21] donepezil 5 mg PO QHS 04/09/21 [History Last Taken 04/08/21] gabapentin 400 mg PO TID 04/09/21 [History Last Taken 04/08/21] lisinopril 20 mg PO DAILY 04/09/21 [History Last Taken 04/08/21] Allergy/AdvReac Type Severity Reaction Status Date / Time empagliflozin Allergy Itching/VALENTIN Verified 04/09/21 12:37 [From Jardiance] H furosemide [From Lasix] Allergy Rash Verified 04/09/21 12:37 metformin Allergy decreased Verified 04/09/21 12:37 appetite warfarin [From Coumadin] Allergy Other Verified 04/09/21 12:37 Surgical History Hx of section Hx of tonsillectomy Social History Smoking Status: Never smoker Results Lab / Micro Data Result Diagrams: 04/09/21 13:00 04/09/21 13:00 Assessment & Plan Assessment/Plan (1) UTI (urinary tract infection): (2) Debility: PLAN: Patient seen and examined independently. Data and vitals reviewed. I agree with the above note by the nurse practitioner. Patient presents with falls. Found to have UTI and started on ceftriaxone. Patient too unsafe to go home. Patient and her daughter both agree and are willing to be evaluated therapy for possible SNF placement however the patient states that she does not want to go to back to [place] another facility. No acute stress and a febrile heart regular rate rhythm plus S1-S2 with a murmurs Or rubs. Lungs are clear to auscultation bilaterally. Abdomen is obese but soft nontender nondistended normal bowel sounds. Extremities are any sinus clubbing or edema. Assessment and plan 1. ABILIO: IV fluids monitor. 2. UTI: Continue with ceftriaxone follow-up cultures. 3. Debility: PT OT evaluate and treat. Patient may require intermediate facility when she is ready for discharge. Patient may not want to go to a intermediate facility however. Charges/Coding Visit Charges OBSV E&M: 33179 Initial observation care L2
--- NOTE | 2021-04-09 19:13 | PCS.PANDOC ---
PANDEMIC DOCUMENTATION INITIATED: Date: 11/18/2020 Time: 190
[2021-04-09] MEDS: amLODIPine 10 MG Tablet PO (21:52)
[2021-04-09] MEDS: Gabapentin 100 MG Capsule PO (21:52)
[2021-04-09] MEDS: Pravastatin 40 MG Tablet PO (21:53)
[2021-04-09] MEDS: Donepezil HCl 5 MG Tablet PO (21:53)
[2021-04-09] MEDS: Nystatin Powder 15gm Bottle 1 APPLIC TOPICAL (22:00)
[2021-04-09 22:05] LABS: Bedside Glucose 102 mg/dL (70-110)
[2021-04-10] MEDS: Acetaminophen 500 MG Tablet 1000 MG PO ×2 (00:47→20:26)
[2021-04-10 04:00] VITALS: BP 158/75; PULSE 79; RESP 16; TEMP 36.5; O2SAT 97
[2021-04-10 05:59] LABS: Absolute Neutrophil Count 4.1 X10^3/uL (2.0-7.7); Basophil# 0.03 X10^3/uL; Basophil% 0.5 % (0-1); Eosinophil# 0.36 X10^3/uL; Eosinophils% 5.7 % (0-5); Hemoglobin 8.2 g/dL (12.0-15.0); Mean Corp Hgb Conc 32.8 g/dL (32-36); Mean Corpuscular Hgb 30.7 pg (27.0-32.0); Mean Corpuscular Volume 93.6 fL (81-99); Mean Platelet Vol. 9.7 fl (6.2-12.0); Monocyte# 0.46 X10^3/uL; Monocyte% 7.2 % (0-10); NRBC Flagged by Analyzer 0 % (0-5); Neutrophil % 64.4 % (47-70); Platelet Count 177 K/mm3 (150-450); RBC Distribution Width CV 13.1 % (11.6-14.6); RBC Distribution Width SD 44.5 fl (35.1-43.9); Red Blood Count 2.67 M/mm3 (4.2-5.4); White Blood Count 6.4 K/mm3 (4.4-11.0)
[2021-04-10] MEDS: Gabapentin 100 MG Capsule PO ×3 (05:59→21:29)
[2021-04-10 06:21] LABS: Anion Gap 7 (5-15); BUN 31 mg/dL (7-18); BUN/Creat Ratio 21.1 RATIO (10-20); Chloride 115 mmol/L (98-107); Creatinine, Serum 1.47 mg/dL (0.55-1.02); EST Glomerular Filtration Rate 37 mL/min (>60); Est Glom Filt Rate - Afr Amer 44 mL/min (>60); Estimated Creatinine Clearance 24.95 ml/min; Glucose 139 mg/dL (74-106); Potassium 4.4 mmol/L (3.5-5.1); Sodium Level 142 mmol/L (136-145)
[2021-04-10 06:30] LABS: Bedside Glucose 139 mg/dL (70-110)
[2021-04-10 08:19] VITALS: BP 124/68; PULSE 70; RESP 18; TEMP 36.7; O2SAT 95
[2021-04-10] MEDS: Nystatin Powder 15gm Bottle 1 APPLIC TOPICAL ×2 (08:20→20:27)
[2021-04-10] MEDS: Pioglitazone Hydrochloride 15 MG Tablet PO (08:21)
[2021-04-10] MEDS: amLODIPine 10 MG Tablet PO (08:21)
[2021-04-10] MEDS: Ceftriaxone 1 GM/50 ML BAG IV (08:24)
[2021-04-10] MEDS: 0.9% Saline Lock 10 ML Syringe IV (08:25)
[2021-04-10 11:45] LABS: Bedside Glucose 134 mg/dL (70-110)
--- NOTE | 2021-04-10 12:46 | PN.HOSP_ITS ---
Subjective Subjective Follow-up on debility/falls/ABILIO/acute UTI Patient was seen and examined. Denied any new complaints. No acute events overnight. Objective Data Objective Data Vital Signs: Vital Signs Temp Pulse Resp BP Pulse Ox 98.1 F 70 18 124/68 H 95 04/10/21 08:19 04/10/21 08:19 04/10/21 08:19 04/10/21 08:19 04/10/21 08:19 Oxygen Delivery Method Room Air Weight: 97.8 kg Body Mass Index (BMI) 39.4 Intake & Output: Intake and Output for Last 24 Hours 04/08/21 04/09/21 04/10/21 23:59 23:59 23:59 Intake Total 1050 / 1050 50 / 50 Output Total 400 / 400 Balance 1050 / 850 -350 / -350 Lab / Micro Data Result Diagrams: 04/10/21 05:50 04/10/21 05:50 Labs: Laboratory Results - last 24 hr 04/09/21 13:00: WBC 7.5, RBC 3.11 L, Hgb 9.4 L, Hct 29.0 L, MCV 93.2, MCH 30.2, MCHC 32.4, RDW Std Deviation 43.8, RDW Coeff of Mayank 12.8, Plt Count 204, MPV 9.8, Immature Gran % (Auto) 0.300, Neut % (Auto) 73.8 H, Lymph % (Auto) 17.4 L, [place] % (Auto) 6.4, Eos % (Auto) 1.6, Baso % (Auto) 0.5, Absolute Neuts (auto) 5.5, Absolute Lymphs (auto) 1.30, Nucleated RBC % 0 04/09/21 13:00: Sodium 143, Potassium 4.1, Chloride 114 H, Carbon Dioxide 21.0, Anion Gap 8, BUN 38 H, Creatinine 1.89 H, Estim Creat Clear Calc 19.40, Est GFR (MDRD) Af Amer 33 L, Est GFR (MDRD) Non-Af 27 L, BUN/Creatinine Ratio 20.1 H, Glucose 133 H, Calcium 10.7 H, Total Bilirubin 0.40, AST 15, ALT 15, Alkaline Phosphatase 55, Troponin I High Sens 9, Total Protein 7.4, Albumin 3.4, Globulin 4.0, Albumin/Globulin Ratio 0.8 L 04/09/21 13:00: Total Creatine Kinase 127 04/09/21 13:25: Urine Color Yellow, Urine Clarity Sl. Cloudy, Urine pH 5.0, Ur Specific [place] 1.020, Urine Protein 100 H, Urine Glucose (UA) Normal, Urine Ketones Negative, Urine Occult Blood 150 H, Urine Nitrite Positive H, Urine Bilirubin Negative, Urine Urobilinogen Normal, Ur Leukocyte Esterase 500 H, Urine RBC 0-5 SEEN, Urine WBC 25-50 SEEN, Ur Squamous Epith Cells 0 SEEN, Urine Bacteria 3+, Urine Mucus 0 SEEN 04/09/21 13:50: COVID-19 ([facility]) Not Detected 04/09/21 21:55: POC Glucose 102 04/10/21 05:50: WBC 6.4, RBC 2.67 L, Hgb 8.2 L, Hct 25.0 L, MCV 93.6, MCH 30.7, MCHC 32.8, RDW Std Deviation 44.5 H, RDW Coeff of Mayank 13.1, Plt Count 177, MPV 9.7, Immature Gran % (Auto) 0.200, Neut % (Auto) 64.4, Lymph % (Auto) 22.0, [place] % (Auto) 7.2, Eos % (Auto) 5.7 H, Baso % (Auto) 0.5, Absolute Neuts (auto) 4.1, Absolute Lymphs (auto) 1.40, Nucleated RBC % 0 04/10/21 05:50: Sodium 142, Potassium 4.4, Chloride 115 H, Carbon Dioxide 20.0 L , Anion Gap 7, BUN 31 H, Creatinine 1.47 H, Estim Creat Clear Calc 24.95, Est GFR (MDRD) Af Amer 44 L, Est GFR (MDRD) Non-Af 37 L, BUN/Creatinine Ratio 21.1 H , Glucose 139 H, Calcium 10.0 04/10/21 06:24: POC Glucose 139 H 04/10/21 11:40: POC Glucose 134 H Micro: Microbiology 04/09/21 13:25 Urine, Catheterized Urine Culture - 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 Electronically Signed: Willie Crow MD at 13:42 EST , Service support , Physical Exam Narrative Physical exam: General: Alert, Oriented x3, Cooperative, No apparent distress, appears frail HEENT: Atraumatic Oral: Moist Mucosa Neck: Supple Lungs: Clear to auscultation Cardiovascular: HS I+II, regular, no murmurs Abdomen: Bowel Sounds Present, Soft, Non Tender Extremities: No edema Assessment & Plan Assessment/Plan (1) Debility: (2) UTI (urinary tract infection): QUALIFIERS: Urinary tract infection type: site unspecified PLAN: 1. ABILIO on CKD stage IIIb, improving Creatinine is 1.47 from 1.89 Continue to monitor 2. 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 coli UTI Continue on IV ceftriaxone 3. Type II DM, blood glucose controlled, continue on Actos and insulin sliding scale 4. Hypertension, controlled, continue amlodipine, hydralazine as needed 5. Debility secondary to the above PT and OT to evaluate and treat Patient's skilled for discharge to TCU in a.m. Charges/Coding Visit Charges Inpatient E&M: 60307 Subs Hosp L2
--- NOTE | 2021-04-10 13:46 | CASEMGMT ---
Social Work Pt is agreeable to TCU. TCU will have a bed, precert is waived. As per physician, pt will be ready tomorrow. SW let TCU know. ESTEBAN Dawson
--- NOTE | 2021-04-10 14:30 | CASEMGMT ---
JONI MARTINEZ note: Intro role of CM to patient and [facility] form explained re: Observation status for treatment of fall and weakness. Explained hospitalization will be paid per insurance policy for Outpatient billing and condition will continue to be evaluated for Inpt necessity. Also let pt know that [facility] sends paper in the billing packet with their phone number if questions arise. Discussed Pharmacy section of [facility] form and self administered medication guideline. Pt verbalizes understanding and does not have further questions. Form signed, copy made and placed in chart, and original given to pt. PT/OT notes have been reviewed. Pt able to take a few steps w/use of walker. Discussed discharge planning w/pt. Pt states she lives @ home w/her daughter, who works during the day. She uses a walker @ baseline and usually just transfers from W/C to commode. She states she prefers to return home but may be agreeable to [facility] TCU. She denies wanting to go to any other SNF. Pt stated she would like to talk w/her daughter, Lucita, and would let Lucita make the final decision. Pt placed call to Lucita while JONI MARTINEZ in room w/pt and spoke w/her. She then had this RN JUAN talk w/Lucita. RN JUAN discussed options of HHC and TCU. After conversation between JONI MARTINEZ and Lucita, pt spoke w/her daughter again and states she has decided on going to TCU. Gayle DAVISON, made aware. Dr Yepez also notified and aware TCU would have a bed available today. Dr Yepez states will not be discharging pt today--she plans for discharge tomorrow. Pt and daughter made aware. Padmini KAPADIAN JONI MARTINEZ
[2021-04-10 15:38] VITALS: BP 136/60; PULSE 82; RESP 18; TEMP 36.9; O2SAT 96
[2021-04-10 17:31] LABS: Bedside Glucose 158 mg/dL (70-110)
[2021-04-10] MEDS: Insulin Lispro 100 UNIT/ML INSULN.PEN SC (17:32)
[2021-04-10 20:18] VITALS: BP 152/70; PULSE 90; RESP 16; TEMP 37.2; O2SAT 95
[2021-04-10] MEDS: Donepezil HCl 5 MG Tablet PO (21:29)
[2021-04-10] MEDS: Pravastatin 40 MG Tablet PO (21:29)
[2021-04-10 21:35] LABS: Bedside Glucose 133 mg/dL (70-110)
[2021-04-11 02:30] VITALS: BP 157/63; PULSE 76; RESP 16; TEMP 36.5; O2SAT 96
[2021-04-11 06:24] LABS: Absolute Lymphocyte Count 1.64 X10^3/uL (0.83-4.51); Absolute Neutrophil Count 3.2 X10^3/uL (2.0-7.7); Basophil# 0.03 X10^3/uL; Basophil% 0.5 % (0-1); Eosinophil# 0.36 X10^3/uL; Eosinophils% 6.3 % (0-5); Hematocrit 23.9 % (37-47); Hemoglobin 7.9 g/dL (12.0-15.0); Lymphocyte # 1.64 X10^3/ul (0.83-4.51); Lymphocyte % 28.8 % (19-41); Mean Corp Hgb Conc 33.1 g/dL (32-36); Mean Corpuscular Hgb 30.7 pg (27.0-32.0); Mean Platelet Vol. 9.9 fl (6.2-12.0); Monocyte# 0.43 X10^3/uL; Monocyte% 7.5 % (0-10); NRBC Flagged by Analyzer 0 % (0-5); Neutrophil # 3.22 X10^3/uL (2.7-7.7); Neutrophil % 56.5 % (47-70); Platelet Count 181 K/mm3 (150-450); RBC Distribution Width SD 43.9 fl (35.1-43.9); Red Blood Count 2.57 M/mm3 (4.2-5.4); White Blood Count 5.7 K/mm3 (4.4-11.0)
[2021-04-11] MEDS: Gabapentin 100 MG Capsule PO ×2 (06:33→14:41)
[2021-04-11 06:40] LABS: Bedside Glucose 128 mg/dL (70-110)
[2021-04-11 06:43] LABS: ALB/GLOB Ratio 0.7 RATIO (0.9-2.4); AST(SGOT) 13 U/L (15-37); Alanine Aminotransfer ALT/SGPT 12 U/L (13-56); Albumin, Serum 2.6 g/dL (3.2-5.0); Alkaline Phosphatase 42 U/L (45-117); Anion Gap 5 (5-15); BUN 30 mg/dL (7-18); Chloride 116 mmol/L (98-107); Creatinine, Serum 1.58 mg/dL (0.55-1.02); EST Glomerular Filtration Rate 34 mL/min (>60); Est Glom Filt Rate - Afr Amer 41 mL/min (>60); Estimated Creatinine Clearance 23.21 ml/min; Globulin 3.5 g/dL (2.2-4.2); Glucose 124 mg/dL (74-106); Potassium 3.9 mmol/L (3.5-5.1); Protein, Total 6.1 g/dL (6.4-8.2); Sodium Level 141 mmol/L (136-145)
[2021-04-11 07:24] VITALS: O2SAT 96
[2021-04-11 08:05] VITALS: BP 146/60; PULSE 97; RESP 18; TEMP 36.6; O2SAT 93
[2021-04-11] MEDS: Nystatin Powder 15gm Bottle 1 APPLIC TOPICAL (08:07)
[2021-04-11] MEDS: 0.9% Saline Lock 10 ML Syringe IV (08:07)
[2021-04-11] MEDS: 0.9% Normal Saline 1,000 ML 100 ML IV (08:07)
[2021-04-11] MEDS: Ceftriaxone 1 GM/50 ML BAG IV (08:07)
[2021-04-11] MEDS: Pioglitazone Hydrochloride 15 MG Tablet PO (08:08)
[2021-04-11] MEDS: amLODIPine 10 MG Tablet PO (08:08)
[2021-04-11 09:25] VITALS: O2SAT 93
[2021-04-11] MEDS: Insulin Lispro 100 UNIT/ML INSULN.PEN SC (11:59)
--- NOTE | 2021-04-11 12:04 | CASEMGMT ---
Addendum entered by Gayle Bernstein 04/11/21 13:24: SW did fax over discharge instructions to TCU. No further needs, pt to TCU later today. ESTEBAN Dawson Original Note: Social Work SW spoke w/physician, she should be able to go to TCU later today. SW met w/pt, confirmed the plan with her. Pt frustrated with not knowing what is going on, SW offered support to her. SW did let her know the doctor said the plan would be to go to TCU later in the early evening, after she gets IV fluids. Pt states she needs to let her daughter know what is going on. SW offered to call daughter, pt declined and said would call herself. SW did also let pt know that there are COVID+ patients in TCU. Plan: TCU, convalescent stay, skilled level of care. Green sheet placed on chart in anticipation of discharge after SW is gone for the day. ESTEBAN Dawson
[2021-04-11 12:06] LABS: Bedside Glucose 203 mg/dL (70-110)
--- NOTE | 2021-04-11 12:50 | TREXTCAR_ITS ---
Diet 04/09/21 18:49 Diet: Consistent Carb - Calorie Controlled Food consistency:: Regular Liquid Consistency:: Regular/Thin Dietary Modifications:: Cardiac / Heart Healthy Is pt able to select menu?: Yes How many daily calories?: 1800 calorie Routine Orders/Code Status Routine Lab Work: CBC (within 3 days) and BMP (within 3 days) Code Status: Full Code Therapies Weight Bearing: Weight bearing as tolerated Physical Therapy: Eval and Treat Occupational Therapy: Eval and Treat Problem/Diagnosis (1) Debility: Status: Acute (2) UTI (urinary tract infection): Status: Acute Allergies/Procedures Done in Hospital Allergies empagliflozin [From Jardiance] Allergy (Verified 04/09/21 12:37) Itching/RASH furosemide [From Lasix] Allergy (Verified 04/09/21 12:37) Rash metformin Allergy (Verified 04/09/21 12:37) decreased appetite warfarin [From Coumadin] Allergy (Verified 04/09/21 12:37) Other pt/inr too low blood in urine Procedures: None Type of Care/Length of Stay Estimated LOS: Convalescent Care Less Than 30 days Type of Care Needed: Skilled Rehab Potential: Fair Prognosis: Fair Additional Orders/Day of Discharge Additional Orders: Changes made to patient's antidiabetic regimen. She may need Lantus resumed. She is on Actos for now. Day of Discharge: 04/11/21 Discharge Plan Admission Admit Date/Time: 04/09/21 17:46 Primary Reason for Your Visit: Debility/Acute E. coli UTI Attending Provider: Erika Yepez Primary Care Provider: Vel Graham Discharge Orders/Prescriptions Prescriptions: New gabapentin 100 mg Capsule 100 mg PO TID Qty: 0 RF: 0 nystatin [Nyamyc] 100,000 unit/gram Powder 1 applic topical BID Qty: 0 RF: 0 cefdinir 300 mg capsule 300 mg PO BID 1 Days Qty: 2 RF: 0 Continued pravastatin 40 MG tablet 40 mg PO QHS RF: 0 acetaminophen 500 MG tablet 1,000 mg PO Q6H PRN PRN (Reason: Pain 1-10 Or Fever) RF: 0 pioglitazone [Actos] 15 MG tablet 15 mg PO DAILY RF: 0 rivaroxaban 20 MG tablet 20 mg PO DAILY RF: 0 amlodipine 10 MG tablet 10 mg PO DAILY RF: 0 donepezil 5 MG tablet 5 mg PO QHS RF: 0 Discontinued Lantus U-100 Insulin 100 UNIT/ML solution 15 unit SQ BREAKFAST RF: 0 insulin glargine 100 UNIT/ML solution 7 unit SQ QHS RF: 0 lisinopril 20 mg tablet 20 mg PO DAILY RF: 0 gabapentin 400 mg capsule 400 mg PO TID RF: 0 Referrals / Follow Up: Vel Graham MD [Primary Care Provider] - Within 2 Weeks Disposition Disposition (needs filled in before D/C Order can be placed): Residential Facility
--- NOTE | 2021-04-11 12:57 | DS.PCM_ITS ---
Providers Date of Admission: 04/09/21 Date of Discharge: 04/11/21 Primary Care Physician: Dr. Vel Graham MD Reason For Visit: FALL, WEAKNESS Diagnosis Discharge Diagnosis (1) Debility: Status: Acute Code(s): R53.81 - Other malaise (2) UTI (urinary tract infection): Status: Acute Code(s): N39.0 - Urinary tract infection, site not specified Qualifiers: Urinary tract infection type: site unspecified Medications at Discharge Home Medications pravastatin 40 mg PO QHS 10/05/17 acetaminophen 1,000 mg PO Q6H PRN PRN 04/15/20 amlodipine 10 mg PO DAILY 06/23/20 pioglitazone [Actos] 15 mg PO DAILY 06/23/20 rivaroxaban 20 mg PO DAILY 06/23/20 donepezil 5 mg PO QHS 04/09/21 cefdinir 300 mg PO BID 04/11/21 gabapentin 100 mg PO TID 04/11/21 nystatin [Nyamyc] 1 applic TOPICAL BID 04/11/21 Hospital Course Operations None Procedures None Summary of Care Provided Minutes Spent on Discharge: 40 Hospital Course: 80-year-old female with multiple comorbidities who presents with increased falls and weakness. Patient had fallen twice in the last 2 days and spent several hours because she could not get up. Patient was found to have acute UTI and was started on antibiotics. Urine cultures came back positive for E. coli. She was discharged to TCU. She had 1 more day of cefdinir to complete 3 days of antibiotics. On the day of discharge, patient was seen and examined. Denied any new complaints. Physical Exam Narrative Physical exam: General: Alert, Oriented x3, Cooperative, No apparent distress, appears frail HEENT: Atraumatic Oral: Moist Mucosa Neck: Supple Lungs: Clear to auscultation Cardiovascular: HS I+II, regular, no murmurs Abdomen: Bowel Sounds Present, Soft, Non Tender Extremities: No edema Weight / BMI Weight Weight: 97.8 kg Body Mass Index (BMI) 39.4 ABG / Lab / Microbiology Data Result Diagrams: 04/11/21 05:45 04/11/21 05:45 Laboratory: Laboratory Results - last 24 hr 04/10/21 17:28: POC Glucose 158 H 04/10/21 21:28: POC Glucose 133 H 04/11/21 05:45: WBC 5.7, RBC 2.57 L, Hgb 7.9 L, Hct 23.9 L, MCV 93.0, MCH 30.7, MCHC 33.1, RDW Std Deviation 43.9, RDW Coeff of Mayank 13.0, Plt Count 181, MPV 9.9, Immature Gran % (Auto) 0.400, Neut % (Auto) 56.5, Lymph % (Auto) 28.8, [place] % (Auto) 7.5, Eos % (Auto) 6.3 H, Baso % (Auto) 0.5, Absolute Neuts (auto) 3.2, Absolute Lymphs (auto) 1.64, Nucleated RBC % 0 04/11/21 05:45: Sodium 141, Potassium 3.9, Chloride 116 H, Carbon Dioxide 20.0 L , Anion Gap 5, BUN 30 H, Creatinine 1.58 H, Estim Creat Clear Calc 23.21, Est GFR (MDRD) Af Amer 41 L, Est GFR (MDRD) Non-Af 34 L, BUN/Creatinine Ratio 19.0, Glucose 124 H, Calcium 10.0, Total Bilirubin 0.30, AST 13 L, ALT 12 L, Alkaline Phosphatase 42 L, Total Protein 6.1 L, Albumin 2.6 L, Globulin 3.5, Albumin/Globulin Ratio 0.7 L 04/11/21 06:32: POC Glucose 128 H 04/11/21 11:56: POC Glucose 203 H Microbiology: Microbiology 04/09/21 13:25 Urine, Catheterized Urine Culture - Final Escherichia coli 04/09/21 13:05 Nasal Secretion SARS-CoV-2 Antigen (Rapid) - Final D/C Instructions Discharge Diet: Low fat / Low cholesterol and 2000 mg Sodium Diet Meaningful Use Info Meaningful Use Diagnoses (Choose all that apply): None applicable Discharge Plan Admission Admit Date/Time: 04/09/21 17:46 Primary Reason for Your Visit: Debility/Acute E. coli UTI Attending Provider: Erika Yepez Primary Care Provider: Vel Graham Discharge Orders/Prescriptions Prescriptions: Continued pravastatin 40 MG tablet 40 mg PO QHS RF: 0 acetaminophen 500 MG tablet 1,000 mg PO Q6H PRN PRN (Reason: Pain 1-10 Or Fever) RF: 0 pioglitazone [Actos] 15 MG tablet 15 mg PO DAILY RF: 0 rivaroxaban 20 MG tablet 20 mg PO DAILY RF: 0 amlodipine 10 MG tablet 10 mg PO DAILY RF: 0 donepezil 5 MG tablet 5 mg PO QHS RF: 0 Discontinued Lantus U-100 Insulin 100 UNIT/ML solution 15 unit SQ BREAKFAST RF: 0 insulin glargine 100 UNIT/ML solution 7 unit SQ QHS RF: 0 lisinopril 20 mg tablet 20 mg PO DAILY RF: 0 gabapentin 400 mg capsule 400 mg PO TID RF: 0 No Action gabapentin 100 mg capsule 100 mg PO TID RF: 0 nystatin [Nyamyc] 100,000 unit/gram powder 1 applic topical BID RF: 0 cefdinir 300 mg capsule 300 mg PO BID RF: 0 Referrals / Follow Up: Vel Graham MD [Primary Care Provider] - Within 2 Weeks Disposition Disposition (needs filled in before D/C Order can be placed): [facility] Charges/Coding Visit Charges OBSV E&M: 78886 Observation care discharge
[2021-04-11 14:39] VITALS: BP 156/66; PULSE 74; RESP 16; TEMP 36.8; O2SAT 96
[2021-04-11 16:05] LABS: Bedside Glucose 99 mg/dL (70-110)
--- NOTE | 2021-04-11 16:10 | NURSING ---
Report called to Janet JUNE RN receiving.
== END 2021-04-11 16:40 | disposition skilled nursing facility (03) ==
LOC: ED 18:06 → MS3 18:22
PROVIDERS: Nurse Practitioner Family; Emergency Provider Student in an Organized Health Care Education/Training Program; PCP Family Medicine; Visit Provider Internal Medicine
DX: N39.0 Urinary tract infection, site not specified (principal); N17.9 Acute kidney failure, unspecified; E11.22 Type 2 diabetes mellitus with diabetic chronic kidney disease; Z79.4 Long term (current) use of insulin; N18.30 Chronic kidney disease, stage 3 unspecified; E86.0 Dehydration; Z20.822 Contact with and (suspected) exposure to COVID-19; I12.9 Hypertensive chronic kidney disease with stage 1 through stage 4 chronic kidney disease, or unspecified chronic kidney disease; B96.20 Unspecified Escherichia coli [E. coli] as the cause of diseases classified elsewhere; E78.00 Pure hypercholesterolemia, unspecified; Z79.01 Long term (current) use of anticoagulants; Z79.899 Other long term (current) drug therapy; R29.6 Repeated falls; M19.90 Unspecified osteoarthritis, unspecified site; K21.9 Gastro-esophageal reflux disease without esophagitis; Z86.718 Personal history of other venous thrombosis and embolism; Z86.711 Personal history of pulmonary embolism
CPT/HCPCS: 36415; 71045; 80048; 80053; 81001; 82550; 82962; 84484; 85025; 87077; 87086; 87088; 87186; 87426; 87635; 93005; 96361; 96365; 96366; 97110; 97162; 97166; 97530; 97535; 99218; 99285; J7030; P9612; A4216; G0378; U0003; U0005

== ENCOUNTER 2021-04-11 16:54 | Inpatient (IN) | payer MEDICARE, SELFPAY ==
[2021-04-11 18:27] VITALS: BMI 39.4
[2021-04-11 18:53] VITALS: BP 171/70; PULSE 82; RESP 18; TEMP 36.5; O2SAT 96
--- NOTE | 2021-04-11 19:17 | HP.PCM_ITS ---
HPI - General General Date of Admission: 04/11/21 HPI Narrative 04/09/2021 DIANNA ZAMUDIO, is a 80 Female who presents to [facility] Emergency Department with fall. 04/09/2021 EKG sinus versus ectopic atrial rhythm, low voltage QRS, poor R wave progression. 2 falls in 2 days, unable to get up, spent several hours on floor. Weak x 2 days, legs are weak, history of urinary tract infections. IV fluids for acute kidney injury, Cr 1.89, covid19 negative. UA consistent with urinary tract infection, urine culture sent, Ceftriaxone given. Daughter works, unable to care for patient at home. 04/09/2021 Admit to Hospital. IV fluids for acute kidney injury. Ceftriaxone IV for urinary tract infection. PT/OT for Care Home Facility. 04/10/2021 Creatinine improved from 1.89 to 1.47. 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 PT/OT for SNF. 04/11/2021 Urine culture growing > 100,000 pansensitive E. Coli. Ceftriaxone deescalated to Cefdinir 300mg to complete 7 day course. 04/11/2021 Admit to TCU with debility, here for rehabilitation, strengthening, prior to discharge home with daughter. [facility] Medical History Arthritis Back pain Diabetes Diabetes DVT (deep venous thrombosis) Easy bruising Excessive bleeding Gastric reflux GERD (gastroesophageal reflux disease) High cholesterol History of pain when walking History of renal disease Hypertension Injury of head and neck Insulin dependent diabetes mellitus Kidney disease Non-smoker Pulmonary embolism Shortness of breath on exertion Uses wheelchair Wears glasses Home Medications pravastatin 40 mg PO QHS 10/05/17 [History Last Taken 04/08/21] acetaminophen 1,000 mg PO Q6H PRN PRN 04/15/20 [History Last Taken 04/14/20] amlodipine 10 mg PO DAILY 06/23/20 [History Last Taken 04/08/21] pioglitazone [Actos] 15 mg PO DAILY 06/23/20 [History Last Taken 04/08/21] rivaroxaban 20 mg PO DAILY 06/23/20 [History Last Taken 04/08/21] donepezil 5 mg PO QHS 04/09/21 [History Last Taken 04/08/21] cefdinir 300 mg PO BID 04/11/21 [History Last Taken Unknown] gabapentin 100 mg PO TID 04/11/21 [History Last Taken Unknown] nystatin [Nyamyc] 1 applic TOPICAL BID 04/11/21 [History Last Taken Unknown] Allergy/AdvReac Type Severity Reaction Status Date / Time empagliflozin Allergy Itching/VALENTIN Verified 04/09/21 12:37 [From Jardiance] H furosemide [From Lasix] Allergy Rash Verified 04/09/21 12:37 metformin Allergy decreased Verified 04/09/21 12:37 appetite warfarin [From Coumadin] Allergy Other Verified 04/09/21 12:37 Family History no significant family his Surgical History Hx of section Hx of tonsillectomy Social History (Updated 04/11/21 @ 19:[address] Kostas Leung MD) household members: children Smoking Status: Never smoker alcohol intake: never substance use type: does not use ROS Constitutional Constitutional: Denies chills, fever(s) or weight gain ENT HEENT: Denies headache(s), nasal congestion or nasal discharge Cardiovascular Cardiovascular: Denies chest pain or palpitations Respiratory/Chest Respiratory/Chest: Denies cough, excessive phlegm production or shortness of breath with exertion Gastrointestinal Gastrointestinal: Denies abdominal pain, nausea or vomiting Genitourinary Genitourinary: Denies dysuria Musculoskeletal Musculoskeletal: Denies joint pain or joint swelling Integumentary Integumentary: Denies rash or wounds Neurologic Neurologic: Denies focal weakness, numbness or tingling Psychiatric Psychiatric: Denies anxiety, auditory hallucinations, depression, homicidal ideation or suicidal ideation Vital Signs Vital Signs Vital Signs: 04/11/21 18:53 Temperature 97.7 F L Temperature Source Temporal Pulse Rate 82 Respiratory Rate 18 Blood Pressure 171/70 H Blood Pressure Mean 103 Blood Pressure Source Monitor Blood Pressure Position Semi-Fowlers Blood Pressure Location Left Arm Pulse Ox 96 Oxygen Delivery Method Room Air Weight Weight: 97.885 kg Body Mass Index (BMI) 39.4 Physical Exam Const alert and oriented x3 General Appearance: cooperative HEENT normocephalic Eyes PERRL and EOMs intact bilaterally Neck supple, no JVD and no carotid bruits Resp normal respiratory effort, normal air movement and clear to auscultation bilaterally Cardio regular rate and regular rhythm GI normal to inspection, nondistended, normoactive bowel sounds, non-tender and non-distended Extremity normal capillary refill General Extremity: Negative for edema Skin no rashes or lesions noted General Skin Exam: no breakdown Psych affect normal Appearance: appropriate Assessment & Plan Assessment/Plan (1) Debility: (2) UTI (urinary tract infection): QUALIFIERS: Urinary tract infection type: site unspecified (3) Acute kidney injury: (4) Dehydration: (5) Diabetic polyneuropathy: (6) Hyperlipidemia: (7) Diabetes mellitus: (8) Hypertension: (9) Iron deficiency anemia: (10) Hypomagnesemia: (11) Chronic nausea: (12) Alzheimer disease: (13) Osteoporosis: (14) Deep vein thrombosis: PLAN: 80 year old female with below past medical history hospitalized for weakness secondary to urinary tract infection, complicated by acute kidney injury, dehydration, admitted to TCU with debility, here for rehabilitation, strengthening, prior to discharge home with daughter. * Debility - PT/OT. * Pain - Tylenol 1000mg q6h prn pain (1-10). * Bowel - Miralax 17gm daily, Senna/colace 1 tablet bid, Dulcolax 10mg daily prn. * Adult immunization - Administer prevnar 13, pneumovax 23, fluzone, covid19 vaccine as appropriate. * DVT prophylaxis - Not necessary, on Xarelto. * Hypertension - Amlodipine 10mg daily. * E. Coli urinary tract infection - Cefdinir 300mg bid thru 04/16/2021. * Alzheimer Disease - Donepezil 5mg qhs.. * Diabetic polyneuropathy - Gabapentin 100mg tid. * Tinea Corporis - Nystatin powder topical bid. * Diabetes Mellitus II - Pioglitazone 15mg daily. * Hyperlipidemia - Pravastatin 40mg qhs. * Recurrent DVT - Xarelto 20mg daily.
[2021-04-11] MEDS: Nystatin Powder 15gm Bottle 1 APPLIC TOPICAL (21:36)
[2021-04-11] MEDS: Cefdinir 300 MG Capsule PO (21:38)
[2021-04-11] MEDS: Pravastatin 40 MG Tablet PO (21:39)
[2021-04-11] MEDS: Gabapentin 100 MG Capsule PO (21:39)
[2021-04-11] MEDS: Donepezil HCl 5 MG Tablet PO (21:39)
[2021-04-11] MEDS: Senna/Docusate Sodium 1 Tablet PO (21:39)
[2021-04-12] MEDS: Pioglitazone Hydrochloride 15 MG Tablet PO (05:31)
[2021-04-12] MEDS: Cefdinir 300 MG Capsule PO ×2 (05:32→17:08)
[2021-04-12] MEDS: Nystatin Powder 15gm Bottle 1 APPLIC TOPICAL ×2 (05:32→17:08)
[2021-04-12] MEDS: Gabapentin 100 MG Capsule PO ×3 (05:33→21:44)
[2021-04-12] MEDS: amLODIPine 10 MG Tablet PO (05:33)
[2021-04-12 05:37] VITALS: BP 144/78; PULSE 75; RESP 19; TEMP 36.7; O2SAT 98
[2021-04-12] MEDS: Acetaminophen 500 MG Tablet 1000 MG PO ×2 (06:39→21:42)
[2021-04-12 07:23] LABS: Absolute Lymphocyte Count 1.14 X10^3/uL (0.83-4.51); Absolute Neutrophil Count 3.2 X10^3/uL (2.0-7.7); Basophil# 0.03 X10^3/uL; Basophil% 0.6 % (0-1); Eosinophil# 0.26 X10^3/uL; Eosinophils% 5.2 % (0-5); Hematocrit 26.3 % (37-47); Hemoglobin 8.6 g/dL (12.0-15.0); Lymphocyte # 1.14 X10^3/ul (0.83-4.51); Lymphocyte % 22.6 % (19-41); Mean Corp Hgb Conc 32.7 g/dL (32-36); Mean Corpuscular Hgb 30.2 pg (27.0-32.0); Mean Corpuscular Volume 92.3 fL (81-99); Mean Platelet Vol. 10.1 fl (6.2-12.0); Monocyte% 7.9 % (0-10); NRBC Flagged by Analyzer 0 % (0-5); Neutrophil # 3.19 X10^3/uL (2.7-7.7); Neutrophil % 63.3 % (47-70); Platelet Count 198 K/mm3 (150-450); RBC Distribution Width CV 12.7 % (11.6-14.6); RBC Distribution Width SD 42.5 fl (35.1-43.9); Red Blood Count 2.85 M/mm3 (4.2-5.4)
[2021-04-12] MEDS: Rivaroxaban 20 MG Tablet PO (07:26)
[2021-04-12 07:52] LABS: Anion Gap 8 (5-15); BUN 27 mg/dL (7-18); BUN/Creat Ratio 19.6 RATIO (10-20); Calcium,Total 9.8 mg/dL (8.5-10.1); Chloride 112 mmol/L (98-107); Creatinine, Serum 1.38 mg/dL (0.55-1.02); EST Glomerular Filtration Rate 39 mL/min (>60); Est Glom Filt Rate - Afr Amer 48 mL/min (>60); Estimated Creatinine Clearance 26.57 ml/min; Glucose 121 mg/dL (74-106); Potassium 3.9 mmol/L (3.5-5.1); Sodium Level 140 mmol/L (136-145)
[2021-04-12] MEDS: Tuberculin,Purif.prot.deriv. 50 TU/ML Vial 0.1 ML ID (11:15)
[2021-04-12 14:07] VITALS: BP 132/65; PULSE 81; RESP 20; TEMP 36.3; O2SAT 96
[2021-04-12] MEDS: Senna/Docusate Sodium 1 Tablet PO (17:08)
[2021-04-12] MEDS: Donepezil HCl 5 MG Tablet PO (21:43)
[2021-04-12] MEDS: Pravastatin 40 MG Tablet PO (21:44)
[2021-04-12 22:59] VITALS: PULSE 84; RESP 14; O2SAT 97
--- NOTE | 2021-04-12 23:31 | NURSING ---
Pt uset today about the possibility of therapy trying to keep her longer than a week. According to pt she spoke with Dr Leung before she came to [facility] about staying for only a week to get some strength back. At that time she stated he was fine with it. I told pt to relax and wednesday morning she could speak to therapy and Dr Moreland and make sure they are all on the same page. She stated she wants to discharge wednesday the .
[2021-04-13] MEDS: Senna/Docusate Sodium 1 Tablet PO ×2 (06:48→17:18)
[2021-04-13] MEDS: Gabapentin 100 MG Capsule PO ×3 (06:48→20:56)
[2021-04-13] MEDS: Pioglitazone Hydrochloride 15 MG Tablet PO (06:48)
[2021-04-13] MEDS: amLODIPine 10 MG Tablet PO (06:48)
[2021-04-13] MEDS: Cefdinir 300 MG Capsule PO ×2 (06:48→17:18)
[2021-04-13] MEDS: Glucerna Shake 120 ML LIQUID PO (06:48)
[2021-04-13] MEDS: Nystatin Powder 15gm Bottle 1 APPLIC TOPICAL ×2 (06:49→17:18)
[2021-04-13 07:15] LABS: Bedside Glucose 136 mg/dL (70-110)
[2021-04-13] MEDS: Rivaroxaban 20 MG Tablet PO (09:22)
[2021-04-13] MEDS: Iron Polysaccharide Complex 150 MG CAPSULE PO (09:22)
[2021-04-13 15:27] VITALS: BP 147/68; PULSE 78; RESP 16; TEMP 36.9; O2SAT 98
[2021-04-13 15:45] VITALS: PULSE 86; RESP 18; O2SAT 94
[2021-04-13] MEDS: Donepezil HCl 5 MG Tablet PO (20:56)
[2021-04-13] MEDS: Pravastatin 40 MG Tablet PO (20:57)
--- NOTE | 2021-04-13 22:30 | NURSING ---
Paged Dr. Leung w/ immediate return call. Updated on dry, scale skin to b/l feet and ankles. New order received for Eucerin to be applied to affected areas BID.
[2021-04-14] MEDS: Pioglitazone Hydrochloride 15 MG Tablet PO (05:43)
[2021-04-14] MEDS: Nystatin Powder 15gm Bottle 1 APPLIC TOPICAL ×2 (05:43→17:25)
[2021-04-14] MEDS: Cefdinir 300 MG Capsule PO ×2 (05:44→17:25)
[2021-04-14] MEDS: Gabapentin 100 MG Capsule PO ×3 (05:44→20:00)
[2021-04-14] MEDS: amLODIPine 10 MG Tablet PO (05:44)
[2021-04-14] MEDS: Senna/Docusate Sodium 1 Tablet PO (05:44)
[2021-04-14 06:31] LABS: Bedside Glucose 130 mg/dL (70-110)
[2021-04-14] MEDS: Iron Polysaccharide Complex 150 MG CAPSULE PO (07:51)
[2021-04-14] MEDS: Rivaroxaban 20 MG Tablet PO (07:51)
--- NOTE | 2021-04-14 08:03 | NURSING ---
Patient refusing breakfast at this time. Only wanted the banana. Patient states, I am not a breakfast person. Offered patient a Glucerna and patient also refused. Patient wishes for the Glucerna to be discontinued. Message left for Dr. Leung.
--- NOTE | 2021-04-14 10:37 | PHA.CONS1_ITS ---
Progress Note - Pharmacy Subjective: TCU Admission Objective: Allergies empagliflozin [From Jardiance] Allergy (Verified 04/09/21 12:37) Itching/RASH furosemide [From Lasix] Allergy (Verified 04/09/21 12:37) Rash metformin Allergy (Verified 04/09/21 12:37) decreased appetite warfarin [From Coumadin] Allergy (Verified 04/09/21 12:37) Other pt/inr too low blood in urine Current Medications Generic Name Dose Route Start Last Admin Trade Name Freq PRN Reason Stop Dose Admin Acetaminophen 1,000 mg 04/11/21 17:10 04/12/21 21:42 Acetaminophen 500 Mg Tablet PO 1,000 mg Q6H PRN PRN Administration Pain 1-10 Or Fever Amlodipine Besylate 10 mg 04/12/21 06:00 04/14/21 05:44 Amlodipine 10 Mg Tablet PO 10 mg DAILY HELEN Administration Bisacodyl 10 mg 04/11/21 19:29 Bisacodyl 5 Mg Tablet PO DAILY PRN Constipation Cefdinir 300 mg 04/11/21 18:00 04/14/21 05:44 Cefdinir 300 Mg Capsule PO 04/16/21 22:00 300 mg Q12 HELEN Administration Donepezil HCl 5 mg 04/11/21 22:00 04/13/21 20:56 Donepezil Hcl 5 Mg Tablet PO 5 mg QHS HELEN Administration Gabapentin 100 mg 04/11/21 22:00 04/14/21 05:44 Gabapentin 100 Mg Capsule PO 100 mg TID HELEN Administration Multi-Ingredient Cream 1 applic 04/14/21 06:00 04/14/21 05:44 Mineral Oil/Petrolatum,White Jar TOPICAL 1 applic BID HELEN Administration Protocol Nutritional Formula (Lactose Free) 120 ml 04/12/21 22:00 04/14/21 10:13 Glucerna Shake 120 Ml Liquid PO Not Given 4X/DAY HELEN Nystatin 1 applic 04/11/21 18:00 04/14/21 05:43 Nystatin Powder 15gm Bottle TOPICAL 1 applic BID HELEN Administration Protocol Pioglitazone HCl 15 mg 04/12/21 06:00 04/14/21 05:43 Pioglitazone Hydrochloride 15 Mg Tablet PO 15 mg DAILY HELEN Administration Polyethylene Glycol 17 gm 04/12/21 06:00 04/14/21 05:45 Polyethylene Glycol 3350 17 Gm Packet PO Not Given DAILY HELEN Polysaccharide Iron Complex 150 mg 04/13/21 08:00 04/14/21 07:51 Iron Polysaccharide Complex 150 Mg Capsule PO 150 mg DAILYCM HELEN Administration Pravastatin Sodium 40 mg 04/11/21 22:00 04/13/21 20:57 Pravastatin 40 Mg Tablet PO 40 mg QHS HELEN Administration Rivaroxaban 20 mg 04/12/21 08:00 04/14/21 07:51 Rivaroxaban 20 Mg Tablet PO 20 mg 0800 [facility] Administration Senna/Docusate Sodium 1 tablet 04/11/21 19:30 04/14/21 05:44 Senna/Docusate Sodium 1 Tablet PO 1 tablet BID HELEN Administration Tuberculin PPD 0.1 ml 04/19/21 10:00 Tuberculin,Purif.Prot.Deriv. 50 Tu/Ml Vial ID 04/19/21 10:01 X1 ONE Problem List (Last Reviewed 04/11/21 @ 19:[address] Kostas Leung MD) Deep vein thrombosis (Acute) Osteoporosis (Acute) Alzheimer disease (Acute) Chronic nausea (Chronic) Hypomagnesemia (Acute) Iron deficiency anemia (Acute) Hypertension (Chronic) Diabetes mellitus (Acute) Hyperlipidemia (Acute) Diabetic polyneuropathy (Acute) Dehydration (Acute) Acute kidney injury (Acute) Debility (Acute) UTI (urinary tract infection) (Acute) Vital Signs Temp Pulse Resp BP Pulse Ox 98.4 F 86 18 147/68 H 94 04/13/21 15:27 04/13/21 15:45 04/13/21 15:45 04/13/21 15:27 04/13/21 15:45 Oxygen Delivery Method Room Air Weight: 97.885 kg Body Mass Index (BMI) 39.4 Sodium 140 mmol/L (136-145) 04/12/21 06:19 Potassium 3.9 mmol/L (3.5-5.1) 04/12/21 06:19 Chloride 112 mmol/L (98-107) H 04/12/21 06:19 Carbon Dioxide 20.0 mmol/L (21.0-32.0) L 04/12/21 06:19 Anion Gap 8 (5-15) 04/12/21 06:19 BUN 27 mg/dL (7-18) H 04/12/21 06:19 Creatinine 1.38 mg/dL (0.55-1.02) H 04/12/21 06:19 Est GFR (MDRD) Af Amer 48 mL/min (>60) L 04/12/21 06:19 Est GFR (MDRD) Non-Af 39 mL/min (>60) L 04/12/21 06:19 BUN/Creatinine Ratio 19.6 RATIO (10-20) 04/12/21 06:19 Glucose 121 mg/dL (74-106) H 04/12/21 06:19 Assessment/Plan: 1. Pain: acetaminophen 1000mg PO Q6H PRN pain 1-01/12 or fever. Please continue to monitor for S/S of increased pain. 2. E. coli UTI: cefdinir 300mg PO BID thru 04/16/21. Please continue to monitor for S/S of infection, diarrhea, renal function and stool discoloration. 3. Hypertension: amlodipine 10mg PO daily. Please continue to monitor BP (last 147/68) and swelling. 4. Alzheimer disease: donepezil 5mg PO QHS. Please continue to monitor for S/S of alzheimers. 5. Diabetic polyneuropathy: gabapentin 100mg PO TID. Please continue to monitor for S/S of diabetic polyneuropathy and renal function. *6. Diabetes mellitus II: pioglitazone 15mg PO daily. Please consider ordering a hemoglobin A1c (last 15.4% from 03/2014) if clinically appropriate. Thanks. Please continue to monitor glucose (last 130mg/dL), S/S of hypoglycemia and diarrhea. *7. Hyperlipidemia: pravastatin 40mg PO QHS. Please consider ordering a lipid pa dejuan (last from 09/2017) if clinically appropriate. Thanks. Please continue to montitor for muscle pain. 8. Recurrent DVT: rivaroxaban 20mg PO daily. Please continue to monitor for S/S of bleeding and hemoglobin (last 8.6g/dL). 9. Iron deficiency: Ferrex 150mg PO DAILYCM. Please continue to monitor hemoglobin, dark stools and constipation. Psychotropic Medications: None Unnecessary Medications: None *Bowel Regimen: Miralax 17gm PO daily, senna/docusate 1T PO BID and bisacodyl 10mg PO daily PRN constipation. Please consider stopping Miralax if clinically appropriate. Patient has refused 3/3 doses. Thanks. Please continue to monitor for constipation. Date of Note:: 04/14/21
--- NOTE | 2021-04-14 11:26 | CASEMGMT ---
Addendum entered by Marii Summers 04/15/21 08:38: Correction: Thursday 04/20, pending DC Original Note: Social Work Met with patient for initial assessment. Discussed code status and MOLST form. Pt wishes to be full code.. MOLST form communication to , placed in chart. Explained [facility] insurance with NRD 04/14 and continued stay is not guaranteed. Pt expressed wishes to DC home Wednesday 04/19; she just agreed to come to TCU to make sure she was safe to be at home alone. Pt feels she has returned to baseline and appreciates the extra strengthening with therapy. Her dtr works full-time and is off work Wednesday, hence the choice of DC date. Pt and therapy agree she does not need ongoing services at home. Explained SW will update insurance but they could issue DC date sooner. Pt understands. Plan: Pending DC home with dtr 04/19, no needs. Will continue to follow outcome of insurance update 04/14. Marii Summers, RICKY BOILER TESTER
[2021-04-14 13:52] VITALS: BP 140/50; PULSE 79; RESP 16; TEMP 36.6; O2SAT 100
[2021-04-14 19:56] VITALS: PULSE 84; RESP 16; O2SAT 99
[2021-04-14] MEDS: Pravastatin 40 MG Tablet PO (20:00)
[2021-04-14] MEDS: Donepezil HCl 5 MG Tablet PO (20:00)
[2021-04-15] MEDS: Pioglitazone Hydrochloride 15 MG Tablet PO (05:15)
[2021-04-15] MEDS: amLODIPine 10 MG Tablet PO (05:15)
[2021-04-15] MEDS: Gabapentin 100 MG Capsule PO ×3 (05:15→21:08)
[2021-04-15] MEDS: Cefdinir 300 MG Capsule PO ×2 (05:16→17:10)
[2021-04-15] MEDS: Nystatin Powder 15gm Bottle 1 APPLIC TOPICAL ×2 (05:16→21:08)
[2021-04-15 06:56] LABS: Bedside Glucose 129 mg/dL (70-110)
[2021-04-15] MEDS: Rivaroxaban 20 MG Tablet PO (07:51)
[2021-04-15] MEDS: Iron Polysaccharide Complex 150 MG CAPSULE PO (07:51)
[2021-04-15 09:33] VITALS: PULSE 87; RESP 16; O2SAT 97
--- NOTE | 2021-04-15 12:34 | NURSING ---
Resident and daughter, Lucita, notified of staff member testing positive for COVID.
[2021-04-15 14:10] VITALS: BP 112/67; PULSE 78; RESP 16; TEMP 36.6; O2SAT 98
[2021-04-15] MEDS: Pravastatin 40 MG Tablet PO (21:08)
[2021-04-15] MEDS: Donepezil HCl 5 MG Tablet PO (21:08)
[2021-04-15] MEDS: Acetaminophen 500 MG Tablet 1000 MG PO (23:00)
[2021-04-16 06:41] LABS: Bedside Glucose 129 mg/dL (70-110)
[2021-04-16] MEDS: amLODIPine 10 MG Tablet PO (06:47)
[2021-04-16] MEDS: Pioglitazone Hydrochloride 15 MG Tablet PO (06:47)
[2021-04-16] MEDS: Gabapentin 100 MG Capsule PO ×3 (06:47→21:10)
[2021-04-16] MEDS: Cefdinir 300 MG Capsule PO ×2 (06:47→16:59)
[2021-04-16] MEDS: Nystatin Powder 15gm Bottle 1 APPLIC TOPICAL ×2 (06:48→16:55)
[2021-04-16 06:51] VITALS: BP 162/67; PULSE 70
[2021-04-16] MEDS: Rivaroxaban 20 MG Tablet PO (07:59)
[2021-04-16] MEDS: Iron Polysaccharide Complex 150 MG CAPSULE PO (07:59)
[2021-04-16] MEDS: Acetaminophen 500 MG Tablet 1000 MG PO ×2 (14:48→21:10)
--- NOTE | 2021-04-16 15:30 | CASEMGMT ---
Social Work IDT met with patient and dtr for care plan meeting. Discussed patient's progress in PT/OT and nursing. Pt progressing well. Addressed concern with pt needing more assistance in the evening when fatigued. Dtr stated she works very close and if pt needed help, she would be able to help. Explained and provided [facility] insurance care plan and providing NRD 04/18 with [facility] 04/26. Pt choosing to still DC home 04/20 with no needs. Plan: DC home in MIL suite to dtr's home, 04/20 with no needs. Marii Summers, RICKY CREDIT CASHIER
[2021-04-16 15:32] VITALS: BP 148/47; PULSE 70; RESP 17; TEMP 36.1; O2SAT 96
--- NOTE | 2021-04-16 16:59 | CHAPLAIN ---
Type of Pastoral Visit _x__ Initial Visit ___ Follow-up Visit ___ On-call Visit ___ General Patient Visit ___ Spiritual Assessment ___ Family Conference ___ Bereavement ___ Rapid Response ___ Code Blue ___ Other (describe below) Pastoral Care Referral From _x__ Patient ___ Family ___ Nurse ___ Physician ___ Operations Tech ___ Production Artist ___ Other (describe below) Sacrament/Intervention _x__ Active listening ___ Anointing ___ Protestant ___ Bereavement ___ Communion ___ Rhea exploration ___ _x__ Life review _x__ Prayer ___ Reconciliation ___ Sacrament of Sick _x__ Supportive presence ___ Wedding ___ Other (describe below) Pastoral Comments patient is descriptive about her falls and infection; pt repeats goal of going home; pt has a rhea group background but has not attended scientology in many years; pt has just one daughter that provides her support; pt welcomes visits and prayer
--- NOTE | 2021-04-16 19:34 | DS.PCM_ITS ---
Providers Date of Admission: 04/11/21 Primary Care Physician: Dr. Vel Graham MD Reason For Visit: FALLS/WEAKNESS Diagnosis Discharge Diagnosis (1) Debility: Status: Acute Code(s): R53.81 - Other malaise (2) UTI (urinary tract infection): Status: Acute Code(s): N39.0 - Urinary tract infection, site not specified Qualifiers: Urinary tract infection type: site unspecified (3) Acute kidney injury: Status: Acute Code(s): N17.9 - Acute kidney failure, unspecified (4) Dehydration: Status: Acute Code(s): E86.0 - Dehydration (5) Diabetic polyneuropathy: Status: Acute Code(s): E11.42 - Type 2 diabetes mellitus with diabetic polyneuropathy (6) Hyperlipidemia: Status: Acute Code(s): E78.5 - Hyperlipidemia, unspecified (7) Diabetes mellitus: Status: Acute Code(s): E11.9 - Type 2 diabetes mellitus without complications (8) Hypertension: Status: Chronic Code(s): I10 - Essential (primary) hypertension (9) Iron deficiency anemia: Status: Acute Code(s): D50.9 - Iron deficiency anemia, unspecified (10) Hypomagnesemia: Status: Acute Code(s): E83.42 - Hypomagnesemia (11) Chronic nausea: Status: Chronic Code(s): R11.0 - Nausea (12) Alzheimer disease: Status: Acute Code(s): G30.9 - Alzheimer's disease, unspecified; F02.80 - Dementia in other diseases classified elsewhere without behavioral disturbance (13) Osteoporosis: Status: Acute Code(s): M81.0 - Age-related osteoporosis without current pathological fracture (14) Deep vein thrombosis: Status: Acute Code(s): I82.409 - Acute embolism and thrombosis of unspecified deep veins of unspecified lower extremity Medications at Discharge Home Medications pravastatin 40 mg PO QHS 10/05/17 acetaminophen 1,000 mg PO Q6H PRN PRN 04/15/20 amlodipine 10 mg PO DAILY 06/23/20 pioglitazone [Actos] 15 mg PO DAILY 06/23/20 rivaroxaban 20 mg PO DAILY 06/23/20 donepezil 5 mg PO QHS 04/09/21 cefdinir 300 mg PO BID 04/11/21 gabapentin 100 mg PO TID 04/11/21 nystatin [Nyamyc] 1 applic TOPICAL BID 04/11/21 polysaccharide iron complex [Ferrex 150] 150 mg PO DAILYCM 30 Days #30 cap 04/16/21 Hospital Course Operations None Procedures None Summary of Care Provided Minutes Spent on Discharge: 35 Hospital Course: 80 year old female with below past medical history hospitalized for weakness secondary to urinary tract infection, complicated by acute kidney injury, dehydration, admitted to TCU with debility, here for rehabilitation, strengthening, prior to discharge home with daughter. Discharge home in mother in law suite to daughter's home 04/20/2021, No needs. Physical Exam Const alert and oriented x3 General Appearance: cooperative HEENT normocephalic Eyes PERRL and EOMs intact bilaterally Neck supple, no JVD and no carotid bruits Resp normal respiratory effort, normal air movement and clear to auscultation bi laterally Cardio regular rate and regular rhythm GI normal to inspection, nondistended, normoactive bowel sounds, non-tender and non-distended Extremity normal capillary refill General Extremity: Negative for edema Skin no rashes or lesions noted General Skin Exam: no breakdown Psych affect normal Appearance: appropriate Weight / BMI Weight Weight: 95.396 kg Body Mass Index (BMI) 39.4 ABG / Lab / Microbiology Data Result Diagrams: 04/12/21 06:19 04/12/21 06:19 Laboratory: Laboratory Results - last 24 hr 04/16/21 06:31: POC Glucose 129 H D/C Instructions Discharge Diet: No restrictions Discharge Activity: Return to Normal Activity, May Shower and Use Walker Weight Bearing Status: Weight bearing as tolerated Call your doctor if you observe: Fever of 101 or Higher, Inability to urinate, Inability to have a bowel movement, Shortness of breath, Dizziness, Fainting spells, Swelling in the ankles, Chest pain and Uncontrolled pain Additional Instructions: Discharge home in mother in law suite to daughter's home 04/20/2021, No needs. Please Follow Up With: Vel Graham MD When: 1 week. Meaningful Use Info Meaningful Use Diagnoses (Choose all that apply): None applicable Discharge Plan Admission Admit Date/Time: 04/11/21 16:54 Primary Reason for Your Visit: Debility. Attending Provider: Kostas Leung Chi Primary Care Provider: Vel Graham Instructions Additional Instructions / Restrictions: Discharge home in mother in law suite to daughter's home 04/20/2021, No needs. Discharge Orders/Prescriptions Prescriptions: New polysaccharide iron complex [Ferrex 150] 150 mg iron Capsule 150 mg PO DAILYCM 30 Days Qty: 30 RF: 0 Continued pravastatin 40 MG tablet 40 mg PO QHS RF: 0 acetaminophen 500 MG tablet 1,000 mg PO Q6H PRN PRN (Reason: Pain 1-10 Or Fever) RF: 0 pioglitazone [Actos] 15 MG tablet 15 mg PO DAILY RF: 0 rivaroxaban 20 MG tablet 20 mg PO DAILY RF: 0 amlodipine 10 MG tablet 10 mg PO DAILY RF: 0 donepezil 5 MG tablet 5 mg PO QHS RF: 0 gabapentin 100 mg capsule 100 mg PO TID RF: 0 No Action nystatin [Nyamyc] 100,000 unit/gram powder 1 applic topical BID RF: 0 cefdinir 300 mg capsule 300 mg PO BID RF: 0 Referrals / Follow Up: Vel Graham MD [Primary Care Provider] - Disposition Disposition (needs filled in before D/C Order can be placed): Home, Self Care
[2021-04-16 19:43] VITALS: PULSE 73; RESP 18; O2SAT 96
[2021-04-16] MEDS: Donepezil HCl 5 MG Tablet PO (21:10)
[2021-04-16] MEDS: Pravastatin 40 MG Tablet PO (21:10)
[2021-04-17] MEDS: Pioglitazone Hydrochloride 15 MG Tablet PO (05:51)
[2021-04-17] MEDS: Gabapentin 100 MG Capsule PO ×3 (05:52→21:31)
[2021-04-17] MEDS: Nystatin Powder 15gm Bottle 1 APPLIC TOPICAL ×2 (05:52→16:44)
[2021-04-17] MEDS: amLODIPine 10 MG Tablet PO (05:52)
[2021-04-17 06:25] LABS: Bedside Glucose 153 mg/dL (70-110)
[2021-04-17] MEDS: Rivaroxaban 20 MG Tablet PO (08:56)
[2021-04-17] MEDS: Iron Polysaccharide Complex 150 MG CAPSULE PO (08:56)
[2021-04-17 10:50] VITALS: PULSE 72; RESP 16; O2SAT 98
--- NOTE | 2021-04-17 15:33 | MDS.RN ---
Pain interview completed for TRENT 04/18/21
[2021-04-17 16:00] VITALS: BP 104/59; PULSE 72; RESP 16; TEMP 36.7; O2SAT 98
[2021-04-17] MEDS: Pravastatin 40 MG Tablet PO (21:31)
[2021-04-17] MEDS: Donepezil HCl 5 MG Tablet PO (21:31)
[2021-04-18 06:41] LABS: Bedside Glucose 161 mg/dL (70-110)
[2021-04-18] MEDS: Gabapentin 100 MG Capsule PO ×3 (08:31→19:56)
[2021-04-18] MEDS: Iron Polysaccharide Complex 150 MG CAPSULE PO (08:31)
[2021-04-18] MEDS: amLODIPine 10 MG Tablet PO (08:31)
[2021-04-18] MEDS: Pioglitazone Hydrochloride 15 MG Tablet PO (08:31)
[2021-04-18] MEDS: Rivaroxaban 20 MG Tablet PO (08:32)
[2021-04-18] MEDS: Nystatin Powder 15gm Bottle 1 APPLIC TOPICAL ×2 (08:33→19:56)
[2021-04-18 10:00] VITALS: PULSE 86; O2SAT 98
[2021-04-18 14:56] VITALS: BP 124/66; PULSE 75; RESP 16; TEMP 36.2; O2SAT 96
--- NOTE | 2021-04-18 15:09 | CASEMGMT ---
Social Work BIMS and PHQ-9 completed for MDS assessment. Marii Summers, DEVELOPMENTAL MATHEMATICS PROFESSOR PROSTHODONTIST
--- NOTE | 2021-04-18 15:52 | NURSING ---
Pt states she updated family.
[2021-04-18] MEDS: Pravastatin 40 MG Tablet PO (19:56)
[2021-04-18] MEDS: Donepezil HCl 5 MG Tablet PO (19:56)
[2021-04-18] MEDS: Acetaminophen 500 MG Tablet 1000 MG PO (19:58)
[2021-04-19 06:22] LABS: Absolute Lymphocyte Count 1.91 X10^3/uL (0.83-4.51); Absolute Neutrophil Count 2.3 X10^3/uL (2.0-7.7); Basophil# 0.03 X10^3/uL; Basophil% 0.6 % (0-1); Eosinophil# 0.32 X10^3/uL; Eosinophils% 6.5 % (0-5); Lymphocyte # 1.91 X10^3/ul (0.83-4.51); Lymphocyte % 38.9 % (19-41); Mean Corpuscular Hgb 30.1 pg (27.0-32.0); Mean Platelet Vol. 9.8 fl (6.2-12.0); Monocyte# 0.35 X10^3/uL; Monocyte% 7.1 % (0-10); NRBC Flagged by Analyzer 0 % (0-5); Neutrophil # 2.28 X10^3/uL (2.7-7.7); Neutrophil % 46.5 % (47-70); Platelet Count 210 K/mm3 (150-450); RBC Distribution Width CV 13.2 % (11.6-14.6); RBC Distribution Width SD 45.1 fl (35.1-43.9); Red Blood Count 2.66 M/mm3 (4.2-5.4); White Blood Count 4.9 K/mm3 (4.4-11.0)
[2021-04-19 06:47] LABS: Anion Gap 3 (5-15); BUN 28 mg/dL (7-18); BUN/Creat Ratio 15.8 RATIO (10-20); Calcium,Total 9.9 mg/dL (8.5-10.1); Chloride 110 mmol/L (98-107); Creatinine, Serum 1.77 mg/dL (0.55-1.02); EST Glomerular Filtration Rate 30 mL/min (>60); Est Glom Filt Rate - Afr Amer 36 mL/min (>60); Estimated Creatinine Clearance 20.72 ml/min; Glucose 146 mg/dL (74-106); Potassium 4.4 mmol/L (3.5-5.1); Sodium Level 139 mmol/L (136-145)
[2021-04-19 06:56] LABS: Bedside Glucose 164 mg/dL (70-110)
[2021-04-19 08:07] VITALS: BP 140/75; PULSE 71
[2021-04-19] MEDS: Nystatin Powder 15gm Bottle 1 APPLIC TOPICAL ×2 (08:09→17:34)
[2021-04-19] MEDS: Pioglitazone Hydrochloride 15 MG Tablet PO (08:09)
[2021-04-19] MEDS: Gabapentin 100 MG Capsule PO ×3 (08:09→21:01)
[2021-04-19] MEDS: amLODIPine 10 MG Tablet PO (08:09)
[2021-04-19] MEDS: Rivaroxaban 20 MG Tablet PO (08:09)
[2021-04-19] MEDS: Iron Polysaccharide Complex 150 MG CAPSULE PO (08:15)
[2021-04-19 09:14] VITALS: PULSE 71; RESP 18; O2SAT 92
[2021-04-19] MEDS: Tuberculin,Purif.prot.deriv. 50 TU/ML Vial 0.1 ML ID (13:17)
[2021-04-19 14:47] VITALS: BP 152/72; PULSE 71; RESP 17; TEMP 36.3; O2SAT 97
[2021-04-19] MEDS: Pravastatin 40 MG Tablet PO (21:01)
[2021-04-19] MEDS: Donepezil HCl 5 MG Tablet PO (21:01)
[2021-04-20] MEDS: Gabapentin 100 MG Capsule PO (08:05)
[2021-04-20] MEDS: Pioglitazone Hydrochloride 15 MG Tablet PO (08:05)
[2021-04-20] MEDS: Rivaroxaban 20 MG Tablet PO (08:05)
[2021-04-20] MEDS: Nystatin Powder 15gm Bottle 1 APPLIC TOPICAL (08:06)
[2021-04-20] MEDS: Iron Polysaccharide Complex 150 MG CAPSULE PO (08:06)
[2021-04-20] MEDS: amLODIPine 10 MG Tablet PO (08:08)
[2021-04-20 09:42] VITALS: PULSE 71; RESP 18; O2SAT 93
[2021-04-20 15:50] LABS: Bedside Glucose 165 mg/dL (70-110)
--- NOTE | 2021-04-22 10:43 | MDS.RN ---
Information for the mds was obtained from review of the clinical record, interview of resident, staff, and direct observation of resident's care.
== END 2021-04-20 11:30 | disposition home or self-care (01) | DRG 690 ==
PROVIDERS: Admitting Provider Family Medicine Geriatric Medicine; PCP Family Medicine; Visit Provider Family Medicine Geriatric Medicine
DX: N39.0 Urinary tract infection, site not specified (principal); E11.42 Type 2 diabetes mellitus with diabetic polyneuropathy; B96.20 Unspecified Escherichia coli [E. coli] as the cause of diseases classified elsewhere; B35.4 Tinea corporis; E78.5 Hyperlipidemia, unspecified; G30.9 Alzheimer's disease, unspecified; F02.80 Dementia in other diseases classified elsewhere, unspecified severity, without behavioral disturbance, psychotic disturbance, mood disturbance, and anxiety; Z79.4 Long term (current) use of insulin; I10 Essential (primary) hypertension; Z79.01 Long term (current) use of anticoagulants; Z86.718 Personal history of other venous thrombosis and embolism
CPT/HCPCS: 36415; 80048; 82962; 85025; 87426; 97110; 97116; 97162; 97165; 97530; 97535; 97802

== ENCOUNTER 2021-06-05 09:54 | Inpatient (IN) | payer MEDICARE, MEDICAID, SELFPAY ==
[2021-06-05] VITALS (8 sets, daily range): BP systolic 140–192; BP diastolic 68–101; PULSE 73–82; RESP 14–22; TEMP 36.4–36.6; O2SAT 97–100; BMI 43.6; BMI 42.8
--- NOTE | 2021-06-05 10:46 | RAD_ITS ---
STUDY: X-RAY CHEST REASON FOR EXAM: Female, 80 years old. Weakness. TECHNIQUE: Single frontal view of the chest. COMPARISON: 04/09/2021. FINDINGS: Stable low volume inspiration. There is no demonstrated pleural abnormality. Cardiomegaly unchanged. Normal mediastinum and portillo. Normal visualized pulmonary arteries. Stable aortic tortuosity. Normal visualized ribs, clavicles, and shoulders. There is no demonstrated abnormality of the visualized soft tissue structures of the upper abdomen. RAD/Chest 1 View (Portable) IMPRESSION: Cardiomegaly with low volume inspiration. No active or acute cardiopulmonary disease. Electronically Signed: Abdoul Bethea MD at 11:07 EST ,
--- NOTE | 2021-06-05 10:47 | EDS_ITS ---
HPI History of Present Illness Chief Complaint: Weakness Narrative Narrative: Patient presents with generalized weakness. She normally can get to her wheelchair by pivoting, today she missed and fell but did not injure anything. She also is complaining of progressing lower extremity edema that is now red. No fevers or chills. No cough or congestion. She has no chest pain. She has no shortness of breath or orthopnea. No head injury. No back pain. [facility] Medical History Arthritis Back pain Diabetes Diabetes DVT (deep venous thrombosis) Easy bruising Excessive bleeding Gastric reflux GERD (gastroesophageal reflux disease) High cholesterol History of pain when walking History of renal disease Hypertension Injury of head and neck Insulin dependent diabetes mellitus Kidney disease Non-smoker Pulmonary embolism Shortness of breath on exertion Uses wheelchair Wears glasses Home Medications pravastatin 40 mg PO QHS 10/05/17 [History Last Taken 04/08/21] acetaminophen 1,000 mg PO Q6H PRN PRN 04/15/20 [History Last Taken 04/14/20] amlodipine 10 mg PO DAILY 06/23/20 [History Last Taken 04/08/21] pioglitazone [Actos] 15 mg PO DAILY 06/23/20 [History Last Taken 04/08/21] rivaroxaban 20 mg PO DAILY 06/23/20 [History Last Taken 04/08/21] donepezil 5 mg PO QHS 04/09/21 [History Last Taken 04/08/21] cefdinir 300 mg PO BID 04/11/21 [History Last Taken Unknown] gabapentin 100 mg PO TID 04/11/21 [History Last Taken Unknown] nystatin [Nyamyc] 1 applic TOPICAL BID 04/11/21 [History Last Taken Unknown] polysaccharide iron complex [Ferrex 150] 150 mg PO DAILYCM 30 Days #30 cap 04/16/21 [Rx Last Taken Unknown] Allergy/AdvReac Type Severity Reaction Status Date / Time empagliflozin Allergy Itching/VALENTIN Verified 04/09/21 12:37 [From Jardiance] H furosemide [From Lasix] Allergy Rash Verified 04/09/21 12:37 metformin Allergy decreased Verified 04/09/21 12:37 appetite warfarin [From Coumadin] Allergy Other Verified 04/09/21 12:37 Surgical History Hx of section Hx of tonsillectomy Social History household members: children Smoking Status: Never smoker alcohol intake: never substance use type: does not use ROS ROS ED ROS Narrative Past medical history: Reviewed, it is extensive see chart. Medications: Reviewed Social history: Lives at home with daughter, has a walker but over the past week and a half has been using only her wheelchair due to weakness and lower extremity edema. Review of systems: All systems negative except as indicated General: No fever. Generalized weakness as above Eyes: No visual changes ENT: No upper airway congestion, normal voice Neck: No neck pain Cardiovascular: No chest pain Respiratory: No shortness of breath or cough Gastrointestinal: No abdominal pain, nausea vomiting or diarrhea Genitourinary: No dysuria Musculoskeletal: Bilateral lower extremity edema. Skin: Some lower extremity erythema. Neurological: No memory loss, confusion or any focal weakness Psych: No recent behavioral changes Hematologic: No easy bleeding or easy bruising EXAM Physical Exam Narrative Exam Narrative: Physical exam General: Well nourished, Well developed, No Acute Distress, she does appear chronically ill. She is comfortable in her bed. She is morbidly obese Head: Normocephalic, Atraumatic Eyes: Conjunctiva not pale ENT: Moist mucous membranes Neck: Supple, Nontender, No lymphadenopathy Cardiovascular: Regular rate, Regular rhythm Respiratory: No distress, CTA bilaterally Abdomen: Soft, Nontender, Nondistended Back: Nontender, Normal Inspection. Negative for: CVA tenderness Extremities: Bilateral lower extremity edema with lower extremity erythema some calor is present. Skin: Normal color, No rash Neurological: Alert, Normal Strength, Normal Sensation Psychological: Normal affect Const Vital Signs: 06/05/21 09:56 06/05/21 09:59 06/05/21 10:23 Temperature 97.7 F L 97.7 F L Temperature Source Oral Oral Pulse Rate 81 82 Respiratory Rate 18 18 Respiratory Effort Normal Non-Labored Respiratory Pattern Normal Blood Pressure 172/94 H 172/94 H Blood Pressure Mean 120 120 Pulse Ox 100 100 Oxygen Delivery Method Room Air Room Air 06/05/21 11:00 Temperature 97.5 F L Temperature Source Temporal Pulse Rate 73 Respiratory Rate 15 Respiratory Effort Respiratory Pattern Blood Pressure 140/101 H Blood Pressure Mean 114 Pulse Ox 98 Oxygen Delivery Method Room Air MDM MDM MDM Narrative Medical decision making narrative: Patient's work-up is consistent with ABILIO, she does have significant leukocytosis however she does have erythema and calor of the lower extremities. At this time it looks like she has a prerenal azotemia therefore I will not give Lasix, I will treat for possible infection as far as the significant lower extremity edema this can wait for diuretics until renal function improves, she can get mechanical help however she is significantly weak and can no longer transfer to her wheelchair without falling, I do believe she will need admission. Lab Data Labs: Laboratory Results - last 24 hr 06/05/21 06/05/21 06/05/21 10:20 10:20 10:20 WBC 5.2 RBC 2.85 L Hgb 9.0 L Hct 27.6 L MCV 96.8 MCH 31.6 MCHC 32.6 RDW Std Deviation 43.8 RDW Coeff of Mayank 12.3 Plt Count 212 MPV 10.9 Immature Gran % (Auto) 0.400 Neut % (Auto) 60.8 Lymph % (Auto) 23.9 Cecil % (Auto) 6.9 Eos % (Auto) 7.4 H Baso % (Auto) 0.6 Absolute Neuts (auto) 3.2 Absolute Lymphs (auto) 1.25 Nucleated RBC % 0 Sodium 139 Potassium 5.1 Chloride 112 H Carbon Dioxide 24.0 Anion Gap 3 L BUN 51 H Creatinine 2.33 H Estim Creat Clear Calc 15.74 Est GFR (MDRD) Af Amer 26 L Est GFR (MDRD) Non-Af 21 L BUN/Creatinine Ratio 21.9 H Glucose 179 H Calcium 10.5 H Total Bilirubin 0.30 AST 10 L ALT 11 L Alkaline Phosphatase 61 B-Natriuretic Peptide 17.2 Total Protein 7.2 Albumin 3.4 Globulin 3.8 Albumin/Globulin Ratio 0.9 Radiography Diagnostic Testing: Clinical Impression(s) from Imaging Studies Chest X-Ray 06/05/21 10:46 IMPRESSION: Cardiomegaly with low volume inspiration. No active or acute cardiopulmonary disease. Electronically Signed: Abdoul Bethea MD at 11:07 EST , Discharge Plan Triage Chief Complaint: Weakness ED Provider: Judah Messer Dx/Rx/DC Orders Clinical Impression: Acute kidney injury, Bilateral edema of lower extremity Prescriptions: No Action pravastatin 40 MG tablet 40 mg PO QHS RF: 0 acetaminophen 500 MG tablet 1,000 mg PO Q6H PRN PRN (Reason: Pain 1-10 Or Fever) RF: 0 pioglitazone [Actos] 15 MG tablet 15 mg PO DAILY RF: 0 rivaroxaban 20 MG tablet 20 mg PO DAILY RF: 0 amlodipine 10 MG tablet 10 mg PO DAILY RF: 0 donepezil 5 MG tablet 5 mg PO QHS RF: 0 gabapentin 100 mg capsule 100 mg PO TID RF: 0 nystatin [Nyamyc] 100,000 unit/gram powder 1 applic topical BID RF: 0 cefdinir 300 mg capsule 300 mg PO BID RF: 0 polysaccharide iron complex [Ferrex 150] 150 mg iron Capsule 150 mg PO DAILYCM 30 Days Qty: 30 RF: 0 Primary Care Provider: Vel Graham Referrals: Vel Graham MD [Primary Care Provider] - Disposition Disposition: Acute Care Hospital [facility]
[2021-06-05 11:48] LABS: Absolute Lymphocyte Count 1.25 X10^3/uL (0.83-4.51); Absolute Neutrophil Count 3.2 X10^3/uL (2.0-7.7); Basophil# 0.03 X10^3/uL; Basophil% 0.6 % (0-1); Eosinophil# 0.39 X10^3/uL; Eosinophils% 7.4 % (0-5); Hematocrit 27.6 % (37-47); Lymphocyte # 1.25 X10^3/ul (0.83-4.51); Lymphocyte % 23.9 % (19-41); Mean Corp Hgb Conc 32.6 g/dL (32-36); Mean Corpuscular Hgb 31.6 pg (27.0-32.0); Mean Corpuscular Volume 96.8 fL (81-99); Mean Platelet Vol. 10.9 fl (6.2-12.0); Monocyte# 0.36 X10^3/uL; Monocyte% 6.9 % (0-10); NRBC Flagged by Analyzer 0 % (0-5); Neutrophil # 3.19 X10^3/uL (2.7-7.7); Neutrophil % 60.8 % (47-70); Platelet Count 212 K/mm3 (150-450); RBC Distribution Width CV 12.3 % (11.6-14.6); RBC Distribution Width SD 43.8 fl (35.1-43.9); Red Blood Count 2.85 M/mm3 (4.2-5.4); White Blood Count 5.2 K/mm3 (4.4-11.0)
[2021-06-05 11:57] LABS: ALB/GLOB Ratio 0.9 RATIO (0.9-2.4); AST(SGOT) 10 U/L (15-37); Alanine Aminotransfer ALT/SGPT 11 U/L (13-56); Albumin, Serum 3.4 g/dL (3.2-5.0); Alkaline Phosphatase 61 U/L (45-117); Anion Gap 3 (5-15); BUN 51 mg/dL (7-18); BUN/Creat Ratio 21.9 RATIO (10-20); Calcium,Total 10.5 mg/dL (8.5-10.1); Chloride 112 mmol/L (98-107); Creatinine, Serum 2.33 mg/dL (0.55-1.02); EST Glomerular Filtration Rate 21 mL/min (>60); Est Glom Filt Rate - Afr Amer 26 mL/min (>60); Estimated Creatinine Clearance 15.74 ml/min; Globulin 3.8 g/dL (2.2-4.2); Glucose 179 mg/dL (74-106); Potassium 5.1 mmol/L (3.5-5.1); Protein, Total 7.2 g/dL (6.4-8.2); Sodium Level 139 mmol/L (136-145)
[2021-06-05 12:13] LABS: BNP,B-Type NATRIURETIC PEPTIDE 17.2 pg/mL (0-100)
--- NOTE | 2021-06-05 13:10 | CASEMGMT ---
JONI MARTINEZ Assessment: RN CM to room to meet with patient for initial transition planning/care coordination assessment. JONI MARTINEZ introduced self and role at [facility]. Patient voices understanding and consents to assessment at this time. Patient's daughter Lucita Parker present at bedside and active in transition planning. Patient is alert and oriented and answers all questions appropriately, sitting up on ER cart in no apparent distress. Care providers, pharmacy, and demographics verified/updated at this time. Admitting Dx: ABILIO PCP: Vel Graham Specialists: Denies Preferred Pharmacy: [facility] Insurance: [employer] M[employer] & Medicaid Prescription Benefit: yes Living Will/HPOA: Patient denies having a living will or HPOA. LNOK: Daughter Lucita Parker Living Arrangements: Patient lives with daughter Lucita in two story [facility] with a ramp to enter the home. Patient states she spends all of her time on the first floor of the home in which she has a rollaway bed and bedside commode. The home's single bathroom is located on the second floor of the home. Patient states she is independent with sponge bathing, dressing and toileting. Patient's daughter does cooking, laundry and grocery shopping. Patient reports was using walker for mobility after recent TCU discharge but reports increased weakness and now using wheelchair. Smoking/ETOH: Never smoker, denies ETOH use Transportation: Patient does not drive. Daughter drives patient and patient denies transportation concerns. DME/HHC/SNF: Patient has a walker, rollator, wheelchair, rollaway bed, shower chair and bedside commode available in the home. Denies previous HHC. Previous 8 month SNF stay at [place] and discharged home in December 2020. Patient was placed in observation at [facility] 04/09 - 04/11 for fall and weakness and discharged to [facility] TCU for continued therapies. Patient discharged home from TCU on 04/20/21 and reports she felt much improved and stronger at time of discharge. Patient and daughter have no concerns with going home at time of discharge and will consider need for HHC. CM to follow for any discharge planning/needs. Patient voices no concerns/needs at this time. Advised patient and daughter to ask for CM if any questions/concerns/needs arise. Voices understanding. Plan: home, patient will consider HHC
--- NOTE | 2021-06-05 13:55 | PCM.HP.STD ---
Documented by User: Anthony SHRESTHA 06/05/21 14:19 HPI - General General Date of Admission: 06/05/21 Date of Service: 06/05/21 Chief Complaint: Weakness with LE swelling HPI Narrative Patient is a 80-year-old female who presents to [facility] on 06/05/2021 with a chief complaint of weakness with bilateral lower extremity swelling. Patient reports that for the past 3-4 days she has been noticing that her legs have become increasingly swollen, which has made her more lethargic and not willing to do her activities of daily living. Patient denies any other symptoms to include chest pain, shortness of breath, palpitations, hemoptysis, sputum production, fever, chills, N/V/D. Patient denies any past history of heart failure, but does have a history of DVT and PE for which she is anticoagulated on Xarelto. Vital signs in the ED are stable and unremarkable. BMP is significant for elevated creatinine at 2.3, patient baseline appears around 1.5. BNP is not elevated at 17.2. Chest x-ray does show mild cardiomegaly, but is without any acute cardiopulmonary process. [facility] Medical History Arthritis Back pain Diabetes Diabetes DVT (deep venous thrombosis) Easy bruising Excessive bleeding Gastric reflux GERD (gastroesophageal reflux disease) High cholesterol History of pain when walking History of renal disease Hypertension Injury of head and neck Insulin dependent diabetes mellitus Kidney disease Non-smoker Pulmonary embolism Shortness of breath on exertion Uses wheelchair Wears glasses Home Medications pravastatin 40 mg PO QHS 10/05/17 [History Last Taken 06/04/21] acetaminophen 1,000 mg PO Q6H PRN PRN 04/15/20 [History Last Taken 04/14/20] amlodipine 10 mg PO DAILY 06/23/20 [History Last Taken 06/04/21] pioglitazone [Actos] 15 mg PO DAILY 06/23/20 [History Last Taken 06/04/21] rivaroxaban 20 mg PO DAILY 06/23/20 [History Last Taken 06/04/21] donepezil 5 mg PO QHS 04/09/21 [History Last Taken 06/04/21] gabapentin 400 mg PO TID 06/05/21 [History Last Taken 06/04/21] lisinopril 20 mg PO DAILY 06/05/21 [History Last Taken 06/04/21] medroxyprogesterone 10 mg PO DAILY 06/05/21 [History Last Taken 06/04/21] Allergy/AdvReac Type Severity Reaction Status Date / Time empagliflozin Allergy Itching/VALENTIN Verified 04/09/21 12:37 [From Jardiance] H furosemide [From Lasix] Allergy Rash Verified 04/09/21 12:37 metformin Allergy decreased Verified 04/09/21 12:37 appetite warfarin [From Coumadin] Allergy Other Verified 04/09/21 12:37 apixaban [From Eliquis] AdvReac Other Verified 06/05/21 15:00 Family History adopted adopted Surgical History Hx of section Hx of tonsillectomy Social History household members: children Smoking Status: Never smoker alcohol intake: never substance use type: does not use ROS Constitutional Constitutional: Reports weakness; Denies anorexia, change in weight, chills, fatigue, fever(s), malaise, night sweats or other Eyes Eyes: Denies blurry vision, change in eye color, change in vision, discharge from eye(s), double vision, erythema, eye pain, loss of vision or other ENT HEENT: Denies abnormal hearing, dysphagia, ear pain, epistaxis, headache(s), hearing loss, nasal congestion, nasal discharge, post nasal drip, sinus pressure, sore throat or other Cardiovascular Cardiovascular: Reports edema; Denies chest pain, claudication, dyspnea on exertion, lightheadedness, orthopnea, palpitations, paroxysmal nocturnal dyspnea, rapid heart rate, syncope or other Respiratory/Chest Respiratory/Chest: Denies cough, dyspnea, excessive phlegm production, hemoptysis, productive cough, shortness of breath at rest, shortness of breath with exertion, wheezing or other Gastrointestinal Gastrointestinal: Denies abdominal pain, coffee ground emesis, constipation, diarrhea, dyspepsia, hematemesis, hematochezia, loose stools, melena, nausea, vomiting or other Genitourinary Genitourinary: Denies burning urination, difficulty urinating, dysuria, hematuria, nocturia, urinary frequency, urinary hesitancy, urinary incontinence, urinary urgency or other Musculoskeletal Musculoskeletal: Denies arthralgias, back pain, joint pain, joint stiffness, joint swelling, myalgias, neck pain or other Neurologic Neurologic: Denies abnormal gait, abnormal speech, confusion, disequilibrium, dizziness, focal weakness, headache(s), numbness, paresthesias, seizure-like activity, seizures, syncope, tingling, tremor(s) or other Psychiatric Psychiatric: Denies anxiety, depression, homicidal ideation, suicidal ideation or other Endocrine Endocrinology: Denies change in body appearance, cold intolerance, excessive sweating, heat intolerance, polydipsia, polyuria or other Hematologic/Lymphatic Hematologic/Lymphatic: Denies anemia, easy bleeding, easy bruising, lymphadenopathy or other Allergic/Immunologic Allergic/Immunologic: Denies rhinitis, hives, eczemia, asthma or other Vital Signs Vital Signs Vital Signs: 06/05/21 09:56 06/05/21 09:59 06/05/21 10:23 Temperature 97.7 F L 97.7 F L Temperature Source Oral Oral Pulse Rate 81 82 Respiratory Rate 18 18 Respiratory Effort Normal Non-Labored Respiratory Pattern Normal Blood Pressure 172/94 H 172/94 H Blood Pressure Mean 120 120 Pulse Ox 100 100 Oxygen Delivery Method Room Air Room Air 06/05/21 11:00 06/05/21 12:00 06/05/21 13:00 Temperature 97.5 F L 97.7 F L 97.9 F Temperature Source Temporal Temporal Temporal Pulse Rate 73 75 75 Respiratory Rate 15 16 18 Respiratory Effort Respiratory Pattern Blood Pressure 140/101 H 161/77 H 153/95 H Blood Pressure Mean 114 105 114 Pulse Ox 98 97 99 Oxygen Delivery Method Room Air Room Air Room Air Weight Weight: 238 lb 8.642 oz Body Mass Index (BMI) 43.6 Physical Exam Const alert and oriented x3 HEENT normocephalic, head/scalp atraumatic and hearing grossly normal bilaterally Eyes PERRL and conjunctivae normal Neck no lymphadenopathy and no JVD Resp normal respiratory effort, no retractions and no use of accessory muscles Cardio regular rate, regular rhythm and no JVD GI normal to inspection, nondistended, normoactive bowel sounds Extremity Extremity Narrative: Bilateral lower extremity edema with diffuse splotchy redness, warm to touch. Skin Skin Narrative: See extremity. Neuro CN's II-XII intact bilaterally Psych affect normal Results Lab / Micro Data Result Diagrams: 06/05/21 10:20 06/05/21 10:20 Labs: Laboratory Results - last 24 hr 06/05/21 10:20: WBC 5.2, RBC 2.85 L, Hgb 9.0 L, Hct 27.6 L, MCV 96.8, MCH 31.6, MCHC 32.6, RDW Std Deviation 43.8, RDW Coeff of Mayank 12.3, Plt Count 212, MPV 10.9, Immature Gran % (Auto) 0.400, Neut % (Auto) 60.8, Lymph % (Auto) 23.9, [place] % (Auto) 6.9, Eos % (Auto) 7.4 H, Baso % (Auto) 0.6, Absolute Neuts (auto) 3.2, Absolute Lymphs (auto) 1.25, Nucleated RBC % 0 06/05/21 10:20: Sodium 139, Potassium 5.1, Chloride 112 H, Carbon Dioxide 24.0, Anion Gap 3 L, BUN 51 H, Creatinine 2.33 H, Estim Creat Clear Calc 15.74, Est GFR (MDRD) Af Amer 26 L, Est GFR (MDRD) Non-Af 21 L, BUN/Creatinine Ratio 21.9 H, Glucose 179 H, Calcium 10.5 H, Total Bilirubin 0.30, AST 10 L, ALT 11 L, Alkaline Phosphatase 61, Total Protein 7.2, Albumin 3.4, Globulin 3.8, Albumin/Globulin Ratio 0.9 06/05/21 10:20: B-Natriuretic Peptide 17.2 Radiology Impression Chest X-Ray 06/05/21 10:46 IMPRESSION: Cardiomegaly with low volume inspiration. No active or acute cardiopulmonary disease. Electronically Signed: Abdoul Bethea MD at 11:07 EST , Assessment & Plan Assessment/Plan (1) Acute kidney injury: (2) Bilateral edema of lower extremity: PLAN: Patient is a 80-year-old female who presents to the ED at [facility] on 06/05/2021 with a chief complaint of weakness and bilateral lower extremity edema. Patient will be admitted for evaluation management of bilateral lymphedema as well as possible placement for debility. 1) bilateral lower extremity edema Unclear etiology as patient does not appear to have any infectious symptoms and denies past medical history of heart failure. Patient does have a history of DVT/PE, however is chronically anticoagulated on Xarelto. Chest x-ray does demonstrate mild cardiomegaly, but BNP is not elevated. Last echocardiogram from 2018 demonstrated normal LV size and systolic function with an EF of 55%, and pulmonary artery systolic pressure consistent with moderate pulmonary hypertension. Plan; admit to [facility], CBC and CMP in a.m., obtain UA, monitor JIMENA's and daily weights. 2) ABILIO on CKD stage IIIb Creatinine currently 2.3. Baseline appears around 1.5. Hold nephrotoxic's. Will initiate fluids and continue to monitor BMP. Home medications not reconciled at time of dictation, will review once reconciled. DVT prophylaxis - Heparin Patient seen by Anthony Cordova PA-C, under the supervision of Dr. Yepez. Time spent on patient care: 25 minutes. Documented by User: Dr. Erika Yepez MD 06/05/21 15:08 HPI - General General Date of Admission: 06/05/21 [facility] Medical History Arthritis Back pain Diabetes Diabetes DVT (deep venous thrombosis) Easy bruising Excessive bleeding Gastric reflux GERD (gastroesophageal reflux disease) High cholesterol History of pain when walking History of renal disease Hypertension Injury of head and neck Insulin dependent diabetes mellitus Kidney disease Non-smoker Pulmonary embolism Shortness of breath on exertion Uses wheelchair Wears glasses Home Medications pravastatin 40 mg PO QHS 10/05/17 [History Last Taken 06/04/21] acetaminophen 1,000 mg PO Q6H PRN PRN 04/15/20 [History Last Taken 04/14/20] amlodipine 10 mg PO DAILY 06/23/20 [History Last Taken 06/04/21] pioglitazone [Actos] 15 mg PO DAILY 06/23/20 [History Last Taken 06/04/21] rivaroxaban 20 mg PO DAILY 06/23/20 [History Last Taken 06/04/21] donepezil 5 mg PO QHS 04/09/21 [History Last Taken 06/04/21] gabapentin 400 mg PO TID 06/05/21 [History Last Taken 06/04/21] lisinopril 20 mg PO DAILY 06/05/21 [History Last Taken 06/04/21] medroxyprogesterone 10 mg PO DAILY 06/05/21 [History Last Taken 06/04/21] Allergy/AdvReac Type Severity Reaction Status Date / Time empagliflozin Allergy Itching/VALENTIN Verified 04/09/21 12:37 [From Jardiance] H furosemide [From Lasix] Allergy Rash Verified 04/09/21 12:37 metformin Allergy decreased Verified 04/09/21 12:37 appetite warfarin [From Coumadin] Allergy Other Verified 04/09/21 12:37 apixaban [From Eliquis] AdvReac Other Verified 06/05/21 15:00 Family History adopted Surgical History Hx of section Hx of tonsillectomy Social History household members: children Smoking Status: Never smoker alcohol intake: never substance use type: does not use Results Lab / Micro Data Result Diagrams: 06/05/21 10:20 06/05/21 10:20 Charges/Coding Addendum Addendum: This patient was seen in conjunction with FADY Dumont. I have independently interviewed and examined the patient and reviewed pertinent historical, laboratory, and other data. Please refer to FADY Dumont's note for his patient's presentation, findings, and recommendations. I have reviewed and his note and concur with his documentation 80-year-old female with multiple comorbidities for CKD, type II DM, dementia, chronic debility who comes in with worsening bilateral lower extremity swelling. Patient denies any chest pain or palpitation. She is usually wheelchair-bound and transfers. She lives with her daughter. She denied any fever or chills. Patient admits to not drinking well over the last few days. In the ED, her blood pressure was slightly elevated, she was not on oxygen, WBC count is 5.2, hemoglobin 9.7, platelet count 212, BMP shows sodium 139, potassium 5.1, chloride 112, BUN 51, creatinine 2.33. BN pep was 17.2 Chest x-ray shows cardiomegaly with low volume inspiration, no acute cardiopulmonary process. Physical Exam: Gen: Morbidly obese, comfortable, not pale, not jaundiced, well-hydrated, not on oxygen CVS:HS I +II, regular, no murmurs RESP: Diminished at lung bases GI: BS present and normal, soft, nontender, no palpable organs EXT: Bilateral lower extremity edema, +2 with slight erythema and differential 1, chronic venous stasis dermatitis ASSESSMENT: 1. Acute kidney injury on CKD stage IIIb 2. History of DVT/PE 3. Acute on chronic lymphedema 4. Dementia 5. Hypertension 6. Type DM 7. GERD Plan: Check urine sodium, urine creatinine, renal ultrasound Nephrology consult Gentle IV fluids Repeat blood work in a.m. I discussed and explained in details the various types of CODE STATUS-full code, DNR CCA, DNR CC. Patient chose to be full code. Time spent discussing CODE STATUS 16 minutes Visit Charges Inpatient E&M: 48571 Init Hosp L3 Procedures Hospitalists Procedures: 77262 Advncd Care Plan 30 Min
--- NOTE | 2021-06-05 14:56 | US_ITS ---
STUDY: RENAL ULTRASOUND - COMPLETE REASON FOR EXAM: Female, 80 years old. Acute kidney injury. TECHNIQUE: Ultrasound evaluation of the kidneys was performed with real-time and static jonas-scale imaging. COMPARISON: 12/31/2018. FINDINGS: RIGHT KIDNEY: Normal location of the right kidney, which is low normal in size. The right kidney measures 8.9 cm. There is increased renal cortical echogenicity. The renal cortex measures 1.2 cm. There is no right renal mass or cyst. There are no right renal calculi. There is no right hydronephrosis. DISTAL RIGHT URETER: There is non-visualization of the distal right ureter. There is no demonstrated right ureterovesical junction calculus. There is no demonstrated right ureteral jet. LEFT KIDNEY: Normal location of the left kidney, which is mildly enlarged in size. The left kidney measures 13.2 cm. There is a normal cortex of the left kidney. The renal cortex measures 1.1 cm. There is no left renal mass or cyst. There are no left renal calculi. There is no left hydronephrosis. DISTAL LEFT URETER: There is non-visualization of the distal left ureter. There is no demonstrated left ureterovesical junction calculus. There is no demonstrated left ureteral jet. BLADDER: The urinary bladder is collapsed about a GRANDE catheter. US/Kidney and Bladder IMPRESSION: 1. Low normal left kidney with increased renal cortical echogenicity consistent with medical renal disease. 2. Mildly enlarged left kidney without abnormality. There is no major interval change when compared to prior study. Electronically Signed: Kg Hein DO at 22:08 EST Reading Location ID and State: [facility] / [place] Tel [phone], Service support ,
--- NOTE | 2021-06-05 14:57 | ECHOCS_ITS ---
Reason For Study: DYSPNEA./SOB Procedure This was a 2D Doppler, Color Flow transthoracic echocardiogram. The study was technically difficult. Due to body habitus. Contrast injection was performed. Exam performed portable in patient room. The last four images are labeled incorrectly. The four images are of the 4 chamber view. Left Ventricle Normal LV size. The estimated ejection fraction is 65 %. No evidence for diastolic dysfunction. No regional wall motion abnormalities noted. Right Ventricle Normal RV size. Normal systolic function. Atria Normal left atrium. Normal right atrium. No doppler evidence for ASD. Mitral Valve There is no mitral valve stenosis. No mitral valve insufficiency. Tricuspid Valve There is no tricuspid stenosis. Trivial tricuspid valve insufficiency. Unable to estimate RV systolic pressure due to insufficient tricuspid regurgitant envelope. Aortic Valve The aortic valve is not well visualized. Mild diffuse aortic valve thickening. Mild aortic stenosis. No aortic valve insufficiency. Pulmonic Valve There is no pulmonic valvular stenosis. No pulmonic valve insufficiency. Great Vessels Normal aortic root. Pericardium/Pleural No pericardial effusion. Medication Diluted definity 4.0ml given slow IV push to enhance endocardial definition. MMode/2D Measurements & Calculations LVIDd: 4.2 cm IVSd: 1.1 cm LVOT diam: 2.1 cm LVIDs: 2.9 cm LVPWd: 1.0 cm RVDd: 2.4 cm FS: 30.8 % LVOT area: 3.5 cm2 Ao root diam: 2.7 cm LAV(MOD-bp): 52.8 ml LA A4 area: 17.7 cm2 LAV(MOD-bp) Indexed: 25.9 ml/m2 LAV(MOD-sp2): 53.6 ml LAV(MOD-sp4): 48.8 ml LA dimension(2D): 4.3 cm Time Measurements MV dec time: 0.22 sec Doppler Measurements & Calculations MV E max sang: 100.1 cm/sec Lat Peak E' Sang: 9.6 cm/sec Med Peak E' Sang: 8.3 cm/sec MV A max sang: 122.5 cm/sec E/E' lat: 10.5 E/E' med: 12.1 MV E/A: 0.82 Ao V2 max: 230.4 cm/sec LV V1 max: 111.5 cm/sec SV(LVOT): 87.0 ml Ao max P.2 mmHg LV V1 max P.0 mmHg Ao V2 mean: 166.4 cm/sec LV V1 mean P.6 mmHg Ao mean P.2 mmHg LV V1 mean: 77.0 cm/sec Ao V2 VTI: 51.9 cm LV V1 VTI: 25.0 cm MAICO(I,D): 1.7 cm2 MAICO(V,D): 1.7 cm2 ECHO/Echo Complete W/ Contrast Interpretation Summary The estimated ejection fraction is 65 %. No evidence for diastolic dysfunction. Mild aortic stenosis. Ordering Physician: Erika Yepez Referring Physician: Vel Graham Performed By: Kendra Del Rosario, MIMI, RVT
[2021-06-05 15:45] LABS: Bacteria 0 SEEN /hpf (None Seen); Mucous, Urine 0 SEEN /hpf (<or=2+); Squamous Epithelial Cells - UA 0 SEEN /hpf (5-10); White Blood Cells 0 SEEN /hpf (0-5)
[2021-06-05 15:55] LABS: Color, Urine Yellow (Yellow); Glucose, Dipstick 50 mg/dl (Normal); Ketone-Dipstick Negative (Negative); Leukocyte Esterase-Dipstick Negative /ul (Negative); Nitrite-Dipstick Negative (Negative); Occult Blood-Urine 50 /ul (Negative); Protein-Dipstick 100 mg/dl (Negative); Urine Bilirubin Dipstick Negative (Negative); Urine Clarity Clear (Clear); Urine Urobilinogen Normal (Normal)
[2021-06-05 16:00] LABS: Urine Sodium 119 mmol/L (Not Establ.)
[2021-06-05 16:34] LABS: Red Blood Cells-Urine 0-5 SEEN /hpf (0-5)
[2021-06-05] MEDS: Heparin Injection (Vial) 5,000 UNIT/ML VIAL 5000 UNIT SC (16:51)
[2021-06-05] MEDS: 0.45% Normal Saline 1,000 ML 75 ML IV (16:51)
[2021-06-05] MEDS: Nystatin Powder 15gm Bottle 1 APPLIC TOPICAL (21:56)
[2021-06-06] MEDS: Menthol/Lanolin/Calamine/Znox 113 GM Tube 1 APPLIC TOPICAL ×3 (00:46→22:38)
[2021-06-06] MEDS: Donepezil HCl 5 MG Tablet PO ×2 (00:46→22:39)
[2021-06-06] MEDS: Acetaminophen 325 MG Tablet 650 MG PO (00:50)
[2021-06-06] MEDS: Heparin Injection (Vial) 5,000 UNIT/ML VIAL 5000 UNIT SC ×3 (05:33→22:40)
[2021-06-06 05:34] LABS: Absolute Lymphocyte Count 1.44 X10^3/uL (0.83-4.51); Absolute Neutrophil Count 2.9 X10^3/uL (2.0-7.7); Basophil# 0.03 X10^3/uL; Basophil% 0.6 % (0-1); Eosinophils% 7.8 % (0-5); Hematocrit 22.3 % (37-47); Hemoglobin 7.4 g/dL (12.0-15.0); Lymphocyte # 1.44 X10^3/ul (0.83-4.51); Lymphocyte % 28.2 % (19-41); Mean Corp Hgb Conc 33.2 g/dL (32-36); Mean Corpuscular Volume 93.3 fL (81-99); Mean Platelet Vol. 10.2 fl (6.2-12.0); Monocyte# 0.36 X10^3/uL; Monocyte% 7.1 % (0-10); NRBC Flagged by Analyzer 0 % (0-5); Neutrophil # 2.85 X10^3/uL (2.7-7.7); Neutrophil % 55.9 % (47-70); Platelet Count 175 K/mm3 (150-450); RBC Distribution Width CV 12.2 % (11.6-14.6); RBC Distribution Width SD 41.7 fl (35.1-43.9); Red Blood Count 2.39 M/mm3 (4.2-5.4); White Blood Count 5.1 K/mm3 (4.4-11.0)
[2021-06-06 05:40] VITALS: BP 150/60; PULSE 72; RESP 16; TEMP 36.2; O2SAT 94
[2021-06-06 06:04] LABS: ALB/GLOB Ratio 0.8 RATIO (0.9-2.4); AST(SGOT) 12 U/L (15-37); Alanine Aminotransfer ALT/SGPT 10 U/L (13-56); Albumin, Serum 2.5 g/dL (3.2-5.0); Alkaline Phosphatase 54 U/L (45-117); Anion Gap 4 (5-15); BUN 43 mg/dL (7-18); BUN/Creat Ratio 22.6 RATIO (10-20); Calcium,Total 10.1 mg/dL (8.5-10.1); Chloride 114 mmol/L (98-107); EST Glomerular Filtration Rate 27 mL/min (>60); Est Glom Filt Rate - Afr Amer 33 mL/min (>60); Globulin 3.1 g/dL (2.2-4.2); Glucose 142 mg/dL (74-106); Potassium 4.8 mmol/L (3.5-5.1); Protein, Total 5.6 g/dL (6.4-8.2); Sodium Level 138 mmol/L (136-145)
[2021-06-06 09:20] VITALS: BP 183/66; PULSE 75; RESP 16; TEMP 36.9; O2SAT 95
[2021-06-06] MEDS: Nystatin Powder 15gm Bottle 1 APPLIC TOPICAL ×2 (09:27→22:39)
[2021-06-06 09:59] LABS: Ferritin 67 ng/mL (8-252); Iron 46 ug/dL (50-170); Iron Binding Capacity,Total 304 ug/dL (250-450); PERCENT IRON SATURATION 15.1 % (15.0-55.0)
[2021-06-06] MEDS: amLODIPine 10 MG Tablet PO (11:13)
--- NOTE | 2021-06-06 11:13 | PCM.CONS.R ---
Assessment & Plan Assessment/Plan (1) Acute kidney injury: PLAN: She has had creatinine between 1.5-1.6 for couple of years at least. Known history of CKD stage IIIb. Admitted with a creatinine of 2.3. Better today. Renal ultrasound without any hydronephrosis. Urine analysis shows protein, will send for quantification. ABILIO is likely due to hemodynamic changes. Blood pressure remains high. Edema. She says she has been having edema for a long time. Echocardiogram is not impressive. BNP is 17. She is on amlodipine and Actos. Discussed with hospitalist. Stop amlodipine. Resume home dose of lisinopril. Add chlorthalidone for hypertension. Will add hydralazine as needed for higher blood pressures. Actos will be substituted with other agents. Chest x-ray is clear. (2) Chronic kidney disease (CKD) stage G3b/A3, moderately decreased glomerular filtration rate (GFR) between 30-44 mL/min/1.73 square meter and albuminuria creatinine ratio greater than 300 mg/g: HPI Consult Data Date of Consult: 06/06/21 HPI Narrative HPI Narrative: DIANNA ZAMUDIO, is a 80 F who presents to the hospital with complaints of lower extremity edema. Nephrology consulted for acute renal failure and CKD stage IIIb. On review of labs, it seems she has CKD stage IIIb, creatinine fluctuates between 1.5-1.8. Denies any urinary complaints. No breathing difficulties. Medication list as below. History of DVT on anticoagulation. No NSAIDs. [facility] Medical History Arthritis Back pain Diabetes Diabetes DVT (deep venous thrombosis) Easy bruising Excessive bleeding Gastric reflux GERD (gastroesophageal reflux disease) High cholesterol History of pain when walking History of renal disease Hypertension Injury of head and neck Insulin dependent diabetes mellitus Kidney disease Non-smoker Pulmonary embolism Shortness of breath on exertion Uses wheelchair Wears glasses Home Medications pravastatin 40 mg PO QHS 10/05/17 [History Last Taken 06/04/21] acetaminophen 1,000 mg PO Q6H PRN PRN 04/15/20 [History Last Taken 04/14/20] amlodipine 10 mg PO DAILY 06/23/20 [History Last Taken 06/04/21] pioglitazone [Actos] 15 mg PO DAILY 06/23/20 [History Last Taken 06/04/21] rivaroxaban 20 mg PO DAILY 06/23/20 [History Last Taken 06/04/21] donepezil 5 mg PO QHS 04/09/21 [History Last Taken 06/04/21] gabapentin 400 mg PO TID 06/05/21 [History Last Taken 06/04/21] lisinopril 20 mg PO DAILY 06/05/21 [History Last Taken 06/04/21] medroxyprogesterone 10 mg PO DAILY 06/05/21 [History Last Taken 06/04/21] Allergy/AdvReac Type Severity Reaction Status Date / Time empagliflozin Allergy Itching/VALENTIN Verified 04/09/21 12:37 [From Jardiance] H furosemide [From Lasix] Allergy Rash Verified 04/09/21 12:37 metformin Allergy decreased Verified 04/09/21 12:37 appetite warfarin [From Coumadin] Allergy Other Verified 04/09/21 12:37 apixaban [From Eliquis] AdvReac Other Verified 06/05/21 15:00 Family History adopted Surgical History Hx of section Hx of tonsillectomy Social History household members: children Smoking Status: Never smoker alcohol intake: never substance use type: does not use ROS ROS Narrative negative except above Physical Exam Narrative Alert awake oriented x 3 no obvious distress no pallor no icterus no JVD s1s2 no murmurs lungs clear abdomen soft no organomegaly ++ edema no cyanosis Lab / Micro Data Result Diagrams: 06/06/21 05:18 06/06/21 05:18 Labs: Laboratory Results - last 24 hr 06/05/21 10:20: WBC 5.2, RBC 2.85 L, Hgb 9.0 L, Hct 27.6 L, MCV 96.8, MCH 31.6, MCHC 32.6, RDW Std Deviation 43.8, RDW Coeff of Mayank 12.3, Plt Count 212, MPV 10.9, Immature Gran % (Auto) 0.400, Neut % (Auto) 60.8, Lymph % (Auto) 23.9, [place] % (Auto) 6.9, Eos % (Auto) 7.4 H, Baso % (Auto) 0.6, Absolute Neuts (auto) 3.2, Absolute Lymphs (auto) 1.25, Nucleated RBC % 0 06/05/21 10:20: Sodium 139, Potassium 5.1, Chloride 112 H, Carbon Dioxide 24.0, Anion Gap 3 L, BUN 51 H, Creatinine 2.33 H, Estim Creat Clear Calc 15.74, Est GFR (MDRD) Af Amer 26 L, Est GFR (MDRD) Non-Af 21 L, BUN/Creatinine Ratio 21.9 H, Glucose 179 H, Calcium 10.5 H, Total Bilirubin 0.30, AST 10 L, ALT 11 L, Alkaline Phosphatase 61, Total Protein 7.2, Albumin 3.4, Globulin 3.8, Albumin/Globulin Ratio 0.9 06/05/21 10:20: B-Natriuretic Peptide 17.2 06/05/21 15:25: Urine Color Yellow, Urine Clarity Clear, Urine pH 7.0, Ur Specific [place] 1.010, Urine Protein 100 H, Urine Glucose (UA) 50 H, Urine Ketones Negative, Urine Occult Blood 50 H, Urine Nitrite Negative, Urine Bilirubin Negative, Urine Urobilinogen Normal, Ur Leukocyte Esterase Negative, Urine RBC 0-5 SEEN, Urine WBC 0 SEEN, Ur Squamous Epith Cells 0 SEEN, Urine Bacteria 0 SEEN, Urine Mucus 0 SEEN 06/05/21 15:25: Ur Random Sodium 119, Urine Creatinine 54.90 06/06/21 05:18: WBC 5.1, RBC 2.39 L, Hgb 7.4 L, Hct 22.3 L, MCV 93.3, MCH 31.0, MCHC 33.2, RDW Std Deviation 41.7, RDW Coeff of Mayank 12.2, Plt Count 175, MPV 10.2, Immature Gran % (Auto) 0.400, Neut % (Auto) 55.9, Lymph % (Auto) 28.2, [place] % (Auto) 7.1, Eos % (Auto) 7.8 H, Baso % (Auto) 0.6, Absolute Neuts (auto) 2.9, Absolute Lymphs (auto) 1.44, Nucleated RBC % 0 06/06/21 05:18: Sodium 138, Potassium 4.8, Chloride 114 H, Carbon Dioxide 20.0 L, Anion Gap 4 L, BUN 43 H, Creatinine 1.90 H, Estim Creat Clear Calc 19.30, Est GFR (MDRD) Af Amer 33 L, Est GFR (MDRD) Non-Af 27 L, BUN/Creatinine Ratio 22.6 H, Glucose 142 H, Calcium 10.1, Total Bilirubin 0.30, AST 12 L, ALT 10 L, Alkaline Phosphatase 54, Total Protein 5.6 L, Albumin 2.5 L, Globulin 3.1, Albumin/Globulin Ratio 0.8 L 06/06/21 05:18: Iron 46 L, TIBC 304, Iron Saturation 15.1, Ferritin 67 Radiology Impression Renal Ultrasound 06/05/21 14:56 IMPRESSION: 1. Low normal left kidney with increased renal cortical echogenicity consistent with medical renal disease. 2. Mildly enlarged left kidney without abnormality. There is no major interval change when compared to prior study. Electronically Signed: Kg Hein DO at 22:08 EST Reading Location ID and State: [address] [place] [address] Tel [phone], Service support , Echocardiogram 06/05/21 14:57 Interpretation Summary The estimated ejection fraction is 65 %. No evidence for diastolic dysfunction. Mild aortic stenosis. Ordering Physician: Erika Yepez Referring Physician: Vel Graham Performed By: Kendra Del Rosario, RDCS, RVT
[2021-06-06] MEDS: 0.9% Normal Saline 1,000 ML 50 ML IV (11:14)
[2021-06-06] MEDS: Insulin Lispro 100 UNIT/ML INSULN.PEN SC ×2 (11:20→16:47)
[2021-06-06] MEDS: 0.9% Saline Lock 10 ML Syringe IV (11:20)
[2021-06-06 11:26] LABS: Bedside Glucose 165 mg/dL (74-106)
[2021-06-06] MEDS: Chlorthalidone 50 MG Tablet 25 MG PO (13:10)
[2021-06-06] MEDS: Lisinopril 20 MG Tablet PO (13:10)
--- NOTE | 2021-06-06 13:37 | PN.HOSP_ITS ---
Documented by User: Anthony SHRESTHA 06/06/21 13:47 Subjective Subjective Patient is a 80-year-old female comfortably resting in bed, alert and orient x3. Patient reports that her lower extremity swelling is better, denies development of any new symptoms overnight. Objective Data Objective Data Vital Signs: Vital Signs Temp Pulse Resp BP Pulse Ox 98.5 F 75 16 183/66 H 95 06/06/21 09:20 06/06/21 09:20 06/06/21 09:20 06/06/21 09:20 06/06/21 09:20 Oxygen Delivery Method Room Air Weight: 234 lb 5.622 oz Body Mass Index (BMI) 42.8 Intake & Output: Intake and Output for Last 24 Hours 06/04/21 06/05/21 06/06/21 23:59 23:59 23:59 Intake Total 54 / 54 1205 / 1205 Output Total 1750 / 1750 Balance 54 / 54 -545 / -545 Lab / Micro Data Result Diagrams: 06/06/21 05:18 06/06/21 05:18 Labs: Laboratory Results - last 24 hr 06/05/21 15:25: Urine Color Yellow, Urine Clarity Clear, Urine pH 7.0, Ur Specific [place] 1.010, Urine Protein 100 H, Urine Glucose (UA) 50 H, Urine Ketones Negative, Urine Occult Blood 50 H, Urine Nitrite Negative, Urine Tacho irubin Negative, Urine Urobilinogen Normal, Ur Leukocyte Esterase Negative, Urine RBC 0-5 SEEN, Urine WBC 0 SEEN, Ur Squamous Epith Cells 0 SEEN, Urine Bacteria 0 SEEN, Urine Mucus 0 SEEN 06/05/21 15:25: Ur Random Sodium 119, Urine Creatinine 54.90 06/06/21 05:18: WBC 5.1, RBC 2.39 L, Hgb 7.4 L, Hct 22.3 L, MCV 93.3, MCH 31.0, MCHC 33.2, RDW Std Deviation 41.7, RDW Coeff of Mayank 12.2, Plt Count 175, MPV 10.2, Immature Gran % (Auto) 0.400, Neut % (Auto) 55.9, Lymph % (Auto) 28.2, Mo no % (Auto) 7.1, Eos % (Auto) 7.8 H, Baso % (Auto) 0.6, Absolute Neuts (auto) 2.9, Absolute Lymphs (auto) 1.44, Nucleated RBC % 0 06/06/21 05:18: Sodium 138, Potassium 4.8, Chloride 114 H, Carbon Dioxide 20.0 L , Anion Gap 4 L, BUN 43 H, Creatinine 1.90 H, Estim Creat Clear Calc 19.30, Est GFR (MDRD) Af Amer 33 L, Est GFR (MDRD) Non-Af 27 L, BUN/Creatinine Ratio 22.6 H , Glucose 142 H, Calcium 10.1, Total Bilirubin 0.30, AST 12 L, ALT 10 L, Alkaline Phosphatase 54, Total Protein 5.6 L, Albumin 2.5 L, Globulin 3.1, Albumin/Globulin Ratio 0.8 L 06/06/21 05:18: Iron 46 L, TIBC 304, Iron Saturation 15.1, Ferritin 67 06/06/21 11:12: POC Glucose 165 H Radiography Diagnostic Testing: Radiology Impression Renal Ultrasound 06/05/21 14:56 IMPRESSION: 1. Low normal left kidney with increased renal cortical echogenicity consistent with medical renal disease. 2. Mildly enlarged left kidney without abnormality. There is no major interval change when compared to prior study. Electronically Signed: Kg Hein DO at 22:08 EST Reading Location ID and State: [address] [place] [address] Tel [phone], Service support , Echocardiogram 06/05/21 14:57 Interpretation Summary The estimated ejection fraction is 65 %. No evidence for diastolic dysfunction. Mild aortic stenosis. Ordering Physician: Erika Yepez Referring Physician: Vel Graham Performed By: Kendra Del Rosario, RDCS, RVT Physical Exam Const alert, oriented x3 and no apparent distress HEENT head/scalp atraumatic and moist oral mucous membranes Head and Scalp: normocephalic Eyes PERRL and conjunctivae normal Neck no lymphadenopathy, supple and no JVD Resp normal respiratory effort, no retractions and no use of accessory muscles Cardio regular rate, regular rhythm and no JVD GI normal to inspection, nondistended, normoactive bowel sounds Extremity normal to inspection Skin no rashes or lesions noted Neuro CN's II-XII intact bilaterally Psych affect normal Assessment & Plan Assessment/Plan (1) Acute kidney injury: (2) Bilateral edema of lower extremity: PLAN: Day 1 Discharge planning: To be determined. 1) bilateral lower extremity edema Much improved from admission. Updated echocardiogram demonstrates an EF of 65% and no evidence of diastolic dysfunction. Nephrology following recommendations are to resume home lisinopril, add chlorthalidone and as needed hydralazine. 2) ABILIO on CKD stage IIIb Creatinine improved to 1.9 today. Renal ultrasound without hydronephrosis. Nephrology following. Creatinine currently 2.3. Baseline appears around 1.5. Hold nephrotoxic's. Will initiate fluids and continue to monitor BMP. 3) HTN Lisinopril and chlorthalidone initiated off nephrology consult, amlodipine discontinued. 4) dementia Continue donepezil. 5) hyperlipidemia Continue statin. DVT prophylaxis - Heparin Patient seen by Anthony Cordova PA-C, under the supervision of Dr. Yepez. Time spent on patient care: 8 minutes. Documented by User: Dr. Erika Yepez MD 06/06/21 15:31 Objective Data Lab / Micro Data Result Diagrams: 06/06/21 05:18 06/06/21 05:18 Charges/Coding Addendum Addendum: This patient was seen in conjunction with FADY Dumont. I have in dependently interviewed and examined the patient and reviewed pertinent historical, laboratory, and other data. Please refer to FADY Dumont's note for his patient's presentation, findings, and recommendations. I have reviewed and his note and concur with his documentation Patient was seen and examined. Events of the previous day was reviewed. Patient feels better. No acute events overnight. Denies any progressive shortness of breath. Physical Exam: Gen: Morbidly obese, comfortable, not pale, not jaundiced, well-hydrated, not on oxygen CVS:HS I +II, regular, no murmurs RESP: Diminished at lung bases GI: BS present and normal, soft, nontender, no palpable organs EXT: Bilateral lower extremity edema, +1, improved, chronic venous stasis dermatitis ASSESSMENT: 1. Acute kidney injury on CKD stage IIIb 2. History of DVT/PE 3. Acute on chronic lymphedema 4. Dementia 5. Hypertension 6. Type DM 7. GERD 8. Iron deficiency anemia Plan: Appreciate nephrology consult check HbA1c Nephrology consult Gentle IV fluids; discontinue after 500 mls IV Venofer, stool for occult blood Repeat blood work in a.m. Time spent coordinating patient's care, discussing with nursing, discussing with nephrology: 25 minutes Visit Charges Inpatient E&M: 23160 Subs Hosp L2
--- NOTE | 2021-06-06 14:30 | CASEMGMT ---
JONI CM in to pt room, pt sitting up in chair. Discussed dc planning, pt states she does not feel that she wants any HHC at this time. She can discuss with her dtr. She states we are funny about people in our home due to COVID. She will further think about this and if she changes her mind, ask for the CM.
[2021-06-06 14:50] LABS: Protein, Urine (Random) 135.8 mg/dL (<11.9); Protein:Creat Ratio 2607 mg/g CRE (0-200)
[2021-06-06 14:55] VITALS: BP 149/55; PULSE 81; RESP 16; TEMP 36.6; O2SAT 100
[2021-06-06 16:13] LABS: Hemoglobin A1c 8.1 % (3.8-5.6)
[2021-06-06 17:01] LABS: Bedside Glucose 171 mg/dL (74-106)
[2021-06-06] MEDS: Pravastatin 40 MG Tablet PO (22:39)
[2021-06-06 22:45] VITALS: BP 167/76; PULSE 80; RESP 18; TEMP 37; O2SAT 96
[2021-06-06 22:51] LABS: Bedside Glucose 148 mg/dL (74-106)
[2021-06-07 05:29] LABS: Absolute Lymphocyte Count 1.15 X10^3/uL (0.83-4.51); Absolute Neutrophil Count 3.3 X10^3/uL (2.0-7.7); Basophil# 0.02 X10^3/uL; Basophil% 0.4 % (0-1); Eosinophil# 0.39 X10^3/uL; Eosinophils% 7.4 % (0-5); Hematocrit 24.1 % (37-47); Hemoglobin 7.8 g/dL (12.0-15.0); Lymphocyte # 1.15 X10^3/ul (0.83-4.51); Lymphocyte % 21.7 % (19-41); Mean Corp Hgb Conc 32.4 g/dL (32-36); Mean Corpuscular Hgb 30.4 pg (27.0-32.0); Mean Corpuscular Volume 93.8 fL (81-99); Mean Platelet Vol. 10.4 fl (6.2-12.0); Monocyte# 0.41 X10^3/uL; Monocyte% 7.7 % (0-10); NRBC Flagged by Analyzer 0 % (0-5); Neutrophil # 3.31 X10^3/uL (2.7-7.7); Neutrophil % 62.4 % (47-70); Platelet Count 181 K/mm3 (150-450); RBC Distribution Width CV 11.9 % (11.6-14.6); RBC Distribution Width SD 41.4 fl (35.1-43.9); Red Blood Count 2.57 M/mm3 (4.2-5.4); White Blood Count 5.3 K/mm3 (4.4-11.0)
[2021-06-07 05:58] LABS: Anion Gap 5 (5-15); BUN 37 mg/dL (7-18); BUN/Creat Ratio 20.7 RATIO (10-20); Calcium,Total 9.8 mg/dL (8.5-10.1); Chloride 114 mmol/L (98-107); Creatinine, Serum 1.79 mg/dL (0.55-1.02); EST Glomerular Filtration Rate 29 mL/min (>60); Est Glom Filt Rate - Afr Amer 35 mL/min (>60); Estimated Creatinine Clearance 20.49 ml/min; Glucose 155 mg/dL (74-106); Potassium 4.3 mmol/L (3.5-5.1); Sodium Level 139 mmol/L (136-145)
[2021-06-07] MEDS: Heparin Injection (Vial) 5,000 UNIT/ML VIAL 5000 UNIT SC ×2 (06:55→14:47)
[2021-06-07] MEDS: Insulin Lispro 100 UNIT/ML INSULN.PEN SC (06:55)
[2021-06-07 07:00] VITALS: BP 169/72; PULSE 75; RESP 16; TEMP 36.7; O2SAT 96
[2021-06-07 07:16] LABS: Bedside Glucose 167 mg/dL (74-106)
--- NOTE | 2021-06-07 08:53 | PCM.PN.HOSP ---
Objective Data Objective Data Vital Signs: Vital Signs Temp Pulse Resp BP Pulse Ox 98.0 F 75 16 169/72 H 96 06/07/21 07:00 06/07/21 07:00 06/07/21 07:00 06/07/21 07:00 06/07/21 07:00 Oxygen Delivery Method Room Air Weight: 106.5 kg Body Mass Index (BMI) 42.8 Intake & Output: Intake and Output for Last 24 Hours 06/05/21 06/06/21 06/07/21 23:59 23:59 23:59 Intake Total 54 / 54 1752.5 / 1752.5 Output Total 1750 / 2750 1999 Balance 54 / 54 2.5 / -997.5 -1999 Lab / Micro Data Result Diagrams: 06/07/21 04:08 06/07/21 04:08 Labs: Laboratory Results - last 24 hr 06/05/21 15:25: U Random Total Protein 135.8 H, Urine Creatinine 52.10, Protein/Creatinin Ratio 2607 H 06/06/21 05:18: Iron 46 L, TIBC 304, Iron Saturation 15.1, Ferritin 67 06/06/21 05:18: Hemoglobin A1c 8.1 H 06/06/21 11:12: POC Glucose 165 H 06/06/21 16:43: POC Glucose 171 H 06/06/21 22:37: POC Glucose 148 H 06/07/21 04:08: WBC 5.3, RBC 2.57 L, Hgb 7.8 L, Hct 24.1 L, MCV 93.8, MCH 30.4, MCHC 32.4, RDW Std Deviation 41.4, RDW Coeff of Mayank 11.9, Plt Count 181, MPV 10.4, Immature Gran % (Auto) 0.400, Neut % (Auto) 62.4, Lymph % (Auto) 21.7, [place] % (Auto) 7.7, Eos % (Auto) 7.4 H, Baso % (Auto) 0.4, Absolute Neuts (auto) 3.3, Absolute Lymphs (auto) 1.15, Nucleated RBC % 0 06/07/21 04:08: Sodium 139, Potassium 4.3, Chloride 114 H, Carbon Dioxide 20.0 L, Anion Gap 5, BUN 37 H, Creatinine 1.79 H, Estim Creat Clear Calc 20.49, Est GFR (MDRD) Af Amer 35 L, Est GFR (MDRD) Non-Af 29 L, BUN/Creatinine Ratio 20.7 H, Glucose 155 H, Calcium 9.8 06/07/21 06:53: POC Glucose 167 H Radiography Diagnostic Testing: Radiology Impression Echocardiogram 06/05/21 14:57 Interpretation Summary The estimated ejection fraction is 65 %. No evidence for diastolic dysfunction. Mild aortic stenosis. Ordering Physician: Erika Yepez Referring Physician: Vel Graham Performed By: Kendra Del Rosario, MIMI, RVT
[2021-06-07 09:33] VITALS: BP 172/78; PULSE 75; RESP 18; TEMP 36.7; O2SAT 97
[2021-06-07] MEDS: Chlorthalidone 50 MG Tablet 25 MG PO (09:38)
[2021-06-07] MEDS: Menthol/Lanolin/Calamine/Znox 113 GM Tube 1 APPLIC TOPICAL (09:38)
[2021-06-07] MEDS: Lisinopril 20 MG Tablet PO (09:38)
[2021-06-07] MEDS: Nystatin Powder 15gm Bottle 1 APPLIC TOPICAL (09:38)
--- NOTE | 2021-06-07 10:10 | PCM.DC ---
Discharge Instructions Diet Discharge Diet: No restrictions Activity Discharge Activity: Return to Normal Activity Weight Bearing Status: Weight bearing as tolerated Dressing / Incision Call your doctor if you observe: Fever of 101 or Higher, Numbness or Tingling, Shortness of breath, Dizziness, Chest pain, Increased palpitations (irregular heartbeat) and Calf discomfort Follow Up Care Please Follow Up With: Primary care provider When: Within the next two weeks. Test Results: Test results from this visit will be discussed in further detail at your follow-up appointment, if applicable. Discharge Plan Admission Admit Date/Time: 06/05/21 12:38 Primary Reason for Your Visit: LE swelling Attending Provider: Erika Yepez Primary Care Provider: Vel Graham Consulting Providers: Alejo Jean Instructions Additional Instructions / Restrictions: * Lisinopril: Your Lisinopril dose has been changed: break your 20mg pill in half and take half a pill daily. * Stop taking Amlodipine and Pioglitozone (Actos) as this may be contributing to your leg swelling. Discharge Orders/Prescriptions Prescriptions: New chlorthalidone 50 mg Tablet 25 mg PO DAILY Qty: 30 RF: 0 Tradjenta 5 mg tablet 5 mg PO DAILY Qty: 30 RF: 0 Continued pravastatin 40 MG tablet 40 mg PO QHS RF: 0 acetaminophen 500 MG tablet 1,000 mg PO Q6H PRN PRN (Reason: Pain 1-10 Or Fever) RF: 0 rivaroxaban 20 MG tablet 20 mg PO DAILY RF: 0 donepezil 5 MG tablet 5 mg PO QHS RF: 0 medroxyprogesterone 10 mg tablet 10 mg PO DAILY RF: 0 gabapentin 400 mg capsule 400 mg PO TID RF: 0 Changed lisinopril 20 mg tablet 10 mg PO DAILY Qty: 0 RF: 0 Discontinued pioglitazone [Actos] 15 MG tablet 15 mg PO DAILY RF: 0 amlodipine 10 MG tablet 10 mg PO DAILY RF: 0 Referrals / Follow Up: Vel Graham MD [Primary Care Provider] - Within 2 Weeks Disposition Disposition (needs filled in before D/C Order can be placed): Home, Self Care
--- NOTE | 2021-06-07 11:34 | PCM.DC.SUM ---
Documented by User: Anthony SHRESTHA 06/07/21 11:42 Providers Date of Admission: 06/05/21 Date of Discharge: 06/07/21 Primary Care Physician: Dr. Vel Graham MD Consultations 06/05/21 14:55 Consult: Nephrology Routine Consulting Provider: Alejo Jean Reason for Consult: ABILIO on CKD EMERGENT Consult: No MD Notified: Yes Date Notified: 06/05/21 Time Notified: 14:56 Method of Notification: Answering Service Reason For Visit: ABILIO Diagnosis Discharge Diagnosis (1) Acute kidney injury: Status: Acute Code(s): N17.9 - Acute kidney failure, unspecified (2) Bilateral edema of lower extremity: Status: Acute Code(s): R60.0 - Localized edema Medications at Discharge Home Medications pravastatin 40 mg PO QHS 10/05/17 acetaminophen 1,000 mg PO Q6H PRN PRN 04/15/20 rivaroxaban 20 mg PO DAILY 06/23/20 donepezil 5 mg PO QHS 04/09/21 gabapentin 400 mg PO TID 06/05/21 medroxyprogesterone 10 mg PO DAILY 06/05/21 chlorthalidone 25 mg PO DAILY #30 tab 06/07/21 linagliptin [Tradjenta] 5 mg PO DAILY #30 tab 06/07/21 lisinopril 10 mg PO DAILY #0 tab 06/07/21 Hospital Course Procedures 2-D Echocardiogram and Transthoracic echo Summary of Care Provided Minutes Spent on Discharge: 20 Hospital Course: Patient is a 80-year-old female who was admitted to [facility] on 06/05/2021 for evaluation and management of bilateral lower extremity swelling. Course and management as below. 1) bilateral lower extremity edema Believed to be caused by a combination of patient's amlodipine and pioglitazone. Updated echocardiogram demonstrates an EF of 65% and no evidence of diastolic dysfunction. Did not appear infectious as patient was without any other symptoms and low suspicion for PE/DVT as patient was without tachycardia or shortness of breath and is chronically anticoagulated on Xarelto. Nephrology consulted and recommendations are to stop patient's pioglitazone and amlodipine, initiate chlorthalidone and reduce patient's home lisinopril dose. Hospital medicine team will also add Tradjenta in place of pioglitazone. Patient is to follow-up with primary care provider within the next 2 weeks. 2) ABILIO on CKD stage IIIb Creatinine improved to 1.79. Renal ultrasound without hydronephrosis. Nephrology consulted, recommendations and plan as above. 3) HTN Medication changes as above. 4) dementia Continue donepezil. 5) hyperlipidemia Continue statin. 6) DM2 Hemoglobin A1c is 8.1, she would benefit from further titration of home diabetic meds. Medication changes as above, patient to follow-up with primary care provider within the next 2 weeks for follow-up diabetic care. Patient seen by Anthony Cordova PA-C, under the supervision of Dr. Yepez. Time spent on patient care: 20 minutes. Physical Exam Narrative Patient is a 80-year-old female comfortably resting in bed, alert and orient x3. Denies development of any new symptoms overnight. Does not appear in acute distress. Const alert, oriented x3 and no apparent distress HEENT normocephalic, head/scalp atraumatic and hearing grossly normal bilaterally Eyes PERRL and conjunctivae normal Neck no lymphadenopathy, supple and no JVD Resp normal respiratory effort, no retractions and no use of accessory muscles Cardio regular rate, regular rhythm and no JVD GI normal to inspection, nondistended, normoactive bowel sounds Extremity Extremity Narrative: Enmanuel wraps applied to the lower extremities bilaterally, swelling appears much improved from admission. Skin no rashes or lesions noted Neuro CN's II-XII intact bilaterally Psych affect normal Weight / BMI Weight Weight: 234 lb 12.677 oz Body Mass Index (BMI) 42.8 ABG / Lab / Microbiology Data Result Diagrams: 06/07/21 04:08 06/07/21 04:08 Laboratory: Laboratory Results - last 24 hr 06/05/21 15:25: U Random Total Protein 135.8 H, Urine Creatinine 52.10, Protein/Creatinin Ratio 2607 H 06/06/21 05:18: Hemoglobin A1c 8.1 H 06/06/21 16:43: POC Glucose 171 H 06/06/21 22:37: POC Glucose 148 H 06/07/21 04:08: WBC 5.3, RBC 2.57 L, Hgb 7.8 L, Hct 24.1 L, MCV 93.8, MCH 30.4, MCHC 32.4, RDW Std Deviation 41.4, RDW Coeff of Mayank 11.9, Plt Count 181, MPV 10.4, Immature Gran % (Auto) 0.400, Neut % (Auto) 62.4, Lymph % (Auto) 21.7, [place] % (Auto) 7.7, Eos % (Auto) 7.4 H, Baso % (Auto) 0.4, Absolute Neuts (auto) 3.3, Absolute Lymphs (auto) 1.15, Nucleated RBC % 0 06/07/21 04:08: Sodium 139, Potassium 4.3, Chloride 114 H, Carbon Dioxide 20.0 L, Anion Gap 5, BUN 37 H, Creatinine 1.79 H, Estim Creat Clear Calc 20.49, Est GFR (MDRD) Af Amer 35 L, Est GFR (MDRD) Non-Af 29 L, BUN/Creatinine Ratio 20.7 H, Glucose 155 H, Calcium 9.8 06/07/21 06:53: POC Glucose 167 H D/C Instructions Discharge Diet: No restrictions Weight Bearing Status: Weight bearing as tolerated Call your doctor if you observe: Fever of 101 or Higher, Numbness or Tingling, Shortness of breath, Dizziness, Chest pain, Increased palpitations (irregular heartbeat) and Calf discomfort Please Follow Up With: Primary care provider When: Within the next two weeks. Meaningful Use Info Meaningful Use Diagnoses (Choose all that apply): None applicable Discharge Plan Admission Admit Date/Time: 06/05/21 12:38 Primary Reason for Your Visit: LE swelling Attending Provider: Erika Yepez Primary Care Provider: Vel Graham Consulting Providers: Alejo Jean Instructions Additional Instructions / Restrictions: * Lisinopril: Your Lisinopril dose has been changed: break your 20mg pill in half and take half a pill daily. * Stop taking Amlodipine and Pioglitozone (Actos) as this may be contributing to your leg swelling. Discharge Orders/Prescriptions Prescriptions: New chlorthalidone 50 mg Tablet 25 mg PO DAILY Qty: 30 RF: 0 Tradjenta 5 mg tablet 5 mg PO DAILY Qty: 30 RF: 0 Continued pravastatin 40 MG tablet 40 mg PO QHS RF: 0 acetaminophen 500 MG tablet 1,000 mg PO Q6H PRN PRN (Reason: Pain 1-10 Or Fever) RF: 0 rivaroxaban 20 MG tablet 20 mg PO DAILY RF: 0 donepezil 5 MG tablet 5 mg PO QHS RF: 0 medroxyprogesterone 10 mg tablet 10 mg PO DAILY RF: 0 gabapentin 400 mg capsule 400 mg PO TID RF: 0 Changed lisinopril 20 mg tablet 10 mg PO DAILY Qty: 0 RF: 0 Discontinued pioglitazone [Actos] 15 MG tablet 15 mg PO DAILY RF: 0 amlodipine 10 MG tablet 10 mg PO DAILY RF: 0 Referrals / Follow Up: Vel Graham MD [Primary Care Provider] - Within 2 Weeks Disposition Disposition (needs filled in before D/C Order can be placed): Home, Self Care Documented by User: Dr. Erika Yepez MD 06/07/21 12:39 Providers Date of Admission: 06/05/21 Reason For Visit: ABILIO Medications at Discharge Home Medications pravastatin 40 mg PO QHS 10/05/17 acetaminophen 1,000 mg PO Q6H PRN PRN 04/15/20 rivaroxaban 20 mg PO DAILY 06/23/20 donepezil 5 mg PO QHS 04/09/21 gabapentin 400 mg PO TID 06/05/21 medroxyprogesterone 10 mg PO DAILY 06/05/21 chlorthalidone 25 mg PO DAILY #30 tab 06/07/21 linagliptin [Tradjenta] 5 mg PO DAILY #30 tab 06/07/21 lisinopril 10 mg PO DAILY #0 tab 06/07/21 ABG / Lab / Microbiology Data Result Diagrams: 06/07/21 04:08 06/07/21 04:08 Discharge Plan Admission Admit Date/Time: 06/05/21 12:38 Primary Reason for Your Visit: LE swelling Attending Provider: Erika Yepez Primary Care Provider: Vel Graham Consulting Providers: Alejo Jean Instructions Additional Instructions / Restrictions: * Lisinopril: Your Lisinopril dose has been changed: break your 20mg pill in half and take half a pill daily. * Stop taking Amlodipine and Pioglitozone (Actos) as this may be contributing to your leg swelling. Discharge Orders/Prescriptions Prescriptions: New chlorthalidone 50 mg Tablet 25 mg PO DAILY Qty: 30 RF: 0 Tradjenta 5 mg tablet 5 mg PO DAILY Qty: 30 RF: 0 Continued pravastatin 40 MG tablet 40 mg PO QHS RF: 0 acetaminophen 500 MG tablet 1,000 mg PO Q6H PRN PRN (Reason: Pain 1-10 Or Fever) RF: 0 rivaroxaban 20 MG tablet 20 mg PO DAILY RF: 0 donepezil 5 MG tablet 5 mg PO QHS RF: 0 medroxyprogesterone 10 mg tablet 10 mg PO DAILY RF: 0 gabapentin 400 mg capsule 400 mg PO TID RF: 0 Changed lisinopril 20 mg tablet 10 mg PO DAILY Qty: 0 RF: 0 Discontinued pioglitazone [Actos] 15 MG tablet 15 mg PO DAILY RF: 0 amlodipine 10 MG tablet 10 mg PO DAILY RF: 0 Referrals / Follow Up: Vel Graham MD [Primary Care Provider] - Within 2 Weeks Disposition Disposition (needs filled in before D/C Order can be placed): Home, Self Care Charges/Coding Addendum Addendum: This patient was seen in conjunction with FADY Dumont. I have independently interviewed and examined the patient and reviewed pertinent historical, laboratory, and other data. Please refer to FADY Dumont's note for his patient's presentation, findings, and recommendations. I have reviewed and his note and concur with his documentation 80-year-old female with multiple comorbidities for CKD, type II DM, dementia, chronic debility who comes in with worsening bilateral lower extremity swelling. Patient denies any chest pain or palpitation. She is usually wheelchair-bound and transfers by herself. She lives with her daughter. Her admitting blood work showed BUN of 51, creatinine was 2.33, baseline creatinine is 1.5-1.7. Renal ultrasound showed medical renal disease. Urine sodium was elevated. Patient was admitted to the [facility] floor and started on IV fluids with improvement in her kidney function. 2D echo showed EF of 65%, no evidence for diastolic dysfunction. Blood pressure was not controlled during this hospital stay, nephrology made changes to his medications. Her amlodipine was stopped. She was started on lisinopril and chlorthalidone. It was also recommended that she stopped Actos as it could contribute to bilateral leg edema. Continue on Tradjenta. Patient will need to follow-up with her primary care doctor as well as nephrology in the outpatient. She will need repeat kidney function test within a week. On the day of discharge, patient was seen and examined. Denied any new complaint. Physical Exam: Gen: Morbidly obese, comfortable, not pale, not jaundiced, well-hydrated, not on oxygen CVS:HS I +II, regular, no murmurs RESP: Diminished at lung bases GI: BS present and normal, soft, nontender, no palpable organs EXT: Bilateral lower extremity edema, +2 with slight erythema, differential, chronic venous stasis dermatitis Time spent coordinating patient's care discussing with nursing, patient, family and nephrology: 35 minutes Visit Charges Inpatient E&M: 15025 Disch Hosp
[2021-06-07 11:36] LABS: Bedside Glucose 190 mg/dL (74-106)
--- NOTE | 2021-06-07 13:42 | CASEMGMT ---
TC to [facility] pharmacy, pt cost for tradjenta is zero copay. Pt still is declining need for HHC.
[2021-06-07 15:36] VITALS: BP 170/84; PULSE 78; RESP 18; TEMP 36.7; O2SAT 100
== END 2021-06-07 17:00 | disposition home or self-care (01) | DRG 683 ==
LOC: ED 12:37 → MS3 14:21
PROVIDERS: Internal Medicine Nephrology; Physician Assistant; Admitting Provider Internal Medicine; Emergency Provider Emergency Medicine; PCP Family Medicine; Visit Provider Internal Medicine
DX: N17.9 Acute kidney failure, unspecified (principal); I27.20 Pulmonary hypertension, unspecified; E11.22 Type 2 diabetes mellitus with diabetic chronic kidney disease; D50.9 Iron deficiency anemia, unspecified; F03.90 Unspecified dementia, unspecified severity, without behavioral disturbance, psychotic disturbance, mood disturbance, and anxiety; N18.32 Chronic kidney disease, stage 3b; I12.9 Hypertensive chronic kidney disease with stage 1 through stage 4 chronic kidney disease, or unspecified chronic kidney disease; K21.9 Gastro-esophageal reflux disease without esophagitis; E78.5 Hyperlipidemia, unspecified; R60.0 Localized edema; R53.81 Other malaise; Z79.01 Long term (current) use of anticoagulants; Z79.899 Other long term (current) drug therapy; Z79.4 Long term (current) use of insulin; M19.90 Unspecified osteoarthritis, unspecified site; Z86.718 Personal history of other venous thrombosis and embolism; Z86.711 Personal history of pulmonary embolism; Z99.3 Dependence on wheelchair; Z68.43 Body mass index [BMI] 50.0-59.9, adult; E66.01 Morbid (severe) obesity due to excess calories
CPT/HCPCS: 36415; 71045; 76770; 80048; 80053; 81001; 82570; 82728; 82962; 83036; 83540; 83550; 83880; 84156; 84300; 85025; 87040; 93306; 97162; 97166; 97802; 99285; J7030; J7050; Q9957; A4216; C8929; J2916

== ENCOUNTER 2021-06-11 13:00 | Inpatient (IN) | payer MEDICARE, MEDICAID, SELFPAY ==
[2021-06-11 13:02] VITALS: BP 188/79; PULSE 79; RESP 17; TEMP 36.4; O2SAT 95; BMI 43.7
--- NOTE | 2021-06-11 13:43 | CT_ITS ---
STUDY: CT LUMBAR SPINE WITHOUT CONTRAST REASON FOR EXAM: Female, 80 years old. Trauma RADIATION DOSAGE (If Supplied By Facility): CTDIvol = ( 36.18 ) mGy, DLP = ( 979.63 ) mGycm TECHNIQUE: The patient was scanned in a multi detector CT scanner. High resolution transaxial imaging was performed. Images were obtained from L1 to S1 vertebral level. Sagittal and coronal images were reconstructed. Individualized dose optimization techniques were used for this CT. COMPARISON: None FINDINGS: Normal lumbar lordosis. There is no substantial scoliosis. Normal vertebrae of the lumbar spine. L1-2: Marked degree of disc space narrowing and disc degeneration. Anterior spondylosis. Mild degree of diffuse posterior disc bulge. L2-3: Marked degree of disc space narrowing with spondylosis and disc space degeneration. Mild degree of diffuse posterior disc bulge and mild bilateral neural foraminal stenosis. L3-4: Moderate degree of disc space narrowing. Mild degree of diffuse posterior disc bulge. Facet joint osteoarthritis. Moderate degree of bilateral neural foraminal stenosis. L4-5: Mild degree of disc space narrowing. Diffuse posterior disc bulge with facet joint hypertrophy causing moderate to marked degree of bilateral neural foraminal stenosis. Mild degree of central canal stenosis due to hypertrophy of the facet joints and ligamentum flavum. L5-S1: Mild degree of disc space narrowing and spondylosis. Atherosclerotic calcification of the abdominal aorta. CT/Spine Lumbar without Contrast IMPRESSION: Multilevel degenerative changes, as described above. Electronically Signed: Willie Crow MD at 14:52 EST ,
--- NOTE | 2021-06-11 13:43 | CT_ITS ---
STUDY: CT BRAIN WITHOUT CONTRAST REASON FOR EXAM: Female, 80 years old. Weakness RADIATION DOSAGE (If Supplied By Facility): CTDIvol = ( 47.06 ) mGy, DLP = ( 872.68 ) mGycm TECHNIQUE: Transaxial CT imaging of the brain was performed without administration of intravenous contrast material. Individualized dose optimization techniques were used for this CT. COMPARISON: Comparison is made with prior examination of 12/08/2019. FINDINGS: Normal soft tissue structures. There is hyperostosis frontalis internus. There is mild cerebral atrophy with widening of the extra-axial spaces and ventricular dilatation. There are areas of decreased attenuation within the white matter tracts of the supratentorial brain, consistent with microvascular disease changes. Normal basal ganglia and thalami. Normal brainstem. Normal cerebellum. There is no intracranial hemorrhage. There are no findings of an acute ischemic infarction. Atherosclerotic calcification of the vertebral arteries and cavernous portions of the internal carotid arteries bilaterally. Normal visualized paranasal sinuses. CT/Brain/Head without Contrast IMPRESSION: Chronic involutional changes of the brain. Electronically Signed: Willie Crow MD at 14:51 EST ,
--- NOTE | 2021-06-11 13:43 | EKG12_ITS ---
Test Reason : DISABILITY Blood Pressure : / mmHG Vent. Rate : 073 BPM Atrial Rate : 073 BPM P-R Int : 178 ms QRS Dur : 096 ms QT Int : 382 ms P-R-T Axes : 000 -17 007 degrees QTc Int : 420 ms Normal sinus rhythm Normal ECG Confirmed by STACEY SNEED MD ([id number]), science editor JEYSON LOVELACE ([id number]) on 06/12/2021 10:13:43 AM Referred By: ER Confirmed By:STACEY SNEED MD
--- NOTE | 2021-06-11 13:45 | EDS_ITS ---
HPI History of Present Illness Chief Complaint: Weakness Informant: patient Narrative Narrative: Patient presents with weakness of her lower extremities that seems more on the left than the right. This has been going on for some time. She did have a fall about a month ago and felt some sort of sensation in her back that is hard to describe. She thinks the weakness has gotten worse since then. She also has swelling the legs that comes and goes. It is hard to say if this is worse or not recently. Patient was recently admitted to the hospital for these issues. She did have an acute kidney injury. Medications were changed and she went home. I talked to her about options. She states nothing is really changed since she was in the hospital. However, her daughter wanted her to come in because she is afraid she is going to fall when she pivots. I discussed with the patient if she would like to go to a rehab facility. She states her daughter would probably want her to go but she would prefer not to go but she is willing to go if that is was needed. It sounds like she is not doing well at home. [facility] Medical History Arthritis Back pain Diabetes Diabetes DVT (deep venous thrombosis) Easy bruising Excessive bleeding Gastric reflux GERD (gastroesophageal reflux disease) High cholesterol History of pain when walking History of renal disease Hypertension Injury of head and neck Insulin dependent diabetes mellitus Kidney disease Non-smoker Pulmonary embolism Shortness of breath on exertion Uses wheelchair Wears glasses Home Medications pravastatin 40 mg PO QHS 10/05/17 [History Last Taken 06/04/21] acetaminophen 1,000 mg PO Q6H PRN PRN 04/15/20 [History Last Taken 04/14/20] rivaroxaban 20 mg PO DAILY 06/23/20 [History Last Taken 06/04/21] donepezil 5 mg PO QHS 04/09/21 [History Last Taken 06/04/21] gabapentin 400 mg PO TID 06/05/21 [History Last Taken 06/04/21] medroxyprogesterone 10 mg PO DAILY 06/05/21 [History Last Taken 06/04/21] chlorthalidone 25 mg PO DAILY #30 tab 06/07/21 [Rx Last Taken Unknown] linagliptin [Tradjenta] 5 mg PO DAILY #30 tab 06/07/21 [Rx Last Taken Unknown] lisinopril 10 mg PO DAILY #0 tab 06/07/21 [Rx Last Taken 06/04/21] Allergy/AdvReac Type Severity Reaction Status Date / Time empagliflozin Allergy Itching/VALENTIN Verified 06/11/21 13:02 [From Jardiance] H furosemide [From Lasix] Allergy Rash Verified 06/11/21 13:02 metformin Allergy decreased Verified 06/11/21 13:02 appetite warfarin [From Coumadin] Allergy Other Verified 06/11/21 13:02 apixaban [From Eliquis] AdvReac Other Verified 06/11/21 13:02 Surgical History Hx of section Hx of tonsillectomy Social History household members: children Smoking Status: Never smoker alcohol intake: never substance use type: does not use ROS ROS ED Constitutional Constitutional ED: Denies chills or fever(s) Eyes Eyes: Denies blurry vision ENT ENT ED: Denies rhinorrhea Cardiovascular Cardiovascular: Denies chest pain Respiratory/Chest Respiratory/Chest: Denies cough or dyspnea Gastrointestinal Gastrointestinal: Denies diarrhea, nausea or vomiting Genitourinary Genitourinary ED: Denies dysuria Musculoskeletal Musculoskeletal: Reports other Details: See history of present illness. Integumentary Denies rash Neurologic Neurologic: Reports weakness; Denies headache(s) or paresthesias Psychiatric Psychiatric: Denies depression Endocrine Endocrinology: Denies polydipsia or polyuria Allergic/Immunologic Allergic/Immunologic ED: Denies urticaria EXAM Physical Exam Const Vital Signs: 06/11/21 13:02 06/11/21 13:06 Temperature 97.5 F L Temperature Source Oral Pulse Rate 79 Respiratory Rate 17 Respiratory Effort Normal Non-Labored Respiratory Pattern Normal Blood Pressure 188/79 H Blood Pressure Mean 115 Pulse Ox 95 Oxygen Delivery Method Room Air Positive well nourished General Appearance ED: Negative for cyanotic or diaphoretic HEENT Reports moist mucous membranes Eyes General Eye ED: Yes pale conjunctiva Resp normal respiratory effort and clear to auscultation bilaterally Auscultation: Negative for rales Cardio regular rate GI normal to inspection, nondistended, normoactive bowel sounds Back/Spine no CVA tenderness Lumbar Spine / Lower Back: Negative for lumbar spinal tenderness Extremity General Extremety ED: Yes edema General Extremity: edema Neuro oriented x3 Sensorium / Orientation: alert Psych mental status grossly normal Skin no rashes or lesions noted and no wounds Skin Narrative: No notable erythema of the legs. MDM MDM MDM Narrative Medical decision making narrative: Patient's blood work shows normal CBC other than her baseline anemia which is not worse. Electrolytes show worsening creatinine again. CT scan of her head and back do not show any acute process. I am awaiting urinalysis. We talked more with the patient. She does live with her daughter. However, her daughter works full-time and cannot be there during the day. There is no one to help her therefore during the day. Patient normally pivots from her wheelchair to bed or other areas. However, she came back in because she is too weak to do this pivoting. She cannot care for herself at home and has to do that for a large portion of the week. She has been in rehab before with help. She is now willing to go to a rehab facility. Nursing staff involved social work. However, this patient would require a stay in the hospital before going to rehab and we cannot directly transfer her. I discussed the case with hospitalist. We are pending UA at this time. Lab Data Attestation: I reviewed the patient's lab results. Labs: Laboratory Results - last 24 hr 06/11/21 06/11/21 14:17 14:17 WBC 6.0 RBC 2.71 L Hgb 8.5 L Hct 26.1 L MCV 96.3 MCH 31.4 MCHC 32.6 RDW Std Deviation 43.5 RDW Coeff of Mayank 12.6 Plt Count 215 MPV 9.9 Immature Gran % (Auto) 0.700 Neut % (Auto) 61.6 Lymph % (Auto) 17.2 L [place] % (Auto) 7.5 Eos % (Auto) 12.7 H Baso % (Auto) 0.3 Absolute Neuts (auto) 3.7 Absolute Lymphs (auto) 1.03 Nucleated RBC % 0 Sodium 140 Potassium 4.3 Chloride 111 H Carbon Dioxide 24.0 Anion Gap 5 BUN 41 H Creatinine 2.38 H Estim Creat Clear Calc 15.41 Est GFR (MDRD) Af Amer 25 L Est GFR (MDRD) Non-Af 21 L BUN/Creatinine Ratio 17.2 Glucose 176 H Calcium 11.0 H Radiography Diagnostic Testing: Clinical Impression(s) from Imaging Studies Brain CT 06/11/21 13:43 IMPRESSION: Chronic involutional changes of the brain. Electronically Signed: Willie Crow MD at 14:51 EST , Lumbar Spine CT 06/11/21 13:43 IMPRESSION: Multilevel degenerative changes, as described above. Electronically Signed: Willie Crow MD at 14:52 EST , EKG Initial EKG: Comments: EKG done for generalized weakness shows a normal sinus rhythm with overall rate of 73. No ectopy. Mild nonspecific ST and T wave change but no sign of infarct or ischemia. NH interval, QRS duration and QTc normal. Discharge Plan Dx/Rx/DC Orders Clinical Impression: Acute kidney injury, Generalized muscle weakness, Inability to ambulate due to multiple joints Disposition Disposition: Acute Care [facility]
[2021-06-11 14:26] LABS: Absolute Lymphocyte Count 1.03 X10^3/uL (0.83-4.51); Absolute Neutrophil Count 3.7 X10^3/uL (2.0-7.7); Basophil# 0.02 X10^3/uL; Basophil% 0.3 % (0-1); Eosinophil# 0.76 X10^3/uL; Eosinophils% 12.7 % (0-5); Hematocrit 26.1 % (37-47); Hemoglobin 8.5 g/dL (12.0-15.0); Lymphocyte # 1.03 X10^3/ul (0.83-4.51); Lymphocyte % 17.2 % (19-41); Mean Corp Hgb Conc 32.6 g/dL (32-36); Mean Corpuscular Hgb 31.4 pg (27.0-32.0); Mean Corpuscular Volume 96.3 fL (81-99); Mean Platelet Vol. 9.9 fl (6.2-12.0); Monocyte# 0.45 X10^3/uL; Monocyte% 7.5 % (0-10); NRBC Flagged by Analyzer 0 % (0-5); Neutrophil # 3.68 X10^3/uL (2.7-7.7); Neutrophil % 61.6 % (47-70); Platelet Count 215 K/mm3 (150-450); RBC Distribution Width CV 12.6 % (11.6-14.6); RBC Distribution Width SD 43.5 fl (35.1-43.9); Red Blood Count 2.71 M/mm3 (4.2-5.4)
[2021-06-11 14:36] LABS: Anion Gap 5 (5-15); BUN 41 mg/dL (7-18); BUN/Creat Ratio 17.2 RATIO (10-20); Chloride 111 mmol/L (98-107); Creatinine, Serum 2.38 mg/dL (0.55-1.02); EST Glomerular Filtration Rate 21 mL/min (>60); Est Glom Filt Rate - Afr Amer 25 mL/min (>60); Estimated Creatinine Clearance 15.41 ml/min; Glucose 176 mg/dL (74-106); Potassium 4.3 mmol/L (3.5-5.1); Sodium Level 140 mmol/L (136-145)
[2021-06-11 15:13] LABS: Mucous, Urine 0 SEEN /hpf (<or=2+); Red Blood Cells-Urine 0 SEEN /hpf (0-5)
--- NOTE | 2021-06-11 15:21 | HP.PCM.HOS_ITS ---
HPI - General General Date of Admission: 06/11/21 HPI Narrative DIANNA ZAMUDIO, is a 80 F with an extensive PMH as outlined who presents via the ED on 06/11/2021 with a complaint of weakness in her lower extremities. Patient sustained a fall ~ one month ago. She was recently in the hospital for abilio on ckd. During her last admission, she refused placement. She has been very weak at home and is unable to care for herself much. She lives with her daughter who is concerned that patient may fall when she is trying to pivot from her bed to the bedside commode. She says she thinks her left leg is weaker than her right and she has been quite weak since she left. She also complained of back pain since she fell ~ 1 month ago. Vitals in the ED were BP of 188/79, MO of 79 and RR of 17 as well as temp of 97.5. She is saturating at 95% on room air. CBC showed Hb of 8.5 and wbc of 6 as well as platelets of 215. BMP showed sodium of 140 and potassium of 4.3 and Cr of 2.38; baseline Cr is ~ 1.3 from Apr 2020. She is being admitted to be managed for debility and Abilio on CKD stage 3. [facility] Medical History Arthritis Back pain Diabetes Diabetes DVT (deep venous thrombosis) Easy bruising Excessive bleeding Gastric reflux GERD (gastroesophageal reflux disease) High cholesterol History of pain when walking History of renal disease Hypertension Injury of head and neck Insulin dependent diabetes mellitus Kidney disease Non-smoker Pulmonary embolism Shortness of breath on exertion Uses wheelchair Wears glasses Home Medications pravastatin 40 mg PO QHS 10/05/17 [History Last Taken 06/10/21 21:00] acetaminophen 1,000 mg PO Q6H PRN PRN 04/15/20 [History Last Taken 04/14/20] rivaroxaban 20 mg PO DAILY 06/23/20 [History Last Taken 06/10/21 17:00] donepezil 5 mg PO QHS 04/09/21 [History Last Taken 06/10/21 21:00] gabapentin 400 mg PO TID 06/05/21 [History Last Taken 06/11/21 09:00] medroxyprogesterone 10 mg PO DAILY 06/05/21 [History Last Taken 06/11/21 09:00] chlorthalidone 25 mg PO DAILY #30 tab 06/07/21 [Rx Last Taken 06/10/21 21:00] linagliptin [Tradjenta] 5 mg PO DAILY #30 tab 06/07/21 [Rx Last Taken 06/10/21 21:00] lisinopril 10 mg PO DAILY #0 tab 06/07/21 [Rx Last Taken 06/11/21 09:00] Allergy/AdvReac Type Severity Reaction Status Date / Time empagliflozin Allergy Itching/VALENTIN Verified 06/11/21 13:02 [From Jardiance] H furosemide [From Lasix] Allergy Rash Verified 06/11/21 13:02 metformin Allergy decreased Verified 06/11/21 13:02 appetite warfarin [From Coumadin] Allergy Other Verified 06/11/21 13:02 apixaban [From Eliquis] AdvReac Other Verified 06/11/21 13:02 Surgical History Hx of section Hx of tonsillectomy Social History household members: children Smoking Status: Never smoker alcohol intake: never substance use type: does not use ROS Constitutional Constitutional: Reports fatigue, malaise and weakness; Denies change in weight, chills, fever(s) or night sweats Eyes Eyes: Denies change in vision ENT HEENT: Denies dysphagia Cardiovascular Cardiovascular: Denies chest pain, dyspnea on exertion, edema, lightheadedness, orthopnea or palpitations Respiratory/Chest Respiratory/Chest: Denies cough, dyspnea, excessive phlegm production, productive cough, shortness of breath at rest or shortness of breath with exertion Gastrointestinal Gastrointestinal: Denies abdominal pain, constipation or diarrhea Genitourinary Genitourinary: Denies burning urination or dysuria Musculoskeletal Musculoskeletal: Reports back pain and myalgias; Denies arthralgias, joint pain, joint stiffness, joint swelling or neck pain Neurologic Neurologic: Reports other Details: generalised weakness ; Denies confusion, dizziness, headache(s), numbness, seizures, tingling or tremor(s) Psychiatric Psychiatric: Denies anxiety or depression Endocrine Endocrinology: Denies change in body appearance Hematologic/Lymphatic Hematologic/Lymphatic: Denies anemia Vital Signs Vital Signs Vital Signs: 06/11/21 13:02 06/11/21 13:06 Temperature 97.5 F L Temperature Source Oral Pulse Rate 79 Respiratory Rate 17 Respiratory Effort Normal Non-Labored Respiratory Pattern Normal Blood Pressure 188/79 H Blood Pressure Mean 115 Pulse Ox 95 Oxygen Delivery Method Room Air Weight Weight: 239 lb 3.225 oz Body Mass Index (BMI) 43.7 Physical Exam Const alert and oriented x3 General Appearance: cooperative Orientation / Consciousness: lethargic HEENT normocephalic, head/scalp atraumatic, hearing grossly normal bilaterally and moist oral mucous membranes Eyes PERRL, EOMs intact bilaterally and conjunctivae normal Neck no lymphadenopathy, supple and no JVD Resp normal respiratory effort, no retractions and no use of accessory muscles Cardio regular rate, regular rhythm, S1 normal heart sound, S2 normal heart sound and no murmurs GI normal to inspection, nondistended, normoactive bowel sounds, soft to palpation, non-tender and non-distended Extremity normal to inspection, full ROM and no clubbing, cyanosis or edema Peripheral Pulses: Yes pulses 2+ throughout Skin no rashes or lesions noted Neuro oriented x3, CN's II-XII intact bilaterally and moves all extremities Sensorium / Orientation: awake and alert Psych affect normal Results Lab / Micro Data Result Diagrams: 06/12/21 05:25 06/12/21 05:25 Labs: Laboratory Results - last 24 hr 06/11/21 14:17: WBC 6.0, RBC 2.71 L, Hgb 8.5 L, Hct 26.1 L, MCV 96.3, MCH 31.4, MCHC 32.6, RDW Std Deviation 43.5, RDW Coeff of Mayank 12.6, Plt Count 215, MPV 9.9, Immature Gran % (Auto) 0.700, Neut % (Auto) 61.6, Lymph % (Auto) 17.2 L, [place] % (Auto) 7.5, Eos % (Auto) 12.7 H, Baso % (Auto) 0.3, Absolute Neuts (auto) 3.7, Absolute Lymphs (auto) 1.03, Nucleated RBC % 0 06/11/21 14:17: Sodium 140, Potassium 4.3, Chloride 111 H, Carbon Dioxide 24.0, Anion Gap 5, BUN 41 H, Creatinine 2.38 H, Estim Creat Clear Calc 15.41, Est GFR (MDRD) Af Amer 25 L, Est GFR (MDRD) Non-Af 21 L, BUN/Creatinine Ratio 17.2, Glucose 176 H, Calcium 11.0 H Radiology Impression Brain CT 06/11/21 13:43 IMPRESSION: Chronic involutional changes of the brain. Electronically Signed: Willie Crow MD at 14:51 EST , Lumbar Spine CT 06/11/21 13:43 IMPRESSION: Multilevel degenerative changes, as described above. Electronically Signed: Willie Crow MD at 14:52 EST , Assessment & Plan Assessment/Plan (1) Acute kidney injury: (2) Generalized muscle weakness: (3) Debility: PLAN: #Worsening debility with mechanical falls * admit to med surg * consult PT/OT * fall precautions * lumbar spine CT showed multilevel degenerative changes, as above * may benefit from placement * PO tylenol and pO oxycodone prn for back pain * #Abilio on CKD 3B: * CR is 2.38,with a baseline of ~ 1.38 * hydrate gently with IVF and trend * * #Hypertension * BP is elevated at 188/79 * On chlorthalidone. Hold lisinopril on account of ABILIO on CKD * IV hydralazine as needed * #Type 2 diabetes mellitus: On Tradjenta. Insulin sliding scale. Checks ACH S. #Hyperlipidemia: On pravastatin #History of DVT: On Xarelto DVT prophylaxis: Not indicated as patient is already on Xarelto Disposition: Will benefit from placement. CODE STATUS:full code * Patient and daughter counseled extensively about different types of CODE STATUS including full code, DNR CCA and DNR CCA. Patient elects to be full code. * Total [id number] time 17 minutes.
[2021-06-11 15:24] LABS: Color, Urine Yellow (Yellow); Glucose, Dipstick Normal (Normal); Ketone-Dipstick Negative (Negative); Leukocyte Esterase-Dipstick Negative /ul (Negative); Nitrite-Dipstick Negative (Negative); Occult Blood-Urine Negative /ul (Negative); Protein-Dipstick 100 mg/dl (Negative); Urine Bilirubin Dipstick Negative (Negative); Urine Clarity Sl. Cloudy (Clear); Urine Urobilinogen Normal (Normal)
--- NOTE | 2021-06-11 15:24 | NURSING ---
DR DONNA ERAZO
[2021-06-11 15:34] LABS: Amorphous Sediment 2+; Bacteria 1+ /hpf (None Seen); Squamous Epithelial Cells - UA 0-5 SEEN /hpf (5-10)
[2021-06-11 15:35] LABS: White Blood Cells 0-5 SEEN /hpf (0-5)
--- NOTE | 2021-06-11 15:40 | NURSING ---
MED SURG OBS [facility] GENERALIZED WEAKNESS, INABILITY TO AMBULATE, ACUTE KIDNEY INJURY
[2021-06-11 16:00] VITALS: BP 168/82; PULSE 82; RESP 17; TEMP 36.7; O2SAT 95
[2021-06-11 17:00] VITALS: BMI 41.1
[2021-06-11 17:15] VITALS: BP 142/48; PULSE 72; RESP 18; TEMP 36.7; O2SAT 100
[2021-06-11] MEDS: 0.9% Normal Saline 1,000 ML 75 ML IV (17:47)
[2021-06-11] MEDS: Rivaroxaban 20 MG Tablet PO (17:53)
[2021-06-11 18:01] LABS: Bedside Glucose 125 mg/dL (74-106)
[2021-06-11 20:25] VITALS: BP 153/53; PULSE 83; RESP 18; TEMP 36; O2SAT 96
[2021-06-11] MEDS: Gabapentin 400 MG Capsule PO (21:03)
[2021-06-11] MEDS: Pravastatin 40 MG Tablet PO (21:03)
[2021-06-11] MEDS: Donepezil HCl 5 MG Tablet PO (21:03)
[2021-06-11 21:11] LABS: Bedside Glucose 147 mg/dL (74-106)
[2021-06-11 22:00] VITALS: PULSE 83; O2SAT 96
[2021-06-12 05:02] VITALS: BP 148/66; PULSE 73; RESP 18; TEMP 37; O2SAT 100
[2021-06-12 05:49] LABS: Absolute Lymphocyte Count 1.48 X10^3/uL (0.83-4.51); Absolute Neutrophil Count 3.5 X10^3/uL (2.0-7.7); Basophil# 0.03 X10^3/uL; Basophil% 0.5 % (0-1); Eosinophil# 0.77 X10^3/uL; Eosinophils% 12.4 % (0-5); Hematocrit 26.2 % (37-47); Hemoglobin 8.3 g/dL (12.0-15.0); Lymphocyte # 1.48 X10^3/ul (0.83-4.51); Lymphocyte % 23.9 % (19-41); Mean Corp Hgb Conc 31.7 g/dL (32-36); Mean Corpuscular Hgb 30.1 pg (27.0-32.0); Mean Corpuscular Volume 94.9 fL (81-99); Mean Platelet Vol. 9.8 fl (6.2-12.0); Monocyte# 0.42 X10^3/uL; Monocyte% 6.8 % (0-10); NRBC Flagged by Analyzer 0 % (0-5); Neutrophil # 3.45 X10^3/uL (2.7-7.7); Neutrophil % 55.8 % (47-70); Platelet Count 208 K/mm3 (150-450); RBC Distribution Width CV 12.8 % (11.6-14.6); RBC Distribution Width SD 43.8 fl (35.1-43.9); Red Blood Count 2.76 M/mm3 (4.2-5.4); White Blood Count 6.2 K/mm3 (4.4-11.0)
[2021-06-12] MEDS: Gabapentin 400 MG Capsule PO ×3 (06:02→22:00)
[2021-06-12 06:24] LABS: Anion Gap 4 (5-15); BUN 35 mg/dL (7-18); Chloride 114 mmol/L (98-107); Creatinine, Serum 2.06 mg/dL (0.55-1.02); EST Glomerular Filtration Rate 25 mL/min (>60); Est Glom Filt Rate - Afr Amer 30 mL/min (>60); Glucose 162 mg/dL (74-106); Potassium 4.1 mmol/L (3.5-5.1); Sodium Level 140 mmol/L (136-145)
[2021-06-12] MEDS: 0.9% Normal Saline 1,000 ML 75 ML IV (06:48)
--- NOTE | 2021-06-12 07:27 | PN.HOSP_ITS ---
Objective Data Objective Data Vital Signs: Vital Signs Temp Pulse Resp BP Pulse Ox 98.6 F 73 18 148/66 H 100 06/12/21 05:02 06/12/21 05:02 06/12/21 05:02 06/12/21 05:02 06/12/21 05:02 Oxygen Delivery Method Room Air Weight: 224 lb 13.944 oz Body Mass Index (BMI) 41.1 Intake & Output: Intake and Output for Last 24 Hours 06/10/21 06/11/21 06/12/21 23:59 23:59 23:59 Intake Total 120 / 120 1000 / 1000 Output Total 200 / 325 725 / 725 Balance -80 / -205 275 / 275 Lab / Micro Data Result Diagrams: 06/12/21 05:25 06/12/21 05:25 Labs: Laboratory Results - last 24 hr 06/11/21 14:17: WBC 6.0, RBC 2.71 L, Hgb 8.5 L, Hct 26.1 L, MCV 96.3, MCH 31.4, MCHC 32.6, RDW Std Deviation 43.5, RDW Coeff of Mayank 12.6, Plt Count 215, MPV 9.9, Immature Gran % (Auto) 0.700, Neut % (Auto) 61.6, Lymph % (Auto) 17.2 L, [place] % (Auto) 7.5, Eos % (Auto) 12.7 H, Baso % (Auto) 0.3, Absolute Neuts (auto) 3.7, Absolute Lymphs (auto) 1.03, Nucleated RBC % 0 06/11/21 14:17: Sodium 140, Potassium 4.3, Chloride 111 H, Carbon Dioxide 24.0, Anion Gap 5, BUN 41 H, Creatinine 2.38 H, Estim Creat Clear Calc 15.41, Est GFR (MDRD) Af Amer 25 L, Est GFR (MDRD) Non-Af 21 L, BUN/Creatinine Ratio 17.2, Glucose 176 H, Calcium 11.0 H 06/11/21 15:08: Urine Color Yellow, Urine Clarity Sl. Cloudy, Urine pH 5.0, Ur Specific [place] 1.020, Urine Protein 100 H, Urine Glucose (UA) Normal, Urine Ketones Negative, Urine Occult Blood Negative, Urine Nitrite Negative, Urine Bilirubin Negative, Urine Urobilinogen Normal, Ur Leukocyte Esterase Negative, Urine RBC 0 SEEN, Urine WBC 0-5 SEEN, Ur Squamous Epith Cells 0-5 SEEN, Amorphous Sediment 2+, Urine Bacteria 1+, Urine Mucus 0 SEEN 06/11/21 17:51: POC Glucose 125 H 06/11/21 21:00: POC Glucose 147 H 06/12/21 05:25: WBC 6.2, RBC 2.76 L, Hgb 8.3 L, Hct 26.2 L, MCV 94.9, MCH 30.1, MCHC 31.7 L, RDW Std Deviation 43.8, RDW Coeff of Mayank 12.8, Plt Count 208, MPV 9.8, Immature Gran % (Auto) 0.600, Neut % (Auto) 55.8, Lymph % (Auto) 23.9, [place] % (Auto) 6.8, Eos % (Auto) 12.4 H, Baso % (Auto) 0.5, Absolute Neuts (auto) 3.5, Absolute Lymphs (auto) 1.48, Nucleated RBC % 0 06/12/21 05:25: Sodium 140, Potassium 4.1, Chloride 114 H, Carbon Dioxide 22.0, Anion Gap 4 L, BUN 35 H, Creatinine 2.06 H, Estim Creat Clear Calc 17.80, Est GFR (MDRD) Af Amer 30 L, Est GFR (MDRD) Non-Af 25 L, BUN/Creatinine Ratio 17.0, Glucose 162 H, Calcium 10.0 Radiography Diagnostic Testing: Radiology Impression Brain CT 06/11/21 13:43 IMPRESSION: Chronic involutional changes of the brain. Electronically Signed: Willie Crow MD at 14:51 EST , Lumbar Spine CT 06/11/21 13:43 IMPRESSION: Multilevel degenerative changes, as described above. Electronically Signed: Willie Crow MD at 14:52 EST , Assessment & Plan Assessment/Plan (1) Acute kidney injury: (2) Generalized muscle weakness: (3) Debility: PLAN: #Worsening debility with mechanical falls * admit to med surg * consult PT/OT * fall precautions * lumbar spine CT showed multilevel degenerative changes, as above * may benefit from placement * PO tylenol and pO oxycodone prn for back pain * #Sathish on CKD 3B: * CR is 2.38,with a baseline of ~ 1.38 * hydrate gently with IVF and trend * * #Hypertension * BP is elevated at 188/79 * On chlorthalidone. Hold lisinopril on account of SATHISH on CKD * IV hydralazine as needed * #Type 2 diabetes mellitus: On Tradjenta. Insulin sliding scale. Checks ACH S. #Hyperlipidemia: On pravastatin #History of DVT: On Xarelto DVT prophylaxis: Not indicated as patient is already on Xarelto Disposition: Will benefit from placement. CODE STATUS:full code * Patient and daughter counseled extensively about different types of CODE STATUS including full code, DNR CCA and DNR CCA. Patient elects to be full code. * Total [id number] time 17 minutes.
[2021-06-12 08:00] LABS: Bedside Glucose 154 mg/dL (74-106)
[2021-06-12] MEDS: Chlorthalidone 50 MG Tablet 25 MG PO (08:56)
[2021-06-12] MEDS: LINAGLIPTIN 5 MG TABLET PO (08:56)
[2021-06-12] MEDS: Insulin Lispro 100 UNIT/ML INSULN.PEN SC ×4 (08:57→22:01)
--- NOTE | 2021-06-12 10:14 | CASEMGMT ---
SW met with patient. Introduced self and role at [facility]. SW asked patient about her discharge plan. Patient said she would do whatever is recommended. Patient has been to [facility], [facility], and [facility] in the past. Patient does not want to go to [facility]. SW will give patient a list. Micki JAMA
[2021-06-12 11:00] VITALS: BP 164/74; PULSE 74; RESP 18; TEMP 36.5; O2SAT 100
--- NOTE | 2021-06-12 11:33 | CASEMGMT ---
SW provided patient with a list of SNF providers including quality and resource use data and consistent with the patient?s preferred geographic region, medical needs, and insurance network. LANEY explained to patient the facilities highlighted in pink are the ones that take her insurance so those are her options. LANEY told patient LANEY will check back in a bit. Micki Das MSW WILEY
--- NOTE | 2021-06-12 11:45 | CASEMGMT ---
LANEY spoke with patient and her two choices are: [facility] and [facility]. LANEY spoke with discharge critical care physician assistant Kimberly and she will send referrals. Micki JAMA
[2021-06-12 12:01] LABS: Bedside Glucose 186 mg/dL (74-106)
[2021-06-12] MEDS: metOLazone 5 MG Tablet PO (12:07)
--- NOTE | 2021-06-12 12:09 | CASEMGMT ---
Discharge Map Colorer Called Nathalie at [facility]. No beds available. Called Crystal at [facility]. Sent over referral. Will follow up. Kimberly Aj Discharge Map Colorer
--- NOTE | 2021-06-12 12:35 | PCM.PN.HOSP ---
Documented by User: Bijal Trejo NP, FINANCIAL ASSISTANCE SPECIALIST-C 06/12/21 12:45 Subjective Subjective Patient seen and examined. Reports generalized weakness, amendable to SNF for rehab. Reports increased lower extremity swelling over the past 2 weeks. Denies other symptoms or complaints. Objective Data Objective Data Vital Signs: Vital Signs Temp Pulse Resp BP Pulse Ox 97.7 F L 74 18 164/74 H 100 06/12/21 11:00 06/12/21 11:00 06/12/21 11:00 06/12/21 11:00 06/12/21 11:00 Oxygen Delivery Method Room Air Weight: 224 lb 13.944 oz Body Mass Index (BMI) 41.1 Intake & Output: Intake and Output for Last 24 Hours 06/10/21 06/11/21 06/12/21 23:59 23:59 23:59 Intake Total 120 / 120 1731.25 / 1731.25 Output Total 200 / 325 725 / 725 Balance -80 / -205 1006.25 / 1006.25 Lab / Micro Data Result Diagrams: 06/12/21 05:25 06/12/21 05:25 Labs: Laboratory Results - last 24 hr 06/11/21 14:17: WBC 6.0, RBC 2.71 L, Hgb 8.5 L, Hct 26.1 L, MCV 96.3, MCH 31.4, MCHC 32.6, RDW Std Deviation 43.5, RDW Coeff of Mayank 12.6, Plt Count 215, MPV 9.9, Immature Gran % (Auto) 0.700, Neut % (Auto) 61.6, Lymph % (Auto) 17.2 L, [place] % (Auto) 7.5, Eos % (Auto) 12.7 H, Baso % (Auto) 0.3, Absolute Neuts (auto) 3.7, Absolute Lymphs (auto) 1.03, Nucleated RBC % 0 06/11/21 14:17: Sodium 140, Potassium 4.3, Chloride 111 H, Carbon Dioxide 24.0, Anion Gap 5, BUN 41 H, Creatinine 2.38 H, Estim Creat Clear Calc 15.41, Est GFR (MDRD) Af Amer 25 L, Est GFR (MDRD) Non-Af 21 L, BUN/Creatinine Ratio 17.2, Glucose 176 H, Calcium 11.0 H 06/11/21 15:08: Urine Color Yellow, Urine Clarity Sl. Cloudy, Urine pH 5.0, Ur Specific Cerulean 1.020, Urine Protein 100 H, Urine Glucose (UA) Normal, Urine Ketones Negative, Urine Occult Blood Negative, Urine Nitrite Negative, Urine Bilirubin Negative, Urine Urobilinogen Normal, Ur Leukocyte Esterase Negative, Urine RBC 0 SEEN, Urine WBC 0-5 SEEN, Ur Squamous Epith Cells 0-5 SEEN, Amorphous Sediment 2+, Urine Bacteria 1+, Urine Mucus 0 SEEN 06/11/21 17:51: POC Glucose 125 H 06/11/21 21:00: POC Glucose 147 H 06/12/21 05:25: WBC 6.2, RBC 2.76 L, Hgb 8.3 L, Hct 26.2 L, MCV 94.9, MCH 30.1, MCHC 31.7 L, RDW Std Deviation 43.8, RDW Coeff of Mayank 12.8, Plt Count 208, MPV 9.8, Immature Gran % (Auto) 0.600, Neut % (Auto) 55.8, Lymph % (Auto) 23.9, [place] % (Auto) 6.8, Eos % (Auto) 12.4 H, Baso % (Auto) 0.5, Absolute Neuts (auto) 3.5, Absolute Lymphs (auto) 1.48, Nucleated RBC % 0 06/12/21 05:25: Sodium 140, Potassium 4.1, Chloride 114 H, Carbon Dioxide 22.0, Anion Gap 4 L, BUN 35 H, Creatinine 2.06 H, Estim Creat Clear Calc 17.80, Est GFR (MDRD) Af Amer 30 L, Est GFR (MDRD) Non-Af 25 L, BUN/Creatinine Ratio 17.0, Glucose 162 H, Calcium 10.0 06/12/21 07:48: POC Glucose 154 H 06/12/21 11:44: POC Glucose 186 H Radiography Diagnostic Testing: Radiology Impression Brain CT 06/11/21 13:43 IMPRESSION: Chronic involutional changes of the brain. Electronically Signed: Willie Crow MD at 14:51 EST , Lumbar Spine CT 06/11/21 13:43 IMPRESSION: Multilevel degenerative changes, as described above. Electronically Signed: Willie Crow MD at 14:52 EST , Physical Exam Const alert, oriented x3 and no apparent distress Orientation / Consciousness: awake, oriented to person, oriented to place and oriented to time Nutritional Appearance: obese HEENT normocephalic and moist oral mucous membranes Eyes PERRL, EOMs intact bilaterally and conjunctivae normal Neck no lymphadenopathy Resp clear to auscultation bilaterally Auscultation: diminished lung sounds Cardio regular rate, regular rhythm and no murmurs Peripheral Pulses: pulses 2+ throughout GI normal to inspection, nondistended, normoactive bowel sounds, non-tender and non-distended Extremity normal to inspection General Extremity: edema bilateral lower extremity Skin no rashes or lesions noted Lesions: no lesions Rashes: no rashes Trauma: no lacerations or abrasions Neuro CN's II-XII intact bilaterally, no focal motor deficits, no sensory deficits noted and deep tendon reflexes 2+ bilaterally Psych mental status grossly normal and affect normal A/P Addt'l Comments Addt'l Comments 1. Worsening debility with falls at home-PT/OT. Amendable to placement. Case management/social work consult. Await SNF approval. 2. Acute kidney injury on chronic kidney disease stage IIIb-hold nephrotoxic regimen. Improving. Trend BMP. 3. Bilateral lower extremity swelling-patient reports recently worsened. Enmanuel wraps bilateral lower extremities. Recent echo with EF 65%. On Xarelto for DVT prophylaxis. However, will obtain Doppler lower extremities to be cautious. 4. Type 2 diabetes [id number] with sliding scale insulin. 5. Hypertension-chlorthalidone/lisinopril on hold. As needed hydralazine. 6. Hyperlipidemia-continue statin. 7. History of DVT-on Xarelto. 8. Obesity- Encouraged diet and lifestyle modifications. DVT prophylaxis-Xarelto This patient was seen by L[facility] West under the supervision of Dr. Fair. Time spent examining patient, reviewing data and subsequent management of care: 13 Minutes Documented by User: Dr. Obinna Fair MD 06/12/21 15:32 Subjective Subjective Patient has worsening of lower extremity edema/swelling for last 2 weeks. Patient could not transfer her from chair to bed. Difficulty standing. Could not walk. Objective Data Lab / Micro Data Result Diagrams: 06/12/21 05:25 06/12/21 05:25 Physical Exam Narrative General: Alert, Oriented x3, Cooperative HEENT: Atraumatic, PERRLA, EOMI, Normocephalic Oral: No Gingival or Mucosal Lesions/ Ulcerations Neck: Supple, No JVD, Negative Carotid Bruits Lungs: Air entry diminished in bilateral lung bases. No crepitation/rhonchi Cardiovascular: Regular rate, Regular Rhythm, Normal S1, Normal S2, No murmurs Abdomen: Bowel Sounds Present, Soft, Non Tender, Non-Distended : No renal angle tenderness. No suprapubic tenderness. Extremities: Bilateral pitting edema below knee, 3+, Capillary Refill Less than 3 Seconds Skin: No rashes, No breakdown Musculoskeletal: No Tenderness to Palpation of Joints or Extremities. ROM restricted Neurological: Cranial nerves II-XII grossly intact, DTR 2+/4 and Symmetrical, muscle strength 3/5 at major joints of lower extremities. Psych/Mental Status: Flat affect. Charges/Coding Visit Charges Inpatient E&M: 70451 Subs Hosp L2 A/P Addt'l Comments Addt'l Comments This patient was seen in conjunction with FINANCIAL ASSISTANCE SPECIALIST, Bijal. I have independently interviewed and examined the patient and reviewed pertinent history, examination findings, laboratory and plan of management. I have reviewed the note and agree with the documented findings with the few additional points. In brief, patient is 80-year-old female was admitted with worsening lower extremity swelling with difficulty in transferring from wheelchair to bed lung with acute kidney injury on CKD stage IIIb. Patient is allergic to furosemide with rash. Discussed with the paperboard boxes estimator and requested consult. Metolazone 5 mg oral given. PT and OT consulted. Patient needs diuretics. Patient has chronic degenerative multilevel lumbar arthritis as evidenced by lumbar spine CT. Pain control. Evaluate for SNF Acute kidney injury on CKD stage IIIb: Patient baseline creatinine 1.38. Admitted with creatinine 2.38. Slight improvement with IV fluid. IV fluid discontinued as patient has worsening leg edema. Other comorbidities include hypertension, type 2 diabetes mellitus, dyslipidemia and history of DVT: Patient is on Xarelto. I have discussed my assessment with FINANCIAL ASSISTANCE SPECIALISTBijal and orders have been reviewed. CODE STATUS full code.
--- NOTE | 2021-06-12 12:42 | VDLE_ITS ---
Reason For Study: swelling RIGHT LEFT GSV is normal. GSV is normal. CFV is compressible, spontaneous, phasic, CFV is compressible, spontaneous, phasic, competent and demonstrates normal competent, and demonstrates normal augmentation. augmentation. PTV is compressible. PTV is compressible. RT PerV is compressible. LT PerV is compressible. Vein wall thickening is noted in the FV, POP FV is compressible, spontaneous, phasic, V, and T/P Trunk. Normal venous flow patterns competent and demonstrates normal noted. augmentation. Procedure POP V is compressible, spontaneous, phasic, This is a venous duplex using B-mode, color competent and demonstrates normal flow and spectral Doppler. augmentation. Exam performed portable in patient room. T/P Trunk is compressible. The exam was diagnostic. Difficult study due to pt body habitus,. A preliminary report was called and/or faxed to the pt's RN. VL/Venous Duplex US - Tacho Extrem Interpretation Summary No evidence for acute deep venous thrombosis bilateral lower extremities with p atent and compressible bilateral great saphenous veins. Vein wall thickening is noted in the right femoral, popliteal, and tibioperoneal trunk possibly consistent with chronic disease. Technically difficult secondary to body habitus Clinical correlation would be appropriate Ordering Physician: Bijal Trejo Performed By: Sanjay Fitch RVAnabel
--- NOTE | 2021-06-12 14:09 | CHAPLAIN ---
Type of Pastoral Visit _x__ Initial Visit ___ Follow-up Visit ___ On-call Visit ___ General Patient Visit ___ Spiritual Assessment ___ Family Conference ___ Bereavement ___ Rapid Response ___ Code Blue ___ Other (describe below) Pastoral Care Referral From _x__ Patient ___ Family ___ Nurse ___ Physician ___ Roller Stitcher ___ Corporate Associate ___ Other (describe below) Sacrament/Intervention _x__ Active listening ___ Anointing ___ Mormonism ___ Bereavement ___ Communion ___ Rhea exploration ___ ___ Life review _x__ Prayer ___ Reconciliation ___ Sacrament of Sick ___ Supportive presence ___ Wedding ___ Other (describe below) Pastoral Comments this patient was seen before in previous admission; she gives review of recent months of health; pt goal will be to regain strength and ability to walk; no additional needs or concerns at this time
--- NOTE | 2021-06-12 14:24 | CASEMGMT ---
JONI MARTINEZ in to discuss KOCH form with patient. RN JUAN explained KOCH form, patient voiced understanding. Patient signed KOCH form and filed in chart. Patient provided with copy of signed KOCH form. Patient had no further questions or concerns at this time.
--- NOTE | 2021-06-12 15:01 | CM.UR ---
Discharge Demolition Engineer Called Crystal from [facility]. [facility] can accept the patient. She will start Pre-Cert today. Micki notified. Kimberly Aj Discharge Demolition Engineer
--- NOTE | 2021-06-12 16:25 | CASEMGMT ---
LANEY notified patient that [facility] can accept her. LANEY told her she will stay here at [facility] until insurance approves her. LANEY asked if she would like LANEY to call her daughter and update her and patient said she is calling her natalio. LANEY will check back in tomorrow and make sure patient's daughter is aware of plan. Plan: [facility] pending pre-cert. Micki JAMA
[2021-06-12] MEDS: Rivaroxaban 20 MG Tablet PO (16:30)
[2021-06-12 16:35] VITALS: BP 151/83; PULSE 77; RESP 18; TEMP 36.3; O2SAT 99
[2021-06-12 17:06] LABS: Bedside Glucose 159 mg/dL (74-106)
[2021-06-12 19:20] VITALS: BP 188/78; PULSE 83; RESP 18; TEMP 37; O2SAT 100
[2021-06-12] MEDS: Donepezil HCl 5 MG Tablet PO (22:00)
[2021-06-12] MEDS: Pravastatin 40 MG Tablet PO (22:00)
[2021-06-12 22:06] LABS: Bedside Glucose 164 mg/dL (74-106)
[2021-06-13] MEDS: Gabapentin 400 MG Capsule PO ×2 (05:09→13:14)
[2021-06-13 05:13] LABS: Absolute Lymphocyte Count 1.59 X10^3/uL (0.83-4.51); Absolute Neutrophil Count 3.2 X10^3/uL (2.0-7.7); Basophil# 0.02 X10^3/uL; Basophil% 0.3 % (0-1); Eosinophil# 0.78 X10^3/uL; Eosinophils% 12.9 % (0-5); Hematocrit 23.8 % (37-47); Hemoglobin 7.4 g/dL (12.0-15.0); Lymphocyte # 1.59 X10^3/ul (0.83-4.51); Lymphocyte % 26.3 % (19-41); Mean Corp Hgb Conc 31.1 g/dL (32-36); Mean Corpuscular Hgb 29.6 pg (27.0-32.0); Mean Corpuscular Volume 95.2 fL (81-99); Mean Platelet Vol. 9.9 fl (6.2-12.0); Monocyte# 0.43 X10^3/uL; Monocyte% 7.1 % (0-10); NRBC Flagged by Analyzer 0 % (0-5); Neutrophil % 52.9 % (47-70); Platelet Count 205 K/mm3 (150-450); RBC Distribution Width CV 12.6 % (11.6-14.6); RBC Distribution Width SD 44.2 fl (35.1-43.9); White Blood Count 6.1 K/mm3 (4.4-11.0)
[2021-06-13 05:16] VITALS: BP 147/63; PULSE 77; RESP 18; TEMP 37.3; O2SAT 95
[2021-06-13 05:40] LABS: Anion Gap 4 (5-15); BUN 32 mg/dL (7-18); BUN/Creat Ratio 15.8 RATIO (10-20); Chloride 114 mmol/L (98-107); Creatinine, Serum 2.03 mg/dL (0.55-1.02); EST Glomerular Filtration Rate 25 mL/min (>60); Est Glom Filt Rate - Afr Amer 30 mL/min (>60); Estimated Creatinine Clearance 18.06 ml/min; Glucose 169 mg/dL (74-106); Potassium 4.2 mmol/L (3.5-5.1); Sodium Level 140 mmol/L (136-145)
[2021-06-13 08:06] LABS: Bedside Glucose 154 mg/dL (74-106)
--- NOTE | 2021-06-13 08:54 | CASEMGMT ---
D/c Regional Sales Coordinator Kimberly notified that patient was approved to go to [facility]. will notify physician. Micki JAMA
[2021-06-13] MEDS: Insulin Lispro 100 UNIT/ML INSULN.PEN SC ×2 (08:55→11:08)
--- NOTE | 2021-06-13 10:11 | CON.PCM.RE_ITS ---
Assessment & Plan Assessment/Plan (1) Acute kidney injury: (2) CKD (chronic kidney disease), stage III: QUALIFIERS: Chronic kidney disease stage 3 subtype: unspecified whether 3a or 3b Qualified Code(s): N18.30 - Chronic kidney disease, stage 3 unspecified (3) Edema: (4) Generalized muscle weakness: PLAN: Patient was admitted to the hospital for further evaluation and treatment after she presented back to the emergency room with complaints of weakness and recent falls. We were consulted for ABILIO. 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 She is known to our group from previous evaluation about 1 week ago. She was seen for ABILIO on CKD and also for lower extremity edema. Amlodipine and Actos were stopped. Chlorthalidone 25mg was to be started at discharge. Creatinine had improved when discharged to 1.79mg/dL. Echo on 06/06/2021 showed EF of 65%, no evidence for diastolic dysfunction, mild aortic stenosis. Renal ultrasound no hydronephrosis, renal calculi, mass or cysts, right kidney 8.9 cm, left kidney 13.2 cm, mildly enlarged left kidney without abnormality, no change when compared to prior study. Urine protein creatinine ratio 2.6 g, albumin was 2.5 beginning of June. Patient received a dose of metolazone last evening with no complaints of itching or rash this morning. We will continue on chlorthalidone as previously ordered and also give 1 dose of bumetanide today and monitor for response. Doppler no evidence for acute deep venous thrombosis bilateral lower extremities. Her creatinine 2.38 mg/dL on admission and today creatinine 2.0 mg/dL. Baseline creatinine around 1.5 to 1.8 mg/dL, possible cause of CKD from diabetes. At this time there is no acute indication for [employer]. Patient's weight is about the same as it was about a week ago, 106kg. Recommend low sodium diet at home and daily weights. Will arrange for hospital follow up. Bps mildly elevated and may improve with diuretic. She has PRN hydralazine ordered, lisinopril on hold due to ABILIO. Will follow BP trends. Thank you for allowing us participate in the care of Ms. Parker, further orders forthcoming as hospitalization evolves. HPI Consult Data Date of Consult: 06/13/21 HPI Narrative HPI Narrative: DIANNA PARKER, is a 80 F with past medical history significant for diabetes mellitus type 2, hypertension, arthritis, GERD who presented to the emergency room yesterday with complaints of weakness in her lower legs and worsening debility. Patient was admitted for further evaluation and treatment. We were consulted for acute kidney injury. Patient is known to our group after consultation for ABILIO about 2 weeks ago after patient was [facility] for weakness and mechanical falls. She was discharged home, had declined therapy at discharge. During last hospitalization serum creatinine had peaked 2.33 mg/dL and at discharge her creatinine was 1.8 mg/dL. Baseline creatinine seems to be around 1.5 to 1.8 mg/dL. Her amlodipine and Actos were both stopped due to lower extremity edema and patient was to be discharged home on chlorthalidone. I spoke to patient's daughter today, she states chlorthalidone was just recently filled and patient has had only but 2 doses of chlorthalidone. Daughter also states that in the past patient had been on furosemide, this was discontinued due to itching on her legs and knees. Patient never developed a rash with furosemide. Per daughter Benadryl helped itching. There has been no recent nausea, vomiting or diarrhea. No NSAIDs. Patient reports good appetite at home. Patient reports lower extremity swelling is chronic. [facility] Medical History Arthritis Back pain Diabetes Diabetes DVT (deep venous thrombosis) Easy bruising Excessive bleeding Gastric reflux GERD (gastroesophageal reflux disease) High cholesterol History of pain when walking History of renal disease Hypertension Injury of head and neck Insulin dependent diabetes mellitus Kidney disease Non-smoker Pulmonary embolism Shortness of breath on exertion Uses wheelchair Wears glasses Home Medications pravastatin 40 mg PO QHS 10/05/17 [History Last Taken 06/10/21 21:00] acetaminophen 1,000 mg PO Q6H PRN PRN 04/15/20 [History Last Taken 04/14/20] rivaroxaban 20 mg PO DAILY 06/23/20 [History Last Taken 06/10/21 17:00] donepezil 5 mg PO QHS 04/09/21 [History Last Taken 06/10/21 21:00] gabapentin 400 mg PO TID 06/05/21 [History Last Taken 06/11/21 09:00] medroxyprogesterone 10 mg PO DAILY 06/05/21 [History Last Taken 06/11/21 09:00] chlorthalidone 25 mg PO DAILY #30 tab 06/07/21 [Rx Last Taken 06/10/21 21:00] linagliptin [Tradjenta] 5 mg PO DAILY #30 tab 06/07/21 [Rx Last Taken 06/10/21 21:00] lisinopril 10 mg PO DAILY #0 tab 06/07/21 [Rx Last Taken 06/11/21 09:00] Allergy/AdvReac Type Severity Reaction Status Date / Time empagliflozin Allergy Itching/VALENTIN Verified 06/11/21 13:02 [From Jardiance] H furosemide [From Lasix] Allergy Rash Verified 06/11/21 13:02 metformin Allergy decreased Verified 06/11/21 13:02 appetite warfarin [From Coumadin] Allergy Other Verified 06/11/21 13:02 apixaban [From Eliquis] AdvReac Other Verified 06/11/21 13:02 Surgical History Hx of section Hx of tonsillectomy Social History household members: children Smoking Status: Never smoker alcohol intake: never substance use type: does not use ROS ROS Narrative As per HPI and past medical history Physical Exam Narrative Const: Alert and oriented x3 HEENT: Head is normocephalic, atraumatic, pupils equal round reactive to light, nation, or mucosa is moist Cardio: S1-S2, rhythm rate regular Respiratory: Lung sounds clear anteriorly and posteriorly, no wheezes rhonchi rales noted Extremity: 2-3+ pitting edema bilateral legs Lab / Micro Data Result Diagrams: 06/13/21 04:11 06/13/21 04:11 Labs: Laboratory Results - last 24 hr 06/12/21 11:44: POC Glucose 186 H 06/12/21 16:29: POC Glucose 159 H 06/12/21 21:58: POC Glucose 164 H 06/13/21 04:11: WBC 6.1, RBC 2.50 L, Hgb 7.4 L, Hct 23.8 L, MCV 95.2, MCH 29.6, MCHC 31.1 L, RDW Std Deviation 44.2 H, RDW Coeff of Mayank 12.6, Plt Count 205, MPV 9.9, Immature Gran % (Auto) 0.500, Neut % (Auto) 52.9, Lymph % (Auto) 26.3, [place] % (Auto) 7.1, Eos % (Auto) 12.9 H, Baso % (Auto) 0.3, Absolute Neuts (auto) 3.2, Absolute Lymphs (auto) 1.59, Nucleated RBC % 0 06/13/21 04:11: Sodium 140, Potassium 4.2, Chloride 114 H, Carbon Dioxide 22.0, Anion Gap 4 L, BUN 32 H, Creatinine 2.03 H, Estim Creat Clear Calc 18.06, Est GFR (MDRD) Af Amer 30 L, Est GFR (MDRD) Non-Af 25 L, BUN/Creatinine Ratio 15.8, Glucose 169 H, Calcium 10.0 06/13/21 07:55: POC Glucose 154 H Radiology Impression Venous Doppler Study 06/12/21 12:42 Interpretation Summary No evidence for acute deep venous thrombosis bilateral lower extremities with patent and compressible bilateral great saphenous veins. Vein wall thickening is noted in the right femoral, popliteal, and tibioperoneal trunk possibly consistent with chronic disease. Technically difficult secondary to body habitus Clinical correlation would be appropriate Ordering Physician: Bijal Trejo Performed By: Sanjay Fitch RVT
[2021-06-13] MEDS: 0.9% Saline Lock 10 ML Syringe IV (10:59)
[2021-06-13] MEDS: Bumetanide 1 MG/4 ML Vial IV (10:59)
--- NOTE | 2021-06-13 11:07 | CASEMGMT ---
SW called patient's daughter Lucita and left her a voice mail letting her know about discharge plan of going to [facility] for rehab. SW also let her know this could possibly be today, but SW can keep her updated. Micki Das PORTFOLIO ACCOUNTANT WILEY
[2021-06-13 11:15] VITALS: BP 163/61; PULSE 78; RESP 18; TEMP 36.6; O2SAT 98
[2021-06-13 11:30] LABS: Bedside Glucose 219 mg/dL (74-106)
--- NOTE | 2021-06-13 11:52 | PCM.TXEXTCAR ---
Documented by User: Bijal Trejo NP, MAGNETIC DOCTOR-C 06/13/21 12:44 Diet 06/11/21 16:44 Diet: Consistent Carb - Calorie Controlled Food consistency:: Regular Liquid Consistency:: Regular/Thin How many daily calories?: 1800 calorie Routine Orders/Code Status Enema Type: Fleetz Enema Frequency: Daily PRN Suppository Type: Dulcolax 10mg Suppository Frequency: Daily PRN Routine Lab Work: - (CBC and BMP in 3 days then weekly CBC/BMP) Suggestions for Active Care Change Position every (hours): 2 Times a day to sit in chair: 3 Therapies Physical Therapy: Eval and Treat Occupational Therapy: Eval and Treat Problem/Diagnosis (1) Acute kidney injury: Status: Acute (2) CKD (chronic kidney disease), stage III: Status: Chronic (3) Edema: Status: Acute (4) Generalized muscle weakness: Status: Acute Allergies/Procedures Done in Hospital Allergies empagliflozin [From Jardiance] Allergy (Verified 06/11/21 13:02) Itching/RASH furosemide [From Lasix] Allergy (Verified 06/11/21 13:02) Rash metformin Allergy (Verified 06/11/21 13:02) decreased appetite warfarin [From Coumadin] Allergy (Verified 06/11/21 13:02) Other pt/inr too low blood in urine apixaban [From Eliquis] Adverse Reaction (Verified 06/11/21 13:02) Other Procedures: None Type of Care/Length of Stay Estimated LOS: Convalescent Care Less Than 30 days Type of Care Needed: Skilled Rehab Potential: Fair Prognosis: Fair Additional Orders/Day of Discharge H&P will serve as current which was dated: 06/11/21 Day of Discharge: 06/13/21 Dietary and Speech Recommendations Dietitian Recommendations/Changes: continue consistent CHO, 1800 calorie controlled diet Discharge Plan Admission Admit Date/Time: 06/12/21 15:40 Primary Reason for Your Visit: Debility Attending Provider: Obinna Fair Primary Care Provider: Vel Graham Consulting Providers: Alejo Jean Instructions Additional Instructions / Restrictions: Continue LY wraps to lower extremities. May take off at bedtime. Discharge Orders/Prescriptions Prescriptions: New hydralazine 25 mg Tablet 25 mg PO TID Qty: 0 RF: 0 ferrous sulfate [FeroSul] 325 mg (65 mg iron) Tablet 325 mg PO Q48H Qty: 0 RF: 0 ascorbic acid (vitamin C) 500 mg Tablet 500 mg PO Q48H Qty: 0 RF: 0 Continued pravastatin 40 MG tablet 40 mg PO QHS RF: 0 acetaminophen 500 MG tablet 1,000 mg PO Q6H PRN PRN (Reason: Pain 1-10 Or Fever) RF: 0 rivaroxaban 20 MG tablet 20 mg PO DAILY RF: 0 donepezil 5 MG tablet 5 mg PO QHS RF: 0 medroxyprogesterone 10 mg tablet 10 mg PO DAILY RF: 0 gabapentin 400 mg capsule 400 mg PO TID RF: 0 chlorthalidone 50 mg Tablet 25 mg PO DAILY Qty: 30 RF: 0 Tradjenta 5 mg tablet 5 mg PO DAILY Qty: 30 RF: 0 Discontinued lisinopril 20 mg tablet 10 mg PO DAILY Qty: 0 RF: 0 Referrals / Follow Up: Alejo Jean MD [STAFF PHYSICIAN] - Within 2 Weeks Vel Graham MD [Primary Care Provider] - In 1 Week Disposition Disposition (needs filled in before D/C Order can be placed): [facility] Facility Documented by User: Dr. Obinna Fair MD 06/13/21 13:11 Routine Orders/Code Status Suppository Type: Dulcolax 10mg Suppository Frequency: Daily PRN Therapies Weight Bearing: Weight bearing as tolerated Extremity Affected:: Bilateral Lower Physical Therapy: Eval and Treat Occupational Therapy: Eval and Treat Speech Therapy: Eval and Treat Allergies/Procedures Done in Hospital Allergies empagliflozin [From Jardiance] Allergy (Verified 06/11/21 13:02) Itching/RASH furosemide [From Lasix] Allergy (Verified 06/11/21 13:02) Rash metformin Allergy (Verified 06/11/21 13:02) decreased appetite warfarin [From Coumadin] Allergy (Verified 06/11/21 13:02) Other pt/inr too low blood in urine apixaban [From Eliquis] Adverse Reaction (Verified 06/11/21 13:02) Other Discharge Plan Admission Admit Date/Time: 06/12/21 15:40 Primary Reason for Your Visit: Debility Attending Provider: Obinna Fair Primary Care Provider: Vel Graham Consulting Providers: Alejo Jean Instructions Additional Instructions / Restrictions: Continue LY wraps to lower extremities. May take off at bedtime. Discharge Orders/Prescriptions Prescriptions: New hydralazine 25 mg Tablet 25 mg PO TID Qty: 0 RF: 0 ferrous sulfate [FeroSul] 325 mg (65 mg iron) Tablet 325 mg PO Q48H Qty: 0 RF: 0 ascorbic acid (vitamin C) 500 mg Tablet 500 mg PO Q48H Qty: 0 RF: 0 Continued pravastatin 40 MG tablet 40 mg PO QHS RF: 0 acetaminophen 500 MG tablet 1,000 mg PO Q6H PRN PRN (Reason: Pain 1-10 Or Fever) RF: 0 rivaroxaban 20 MG tablet 20 mg PO DAILY RF: 0 donepezil 5 MG tablet 5 mg PO QHS RF: 0 medroxyprogesterone 10 mg tablet 10 mg PO DAILY RF: 0 gabapentin 400 mg capsule 400 mg PO TID RF: 0 chlorthalidone 50 mg Tablet 25 mg PO DAILY Qty: 30 RF: 0 Tradjenta 5 mg tablet 5 mg PO DAILY Qty: 30 RF: 0 Discontinued lisinopril 20 mg tablet 10 mg PO DAILY Qty: 0 RF: 0 Referrals / Follow Up: Alejo Jean MD [STAFF PHYSICIAN] - Within 2 Weeks Vel Graham MD [Primary Care Provider] - In 1 Week Disposition Disposition (needs filled in before D/C Order can be placed): [facility] Facility
--- NOTE | 2021-06-13 12:44 | DS.PCM_ITS ---
Documented by User: Bijal Trejo NP, GILL NET STRINGER-C 06/13/21 12:53 Providers Date of Admission: 06/12/21 Date of Discharge: 06/13/21 Primary Care Physician: Dr. Vel Graham MD Consultations 06/12/21 10:46 Consult: Nephrology Routine Consulting Provider: Alejo Jean Reason for Consult: ABILIO on CKD, B/L leg swelling EMERGENT Consult: No MD Notified: Yes Date Notified: 06/12/21 Time Notified: 10:47 Method of Notification: Text Reason For Visit: DEBILITY, ABILIO ON CKD Diagnosis Discharge Diagnosis (1) Acute kidney injury: Status: Acute Code(s): N17.9 - Acute kidney failure, unspecified (2) CKD (chronic kidney disease), stage III: Status: Chronic Code(s): N18.30 - Chronic kidney disease, stage 3 unspecified Qualifiers: Chronic kidney disease stage 3 subtype: unspecified whether 3a or 3b Qualified Code(s): N18.30 - Chronic kidney disease, stage 3 unspecified (3) Edema: Status: Acute Code(s): R60.9 - Edema, unspecified (4) Generalized muscle weakness: Status: Acute Code(s): M62.81 - Muscle weakness (generalized) Medications at Discharge Home Medications pravastatin 40 mg PO QHS 10/05/17 acetaminophen 1,000 mg PO Q6H PRN PRN 04/15/20 rivaroxaban 20 mg PO DAILY 06/23/20 donepezil 5 mg PO QHS 04/09/21 gabapentin 400 mg PO TID 06/05/21 medroxyprogesterone 10 mg PO DAILY 06/05/21 Tradjenta 5 mg PO DAILY #30 tab 06/07/21 chlorthalidone 25 mg PO DAILY #30 tab 06/07/21 ascorbic acid (vitamin C) 500 mg PO Q48H #0 tab 06/13/21 ferrous sulfate [FeroSul] 325 mg PO Q48H #0 tab 06/13/21 hydralazine 25 mg PO TID #0 tab 06/13/21 Hospital Course Operations None Procedures None Summary of Care Provided Hospital Course: Patient is a 80-year-old female admitted 06/11/2021 due to debility with falls at home. 1. Worsening debility with falls at home-PT/OT. SNF for rehab. Follow-up with PCP in 1 week 2. Acute kidney injury on chronic kidney disease stage IIIb-nephrology consulted during admission. Lisinopril discontinued. Recent renal ultrasound with medical renal disease. Continue chlorthalidone at discharge per nephrology. Trend BMP at SNF. Follow-up with nephrology in 2 weeks. 3. Bilateral lower extremity swelling-patient reports recently worsened. Enmanuel wraps bilateral lower extremities. Recent echo with EF 65%. On Xarelto for DVT prophylaxis. Doppler with chronic right lower extremity DVT, no acute DVT. Continue chlorthalidone. 1 dose of IV Bumex during admission. 4. Type 2 diabetes [id number]-Prdpt with sliding scale insulin. 5. Hypertension-continue chlorthalidone. Hydralazine at discharge in place of lisinopril. Hydralazine may need increased pending blood pressure monitoring at [facility]. Amlodipine recently discontinued due to lower extremity swelling. 6. Hyperlipidemia-continue statin. 7. History of DVT-on Xarelto. 8. Obesity- Encouraged diet and lifestyle modifications. Physical Exam Const alert, oriented x3 and no apparent distress Orientation / Consciousness: awake, oriented to person, oriented to place and oriented to time Nutritional Appearance: obese HEENT normocephalic and moist oral mucous membranes Eyes PERRL, EOMs intact bilaterally and conjunctivae normal Neck no lymphadenopathy Resp clear to auscultation bilaterally Auscultation: diminished lung sounds Cardio regular rate, regular rhythm and no murmurs Peripheral Pulses: pulses 2+ throughout GI normal to inspection, nondistended, normoactive bowel sounds, non-tender and non-distended Extremity normal to inspection General Extremity: edema bilateral lower extremity Skin no rashes or lesions noted Lesions: no lesions Rashes: no rashes Trauma: no lacerations or abrasions Neuro CN's II-XII intact bilaterally, no focal motor deficits, no sensory deficits noted and deep tendon reflexes 2+ bilaterally Psych mental status grossly normal and affect normal This patient was seen by LONA West under the supervision of Dr. Fair. Time spent examining patient, reviewing data and subsequent management of care: 16 Minutes Weight / BMI Weight Weight: 224 lb 13.944 oz Body Mass Index (BMI) 41.1 ABG / Lab / Microbiology Data Result Diagrams: 06/13/21 04:11 06/13/21 04:11 Laboratory: Laboratory Results - last 24 hr 06/12/21 16:29: POC Glucose 159 H 06/12/21 21:58: POC Glucose 164 H 06/13/21 04:11: WBC 6.1, RBC 2.50 L, Hgb 7.4 L, Hct 23.8 L, MCV 95.2, MCH 29.6, MCHC 31.1 L, RDW Std Deviation 44.2 H, RDW Coeff of Mayank 12.6, Plt Count 205, MPV 9.9, Immature Gran % (Auto) 0.500, Neut % (Auto) 52.9, Lymph % (Auto) 26.3, [place] % (Auto) 7.1, Eos % (Auto) 12.9 H, Baso % (Auto) 0.3, Absolute Neuts (auto) 3.2, Absolute Lymphs (auto) 1.59, Nucleated RBC % 0 06/13/21 04:11: Sodium 140, Potassium 4.2, Chloride 114 H, Carbon Dioxide 22.0, Anion Gap 4 L, BUN 32 H, Creatinine 2.03 H, Estim Creat Clear Calc 18.06, Est GFR (MDRD) Af Amer 30 L, Est GFR (MDRD) Non-Af 25 L, BUN/Creatinine Ratio 15.8, Glucose 169 H, Calcium 10.0 06/13/21 07:55: POC Glucose 154 H 06/13/21 11:07: POC Glucose 219 H Microbiology: Microbiology 06/13/21 11:40 Nasal Secretion SARS-CoV-2 Antigen (Rapid) - Final Radiography Diagnostic Testing: Radiology Impression Venous Doppler Study 06/12/21 12:42 Interpretation Summary No evidence for acute deep venous thrombosis bilateral lower extremities with patent and compressible bilateral great saphenous veins. Vein wall thickening is noted in the right femoral, popliteal, and tibioperoneal trunk possibly consistent with chronic disease. Technically difficult secondary to body habitus Clinical correlation would be appropriate Ordering Physician: Bijal Trejo Performed By: Sanjay Fitch RVT Meaningful Use Info Meaningful Use Diagnoses (Choose all that apply): None applicable Discharge Plan Admission Admit Date/Time: 06/12/21 15:40 Primary Reason for Your Visit: Debility Attending Provider: Obinna Fair Primary Care Provider: Vel Graham Consulting Providers: Alejo Jean Instructions Additional Instructions / Restrictions: Continue ENMANUEL wraps to lower extremities. May take off at bedtime. Discharge Orders/Prescriptions Prescriptions: New hydralazine 25 mg Tablet 25 mg PO TID Qty: 0 RF: 0 ferrous sulfate [FeroSul] 325 mg (65 mg iron) Tablet 325 mg PO Q48H Qty: 0 RF: 0 ascorbic acid (vitamin C) 500 mg Tablet 500 mg PO Q48H Qty: 0 RF: 0 Continued pravastatin 40 MG tablet 40 mg PO QHS RF: 0 acetaminophen 500 MG tablet 1,000 mg PO Q6H PRN PRN (Reason: Pain 1-10 Or Fever) RF: 0 rivaroxaban 20 MG tablet 20 mg PO DAILY RF: 0 donepezil 5 MG tablet 5 mg PO QHS RF: 0 medroxyprogesterone 10 mg tablet 10 mg PO DAILY RF: 0 gabapentin 400 mg capsule 400 mg PO TID RF: 0 chlorthalidone 50 mg Tablet 25 mg PO DAILY Qty: 30 RF: 0 Tradjenta 5 mg tablet 5 mg PO DAILY Qty: 30 RF: 0 Discontinued lisinopril 20 mg tablet 10 mg PO DAILY Qty: 0 RF: 0 Referrals / Follow Up: Alejo Jean MD [STAFF PHYSICIAN] - Within 2 Weeks Vel Graham MD [Primary Care Provider] - In 1 Week Disposition Disposition (needs filled in before D/C Order can be placed): [facility] Documented by User: Dr. Obinna Fair MD 06/13/21 13:24 Providers Date of Admission: 06/12/21 Reason For Visit: DEBILITY, ABILIO ON CKD Medications at Discharge Home Medications pravastatin 40 mg PO QHS 10/05/17 acetaminophen 1,000 mg PO Q6H PRN PRN 04/15/20 rivaroxaban 20 mg PO DAILY 06/23/20 donepezil 5 mg PO QHS 04/09/21 gabapentin 400 mg PO TID 06/05/21 medroxyprogesterone 10 mg PO DAILY 06/05/21 Tradjenta 5 mg PO DAILY #30 tab 06/07/21 chlorthalidone 25 mg PO DAILY #30 tab 06/07/21 ascorbic acid (vitamin C) 500 mg PO Q48H #0 tab 06/13/21 ferrous sulfate [FeroSul] 325 mg PO Q48H #0 tab 06/13/21 hydralazine 25 mg PO TID #0 tab 06/13/21 Hospital Course Summary of Care Provided Hospital Course: This patient was seen in conjunction with GILL NET STRINGER, Bijal. I have independently interviewed and examined the patient and reviewed pertinent history, examination findings, laboratory and plan of management. I have reviewed the note and agree with the documented findings with the few additional points. In brief, patient is 80-year-old female was admitted with worsening lower extremity swelling with difficulty in transferring from wheelchair to bed lung with acute kidney injury on CKD stage IIIb. The patient allergy list states rash with furosemide. When asked directly, she does not remember having rash or allergy with any medication. Bumex 1 mg IV given on 06/13. The patient tolerated well. Discussed with the lithographic etcher. Metolazone 5 mg oral given. PT and OT consulted. Patient needs diuretics. Patient is discharged on chlorthalidone. Evaluate as an outpatient for loop diuretic. Lisinopril discontinued. Recent renal ultrasound showed medical renal disease. 2D echo shows EF 65% with no evidence of diastolic but mild aortic stenosis. . Venous duplex no acute DVT. Patient has chronic degenerative multilevel lumbar arthritis as evidenced by lumbar spine CT. Pain control. Patient has poor mobility and balance. Patient discharged to SNF. Acute kidney injury on CKD stage IIIb with proteinuria: Patient baseline creatinine 1.38. Admitted with creatinine 2.38. Slight improvement with IV fluid. IV fluid discontinued as patient has worsening leg edema.Amlodipine and Actos were discontinued during previous hospitalization. Patient urine protein creatinine ratio 2.6 g%. Her creatinine profile improved from 2.38-2.0. Follow-up with the nephrology clinic as an outpatient. Patient was also admitted for ABILIO for 2 weeks ago for recent hospitalization for weakness and mechanical fall. Discussed with nephrology Acute anemia on chronic normocytic normochromic and due to CKD. Hemoglobin is 7.4. No external GI bleed. Patient is discharged on ferrous sulfate and vitamin C. Hypertension: Blood pressure is elevated. On hydralazine Other comorbidities include hypertension, type 2 diabetes mellitus, dyslipidemia and history of DVT: Patient is on Xarelto. I have discussed my assessment with GILL NET STRINGERBijal and orders have been reviewed. CODE STATUS full code. Discharge medication reconciliation done. Discharge follow-up instructions completed. Discharge process discussed with the patient and all questions were answered to patient's satisfaction. Discharged to SNF. Total time spent, exact 35 minutes on discharge meds reconciliation, examinatio n, coordination of care with nurses and ancillary staff, review of imaging and blood test and discussion with the patient on follow-up instructions. Physical Exam Narrative General: Alert, Oriented x3, Cooperative HEENT: Atraumatic, PERRLA, EOMI, Normocephalic Oral: No Gingival or Mucosal Lesions/ Ulcerations Neck: Supple, No JVD, Negative Carotid Bruits Lungs: Air entry diminished in bilateral lung bases. No crepitation/rhonchi Cardiovascular: Regular rate, Regular Rhythm, Normal S1, Normal S2, LLSB systolic murmur. Abdomen: Bowel Sounds Present, Soft, Non Tender, Non-Distended : No renal angle tenderness. No suprapubic tenderness. Extremities: Bilateral pitting ankle edema 2+ capillary Refill Less than 3 Se conds Skin: No rashes, No breakdown Musculoskeletal: No Tenderness to Palpation of Joints or Extremities. ROM restricted Neurological: Cranial nerves II-XII grossly intact, DTR 2+/4 and Symmetrical, muscle strength 3/5 at major joints of lower extremities. Psych/Mental Status: Flat affect. ABG / Lab / Microbiology Data Result Diagrams: 06/13/21 04:11 06/13/21 04:11 Discharge Plan Admission Admit Date/Time: 06/12/21 15:40 Primary Reason for Your Visit: Debility Attending Provider: Obinna Fair Primary Care Provider: Vel Graham Consulting Providers: Alejo Jean Instructions Additional Instructions / Restrictions: Continue ENMANUEL wraps to lower extremities. May take off at bedtime. Discharge Orders/Prescriptions Prescriptions: New hydralazine 25 mg Tablet 25 mg PO TID Qty: 0 RF: 0 ferrous sulfate [FeroSul] 325 mg (65 mg iron) Tablet 325 mg PO Q48H Qty: 0 RF: 0 ascorbic acid (vitamin C) 500 mg Tablet 500 mg PO Q48H Qty: 0 RF: 0 Continued pravastatin 40 MG tablet 40 mg PO QHS RF: 0 acetaminophen 500 MG tablet 1,000 mg PO Q6H PRN PRN (Reason: Pain 1-10 Or Fever) RF: 0 rivaroxaban 20 MG tablet 20 mg PO DAILY RF: 0 donepezil 5 MG tablet 5 mg PO QHS RF: 0 medroxyprogesterone 10 mg tablet 10 mg PO DAILY RF: 0 gabapentin 400 mg capsule 400 mg PO TID RF: 0 chlorthalidone 50 mg Tablet 25 mg PO DAILY Qty: 30 RF: 0 Tradjenta 5 mg tablet 5 mg PO DAILY Qty: 30 RF: 0 Discontinued lisinopril 20 mg tablet 10 mg PO DAILY Qty: 0 RF: 0 Referrals / Follow Up: Alejo Jean MD [STAFF PHYSICIAN] - Within 2 Weeks Vel Graham MD [Primary Care Provider] - In 1 Week Disposition Disposition (needs filled in before D/C Order can be placed): [facility] Charges/Coding Visit Charges Inpatient E&M: 98224 Disch Hosp
[2021-06-13 13:14] VITALS: BP 163/61; PULSE 78
[2021-06-13] MEDS: hydrALAZINE 25 MG Tablet PO (13:14)
[2021-06-13] MEDS: Ferrous Sulfate 325 MG Tablet PO (13:14)
[2021-06-13 13:20] VITALS: BP 152/63; PULSE 87; RESP 18; TEMP 36.6; O2SAT 98
[2021-06-13] MEDS: Ascorbic Acid 500 MG Tablet PO (13:35)
--- NOTE | 2021-06-13 13:48 | CASEMGMT ---
Discharge Volunteer Fire Fighter Patient is being discharged. Faxed all d/c orders over to Crystal at [facility]. Crystal was notified. Called patients daughter and left her a VM regarding her transfer. [facility] will be picking patient up at 1400. Nurse Zohaib notified. Kimberly Aj Discharge Volunteer Fire Fighter
--- NOTE | 2021-06-13 22:44 | CM.ED ---
LANEY Note Candice Peoples RN advised that [facility] is sending patient back as she wants a private room and wants to come to the ED until she gets a private room. LANEY called Patricio in admission. No answer SW called Patient's unit. Spoke to Zaira the REMOTE SENSING RESEARCH SCIENTIST. Zaira said that she and her banking supervisor have talked to patient and daughter. Patient doesn't want a roommate and wants a private room thus is requesting to be taken to [facility]. would not respond as it is not an emergecy so private transport has to be secured. Patient wants to come back to the ED due to anxiety and then she said that she wanted to come for PT/OT. LANEY explained that per notes patient's choices were [facility] and [facility]. Zaira said that patient said that she will then go home. LANEY advised that patient has to have a medical need to be admitted to inpatient unit. Zaira verbalized understanding. LANEY updated Candice Peoples rn
== END 2021-06-13 15:04 | disposition skilled nursing facility (03) | DRG 948 ==
LOC: ED 15:28 → PCU 16:09
PROVIDERS: Nurse Practitioner Family; Admitting Provider Student in an Organized Health Care Education/Training Program; Emergency Provider Emergency Medicine; PCP Family Medicine; Visit Provider Internal Medicine
DX: R53.81 Other malaise (principal); N17.9 Acute kidney failure, unspecified; Z68.41 Body mass index [BMI] 40.0-44.9, adult; D63.1 Anemia in chronic kidney disease; E11.22 Type 2 diabetes mellitus with diabetic chronic kidney disease; Z79.4 Long term (current) use of insulin; N18.32 Chronic kidney disease, stage 3b; E78.00 Pure hypercholesterolemia, unspecified; E78.5 Hyperlipidemia, unspecified; I12.9 Hypertensive chronic kidney disease with stage 1 through stage 4 chronic kidney disease, or unspecified chronic kidney disease; I35.0 Nonrheumatic aortic (valve) stenosis; K21.9 Gastro-esophageal reflux disease without esophagitis; M47.816 Spondylosis without myelopathy or radiculopathy, lumbar region; R60.0 Localized edema; Z79.84 Long term (current) use of oral hypoglycemic drugs; Z79.01 Long term (current) use of anticoagulants; Z86.711 Personal history of pulmonary embolism; Z79.899 Other long term (current) drug therapy; Z86.718 Personal history of other venous thrombosis and embolism; R29.6 Repeated falls; E66.9 Obesity, unspecified
CPT/HCPCS: 36415; 70450; 72131; 80048; 81001; 82962; 85025; 87426; 93005; 93970; 97162; 97166; 97530; 97535; 97802; 99285; J7030; P9612; A4216

== ENCOUNTER 2021-06-18 10:49 | Observation (INO) | payer MEDICARE, MEDICAID, SELFPAY ==
[2021-06-18 10:50] VITALS: BP 151/79; PULSE 84; RESP 14; TEMP 36.4; O2SAT 99; BMI 41.2
--- NOTE | 2021-06-18 10:59 | EKG12_ITS ---
Test Reason : Blood Pressure : / mmHG Vent. Rate : 083 BPM Atrial Rate : 083 BPM P-R Int : 218 ms QRS Dur : 094 ms QT Int : 360 ms P-R-T Axes : 043 -12 027 degrees QTc Int : 423 ms Sinus rhythm with 1st degree A-V block Otherwise normal ECG Confirmed by ALVARO AMANDA, [place] ([id number]), copy editor TARAH JIMENEZ ([id number]) on 06/20/2021 7:21:42 AM Referred By: BRIJESH Confirmed By:MONTEZ JOHN MD
--- NOTE | 2021-06-18 11:01 | RAD_ITS ---
STUDY: X-RAY - LEFT FEMUR REASON FOR STUDY: Female, 80 years old. fall, left leg pain TECHNIQUE: 5 view(s) of the femur. COMPARISON: None. FINDINGS: Normal visualized femur. Normal visualized soft tissue structure. No fracture of the hip or shaft or distal aspect of the femur at the knee joint. Mild to moderate degenerative narrowing in the knee joint. Mild to moderate axial narrowing of the left hip joint. There is no demonstrated destructive process. RAD/Femur Min 2 Views IMPRESSION: Unremarkable x-ray examination of the femur. Electronically Signed: Brayden Rodriguez MD at 12:09 EDT ,
--- NOTE | 2021-06-18 11:01 | ED.VIS.FALL ---
HPI HPI - Fall History of Present Illness Chief Complaint: Fall Narrative Narrative: Patient arrives via EMS, she sustained a fall at home, her left arm was trapped under her left rib and now she has left anterior rib pain, she also has chronic left leg pain and weakness. She denies any hip pain. She has no ankle or foot pain. No head injury. No recent fevers or chills, no urinary symptoms. She does have a history of chronic immobility she is in a wheelchair secondary to her left lower leg being weak as well as generalized weakness and morbid obesity, [facility] Medical History Arthritis Back pain CKD (chronic kidney disease), stage III Diabetes Diabetes DVT (deep venous thrombosis) Easy bruising Edema Excessive bleeding Gastric reflux GERD (gastroesophageal reflux disease) High cholesterol History of pain when walking History of renal disease Hypertension Injury of head and neck Insulin dependent diabetes mellitus Kidney disease Non-smoker Pulmonary embolism Shortness of breath on exertion Uses wheelchair Wears glasses Home Medications pravastatin 40 mg PO QHS 10/05/17 [History Last Taken 06/10/21 21:00] acetaminophen 1,000 mg PO Q6H PRN PRN 04/15/20 [History Last Taken 04/14/20] rivaroxaban 20 mg PO DAILY 06/23/20 [History Last Taken 06/10/21 17:00] donepezil 5 mg PO QHS 04/09/21 [History Last Taken 06/10/21 21:00] gabapentin 400 mg PO TID 06/05/21 [History Last Taken 06/11/21 09:00] medroxyprogesterone 10 mg PO DAILY 06/05/21 [History Last Taken 06/11/21 09:00] chlorthalidone 25 mg PO DAILY #30 tab 06/07/21 [Rx Last Taken 06/10/21 21:00] ascorbic acid (vitamin C) 500 mg PO Q48H #0 tab 06/13/21 [Rx Last Taken Unknown] ferrous sulfate [FeroSul] 325 mg PO Q48H #0 tab 06/13/21 [Rx Last Taken Unknown] hydralazine 25 mg PO TID #0 tab 06/13/21 [Rx Last Taken Unknown] pioglitazone 15 mg PO DAILY 06/18/21 [History Last Taken Unknown] Allergy/AdvReac Type Severity Reaction Status Date / Time empagliflozin Allergy Itching/VALENTIN Verified 06/18/21 10:50 [From Jardiance] H furosemide [From Lasix] Allergy Rash Verified 06/18/21 10:50 metformin Allergy decreased Verified 06/18/21 10:50 appetite warfarin [From Coumadin] Allergy Other Verified 06/18/21 10:50 apixaban [From Eliquis] AdvReac Other Verified 06/18/21 10:50 Surgical History Hx of section Hx of tonsillectomy Social History household members: children Smoking Status: Never smoker alcohol intake: never substance use type: does not use ROS ROS ED ROS Narrative Past medical history: Reviewed, quite complex and I reviewed as above. Medications: Reviewed Social history: Lives at home with her daughter, she is wheelchair-bound but usually can pivot in and out of bed or chair. Review of systems: All systems negative except as indicated General: No fever. Generalized weakness as in HPI Eyes: No visual changes ENT: No upper airway congestion, normal voice Neck: No neck pain Cardiovascular: No palpitations. Chest wall: Left anterior rib pain Respiratory: No shortness of breath or cough Gastrointestinal: No abdominal pain, nausea vomiting or diarrhea Genitourinary: Chronic incontinence Musculoskeletal: Left leg pain Skin: No rash Neurological: No memory loss, confusion or any focal weakness Psych: No recent behavioral changes Hematologic: No easy bleeding or easy bruising EXAM Physical Exam Narrative Exam Narrative: Physical exam General: Patient appears somewhat uncomfortable. She appears chronically ill. Head: Normocephalic, Atraumatic Eyes: Conjunctiva not pale ENT: Slightly dry mucous membranes Neck: Supple, Nontender, No lymphadenopathy Cardiovascular: Regular rate, Regular rhythm Chest wall: There is some tenderness underneath the breast in the lower rib region. No obvious contusion is seen Respiratory: No distress, CTA bilaterally Abdomen: Soft, Nontender, Nondistended Back: Nontender, Normal Inspection. Negative for: CVA tenderness Extremities: There is tenderness over the left femur but no hip pain no pain with logrolling or flexion or extension. No knee pain. No lower leg pain. Skin: Normal color, No rash no abrasions or contusions Neurological: Alert, Normal Strength, Normal Sensation Psychological: Normal affect Const Vital Signs: 06/18/21 10:50 06/18/21 12:29 Temperature 97.6 F L Temperature Source Oral Pulse Rate 84 Respiratory Rate 14 Respiratory Effort Normal Non-Labored Respiratory Depth Normal Respiratory Pattern Normal Blood Pressure 151/79 H Blood Pressure Mean 103 Pulse Ox 99 Oxygen Delivery Method Room Air Room Air MDM MDM MDM Narrative Medical decision making narrative: Patient has a normal work-up, however she is quite weak and can no longer go home, she was recently in an ECF for just a few hours and then she left. But in discussing with the patient and the family it is clear that she can not be discharged. I attempted to place her in an ECF today but according to social work I was unable to. I will attempt to admit her medically. Lab Data Labs: Laboratory Results - last 24 hr 06/18/21 06/18/21 06/18/21 11:15 11:15 11:55 WBC 6.5 RBC 2.86 L Hgb 8.9 L Hct 27.1 L MCV 94.8 MCH 31.1 MCHC 32.8 RDW Std Deviation 45.2 H RDW Coeff of Mayank 13.1 Plt Count 229 MPV 9.7 Immature Gran % (Auto) 0.900 Neut % (Auto) 48.8 Lymph % (Auto) 22.0 [place] % (Auto) 6.5 Eos % (Auto) 20.9 H Baso % (Auto) 0.9 Absolute Neuts (auto) 3.2 Absolute Lymphs (auto) 1.42 Nucleated RBC % 0 Sodium 140 Potassium 4.2 Chloride 109 H Carbon Dioxide 24.0 Anion Gap 7 BUN 40 H Creatinine 2.46 H Estim Creat Clear Calc 14.91 Est GFR (MDRD) Af Amer 24 L Est GFR (MDRD) Non-Af 20 L BUN/Creatinine Ratio 16.3 Glucose 194 H Calcium 10.6 H Total Bilirubin 0.20 AST 9 L ALT 12 L Alkaline Phosphatase 61 Total Protein 6.9 Albumin 3.3 Globulin 3.6 Albumin/Globulin Ratio 0.9 Lipase 137 Urine Color Yellow Urine Clarity Sl. Cloudy Urine pH 6.5 Ur Specific [place] 1.010 Urine Protein 100 H Urine Glucose (UA) Normal Urine Ketones Negative Urine Occult Blood 10 H Urine Nitrite Negative Urine Bilirubin Negative Urine Urobilinogen Normal Ur Leukocyte Esterase Negative Urine RBC 0-5 SEEN Urine WBC 0 SEEN Ur Squamous Epith Cells 0 SEEN Urine Bacteria 0 SEEN Urine Mucus 0 SEEN Radiography Diagnostic Testing: Clinical Impression(s) from Imaging Studies Femur X-Ray 06/18/21 11:01 IMPRESSION: Unremarkable x-ray examination of the femur. Electronically Signed: Brayden Rodriguez MD at 12:09 EDT Reading Location ID and State: [address] [place] [address] , Service support , Chest X-Ray 06/18/21 11:25 IMPRESSION: Degenerative changes, as described above. No demonstrated acute cardiopulmonary process. Electronically Signed: Brayden Rodriguez MD at 12:07 EDT , Discharge Plan Triage Chief Complaint: Fall ED Provider: Judah Messer Dx/Rx/DC Orders Clinical Impression: Fall, Declining functional status Prescriptions: No Action pravastatin 40 MG tablet 40 mg PO QHS RF: 0 acetaminophen 500 MG tablet 1,000 mg PO Q6H PRN PRN (Reason: Pain 1-10 Or Fever) RF: 0 rivaroxaban 20 MG tablet 20 mg PO DAILY RF: 0 donepezil 5 MG tablet 5 mg PO QHS RF: 0 medroxyprogesterone 10 mg tablet 10 mg PO DAILY RF: 0 gabapentin 400 mg capsule 400 mg PO TID RF: 0 chlorthalidone 50 mg Tablet 25 mg PO DAILY Qty: 30 RF: 0 hydralazine 25 mg Tablet 25 mg PO TID Qty: 0 RF: 0 ferrous sulfate [FeroSul] 325 mg (65 mg iron) Tablet 325 mg PO Q48H Qty: 0 RF: 0 ascorbic acid (vitamin C) 500 mg Tablet 500 mg PO Q48H Qty: 0 RF: 0 pioglitazone 15 mg tablet 15 mg PO DAILY RF: 0 Primary Care Provider: Vel Graham Referrals: Vel Graham MD [Primary Care Provider] - Disposition Disposition: Acute Care [facility]
[2021-06-18 11:21] LABS: Absolute Lymphocyte Count 1.42 X10^3/uL (0.83-4.51); Absolute Neutrophil Count 3.2 X10^3/uL (2.0-7.7); Basophil# 0.06 X10^3/uL; Basophil% 0.9 % (0-1); Eosinophil# 1.35 X10^3/uL; Eosinophils% 20.9 % (0-5); Hematocrit 27.1 % (37-47); Hemoglobin 8.9 g/dL (12.0-15.0); Lymphocyte # 1.42 X10^3/ul (0.83-4.51); Mean Corp Hgb Conc 32.8 g/dL (32-36); Mean Corpuscular Hgb 31.1 pg (27.0-32.0); Mean Corpuscular Volume 94.8 fL (81-99); Mean Platelet Vol. 9.7 fl (6.2-12.0); Monocyte# 0.42 X10^3/uL; Monocyte% 6.5 % (0-10); NRBC Flagged by Analyzer 0 % (0-5); Neutrophil # 3.15 X10^3/uL (2.7-7.7); Neutrophil % 48.8 % (47-70); Platelet Count 229 K/mm3 (150-450); RBC Distribution Width CV 13.1 % (11.6-14.6); RBC Distribution Width SD 45.2 fl (35.1-43.9); Red Blood Count 2.86 M/mm3 (4.2-5.4); White Blood Count 6.5 K/mm3 (4.4-11.0)
--- NOTE | 2021-06-18 11:25 | RAD_ITS ---
STUDY: X-RAY CHEST REASON FOR EXAM: Female, 80 years old. weakness TECHNIQUE: Single AP portable view of the chest. COMPARISON: June 05, 2021 FINDINGS: The lungs are clear and expanded. There is no demonstrated pleural abnormality. Normal size heart. Normal mediastinum and portillo. Normal visualized pulmonary arteries. There is atherosclerotic tortuosity of the aortic arch and descending thoracic aorta. There are diffuse degenerative changes of the visualized thoracic spine. Normal visualized ribs, clavicles, and shoulders. There is no demonstrated abnormality of the visualized soft tissue structures of the upper abdomen. RAD/Chest 1 View (Portable) IMPRESSION: Degenerative changes, as described above. No demonstrated acute cardiopulmonary process. Electronically Signed: Brayden Rodriguez MD at 12:07 EDT ,
[2021-06-18 11:39] LABS: ALB/GLOB Ratio 0.9 RATIO (0.9-2.4); AST(SGOT) 9 U/L (15-37); Alanine Aminotransfer ALT/SGPT 12 U/L (13-56); Albumin, Serum 3.3 g/dL (3.2-5.0); Alkaline Phosphatase 61 U/L (45-117); Anion Gap 7 (5-15); BUN 40 mg/dL (7-18); BUN/Creat Ratio 16.3 RATIO (10-20); Calcium,Total 10.6 mg/dL (8.5-10.1); Chloride 109 mmol/L (98-107); Creatinine, Serum 2.46 mg/dL (0.55-1.02); EST Glomerular Filtration Rate 20 mL/min (>60); Est Glom Filt Rate - Afr Amer 24 mL/min (>60); Estimated Creatinine Clearance 14.91 ml/min; Globulin 3.6 g/dL (2.2-4.2); Glucose 194 mg/dL (74-106); Lipase 137 U/L (73-393); Potassium 4.2 mmol/L (3.5-5.1); Protein, Total 6.9 g/dL (6.4-8.2); Sodium Level 140 mmol/L (136-145)
[2021-06-18 12:03] LABS: Bacteria 0 SEEN /hpf (None Seen); Mucous, Urine 0 SEEN /hpf (<or=2+); Squamous Epithelial Cells - UA 0 SEEN /hpf (5-10); White Blood Cells 0 SEEN /hpf (0-5)
[2021-06-18 12:11] LABS: Color, Urine Yellow (Yellow); Glucose, Dipstick Normal (Normal); Ketone-Dipstick Negative (Negative); Leukocyte Esterase-Dipstick Negative /ul (Negative); Nitrite-Dipstick Negative (Negative); Occult Blood-Urine 10 /ul (Negative); Protein-Dipstick 100 mg/dl (Negative); Urine Bilirubin Dipstick Negative (Negative); Urine Clarity Sl. Cloudy (Clear); Urine Urobilinogen Normal (Normal); Urine pH 6.5 (5.0 - 8.0)
--- NOTE | 2021-06-18 12:15 | CM.ED ---
Social Work Consult: senior living placement Referral source: Dr. Messer This social service manager met with patient in room. Introduced self and social service manager role. Patient agreeable to speak with this social service manager. Patient states to currently be living with patient daughterLucita. Patient reports that Lucita works during the day. This social service manager noting from chart review that patient recently discharged from acute care unit on 06/13/21 to [facility]. Patient states to have not even spent the night at [facility] as It was not a good fit. Patient with fall today and agrees that patient is not doing well at home. Patient states I don't want to worry my daughter. Patient states to be agreeable to half-way placement and first choice is [facility], this social service manager calling admissions person for [facility], Deedee while in room with patient. Deedee states that [facility] does not have any openings and won't have an open bed until 06/23/21. This social service manager communicating this information to patient. Patient second choice for half-way is [facility] [place]. Patient states to have [facility] before I just don't like the food. This social service manager did provide patient with list of in-network nursing facilities that are local to patient geographical location. Patient request for this social service manager to call patient daughterLucita. This social service manager calling Lucita while in room with patientLucita updated on above information. Lucita agreeable with plan and confirms that patient is not able to live in the community, currently. This social service manager communicating that due to patient insurance patient will need a pre-cert before insurance will cover half-way stay, patient voiced understanding. This social service manager communicated that unable to obtain pre-cert from the ED and plan would be for patient to be admitted to acute care unit. Patient and Lucita both voice understanding. Active support and listening provided. This social service manager updated Dr. Messer on above information. Dr. Messer to contact hospitalist for admission. PLAN: Transition to acute care setting to facilitate half-way placement. Social Work to continue to follow. Shadia GARCÍA, ESTEBAN
[2021-06-18 12:18] LABS: Red Blood Cells-Urine 0-5 SEEN /hpf (0-5)
[2021-06-18 12:49] VITALS: BP 125/86; PULSE 81; RESP 20; O2SAT 96
[2021-06-18 14:03] VITALS: BP 125/86; PULSE 81; RESP 20; TEMP 36.4; O2SAT 96
[2021-06-18 14:48] VITALS: BMI 41.0
[2021-06-18 15:00] VITALS: BP 165/69; PULSE 81; RESP 16; TEMP 36.3; O2SAT 95
--- NOTE | 2021-06-18 15:04 | HP.PCM.HOS_ITS ---
HPI - General General Date of Admission: 06/18/21 Date of Service: 06/18/21 Chief Complaint: Debility, generalized weakness HPI Narrative DIANNA ZAMUDIO, is a 80 F who presents to the emergency room at [facility] after sustaining a fall at home, patient had been in a assisted up until a few days ago after being hospitalized here for debility and acute kidney injury. Patient has a history of dementia, according to the patient's daughter, she checked herself out of [facility] where she was recent ly after only a few hours. Review of systems was unobtainable from the patient due to confusion. Labs were obtained in the emergency room, CBC was remarkable for hemoglobin of 8.9, patient's creatinine was elevated at 2.46, BUN was 40, glucose was elevated 194. Chest x-ray showed no acute cardiopulmonary process, left femur was x- rayed and was negative for fracture or dislocation. Patient will be placed in observation status for generalized debility, she will need care home home placement. [facility] Medical History Arthritis Back pain CKD (chronic kidney disease), stage III Diabetes Diabetes DVT (deep venous thrombosis) Easy bruising Edema Excessive bleeding Gastric reflux GERD (gastroesophageal reflux disease) High cholesterol History of pain when walking History of renal disease Hypertension Injury of head and neck Insulin dependent diabetes mellitus Kidney disease Non-smoker Pulmonary embolism Shortness of breath on exertion Uses wheelchair Wears glasses Home Medications pravastatin 40 mg PO QHS 10/05/17 [History Last Taken 06/17/21] acetaminophen 1,000 mg PO Q6H PRN PRN 04/15/20 [History Last Taken 06/17/21] rivaroxaban 20 mg PO DAILY 06/23/20 [History Last Taken 06/17/21] donepezil 5 mg PO QHS 04/09/21 [History Last Taken 06/17/21] gabapentin 400 mg PO TID 06/05/21 [History Last Taken 06/17/21] medroxyprogesterone 10 mg PO DAILY 06/05/21 [History Last Taken 06/17/21] chlorthalidone 25 mg PO DAILY #30 tab 06/07/21 [Rx Last Taken 06/17/21] pioglitazone 15 mg PO DAILY 06/18/21 [History Last Taken 06/17/21] Allergy/AdvReac Type Severity Reaction Status Date / Time empagliflozin Allergy Itching/VALENTIN Verified 06/18/21 10:50 [From Jardiance] H furosemide [From Lasix] Allergy Rash Verified 06/18/21 10:50 metformin Allergy decreased Verified 06/18/21 10:50 appetite warfarin [From Coumadin] Allergy Other Verified 06/18/21 10:50 apixaban [From Eliquis] AdvReac Other Verified 06/18/21 10:50 Surgical History Hx of section Hx of tonsillectomy Social History household members: children Smoking Status: Never smoker alcohol intake: never substance use type: does not use ROS ROS Narrative Review of systems was unobtainable due to patient's dementia Review of Systems ROS Unobtainable: due to mental condition Vital Signs Vital Signs Vital Signs: 06/18/21 10:50 06/18/21 12:29 06/18/21 12:49 Temperature 97.6 F L Temperature Source Oral Pulse Rate 84 81 Respiratory Rate 14 20 H Respiratory Effort Normal Non-Labored Respiratory Depth Normal Respiratory Pattern Normal Blood Pressure 151/79 H 125/86 H Blood Pressure Mean 103 99 Pulse Ox 99 96 Oxygen Delivery Method Room Air Room Air Room Air 06/18/21 14:03 Temperature 97.6 F L Temperature Source Temporal Pulse Rate 81 Respiratory Rate 20 H Respiratory Effort Respiratory Depth Respiratory Pattern Blood Pressure 125/86 H Blood Pressure Mean 99 Pulse Ox 96 Oxygen Delivery Method Room Air Weight Weight: 102.2 kg Body Mass Index (BMI) 41.2 Physical Exam Const alert and no apparent distress Constitutional Narrative: Patient appears her stated age General Appearance: cooperative, well kempt and well developed Orientation / Consciousness: awake, oriented to person, oriented to place and oriented to time HEENT normocephalic, head/scalp atraumatic, hearing grossly normal bilaterally and moist oral mucous membranes Eyes PERRL, EOMs intact bilaterally and conjunctivae normal Neck nuchal rigidity, supple, no JVD, thyroid normal and no carotid bruits General: trachea midline Resp normal respiratory effort, no retractions, no use of accessory muscles and clear to auscultation bilaterally Auscultation: Negative for rales, rhonchi or wheezes Cardio regular rate, regular rhythm, S1 normal heart sound, S2 normal heart sound, no murmurs, no rub and no gallops GI normal to inspection, nondistended, normoactive bowel sounds, soft to palpation, non-tender and non-distended Extremity no clubbing, cyanosis or edema Skin no rashes or lesions noted General Skin Exam: no breakdown Neuro CN's II-XII intact bilaterally, no focal motor deficits and no sensory deficits noted Sensorium / Orientation: awake and alert Speech: speech normal Psych Psych Narrative: Patient has a flat affect, fused and is a poor informant Results Lab / Micro Data Result Diagrams: 06/18/21 11:15 06/18/21 11:15 Labs: Laboratory Results - last 24 hr 06/18/21 11:15: WBC 6.5, RBC 2.86 L, Hgb 8.9 L, Hct 27.1 L, MCV 94.8, MCH 31.1, MCHC 32.8, RDW Std Deviation 45.2 H, RDW Coeff of Myaank 13.1, Plt Count 229, MPV 9 .7, Immature Gran % (Auto) 0.900, Neut % (Auto) 48.8, Lymph % (Auto) 22.0, [place] % (Auto) 6.5, Eos % (Auto) 20.9 H, Baso % (Auto) 0.9, Absolute Neuts (auto) 3.2, Absolute Lymphs (auto) 1.42, Nucleated RBC % 0 06/18/21 11:15: Sodium 140, Potassium 4.2, Chloride 109 H, Carbon Dioxide 24.0, Anion Gap 7, BUN 40 H, Creatinine 2.46 H, Estim Creat Clear Calc 14.91, Est GFR (MDRD) Af Amer 24 L, Est GFR (MDRD) Non-Af 20 L, BUN/Creatinine Ratio 16.3, Glucose 194 H, Calcium 10.6 H, Total Bilirubin 0.20, AST 9 L, ALT 12 L, Alkaline Phosphatase 61, Total Protein 6.9, Albumin 3.3, Globulin 3.6, Albumin/Globulin Ratio 0.9, Lipase 137 06/18/21 11:55: Urine Color Yellow, Urine Clarity Sl. Cloudy, Urine pH 6.5, Ur Specific [place] 1.010, Urine Protein 100 H, Urine Glucose (UA) Normal, Urine Ketones Negative, Urine Occult Blood 10 H, Urine Nitrite Negative, Urine Bilirubin Negative, Urine Urobilinogen Normal, Ur Leukocyte Esterase Negative, Urine RBC 0-5 SEEN, Urine WBC 0 SEEN, Ur Squamous Epith Cells 0 SEEN, Urine Bacteria 0 SEEN, Urine Mucus 0 SEEN Radiology Impression Femur X-Ray 06/18/21 11:01 IMPRESSION: Unremarkable x-ray examination of the femur. Electronically Signed: Brayden Rodriguez MD at 12:09 EDT Reading Location ID and State: [facility] / [place] , Service support , Chest X-Ray 06/18/21 11:25 IMPRESSION: Degenerative changes, as described above. No demonstrated acute cardiopulmonary process. Electronically Signed: Brayden Rodriguez MD at 12:07 EDT , Assessment & Plan Assessment/Plan (1) Fall: PLAN: 1. Generalized debility-patient will be placed in observation status on MedSurg, she will be seen by PT and OT, she will need placement in the care home facility. #2 dementia-complicates care and recovery, patient is on Aricept, this dosage will be increased #3 type 2 diabetes-patient is on oral medications for diabetes, blood sugars will be monitored and sliding scale insulin will be given #4 hyperlipidemia-patient is on pravastatin, statin will be continued #5 iron deficiency anemia-patient's home medications will be continued #6 chronic anticoagulant usage-patient is on Xarelto, it appears that she has a history of deep venous thrombosis and pulmonary embolism, Xarelto will be continued #7 essential hypertension-patient will remain on her home medication #8 degenerative disc disease of the lumbar spine-this will complicate care and recovery, patient will be seen by PT and OT. Charges/Coding Visit Charges OBSV E&M: 45487 Initial observation care L3
[2021-06-18 19:45] VITALS: BP 142/84; PULSE 96; RESP 16; TEMP 36.9; O2SAT 99
[2021-06-18] MEDS: Gabapentin 400 MG Capsule PO (21:21)
[2021-06-18] MEDS: Memantine Hydrochloride 5 MG Tablet PO (21:21)
[2021-06-18] MEDS: Pravastatin 40 MG Tablet PO (21:22)
[2021-06-18] MEDS: Donepezil HCl 10 MG Tablet PO (21:22)
[2021-06-19 04:57] VITALS: BP 127/69; PULSE 74; RESP 18; TEMP 36.9; O2SAT 96
[2021-06-19] MEDS: Gabapentin 400 MG Capsule PO ×3 (05:54→21:37)
[2021-06-19 06:49] LABS: Anion Gap 3 (5-15); BUN 34 mg/dL (7-18); BUN/Creat Ratio 16.3 RATIO (10-20); Calcium,Total 10.2 mg/dL (8.5-10.1); Chloride 113 mmol/L (98-107); Creatinine, Serum 2.08 mg/dL (0.55-1.02); EST Glomerular Filtration Rate 24 mL/min (>60); Est Glom Filt Rate - Afr Amer 30 mL/min (>60); Estimated Creatinine Clearance 17.63 ml/min; Glucose 175 mg/dL (74-106); Potassium 4.2 mmol/L (3.5-5.1); Sodium Level 140 mmol/L (136-145)
--- NOTE | 2021-06-19 08:57 | CASEMGMT ---
Discharge Abrasive Mixer Called Zair[facility] and left a VM. Faxed over referral. Will follow up. Kimberly Aj Discharge Abrasive Mixer
[2021-06-19] MEDS: Lisinopril 10 MG Tablet PO (09:09)
[2021-06-19] MEDS: Pioglitazone Hydrochloride 15 MG Tablet PO (09:09)
[2021-06-19] MEDS: Memantine Hydrochloride 5 MG Tablet PO ×2 (09:09→21:37)
--- NOTE | 2021-06-19 10:15 | CASEMGMT ---
SW met with patient, introduced self and role at [facility]. SW asked patient about her custodial choices. Patient had a list of nursing homes in her room and she had marked her top 3 choices. [facility]. SW told patient that SW will check with [facility] to see if they have beds. SW will let her know when SW finds out. A referral was faxed to [facility] this am as in report it was passed along that patient wanted [facility]. D/c railway yard assistant Kimberly will make referral. Await responses. Micki Das CONVENTIONAL MACHINIST WILEY
--- NOTE | 2021-06-19 10:29 | CASEMGMT ---
Discharge Supervisor Type Bar And Segment Called Nathalie at [facility]. She does have a private bed available. Faxed over the referral. Will follow up. Kimberly Aj Discharge Supervisor Type Bar And Segment
[2021-06-19 10:30] VITALS: BP 156/69; PULSE 79; RESP 16; TEMP 36.6; O2SAT 99
[2021-06-19] MEDS: hydroCHLOROthiazide 12.5mg 12.5 MG PO (10:44)
--- NOTE | 2021-06-19 12:07 | CASEMGMT ---
Discharge Rental Counter Clerk [facility] called and they can take the patient. Patient does have a past due balance of $547.00. This balance would need to be paid in order for her to go. Still waiting on decision of Jourdan Kulkarni. Micki DAVISON notified. Kimberly Aj Discharge Rental Counter Clerk
--- NOTE | 2021-06-19 12:37 | PCM.PN.HOSP ---
Documented by User: Anthony SHRESTHA 06/19/21 12:54 Subjective Subjective Patient is a 80-year-old female comfortably resting in bed, alert and orient x3. Patient denies development of any new symptoms overnight and does not appear in acute distress. Objective Data Objective Data Vital Signs: Vital Signs Temp Pulse Resp BP Pulse Ox 97.8 F 79 16 156/69 H 99 06/19/21 10:30 06/19/21 10:30 06/19/21 10:30 06/19/21 10:30 06/19/21 10:30 Oxygen Delivery Method Room Air Weight: 224 lb 3.362 oz Body Mass Index (BMI) 41.0 Intake & Output: Intake and Output for Last 24 Hours 06/17/21 06/18/21 06/19/21 23:59 23:59 23:59 Intake Total 100 / 100 Output Total 1050 / 1050 225 / 225 Balance -950 / -950 -225 / -225 Lab / Micro Data Result Diagrams: 06/18/21 11:15 06/19/21 05:06 Labs: Laboratory Results - last 24 hr 06/19/21 05:06: Sodium 140, Potassium 4.2, Chloride 113 H, Carbon Dioxide 24.0, Anion Gap 3 L, BUN 34 H, Creatinine 2.08 H, Estim Creat Clear Calc 17.63, Est GFR (MDRD) Af Amer 30 L, Est GFR (MDRD) Non-Af 24 L, BUN/Creatinine Ratio 16.3, Glucose 175 H, Calcium 10.2 H Physical Exam Const alert, oriented x3 and no apparent distress HEENT head/scalp atraumatic and moist oral mucous membranes Head and Scalp: normocephalic Eyes PERRL and conjunctivae normal Neck no lymphadenopathy, supple and no JVD Resp normal respiratory effort, no retractions and no use of accessory muscles Cardio regular rate, regular rhythm and no JVD GI normal to inspection, nondistended, normoactive bowel sounds Extremity normal to inspection Skin no rashes or lesions noted and no wounds Neuro CN's II-XII intact bilaterally Psych affect normal Assessment & Plan Assessment/Plan (1) Debility: (2) Declining functional status: (3) Fall: PLAN: Day 1 Discharge planning: Discharge to [facility] pending acceptance and pre-CERT. 1) generalized weakness/debility Discharge to SNF, as above, for ongoing skilled therapy and rehab. 2) DM2 Continue home Actos, Accu-Chek sliding-scale insulin ordered. 3) dementia Continue memantine, hold donepezil. 4) hyperlipidemia Continue statin. 5) iron deficiency anemia Hemoglobin is 8.9, at baseline. Continue to monitor. 6) history of DVT/PE Continue home Xarelto. 7) HTN Stable, continue home BP regimen. DVT prophylaxis -Xarelto Patient seen by Anthony Cordova PA-C, under the supervision of Dr. Fontanez. Time spent on patient care: 9 minutes. Documented by User: Dr. Juan Fontanez, 06/19/21 14:18 Subjective Subjective Patient was at [facility] and was unhappy with her room arrangements where her roommate had left material over the room and patient did not want to be there and lasted about 6 hours before she insisted on leaving AGAINST MEDICAL ADVICE. She states that she did did not notify anyone of this in regards to trying to find a different facility or even a different room and just left AGAINST MEDICAL ADVICE. She just went to the ER and is admitted again. Objective Data Lab / Micro Data Result Diagrams: 06/18/21 11:15 06/19/21 05:06 Physical Exam Narrative Poor eye contact. Const alert and oriented x3 Psych affect normal Assessment & Plan Assessment/Plan (1) Declining functional status: PLAN: Patient seen and examined independently. Data and vitals reviewed. I agree with the above note by the physician accounts payable assistant. 1. Debility Patient requires residential facility as she does not have the resources to be at home. Patient does live with her daughter but her daughter works during the day and patient requires assistance going to the restroom. Complicating this is a lack of recourse for the patient in regards to making rash decisions. Patient has been in rehab before but when she was discharged, she states that she did not do any of the therapy and just progressively got weaker. Complicating this also is lack of insight and any accountability. Patient insists on having her own room. I tried to posed to her what would happen if we could not find a facility that would have one-room and she was evasive with an answer. Case management working on the patient's case and [facility]. Greater than 30 minutes of which greater than for percent of time was counseling the patient at bedside about working with medical establishments in regards to finding facility for her but also trying to manage her expectations that we may not build to find something that she wants. Charges/Coding Visit Charges OBSV E&M: 46911 Subsequent observation care L3
--- NOTE | 2021-06-19 13:40 | CHAPLAIN ---
Type of Pastoral Visit _x__ Initial Visit ___ Follow-up Visit ___ On-call Visit ___ General Patient Visit ___ Spiritual Assessment ___ Family Conference ___ Bereavement ___ Rapid Response ___ Code Blue ___ Other (describe below) Pastoral Care Referral From _x__ Patient ___ Family ___ Nurse ___ Physician ___ Fixed Income Analyst ___ Ornamental Machine Operator ___ Other (describe below) Sacrament/Intervention _x__ Active listening ___ Anointing ___ Gnosticist ___ Bereavement ___ Communion ___ Rhea exploration ___ ___ Life review _x__ Prayer ___ Reconciliation ___ Sacrament of Sick _x__ Supportive presence ___ Wedding ___ Other (describe below) Pastoral Comments patient has been seen before in previous admissions; pt speaks of disappointment in decisions for her care and yet strongly speaks to her own effort to do better and be independent again; pt is talkative and appreciates time for someone to listen to her; prayer received
--- NOTE | 2021-06-19 15:52 | CASEMGMT ---
Discharge Aircraft Powerplant Repairer Nathalie from [facility] called. Patient has been accepted and Pre-cert will be started. Patient is aware and LANEY Sweet is aware. Kimberly Aj Discharge Aircraft Powerplant Repairer
[2021-06-19 16:30] VITALS: BP 111/55; PULSE 85; RESP 16; TEMP 36.6; O2SAT 99
[2021-06-19 17:06] LABS: Bedside Glucose 221 mg/dL (74-106)
[2021-06-19] MEDS: Rivaroxaban 20 MG Tablet PO (17:52)
[2021-06-19] MEDS: Insulin Lispro 100 UNIT/ML INSULN.PEN SC ×2 (17:53→21:36)
[2021-06-19 21:27] VITALS: O2SAT 98
[2021-06-19] MEDS: Pravastatin 40 MG Tablet PO (21:37)
[2021-06-19] MEDS: Donepezil HCl 10 MG Tablet PO (21:37)
[2021-06-19 21:46] LABS: Bedside Glucose 160 mg/dL (74-106)
[2021-06-19 22:30] VITALS: BP 145/78; PULSE 90; RESP 18; TEMP 37.1; O2SAT 100
[2021-06-20 04:30] VITALS: BP 150/74; PULSE 94; RESP 18; TEMP 36.6; O2SAT 95
[2021-06-20] MEDS: Gabapentin 400 MG Capsule PO ×2 (06:43→13:59)
[2021-06-20] MEDS: Insulin Lispro 100 UNIT/ML INSULN.PEN SC ×2 (06:46→12:36)
[2021-06-20 06:52] VITALS: O2SAT 97
[2021-06-20 07:06] LABS: Bedside Glucose 154 mg/dL (74-106)
[2021-06-20] MEDS: Memantine Hydrochloride 5 MG Tablet PO (08:18)
[2021-06-20] MEDS: hydroCHLOROthiazide 12.5mg 12.5 MG PO (08:18)
[2021-06-20] MEDS: Lisinopril 10 MG Tablet PO (08:19)
[2021-06-20] MEDS: Pioglitazone Hydrochloride 15 MG Tablet PO (08:19)
--- NOTE | 2021-06-20 09:01 | CASEMGMT ---
Discharge Internal Medicine Physician Nathalie from [facility] called. Pre-cert has been obtained. LANEY Sweet notified. Kimberly Aj Discharge Internal Medicine Physician
--- NOTE | 2021-06-20 10:17 | PCM.TXEXTCAR ---
Documented by User: Anthony SHRESTHA 06/20/21 10:26 Diet 06/18/21 16:41 Diet: Consistent Carb - Calorie Controlled Food consistency:: Regular Liquid Consistency:: Regular/Thin Dietary Modifications:: Cardiac / Heart Healthy How many daily calories?: 1600 calorie Therapies Weight Bearing: Weight bearing as tolerated Extremity Affected:: Bilateral Lower Physical Therapy: Eval and Treat Occupational Therapy: Eval and Treat Problem/Diagnosis (1) Declining functional status: Status: Acute Allergies/Procedures Done in Hospital Allergies empagliflozin [From Jardiance] Allergy (Verified 06/18/21 10:50) Itching/RASH furosemide [From Lasix] Allergy (Verified 06/18/21 10:50) Rash metformin Allergy (Verified 06/18/21 10:50) decreased appetite warfarin [From Coumadin] Allergy (Verified 06/18/21 10:50) Other pt/inr too low blood in urine apixaban [From Eliquis] Adverse Reaction (Verified 06/18/21 10:50) Other Type of Care/Length of Stay Estimated LOS: Convalescent Care Less Than 30 days Type of Care Needed: Skilled Rehab Potential: Good Prognosis: Good Additional Orders/Day of Discharge Day of Discharge: 06/20/21 Dietary and Speech Recommendations Dietitian Recommendations/Changes: Will change diet to 1600 calorie/consistent carbohydrate; cardiac diet. ONS as needed if PO fails at meals. Discharge Plan Admission Admit Date/Time: 06/18/21 16:13 Primary Reason for Your Visit: Generalized weakness Attending Provider: Juan Fontanez Primary Care Provider: Vel Graham Discharge Orders/Prescriptions Prescriptions: Continued pravastatin 40 MG tablet 40 mg PO QHS RF: 0 acetaminophen 500 MG tablet 1,000 mg PO Q6H PRN PRN (Reason: Pain 1-10 Or Fever) RF: 0 rivaroxaban 20 MG tablet 20 mg PO DAILY RF: 0 donepezil 5 MG tablet 5 mg PO QHS RF: 0 medroxyprogesterone 10 mg tablet 10 mg PO DAILY RF: 0 gabapentin 400 mg capsule 400 mg PO TID RF: 0 chlorthalidone 50 mg Tablet 25 mg PO DAILY Qty: 30 RF: 0 pioglitazone 15 mg tablet 15 mg PO DAILY RF: 0 Referrals / Follow Up: Vel Graham MD [Primary Care Provider] - Within 2 Weeks Disposition Disposition (needs filled in before D/C Order can be placed[facility] Documented by User: Dr. Juan Fontanez DO 06/20/21 10:44 Allergies/Procedures Done in Hospital Allergies empagliflozin [From Jardiance] Allergy (Verified 06/18/21 10:50) Itching/RASH furosemide [From Lasix] Allergy (Verified 06/18/21 10:50) Rash metformin Allergy (Verified 06/18/21 10:50) decreased appetite warfarin [From Coumadin] Allergy (Verified 06/18/21 10:50) Other pt/inr too low blood in urine apixaban [From Eliquis] Adverse Reaction (Verified 06/18/21 10:50) Other Discharge Plan Admission Admit Date/Time: 06/18/21 16:13 Primary Reason for Your Visit: Generalized weakness Attending Provider: Juan Fontanez Primary Care Provider: Vel Graham Discharge Orders/Prescriptions Prescriptions: Continued pravastatin 40 MG tablet 40 mg PO QHS RF: 0 acetaminophen 500 MG tablet 1,000 mg PO Q6H PRN PRN (Reason: Pain 1-10 Or Fever) RF: 0 rivaroxaban 20 MG tablet 20 mg PO DAILY RF: 0 donepezil 5 MG tablet 5 mg PO QHS RF: 0 medroxyprogesterone 10 mg tablet 10 mg PO DAILY RF: 0 gabapentin 400 mg capsule 400 mg PO TID RF: 0 chlorthalidone 50 mg Tablet 25 mg PO DAILY Qty: 30 RF: 0 pioglitazone 15 mg tablet 15 mg PO DAILY RF: 0 Referrals / Follow Up: Vel Graham MD [Primary Care Provider] - Within 2 Weeks Disposition Disposition (needs filled in before D/C Order can be placed): [facility]
[2021-06-20 10:30] VITALS: BP 167/67; PULSE 84; RESP 18; TEMP 36.8; O2SAT 95
--- NOTE | 2021-06-20 11:02 | CASEMGMT ---
SW let patient know she was approved by her insurance and she will go to [facility] today. Micki Das INFORMATION CLERK CASHIER WILEY
[2021-06-20] MEDS: DiphenhydrAMINE 25 MG Capsule PO (11:16)
--- NOTE | 2021-06-20 11:20 | PHA.DC.MR ---
Pharmacy Service has performed discharge medication reconciliation for this patient upon transfer to SNF. Home Medications pravastatin 40 mg PO QHS 10/05/17 acetaminophen 1,000 mg PO Q6H PRN PRN 04/15/20 rivaroxaban 20 mg PO DAILY 06/23/20 donepezil 5 mg PO QHS 04/09/21 medroxyprogesterone 10 mg PO DAILY 06/05/21 chlorthalidone 25 mg PO DAILY #30 tab 06/07/21 pioglitazone 15 mg PO DAILY 06/18/21 gabapentin 400 mg PO DAILY #0 cap 06/20/21 The patient's discharge medication list was reviewed for discrepancies and discrepancies were resolved.
--- NOTE | 2021-06-20 11:44 | CASEMGMT ---
LANEY received orders. LANEY arranged for patient to get picked up at 3p via wc van. SW faxed orders, negative COVID, and hop picker time to [facility]. LANEY called Nathalie at [facility] and let her know this information. LANEY also notified RN, real estate appraiser supervisor, patient, and left a message for her daughter. PASRR was completed as patient is observation status in the hospital. Plan: d/c to [facility] under skilled level of care on a PASRR as she is observation status in the hospital. [facility]. Micki Das ELECTRICAL AND RADIO AIRCRAFT MECHANIC WILEY
[2021-06-20 12:42] LABS: Bedside Glucose 179 mg/dL (74-106)
--- NOTE | 2021-06-20 12:45 | PCM.DC.SUM ---
Documented by User: Anthony SHRESTHA 06/20/21 12:50 Providers Date of Admission: 06/18/21 Date of Discharge: 06/20/21 Primary Care Physician: Dr. Vel Graham MD Reason For Visit: DEBILITY Diagnosis Discharge Diagnosis (1) Declining functional status: Status: Acute Code(s): R53.81 - Other malaise Medications at Discharge Home Medications pravastatin 40 mg PO QHS 10/05/17 acetaminophen 1,000 mg PO Q6H PRN PRN 04/15/20 rivaroxaban 20 mg PO DAILY 06/23/20 donepezil 5 mg PO QHS 04/09/21 medroxyprogesterone 10 mg PO DAILY 06/05/21 chlorthalidone 25 mg PO DAILY #30 tab 06/07/21 pioglitazone 15 mg PO DAILY 06/18/21 gabapentin 400 mg PO DAILY #0 cap 06/20/21 Hospital Course Summary of Care Provided Minutes Spent on Discharge: 20 Hospital Course: Patient is a 80-year-old female who was admitted to [facility] on 06/18/2021 after sustaining a fall at home shortly after returning home from a nursing facility where she left prior to her therapy/rehab being complete. Imaging of the femur and chest was obtained and did not demonstrate any acute traumatic fracture. Given that patient did not wish to return to [facility], patient was placed at [facility] for ongoing skilled therapy and rehab. Patient's gabapentin was decreased from 400 mg 3 times daily to 400 mg p.o. daily on recommendation from the pharmacy given patient's creatinine clearance. No other home medications were changed and patient is to follow-up with primary care provider within the next 2 weeks. Patient seen by Anthony Cordova PA-C, under the supervision of Dr. Fontanez. Time spent in patient care: 20 minutes. Physical Exam Narrative Patient is a 80-year-old female comfortably resting in bed, alert and orient x3. Patient denies development of any new symptoms overnight. Does not appear in acute distress. Const alert, oriented x3 and no apparent distress HEENT normocephalic and hearing grossly normal bilaterally Eyes PERRL and conjunctivae normal Neck no lymphadenopathy, supple and no JVD Resp normal respiratory effort, no retractions and no use of accessory muscles Cardio regular rate, regular rhythm and no JVD GI normal to inspection, nondistended, normoactive bowel sounds Extremity normal to inspection Skin no rashes or lesions noted Neuro CN's II-XII intact bilaterally Psych affect normal Weight / BMI Weight Weight: 224 lb 3.362 oz Body Mass Index (BMI) 41.0 ABG / Lab / Microbiology Data Result Diagrams: 06/18/21 11:15 06/19/21 05:06 Laboratory: Laboratory Results - last 24 hr 06/19/21 16:56: POC Glucose 221 H 06/19/21 21:35: POC Glucose 160 H 06/20/21 06:45: POC Glucose 154 H 06/20/21 12:34: POC Glucose 179 H Microbiology: Microbiology 06/20/21 10:00 Nasal Secretion SARS-CoV-2 Antigen (Rapid) - Final Meaningful Use Info Meaningful Use Diagnoses (Choose all that apply): None applicable Discharge Plan Admission Admit Date/Time: 06/18/21 16:13 Primary Reason for Your Visit: Generalized weakness Attending Provider: Juan Fontanez Primary Care Provider: Vel Graham Instructions Additional Instructions / Restrictions: * Your dose of gabapentin has been decreased from 3 times daily to once daily due to your kidney function. Discharge Orders/Prescriptions Prescriptions: Continued pravastatin 40 MG tablet 40 mg PO QHS RF: 0 acetaminophen 500 MG tablet 1,000 mg PO Q6H PRN PRN (Reason: Pain 1-10 Or Fever) RF: 0 rivaroxaban 20 MG tablet 20 mg PO DAILY RF: 0 donepezil 5 MG tablet 5 mg PO QHS RF: 0 medroxyprogesterone 10 mg tablet 10 mg PO DAILY RF: 0 chlorthalidone 50 mg Tablet 25 mg PO DAILY Qty: 30 RF: 0 pioglitazone 15 mg tablet 15 mg PO DAILY RF: 0 Changed gabapentin 400 mg capsule 400 mg PO DAILY Qty: 0 RF: 0 Referrals / Follow Up: Vel Graham MD [Primary Care Provider] - Within 2 Weeks Disposition Disposition (needs filled in before D/C Order can be placed): [facility] Documented by User: Dr. Juan Fontanez DO 06/20/21 13:30 Providers Date of Admission: 06/18/21 Reason For Visit: DEBILITY Medications at Discharge Home Medications pravastatin 40 mg PO QHS 10/05/17 acetaminophen 1,000 mg PO Q6H PRN PRN 04/15/20 rivaroxaban 20 mg PO DAILY 06/23/20 donepezil 5 mg PO QHS 04/09/21 medroxyprogesterone 10 mg PO DAILY 06/05/21 chlorthalidone 25 mg PO DAILY #30 tab 06/07/21 pioglitazone 15 mg PO DAILY 06/18/21 gabapentin 400 mg PO DAILY #0 cap 06/20/21 Hospital Course Operations None Procedures None Summary of Care Provided Minutes Spent on Discharge: 20 Hospital Course: Patient seen and examined independently. Data and vitals reviewed. I agree with the above note by the physician ophthalmic medical assistant. 80-year-old female presents with weakness. Patient had recent been discharged to [facility] was there for roughly 6 hours and was dissatisfied and left AGAINST MEDICAL ADVICE. She returned as she was unable to care for self. Patient had no events while she was in the hospital. Had a lengthy conversation with the patient yesterday expressing concern for lack of recourse in regards to making rash decisions. And 4-channel feel it made any headway with the patient and I would not be least bit surprised if patient were to sign herself out AGAINST MEDICAL ADVICE to make some sort of statements. Patient seems to have unrealistic expectations about what she can get with her insurance such as having a private room and having 24/7 care. Hopefully the patient will follow through with therapy and can go home to a safe environment. Physical Exam Const alert and no apparent distress Psych Psych Narrative: flat affect ABG / Lab / Microbiology Data Result Diagrams: 06/18/21 11:15 06/19/21 05:06 Discharge Plan Admission Admit Date/Time: 06/18/21 16:13 Primary Reason for Your Visit: Generalized weakness Attending Provider: Juan Fontanez Primary Care Provider: Vel Graham Instructions Additional Instructions / Restrictions: * Your dose of gabapentin has been decreased from 3 times daily to once daily due to your kidney function. Discharge Orders/Prescriptions Prescriptions: Continued pravastatin 40 MG tablet 40 mg PO QHS RF: 0 acetaminophen 500 MG tablet 1,000 mg PO Q6H PRN PRN (Reason: Pain 1-10 Or Fever) RF: 0 rivaroxaban 20 MG tablet 20 mg PO DAILY RF: 0 donepezil 5 MG tablet 5 mg PO QHS RF: 0 medroxyprogesterone 10 mg tablet 10 mg PO DAILY RF: 0 chlorthalidone 50 mg Tablet 25 mg PO DAILY Qty: 30 RF: 0 pioglitazone 15 mg tablet 15 mg PO DAILY RF: 0 Changed gabapentin 400 mg capsule 400 mg PO DAILY Qty: 0 RF: 0 Referrals / Follow Up: Vel Graham MD [Primary Care Provider] - Within 2 Weeks Disposition Disposition (needs filled in before D/C Order can be placed): [facility]entiary Facility Charges/Coding Visit Charges OBSV E&M: 50471 Observation care discharge
[2021-06-20 15:00] VITALS: BP 167/67; PULSE 86; RESP 18; TEMP 37.1; O2SAT 95
--- NOTE | 2021-06-20 15:14 | NURSING ---
report called to medina jacobs to rn with no questions voiced
== END 2021-06-20 10:23 | disposition skilled nursing facility (03) ==
LOC: ED 13:38 → PCU 16:39
PROVIDERS: Admitting Provider Internal Medicine; Emergency Provider Emergency Medicine; PCP Family Medicine
DX: R53.81 Other malaise (principal); F03.90 Unspecified dementia, unspecified severity, without behavioral disturbance, psychotic disturbance, mood disturbance, and anxiety; E11.22 Type 2 diabetes mellitus with diabetic chronic kidney disease; E66.01 Morbid (severe) obesity due to excess calories; Z68.41 Body mass index [BMI] 40.0-44.9, adult; Z79.4 Long term (current) use of insulin; N18.30 Chronic kidney disease, stage 3 unspecified; M79.605 Pain in left leg; Z79.01 Long term (current) use of anticoagulants; R53.1 Weakness; Z79.84 Long term (current) use of oral hypoglycemic drugs; I12.9 Hypertensive chronic kidney disease with stage 1 through stage 4 chronic kidney disease, or unspecified chronic kidney disease; G89.29 Other chronic pain; M79.602 Pain in left arm; E78.00 Pure hypercholesterolemia, unspecified; R07.81 Pleurodynia; Z79.899 Other long term (current) drug therapy; M19.90 Unspecified osteoarthritis, unspecified site; K21.9 Gastro-esophageal reflux disease without esophagitis; D50.9 Iron deficiency anemia, unspecified; M51.36 Other intervertebral disc degeneration, lumbar region; Z86.718 Personal history of other venous thrombosis and embolism; Z86.711 Personal history of pulmonary embolism
CPT/HCPCS: 36415; 71045; 73552; 80048; 80053; 81001; 82962; 83690; 85025; 85027; 87811; 93005; 97162; 97166; 97802; 99218; 99285; A4216; G0378

== ENCOUNTER → 2021-06-25 | Outpatient (REF) | payer SELFPAY ==
[2021-06-25 08:13] LABS: Absolute Lymphocyte Count 1.53 X10^3/uL (0.83-4.51); Absolute Neutrophil Count 3.9 X10^3/uL (2.0-7.7); Basophil# 0.04 X10^3/uL; Basophil% 0.6 % (0-1); Eosinophil# 1.29 X10^3/uL; Eosinophils% 17.9 % (0-5); Hematocrit 24.4 % (37-47); Hemoglobin 7.7 g/dL (12.0-15.0); Lymphocyte # 1.53 X10^3/ul (0.83-4.51); Lymphocyte % 21.3 % (19-41); Mean Corp Hgb Conc 31.6 g/dL (32-36); Mean Corpuscular Hgb 30.2 pg (27.0-32.0); Mean Corpuscular Volume 95.7 fL (81-99); Mean Platelet Vol. 10.8 fl (6.2-12.0); Monocyte# 0.43 X10^3/uL; NRBC Flagged by Analyzer 0 % (0-5); Neutrophil # 3.87 X10^3/uL (2.7-7.7); Neutrophil % 53.6 % (47-70); Platelet Count 204 K/mm3 (150-450); RBC Distribution Width CV 12.9 % (11.6-14.6); RBC Distribution Width SD 44.7 fl (35.1-43.9); Red Blood Count 2.55 M/mm3 (4.2-5.4); White Blood Count 7.2 K/mm3 (4.4-11.0)
[2021-06-25 08:42] LABS: Anion Gap 6 (5-15); BUN 33 mg/dL (7-18); BUN/Creat Ratio 19.2 RATIO (10-20); Calcium,Total 10.1 mg/dL (8.5-10.1); Chloride 109 mmol/L (98-107); Creatinine, Serum 1.72 mg/dL (0.55-1.02); EST Glomerular Filtration Rate 30 mL/min (>60); Est Glom Filt Rate - Afr Amer 37 mL/min (>60); Glucose 180 mg/dL (74-106); Potassium 4.1 mmol/L (3.5-5.1); Sodium Level 140 mmol/L (136-145)
== END | disposition home or self-care (01) ==
LOC: OLS.WHLTCC 04:00
PROVIDERS: PCP Family Medicine; Referring Provider Family Medicine; Visit Provider Family Medicine
DX: N18.30 Chronic kidney disease, stage 3 unspecified (principal)
CPT/HCPCS: 36415; 80048; 85025

== ENCOUNTER 2021-07-05 22:05 | Inpatient (IN) | payer MEDICARE, MEDICAID, SELFPAY ==
[2021-07-05 22:06] VITALS: BP 170/61; PULSE 89; RESP 18; TEMP 36.4; O2SAT 99; BMI 39.6
[2021-07-05 22:39] LABS: Absolute Lymphocyte Count 1.81 X10^3/uL (0.83-4.51); Absolute Neutrophil Count 4.4 X10^3/uL (2.0-7.7); Basophil# 0.04 X10^3/uL; Basophil% 0.5 % (0-1); Eosinophil# 0.67 X10^3/uL; Eosinophils% 9.1 % (0-5); Hematocrit 32.3 % (37-47); Hemoglobin 10.3 g/dL (12.0-15.0); Lymphocyte # 1.81 X10^3/ul (0.83-4.51); Lymphocyte % 24.6 % (19-41); Mean Corp Hgb Conc 31.9 g/dL (32-36); Mean Corpuscular Hgb 30.7 pg (27.0-32.0); Mean Corpuscular Volume 96.1 fL (81-99); Mean Platelet Vol. 10.4 fl (6.2-12.0); Monocyte# 0.45 X10^3/uL; Monocyte% 6.1 % (0-10); NRBC Flagged by Analyzer 0 % (0-5); Neutrophil # 4.36 X10^3/uL (2.7-7.7); Neutrophil % 59.3 % (47-70); Platelet Count 280 K/mm3 (150-450); RBC Distribution Width CV 13.3 % (11.6-14.6); RBC Distribution Width SD 46.9 fl (35.1-43.9); Red Blood Count 3.36 M/mm3 (4.2-5.4); White Blood Count 7.4 K/mm3 (4.4-11.0)
[2021-07-05 22:43] LABS: Bacteria 0 SEEN /hpf (None Seen); Mucous, Urine 0 SEEN /hpf (<or=2+); Red Blood Cells-Urine 0 SEEN /hpf (0-5)
--- NOTE | 2021-07-05 22:48 | EX.ED.DYSGE1 ---
HPI History of Present Illness Chief Complaint: Weakness Informant: patient Onset/Context/Timing Onset: Today Narrative Narrative: Patient presents via EMS secondary to weakness. She states that tonight she tried to get up out of her chair and into her wheelchair. She was too weak to stand up and slid to the ground. She denies any injury. She was just [facility] [place] [facility]. She states that she was able to walk in the therapy room while there. Since coming home she just has had increasing weakness. [facility] Medical History (Updated 07/05/21 @ 23:[address] Grisel Jung MD) Acute kidney injury Alzheimer disease Arthritis Back pain Chronic anemia Chronic back pain Chronic kidney disease (CKD) stage G3b/A3, moderately decreased glomerular filtration rate (GFR) between 30-44 mL/min/1.73 square meter and albuminuria creatinine ratio greater than 300 mg/g Chronic nausea CKD (chronic kidney disease), stage III Debility Deep vein thrombosis Dementia Diabetes mellitus, type II Diabetic polyneuropathy DVT (deep venous thrombosis) Easy bruising Edema Excessive bleeding Failure to thrive in adult GERD (gastroesophageal reflux disease) High cholesterol History of pain when walking Horseshoe kidney HTN (hypertension) Hypercalcemia Hyperlipidemia Hyperparathyroidism Hypertension Hypertension Hypomagnesemia Infectious encephalopathy Injury of head and neck Insulin dependent diabetes mellitus Iron deficiency anemia Lumbar disc herniation with radiculopathy Non-smoker Obesity (BMI 35.0-39.9 without comorbidity) Osteoporosis Pulmonary emboli Renal infarct Sepsis Shortness of breath on exertion Uses wheelchair UTI (urinary tract infection) Weakness Wears glasses Home Medications pravastatin 40 mg PO QHS 10/05/17 [History Last Taken 06/17/21] acetaminophen 1,000 mg PO Q6H PRN PRN 04/15/20 [History Last Taken 06/17/21] rivaroxaban 20 mg PO DAILY 06/23/20 [History Last Taken 06/17/21] donepezil 5 mg PO QHS 04/09/21 [History Last Taken 06/17/21] medroxyprogesterone 10 mg PO DAILY 06/05/21 [History Last Taken 06/17/21] chlorthalidone 25 mg PO DAILY #30 tab 06/07/21 [Rx Last Taken 06/17/21] pioglitazone 15 mg PO DAILY 06/18/21 [History Last Taken 06/17/21] gabapentin 400 mg PO DAILY #0 cap 06/20/21 [Rx Last Taken 06/17/21] Allergy/AdvReac Type Severity Reaction Status Date / Time empagliflozin Allergy Itching/VALENTIN Verified 07/05/21 22:10 [From Jardiance] H furosemide [From Lasix] Allergy Rash Verified 07/05/21 22:10 metformin Allergy decreased Verified 07/05/21 22:10 appetite warfarin [From Coumadin] Allergy Other Verified 07/05/21 22:10 apixaban [From Eliquis] AdvReac Other Verified 07/05/21 22:10 Surgical History Hx of section Hx of tonsillectomy Social History household members: children Smoking Status: Never smoker alcohol intake: never substance use type: does not use ROS ROS ED Constitutional Constitutional ED: Denies chills or fever(s) Eyes Eyes: Denies change in vision ENT ENT ED: Denies sore throat Cardiovascular Cardiovascular: Denies chest pain Respiratory/Chest Respiratory/Chest: Denies cough or dyspnea Gastrointestinal Gastrointestinal: Denies abdominal pain, nausea or vomiting Genitourinary Genitourinary ED: Denies dysuria Musculoskeletal Musculoskeletal: Denies neck pain Integumentary Denies rash Neurologic Neurologic: Reports weakness; Denies headache(s) Allergic/Immunologic Allergic/Immunologic ED: Denies urticaria EXAM Physical Exam Const Vital Signs: 07/05/21 22:06 Temperature 97.6 F L Temperature Source Temporal Pulse Rate 89 Respiratory Rate 18 Blood Pressure 170/61 H Blood Pressure Mean 97 Pulse Ox 99 Oxygen Delivery Method Room Air Positive obese Nutritional Appearance: obese Eyes PERRL and EOMs intact bilaterally Neck supple Chest Wall inspection of chest normal and palpation of chest normal Resp normal respiratory effort and clear to auscultation bilaterally Cardio regular rate and regular rhythm GI normal to inspection, nondistended, normoactive bowel sounds and non-tender Palpation: soft Extremity normal to inspection Neuro oriented x3 Neuro Narrative: No focal neurologic deficits. Sensorium / Orientation: alert Psych mental status grossly normal Skin no rashes or lesions noted MDM MDM MDM Narrative Medical decision making narrative: Patient placed on online merchandising manager. Lab work and urinalysis obtained. Lab Data Attestation: I reviewed the patient's lab results. Labs: Laboratory Results - last 24 hr 07/05/21 07/05/21 07/05/21 22:15 22:15 22:32 WBC 7.4 RBC 3.36 L Hgb 10.3 L Hct 32.3 L MCV 96.1 MCH 30.7 MCHC 31.9 L RDW Std Deviation 46.9 H RDW Coeff of Mayank 13.3 Plt Count 280 MPV 10.4 Immature Gran % (Auto) 0.400 Neut % (Auto) 59.3 Lymph % (Auto) 24.6 [place] % (Auto) 6.1 Eos % (Auto) 9.1 H Baso % (Auto) 0.5 Absolute Neuts (auto) 4.4 Absolute Lymphs (auto) 1.81 Nucleated RBC % 0 Sodium 141 Potassium 4.0 Chloride 109 H Carbon Dioxide 26.0 Anion Gap 6 BUN 69 H Creatinine 3.63 H Estim Creat Clear Calc 10.10 Est GFR (MDRD) Af Amer 16 L Est GFR (MDRD) Non-Af 13 L BUN/Creatinine Ratio 19.0 Glucose 247 H Calcium 11.1 H Urine Color Yellow Urine Clarity Clear Urine pH 5.0 Ur Specific [place] 1.020 Urine Protein 100 H Urine Glucose (UA) Normal Urine Ketones Negative Urine Occult Blood 10 H Urine Nitrite Negative Urine Bilirubin Negative Urine Urobilinogen Normal Ur Leukocyte Esterase 25 H Urine RBC 0 SEEN Urine WBC 0-5 SEEN Ur Squamous Epith Cells 0-5 SEEN Urine Bacteria 0 SEEN Urine Mucus 0 SEEN Treatment and Re-Evaluation Narrative: CBC unremarkable. Chemistry studies reveal creatinine of 3.63. Prior value was 1.72. Urinalysis shows no acute infection. Patient is started on normal saline. I advised her that she will require observation at least overnight for hydration and correction of her renal function. She will likely need physical therapy to help determine whether she is safe to return home or needs further rehab/shelter. Discharge Plan Triage Chief Complaint: Weakness ED Provider: Grisel Jung Dx/Rx/DC Orders Clinical Impression: Generalized weakness, ABILIO (acute kidney injury) Prescriptions: No Action pravastatin 40 MG tablet 40 mg PO QHS RF: 0 acetaminophen 500 MG tablet 1,000 mg PO Q6H PRN PRN (Reason: Pain 1-10 Or Fever) RF: 0 rivaroxaban 20 MG tablet 20 mg PO DAILY RF: 0 donepezil 5 MG tablet 5 mg PO QHS RF: 0 medroxyprogesterone 10 mg tablet 10 mg PO DAILY RF: 0 chlorthalidone 50 mg Tablet 25 mg PO DAILY Qty: 30 RF: 0 pioglitazone 15 mg tablet 15 mg PO DAILY RF: 0 gabapentin 400 mg capsule 400 mg PO DAILY Qty: 0 RF: 0 Primary Care Provider: Vel Graham Referrals: Vel Graham MD [Primary Care Provider] - Disposition Disposition: Acute Care Hospital [facility]
[2021-07-05 22:52] LABS: Anion Gap 6 (5-15); BUN 69 mg/dL (7-18); Calcium,Total 11.1 mg/dL (8.5-10.1); Chloride 109 mmol/L (98-107); Creatinine, Serum 3.63 mg/dL (0.55-1.02); EST Glomerular Filtration Rate 13 mL/min (>60); Est Glom Filt Rate - Afr Amer 16 mL/min (>60); Glucose 247 mg/dL (74-106); Sodium Level 141 mmol/L (136-145)
[2021-07-05] MEDS: 0.9% Normal Saline 1,000 ML 150 ML IV (23:00)
[2021-07-05 23:01] LABS: Color, Urine Yellow (Yellow); Glucose, Dipstick Normal (Normal); Ketone-Dipstick Negative (Negative); Leukocyte Esterase-Dipstick 25 /ul (Negative); Nitrite-Dipstick Negative (Negative); Occult Blood-Urine 10 /ul (Negative); Protein-Dipstick 100 mg/dl (Negative); Urine Bilirubin Dipstick Negative (Negative); Urine Clarity Clear (Clear); Urine Urobilinogen Normal (Normal)
[2021-07-05 23:09] LABS: Squamous Epithelial Cells - UA 0-5 SEEN /hpf (5-10); White Blood Cells 0-5 SEEN /hpf (0-5)
[2021-07-05 23:40] VITALS: BP 136/92; PULSE 87; RESP 22; TEMP 36.3; O2SAT 94
--- NOTE | 2021-07-05 23:47 | PCM.HP.STD ---
[facility] - General General Date of Admission: 07/05/21 HPI Narrative DIANNA ZAMUDIO, is a 80 F with a significant history of DVT on Xarelto; and CKD stage IIIb who presents to the emergency department because she fell on the same day of presentation. Reportedly patient was too weak to pivot from her chair into a wheel chair. Reportedly her fall was not abrupt as she realized that she was going to fall. She report that she has been very weak for a couple of weeks. She left a senior care about 4 days ago. Reportedly she was too weak to do therapy and she was advised that if she could not do therapy her insurance will run out. Patient seeing that she will be unable to do therapy actually left the senior care before her insurance will run out. Of note patient was also admitted to the hospital on 06/18/2021 and discharged on 06/20/2021 for a fall. She was discharged to the senior care after this hospitalization. Prior to admission on 06/18/2021 she had signed out AMA from another senior care[facility] History Acute kidney injury Alzheimer disease Arthritis Back pain Chronic anemia Chronic back pain Chronic kidney disease (CKD) stage G3b/A3, moderately decreased glomerular filtration rate (GFR) between 30-44 mL/min/1.73 square meter and albuminuria creatinine ratio greater than 300 mg/g Chronic nausea CKD (chronic kidney disease), stage III Debility Deep vein thrombosis Dementia Diabetes mellitus, type II Diabetic polyneuropathy DVT (deep venous thrombosis) Easy bruising Edema Excessive bleeding Failure to thrive in adult GERD (gastroesophageal reflux disease) High cholesterol History of pain when walking Horseshoe kidney HTN (hypertension) Hypercalcemia Hyperlipidemia Hyperparathyroidism Hypertension Hypertension Hypomagnesemia Infectious encephalopathy Injury of head and neck Insulin dependent diabetes mellitus Iron deficiency anemia Lumbar disc herniation with radiculopathy Non-smoker Obesity (BMI 35.0-39.9 without comorbidity) Osteoporosis Pulmonary emboli Renal infarct Sepsis Shortness of breath on exertion Uses wheelchair UTI (urinary tract infection) Weakness Wears glasses Home Medications pravastatin 40 mg PO QHS 10/05/17 [History Last Taken 06/17/21] acetaminophen 1,000 mg PO Q6H PRN PRN 04/15/20 [History Last Taken 06/17/21] rivaroxaban 20 mg PO DAILY 06/23/20 [History Last Taken 06/17/21] donepezil 5 mg PO QHS 04/09/21 [History Last Taken 06/17/21] medroxyprogesterone 10 mg PO DAILY 06/05/21 [History Last Taken 06/17/21] chlorthalidone 25 mg PO DAILY #30 tab 06/07/21 [Rx Last Taken 06/17/21] pioglitazone 15 mg PO DAILY 06/18/21 [History Last Taken 06/17/21] gabapentin 400 mg PO DAILY #0 cap 06/20/21 [Rx Last Taken 06/17/21] Allergy/AdvReac Type Severity Reaction Status Date / Time empagliflozin Allergy Itching/VALENTIN Verified 07/05/21 22:10 [From Jardiance] H furosemide [From Lasix] Allergy Rash Verified 07/05/21 22:10 metformin Allergy decreased Verified 07/05/21 22:10 appetite warfarin [From Coumadin] Allergy Other Verified 07/05/21 22:10 apixaban [From Eliquis] AdvReac Other Verified 07/05/21 22:10 Family History (Updated 07/06/21 @ 00:[address] Carlos Wilder MD) Other Alcoholism Heart disease Surgical History Hx of section Hx of tonsillectomy Social History household members: children Smoking Status: Never smoker alcohol intake: never substance use type: does not use ROS ROS Narrative Constitutional: Denies fever, chills, anorexia and change in weight Eyes: Denies blurry vision, change in eye color, change in vision, discharge from eye(s), double vision, erythema, eye pain, loss of vision or other HEENT: Denies abnormal hearing, dysphagia, ear pain, epistaxis, headache(s), hearing loss, nasal congestion, nasal discharge, post nasal drip, sinus pressure, sore throat or other Cardiovascular: Denies chest pain or palpitations. Denies dyspnea on exertion, orthopnea and paroxysmal nocturnal dyspnea Respiratory/Chest: Denies cough, excessive phlegm production, shortness of breath with exertion and wheezing Gastrointestinal: Denies abdominal pain, coffee ground emesis, constipation, diarrhea, dyspepsia, hematemesis, hematochezia, loose stools, melena, nausea, vomiting or other Genitourinary: Denies burning urination, difficulty urinating, dysuria, hematuria, nocturia, urinary frequency, urinary hesitancy, urinary incontinence, urinary urgency or other Musculoskeletal: Reports bilateral knee pain. Denies myalgia. Neurologic: Denies abnormal gait, abnormal speech, confusion, disequilibrium, dizziness, focal weakness, headache(s), numbness, paresthesias, seizure-like activity, seizures, syncope, tingling, tremor(s) or other Psychiatric: Denies anxiety, depression, homicidal ideation, suicidal ideation or other Endocrinology: Denies change in body appearance, cold intolerance, excessive sweating, heat intolerance, polydipsia, polyuria or other Hematologic/Lymphatic: Denies anemia, easy bleeding, easy bruising, lymphadenopathy or other Integumentary: Denies rashes Allergic/Immunologic: Denies rhinitis, hives, eczema, or other Vital Signs Vital Signs Vital Signs: 07/05/21 22:06 07/05/21 23:40 Temperature 97.6 F L 97.4 F L Temperature Source Temporal Temporal Pulse Rate 89 87 Respiratory Rate 18 22 H Blood Pressure 170/61 H 136/92 H Blood Pressure Mean 97 106 Pulse Ox 99 94 Oxygen Delivery Method Room Air Room Air Weight Weight: 98.4 kg Body Mass Index (BMI) 39.6 Results Lab / Micro Data Result Diagrams: 07/05/21 22:15 07/05/21 22:15 Labs: Laboratory Results - last 24 hr 07/05/21 22:15: WBC 7.4, RBC 3.36 L, Hgb 10.3 L, Hct 32.3 L, MCV 96.1, MCH 30.7, MCHC 31.9 L, RDW Std Deviation 46.9 H, RDW Coeff of Mayank 13.3, Plt Count 280, MPV 10.4, Immature Gran % (Auto) 0.400, Neut % (Auto) 59.3, Lymph % (Auto) 24.6, [place] % (Auto) 6.1, Eos % (Auto) 9.1 H, Baso % (Auto) 0.5, Absolute Neuts (auto) 4.4, Absolute Lymphs (auto) 1.81, Nucleated RBC % 0 07/05/21 22:15: Sodium 141, Potassium 4.0, Chloride 109 H, Carbon Dioxide 26.0, Anion Gap 6, BUN 69 H, Creatinine 3.63 H, Estim Creat Clear Calc 10.10, Est GFR (MDRD) Af Amer 16 L, Est GFR (MDRD) Non-Af 13 L, BUN/Creatinine Ratio 19.0, Glucose 247 H, Calcium 11.1 H 07/05/21 22:32: Urine Color Yellow, Urine Clarity Clear, Urine pH 5.0, Ur Specific [place] 1.020, Urine Protein 100 H, Urine Glucose (UA) Normal, Urine Ketones Negative, Urine Occult Blood 10 H, Urine Nitrite Negative, Urine Bilirubin Negative, Urine Urobilinogen Normal, Ur Leukocyte Esterase 25 H, Urine RBC 0 SEEN, Urine WBC 0-5 SEEN, Ur Squamous Epith Cells 0-5 SEEN, Urine Bacteria 0 SEEN, Urine Mucus 0 SEEN Assessment & Plan Assessment/Plan (1) ABILIO (acute kidney injury): (2) Declining functional status: (3) Debility: PLAN: ABILIO on CKD stage IIIb CKD Likely from Diabetic nephropathy Baseline creatinine of ~ 2.0 Creatinine on admission was 3.63 Avoid nephrotoxins. Home chlorthalidone will be held. Gentle IV hydration ordered. Check your electrolytes. Declining functional status/debility Records reviewed from previous admission: Patient was admitted from 06/18/2021 and discharged on 06/20/2021 for generalized weakness/debility and fall PT and OT to work with patient for strengthening balance training. Case management consult. Diabetic neuropathy Gabapentin dose adjusted for ABILIO. Diabetes mellitus Patient with hyperglycemia on presentation Pioglitazone continued Accu-Chek QA CHS with correction scale insulin ordered. Hypertension Blood pressure is not within goal Home chlorthalidone held for ABILIO. As needed hydralazine ordered. Trend blood pressure and adjust blood pressure medications. DVT prophylaxis: Xarelto continued for history of DVT. Charges/Coding Visit Charges Inpatient E&M: 98823 Init Hosp L2
[2021-07-06 00:36] VITALS: BMI 39.4
[2021-07-06 00:48] VITALS: BP 114/98; PULSE 96; RESP 18; TEMP 36.6; O2SAT 98
[2021-07-06 00:51] LABS: Urea Nitrogen, Urine 698 mg/dL (NO RANGE EST.)
[2021-07-06 00:52] LABS: Urine Sodium 56 mmol/L (Not Establ.)
--- NOTE | 2021-07-06 00:52 | NURSING ---
pt unsure of med list. Will need to call Lucita, daughter, at [phone] in the morning.
[2021-07-06 00:58] LABS: Osmolality, Urine 554 mOsm/KG
[2021-07-06] MEDS: 0.9% Normal Saline 1,000 ML 75 ML IV ×2 (00:58→15:24)
[2021-07-06] MEDS: 0.9% Saline Lock 10 ML Syringe IV (00:58)
[2021-07-06] MEDS: Nystatin Powder 15gm Bottle 1 APPLIC TOPICAL ×2 (01:28→21:34)
[2021-07-06] MEDS: Menthol/Lanolin/Calamine/Znox 113 GM Tube 1 APPLIC TOPICAL ×2 (01:29→21:35)
[2021-07-06 01:46] LABS: Bedside Glucose 249 mg/dL (74-106)
[2021-07-06] MEDS: Insulin Lispro 100 UNIT/ML INSULN.PEN SC ×4 (06:26→17:14)
[2021-07-06 06:27] VITALS: BP 137/56; PULSE 77; RESP 16; TEMP 36.6; O2SAT 100
[2021-07-06 07:16] LABS: Bedside Glucose 223 mg/dL (74-106)
[2021-07-06 07:46] VITALS: O2SAT 100
[2021-07-06 08:32] LABS: Absolute Lymphocyte Count 1.41 X10^3/uL (0.83-4.51); Absolute Neutrophil Count 3.2 X10^3/uL (2.0-7.7); Basophil# 0.04 X10^3/uL; Basophil% 0.7 % (0-1); Eosinophil# 0.61 X10^3/uL; Eosinophils% 10.7 % (0-5); Hematocrit 26.4 % (37-47); Hemoglobin 8.4 g/dL (12.0-15.0); Lymphocyte # 1.41 X10^3/ul (0.83-4.51); Lymphocyte % 24.7 % (19-41); Mean Corp Hgb Conc 31.8 g/dL (32-36); Mean Corpuscular Hgb 30.1 pg (27.0-32.0); Mean Corpuscular Volume 94.6 fL (81-99); Mean Platelet Vol. 10.2 fl (6.2-12.0); NRBC Flagged by Analyzer 0 % (0-5); Neutrophil # 3.23 X10^3/uL (2.7-7.7); Neutrophil % 56.5 % (47-70); Platelet Count 205 K/mm3 (150-450); RBC Distribution Width CV 13.2 % (11.6-14.6); RBC Distribution Width SD 45.9 fl (35.1-43.9); Red Blood Count 2.79 M/mm3 (4.2-5.4); White Blood Count 5.7 K/mm3 (4.4-11.0)
[2021-07-06 08:46] LABS: Anion Gap 3 (5-15); BUN 65 mg/dL (7-18); BUN/Creat Ratio 21.2 RATIO (10-20); Calcium,Total 10.2 mg/dL (8.5-10.1); Chloride 115 mmol/L (98-107); Creatinine, Serum 3.07 mg/dL (0.55-1.02); EST Glomerular Filtration Rate 16 mL/min (>60); Est Glom Filt Rate - Afr Amer 19 mL/min (>60); Estimated Creatinine Clearance 11.94 ml/min; Glucose 209 mg/dL (74-106); Potassium 4.6 mmol/L (3.5-5.1); Sodium Level 141 mmol/L (136-145)
[2021-07-06 09:08] VITALS: BP 120/69; PULSE 72; RESP 18; TEMP 36.4; O2SAT 100
[2021-07-06] MEDS: Gabapentin 300 MG Capsule PO (09:15)
[2021-07-06] MEDS: Pioglitazone Hydrochloride 15 MG Tablet PO (09:15)
--- NOTE | 2021-07-06 10:58 | PCM.PN.HOSP ---
Documented by User: Anthony SHRESTHA 07/06/21 11:11 Subjective Subjective Patient is a 80-year-old female comfortably resting in bed, alert and orient x3. Patient denies chest pain, shortness of breath, palpitations, hemoptysis, sputum production, fever, chills, N/V/D. Does not appear in acute distress. Objective Data Objective Data Vital Signs: Vital Signs Temp Pulse Resp BP Pulse Ox 97.6 F L 72 18 120/69 100 07/06/21 09:08 07/06/21 09:08 07/06/21 09:08 07/06/21 09:08 07/06/21 09:08 Oxygen Delivery Method Room Air Weight: 215 lb 9.793 oz Body Mass Index (BMI) 39.4 Intake & Output: Intake and Output for Last 24 Hours 07/04/21 07/05/21 07/06/21 23:59 23:59 23:59 Intake Total 295 / 295 Output Total 300 / 300 Balance -5 / -5 Lab / Micro Data Result Diagrams: 07/06/21 08:10 07/06/21 08:10 Labs: Laboratory Results - last 24 hr 07/05/21 22:15: WBC 7.4, RBC 3.36 L, Hgb 10.3 L, Hct 32.3 L, MCV 96.1, MCH 30.7, MCHC 31.9 L, RDW Std Deviation 46.9 H, RDW Coeff of Mayank 13.3, Plt Count 280, MPV 10.4, Immature Gran % (Auto) 0.400, Neut % (Auto) 59.3, Lymph % (Auto) 24.6, Reynolds % (Auto) 6.1, Eos % (Auto) 9.1 H, Baso % (Auto) 0.5, Absolute Neuts (auto) 4.4, Absolute Lymphs (auto) 1.81, Nucleated RBC % 0 07/05/21 22:15: Sodium 141, Potassium 4.0, Chloride 109 H, Carbon Dioxide 26.0, Anion Gap 6, BUN 69 H, Creatinine 3.63 H, Estim Creat Clear Calc 10.10, Est GFR (MDRD) Af Amer 16 L, Est GFR (MDRD) Non-Af 13 L, BUN/Creatinine Ratio 19.0, Glucose 247 H, Calcium 11.1 H 04/02/22 22:32: Urine Color Yellow, Urine Clarity Clear, Urine pH 5.0, Ur Specific Oral 1.020, Urine Protein 100 H, Urine Glucose (UA) Normal, Urine Ketones Negative, Urine Occult Blood 10 H, Urine Nitrite Negative, Urine Bilirubin Negative, Urine Urobilinogen Normal, Ur Leukocyte Esterase 25 H, Urine RBC 0 SEEN, Urine WBC 0-5 SEEN, Ur Squamous Epith Cells 0-5 SEEN, Urine Bacteria 0 SEEN, Urine Mucus 0 SEEN 07/05/21 22:32: Ur Random Sodium 56, Urine Creatinine 199.00 07/05/21 22:32: Urine Osmolality 554, Urine Urea Nitrogen 698 07/06/21 01:41: POC Glucose 249 H 07/06/21 06:25: POC Glucose 223 H 07/06/21 08:10: WBC 5.7, RBC 2.79 L, Hgb 8.4 L, Hct 26.4 L, MCV 94.6, MCH 30.1, MCHC 31.8 L, RDW Std Deviation 45.9 H, RDW Coeff of Mayank 13.2, Plt Count 205, MPV 10.2, Immature Gran % (Auto) 0.400, Neut % (Auto) 56.5, Lymph % (Auto) 24.7, Reynolds % (Auto) 7.0, Eos % (Auto) 10.7 H, Baso % (Auto) 0.7, Absolute Neuts (auto) 3.2, Absolute Lymphs (auto) 1.41, Nucleated RBC % 0 07/06/21 08:10: Sodium 141, Potassium 4.6, Chloride 115 H, Carbon Dioxide 23.0, Anion Gap 3 L, BUN 65 H, Creatinine 3.07 H, Estim Creat Clear Calc 11.94, Est GFR (MDRD) Af Amer 19 L, Est GFR (MDRD) Non-Af 16 L, BUN/Creatinine Ratio 21.2 H, Glucose 209 H, Calcium 10.2 H Physical Exam Const alert and no apparent distress HEENT head/scalp atraumatic and moist oral mucous membranes Head and Scalp: normocephalic Eyes PERRL, EOMs intact bilaterally and conjunctivae normal Neck no lymphadenopathy, supple and no JVD Resp normal respiratory effort, no retractions and no use of accessory muscles Cardio regular rate, regular rhythm and no JVD GI normal to inspection, nondistended, normoactive bowel sounds and soft to palpation Extremity normal to inspection Skin no rashes or lesions noted Neuro CN's II-XII intact bilaterally Psych affect normal Assessment & Plan Assessment/Plan (1) ABILIO (acute kidney injury): (2) Generalized weakness: (3) Debility: (4) Declining functional status: PLAN: Day 1 Discharge planning: Patient will likely need discharge to SNF, PT/OT and case management consult ordered. 1) generalized weakness/debility Patient was discharged from hospital on 06/20 to SNF for ongoing physical therapy. Left before physical therapy could be completed and has had functional decline since leaving the nursing facility. Likely need discharge back to a SNF, patient and family are agreeable to discharge to SNF and completing a physical therapy course. PT/OT eval ordered, case management consult ordered. 2) ABILIO on CKD stage IIIb Creatinine currently 3.07, improved from admission. Baseline appears around 2. We will continue IV fluids and continue to monitor BMP. 3) DM2 Blood sugar elevated to 209. Will initiate bolus and basal insulin, continue Accu-Cheks and sliding scale insulin and pioglitazone. 4) diabetic neuropathy Continue gabapentin. 5) HTN Stable, currently 120/69, continue to hold home chlorthalidone given ABLIIO, as needed hydralazine ordered. 6) history of DVT Continue Xarelto. DVT prophylaxis - Xarelto Patient seen by Anthony Cordova PA-C, under the supervision of Dr. Fontanez. Time spent on patient care: 10 minutes. Documented by User: Dr. Juan Fontanez, 07/06/21 11:47 Subjective Subjective Denies any complaints. Objective Data Lab / Micro Data Result Diagrams: 07/06/21 08:10 07/06/21 08:10 Physical Exam Const alert and no apparent distress Constitutional Narrative: Listless. HEENT head/scalp atraumatic Head and Scalp: normocephalic Resp normal respiratory effort, no retractions, no use of accessory muscles and clear to auscultation bilaterally Cardio regular rate, regular rhythm, S1 normal heart sound and S2 normal heart sound GI normal to inspection, nondistended, normoactive bowel sounds, soft to palpation, non-tender and non-distended Assessment & Plan Assessment/Plan (1) ABILIO (acute kidney injury): (2) Generalized weakness: PLAN: Patient seen and examined independently. Data and vitals reviewed. I agree with the above note by the physician family assistant. 1. Acute kidney injury On chronic kidney disease stage IIIb Baseline creatinine is around 1.7 and admission was 3.63. Down today at 3.07. Continue with IV fluids. Continue to hold chlorthalidone. 2. Debility Patient has been in and out of hospitals and intermediate facilities. I am concerned long-term the patient may not ever succeed at home and may require long-term placement elsewhere. Is unclear if patient has resources to be able to get into an assisted living. Greater than 20 minutes of which greater than 50% of the time was reviewing the patient's data, documentation from previous hospitalizations and discussion with the patient at bedside about her condition for above. Charges/Coding Visit Charges Inpatient E&M: 37706 Subs Hosp L2
[2021-07-06 12:06] LABS: Bedside Glucose 229 mg/dL (74-106)
[2021-07-06 15:16] VITALS: BP 161/60; PULSE 67; RESP 18; TEMP 35.9
[2021-07-06] MEDS: Rivaroxaban 20 MG Tablet PO (17:13)
[2021-07-06 17:21] LABS: Bedside Glucose 179 mg/dL (74-106)
[2021-07-06 21:28] VITALS: BP 145/63; PULSE 75; RESP 18; TEMP 36.6; O2SAT 98
[2021-07-06] MEDS: Pravastatin 40 MG Tablet PO (21:33)
[2021-07-06 23:06] LABS: Bedside Glucose 125 mg/dL (74-106)
[2021-07-07 04:02] VITALS: BP 143/57; PULSE 74; RESP 16; TEMP 36.6; O2SAT 100
[2021-07-07] MEDS: 0.9% Normal Saline 1,000 ML 75 ML IV (04:37)
[2021-07-07 06:06] LABS: Absolute Lymphocyte Count 1.46 X10^3/uL (0.83-4.51); Absolute Neutrophil Count 3.4 X10^3/uL (2.0-7.7); Basophil# 0.04 X10^3/uL; Basophil% 0.7 % (0-1); Eosinophil# 0.71 X10^3/uL; Eosinophils% 11.8 % (0-5); Hematocrit 26.7 % (37-47); Hemoglobin 8.5 g/dL (12.0-15.0); Lymphocyte # 1.46 X10^3/ul (0.83-4.51); Lymphocyte % 24.3 % (19-41); Mean Corp Hgb Conc 31.8 g/dL (32-36); Mean Corpuscular Hgb 30.5 pg (27.0-32.0); Mean Corpuscular Volume 95.7 fL (81-99); Mean Platelet Vol. 10.2 fl (6.2-12.0); Monocyte# 0.41 X10^3/uL; Monocyte% 6.8 % (0-10); NRBC Flagged by Analyzer 0 % (0-5); Neutrophil # 3.37 X10^3/uL (2.7-7.7); Neutrophil % 56.1 % (47-70); Platelet Count 203 K/mm3 (150-450); RBC Distribution Width CV 13.2 % (11.6-14.6); RBC Distribution Width SD 46.5 fl (35.1-43.9); Red Blood Count 2.79 M/mm3 (4.2-5.4)
[2021-07-07 06:31] LABS: Anion Gap 5 (5-15); BUN 45 mg/dL (7-18); BUN/Creat Ratio 20.9 RATIO (10-20); Calcium,Total 9.7 mg/dL (8.5-10.1); Chloride 117 mmol/L (98-107); Creatinine, Serum 2.15 mg/dL (0.55-1.02); EST Glomerular Filtration Rate 24 mL/min (>60); Est Glom Filt Rate - Afr Amer 29 mL/min (>60); Estimated Creatinine Clearance 17.06 ml/min; Glucose 172 mg/dL (74-106); Potassium 4.1 mmol/L (3.5-5.1); Sodium Level 140 mmol/L (136-145)
[2021-07-07] MEDS: Insulin Lispro 100 UNIT/ML INSULN.PEN SC ×4 (08:13→22:29)
[2021-07-07 08:18] VITALS: BP 154/70; PULSE 74; RESP 18; TEMP 36.8; O2SAT 100
[2021-07-07 08:21] LABS: Bedside Glucose 157 mg/dL (74-106)
[2021-07-07] MEDS: Nystatin Powder 15gm Bottle 1 APPLIC TOPICAL ×2 (10:05→22:30)
[2021-07-07] MEDS: Menthol/Lanolin/Calamine/Znox 113 GM Tube 1 APPLIC TOPICAL ×2 (10:05→22:30)
[2021-07-07] MEDS: Gabapentin 300 MG Capsule PO (10:07)
[2021-07-07] MEDS: Pioglitazone Hydrochloride 15 MG Tablet PO (10:07)
[2021-07-07] MEDS: Insulin Glargine-YFGN 100 UNIT/ML Pen 20 UNIT SC (10:08)
[2021-07-07 10:26] VITALS: O2SAT 99
--- NOTE | 2021-07-07 11:02 | CASEMGMT ---
JONI CM Readmission Note Previous Admission: 06/12/21-06/13/2021 Diagnosis: Debility, ABILIO on CKD DC Disposition: [facility] Current Admission Current Diagnosis: ABILIO, Debility Pt presented to ER from home with debility. Pt was dc'd from [facility] 4 days ago per pt choice. Pt states she wasn't quite ready to leave and is having difficulties managing at home. Pt reports she has been taking her medications as ordered. She has not yet seen her PCP since hospitalization on 06/12 as they keep getting cancelled. Pt was dc'd on 06/12 to [facility] but reports she did not even spend the night there. Pt also has been hospitalized in [facility] from 06/18/21-06/20/21 for debility and was then dc'd to [facility]. Pt states she would like to go back to [facility]. Notified MANAGER FILTER. DC PLAN: [facility]
[2021-07-07 11:36] LABS: Bedside Glucose 117 mg/dL (74-106)
--- NOTE | 2021-07-07 11:54 | PN.HOSP_ITS ---
Documented by User: Anthony HSRESTHA 07/07/21 12:06 Subjective Subjective Patient is a 80-year-old female comfortably resting in bed, alert and orient x3. Patient denies development of any new symptoms overnight. Does not appear in acute distress. Objective Data Objective Data Vital Signs: Vital Signs Temp Pulse Resp BP Pulse Ox 98.3 F 74 18 154/70 H 99 07/07/21 08:18 07/07/21 08:18 07/07/21 08:18 07/07/21 08:18 07/07/21 10:26 Oxygen Delivery Method Room Air Weight: 215 lb 9.793 oz Body Mass Index (BMI) 39.4 Intake & Output: Intake and Output for Last 24 Hours 07/05/21 07/06/21 07/07/21 23:59 23:59 23:59 Intake Total 1595 / 1595 1191.25 / 1191.25 Output Total 2500 / 2500 500 / 500 Balance -905 / -905 691.25 / 691.25 Lab / Micro Data Result Diagrams: 07/07/21 05:49 07/07/21 05:49 Labs: Laboratory Results - last 24 hr 07/06/21 08:10: Vitamin D 25-Hydroxy 30.0 07/06/21 11:58: POC Glucose 229 H 07/06/21 17:11: POC Glucose 179 H 07/06/21 21:32: POC Glucose 125 H 07/07/21 05:49: WBC 6.0, RBC 2.79 L, Hgb 8.5 L, Hct 26.7 L, MCV 95.7, MCH 30.5, MCHC 31.8 L, RDW Std Deviation 46.5 H, RDW Coeff of Mayank 13.2, Plt Count 203, MPV 10.2, Immature Gran % (Auto) 0.300, Neut % (Auto) 56.1, Lymph % (Auto) 24.3, [place] % (Auto) 6.8, Eos % (Auto) 11.8 H, Baso % (Auto) 0.7, Absolute Neuts (auto) 3.4, Absolute Lymphs (auto) 1.46, Nucleated RBC % 0 07/07/21 05:49: Sodium 140, Potassium 4.1, Chloride 117 H, Carbon Dioxide 18.0 L , Anion Gap 5, BUN 45 H, Creatinine 2.15 H, Estim Creat Clear Calc 17.06, Est GFR (MDRD) Af Amer 29 L, Est GFR (MDRD) Non-Af 24 L, BUN/Creatinine Ratio 20.9 H , Glucose 172 H, Calcium 9.7 07/07/21 08:08: POC Glucose 157 H 07/07/21 11:32: POC Glucose 117 H Physical Exam Const alert, oriented x3 and no apparent distress HEENT head/scalp atraumatic and moist oral mucous membranes Head and Scalp: normocephalic Eyes PERRL, EOMs intact bilaterally and conjunctivae normal Neck no lymphadenopathy, supple and no JVD Resp normal respiratory effort, no retractions and no use of accessory muscles Cardio regular rate, regular rhythm and no JVD GI normal to inspection, nondistended, normoactive bowel sounds Extremity normal to inspection Skin no rashes or lesions noted Neuro CN's II-XII intact bilaterally Psych affect normal Assessment & Plan Assessment/Plan (1) Debility: (2) Declining functional status: (3) ABILIO (acute kidney injury): (4) Generalized weakness: PLAN: Day 2 Discharge planning: Patient will likely need discharge to SNF, PT/OT and case management consult ordered. 1) generalized weakness/debility Patient was discharged from hospital on 06/20 to SNF for ongoing physical therapy. Left before physical therapy course could be completed and has had functional decline since leaving the nursing facility. Likely need discharge back to a SNF, patient and family are agreeable to discharge to SNF and completing a physical therapy course. PT/OT eval ordered, case management consult ordered. 2) ABILIO on CKD stage IIIb Resolved, creatinine currently 2.15, at baseline. Will stop IVF. 3) DM2 Better controlled than yesterday. We will continue bolus insulin, increase basal insulin to 8 units, continue Accu-Cheks and sliding scale insulin and pioglitazone. 4) diabetic neuropathy Continue gabapentin. 5) HTN Stable, given resolution of ABILIO, will reinitiate chlorthalidone. We will continue to monitor BMP. 6) history of DVT Continue Xarelto. DVT prophylaxis - Xarelto Patient seen by Anthony Cordova PA-C, under the supervision of Dr. Fair. Time spen t on patient care: 10 minutes. Documented by User: Dr. Obinna Fair MD 07/07/21 13:57 Subjective Subjective Patient is debilitated and not able to move or walk even from bed to chair. Objective Data Lab / Micro Data Result Diagrams: 07/07/21 05:49 07/07/21 05:49 Physical Exam Narrative General: Alert, Oriented x3, Cooperative HEENT: Atraumatic, PERRLA, EOMI, Normocephalic Oral: No Gingival or Mucosal Lesions/ Ulcerations Neck: Supple, No JVD, Negative Carotid Bruits Lungs: Air entry diminished in bilateral lung bases. No crepitation/rhonchi Cardiovascular: Regular rate, Regular Rhythm, Normal S1, Normal S2, No murmurs Abdomen: Bowel Sounds Present, Soft, Non Tender, Non-Distended : No renal angle tenderness. No suprapubic tenderness. Extremities: No edema, Capillary Refill Less than 3 Seconds Skin: No rashes, No breakdown Musculoskeletal: Tenderness over both knees. Bilateral knees and hips arthritis Neurological: Cranial nerves II-XII grossly intact, DTR 2+/4, muscle strength 4/5 at major joints of lower extremities Psych/Mental Status: Normal Affect, Appropriate Assessment & Plan Assessment/Plan (1) ABILIO (acute kidney injury): (2) Generalized weakness: PLAN: This patient was seen in conjunction with FADY Pérez. I have independently interviewed and examined the patient and reviewed pertinent history, examination findings, laboratory and plan of management. I have reviewed the note and agree with the documented findings with the few additional points. In brief, patient is admitted for further following diagnosis, assessment and management as mentioned below: 1. Acute kidney injury on baseline CKD stage G3 B: Patient baseline creatinine is around 1.7. Admitted with 3.63. Today 2.15. Acute kidney injury resolved. Hold chlorthalidone. 2. Debility due to diffuse degenerative joint arthritis, musculoskeletal weakness: Patient also has low motivation. Discussed with the dependency case manager. Continue PT and OT. Patient has history of multiple hospital admissions and alf facilities. 3. Other comorbidities include diverticulitis type II, complicated with diabeti c neuropathy, hypertension and DVT: I have discussed my assessment with FADY Pérez and orders have been reviewed. Charges/Coding Visit Charges Inpatient E&M: 84103 Subs Hosp L2
--- NOTE | 2021-07-07 12:17 | CHAPLAIN ---
Type of Pastoral Visit _x__ Initial Visit ___ Follow-up Visit ___ On-call Visit ___ General Patient Visit ___ Spiritual Assessment ___ Family Conference ___ Bereavement ___ Rapid Response ___ Code Blue ___ Other (describe below) Pastoral Care Referral From _x__ Patient ___ Family ___ Nurse ___ Physician ___ Mobile Application Engineer ___ Hydramatic Mechanic ___ Other (describe below) Sacrament/Intervention _x__ Active listening ___ Anointing ___ Moravian ___ Bereavement ___ Communion ___ Rhea exploration ___ _x__ Life review _x__ Prayer ___ Reconciliation ___ Sacrament of Sick _x__ Supportive presence ___ Wedding ___ Other (describe below) Pastoral Comments patient has been admitted recently to this hospital and seen in those visits; pt always willing to talk and have a visit for support; pt gives updates and shares frustration that she has trouble in walking and preventing falls; pt hopes to have some changes at home to improve her ability to stay there; pt open to prayer
--- NOTE | 2021-07-07 12:55 | CASEMGMT ---
Social Work Note SW received referral for SNF placement and pt's preferred provider is [facility]. SW in to speak with pt. SW introduced self and role at [facility]. SW spoke with pt regarding discharge plans. Pt confirms she is agreeable to SNF and preferred provider is [facility]. Pt states that she was recently at [facility] and was naughty because she left before her insurance told her to. Patient was provided a list of SNF providers including quality and resource use data and consistent with the patient?s preferred geographic region, medical needs, and insurance network. SW placed a call to Nathalie at [facility] and provided referral. [facility] willing to review referral. SW faxed referral to [facility]. Plan: [facility] pending acceptance and pre-cert Sheyla Hillman INSIDE TECHNICAL SALES REPRESENTATIVE, DOORKEEPER
[2021-07-07 15:52] VITALS: BP 155/68; PULSE 69; RESP 18; TEMP 37; O2SAT 100
[2021-07-07 16:01] LABS: Bedside Glucose 186 mg/dL (74-106)
[2021-07-07] MEDS: Insulin Lispro 100 UNIT/ML INSULN.PEN 8 UNIT SC (17:23)
[2021-07-07] MEDS: Rivaroxaban 20 MG Tablet PO (17:24)
[2021-07-07 22:30] VITALS: BP 147/65; PULSE 85; RESP 18; TEMP 36.6; O2SAT 94
[2021-07-07] MEDS: Pravastatin 40 MG Tablet PO (22:30)
[2021-07-07 22:45] LABS: Bedside Glucose 151 mg/dL (74-106)
[2021-07-08] VITALS (7 sets, daily range): BP systolic 125–169; BP diastolic 62–84; PULSE 79–84; RESP 16–17; TEMP 36.7–37.1; O2SAT 95–100
[2021-07-08 05:41] LABS: Anion Gap 4 (5-15); BUN 36 mg/dL (7-18); BUN/Creat Ratio 19.5 RATIO (10-20); Calcium,Total 9.5 mg/dL (8.5-10.1); Chloride 115 mmol/L (98-107); Creatinine, Serum 1.85 mg/dL (0.55-1.02); EST Glomerular Filtration Rate 28 mL/min (>60); Est Glom Filt Rate - Afr Amer 34 mL/min (>60); Estimated Creatinine Clearance 19.82 ml/min; Glucose 148 mg/dL (74-106); Potassium 4.1 mmol/L (3.5-5.1); Sodium Level 140 mmol/L (136-145)
--- NOTE | 2021-07-08 07:33 | PCM.PN.HOSP ---
Objective Data Objective Data Vital Signs: Vital Signs Temp Pulse Resp BP Pulse Ox 98.7 F 79 16 154/67 H 95 07/08/21 05:15 07/08/21 05:15 07/08/21 05:15 07/08/21 05:15 07/08/21 05:15 Oxygen Delivery Method Room Air Weight: 215 lb 9.793 oz Body Mass Index (BMI) 39.4 Intake & Output: Intake and Output for Last 24 Hours 07/06/21 07/07/21 07/08/21 23:59 23:59 23:59 Intake Total 1595 / 1595 2445.00 / 2445.00 Output Total 2500 / 2500 1480 / 1480 750 / 750 Balance -905 / -905 965.00 / 965.00 -750 / -750 Lab / Micro Data Result Diagrams: 07/07/21 05:49 07/08/21 04:54 Labs: Laboratory Results - last 24 hr 07/06/21 08:10: Vitamin D 25-Hydroxy 30.0 07/07/21 08:08: POC Glucose 157 H 07/07/21 11:32: POC Glucose 117 H 07/07/21 15:54: POC Glucose 186 H 07/07/21 22:25: POC Glucose 151 H 07/08/21 04:54: Sodium 140, Potassium 4.1, Chloride 115 H, Carbon Dioxide 21.0, Anion Gap 4 L, BUN 36 H, Creatinine 1.85 H, Estim Creat Clear Calc 19.82, Est GFR (MDRD) Af Amer 34 L, Est GFR (MDRD) Non-Af 28 L, BUN/Creatinine Ratio 19.5, Glucose 148 H, Calcium 9.5 Physical Exam Narrative General: Alert, Oriented x3, Cooperative HEENT: Atraumatic, PERRLA, EOMI, Normocephalic Oral: No Gingival or Mucosal Lesions/ Ulcerations Neck: Supple, No JVD, Negative Carotid Bruits Lungs: Air entry diminished in bilateral lung bases. No crepitation/rhonchi Cardiovascular: Regular rate, Regular Rhythm, Normal S1, Normal S2, No murmurs Abdomen: Bowel Sounds Present, Soft, Non Tender, Non-Distended : No renal angle tenderness. No suprapubic tenderness. Extremities: No edema, Capillary Refill Less than 3 Seconds Skin: No rashes, No breakdown Musculoskeletal: Tenderness over both knees. Bilateral knees and hips arthritis Neurological: Cranial nerves II-XII grossly intact, DTR 2+/4, muscle strength 4/5 at major joints of lower extremities Psych/Mental Status: Normal Affect, Appropriate Assessment & Plan Assessment/Plan (1) ABILIO (acute kidney injury): (2) Generalized weakness: PLAN: This patient was seen in conjunction with FADY Pérez. I have independently interviewed and examined the patient and reviewed pertinent history, examination findings, laboratory and plan of management. I have reviewed the note and agree with the documented findings with the few additional points. In brief, patient is admitted for further following diagnosis, assessment and management as mentioned below: 1. Acute kidney injury on baseline CKD stage G3 B: Patient baseline creatinine is around 1.7. Admitted with 3.63. Today 2.15. Acute kidney injury resolved. Hold chlorthalidone. 2. Debility due to diffuse degenerative joint arthritis, musculoskeletal weakness: Patient also has low motivation. Discussed with the telephonic nurse case manager. Continue PT and OT. Patient has history of multiple hospital admissions and jail facilities. 3. Other comorbidities include diverticulitis type II, complicated with diabetic neuropathy, hypertension and DVT: I have discussed my assessment with FADY Pérez and orders have been reviewed.
[2021-07-08 07:55] LABS: Bedside Glucose 157 mg/dL (74-106)
--- NOTE | 2021-07-08 07:57 | NURSING ---
BREAKFAST ORDERED FOR PT.
[2021-07-08] MEDS: Insulin Lispro 100 UNIT/ML INSULN.PEN SC ×2 (09:41→11:54)
[2021-07-08] MEDS: Insulin Lispro 100 UNIT/ML INSULN.PEN 8 UNIT SC ×3 (09:42→16:42)
[2021-07-08] MEDS: Insulin Glargine-YFGN 100 UNIT/ML Pen 20 UNIT SC (09:42)
[2021-07-08] MEDS: Menthol/Lanolin/Calamine/Znox 113 GM Tube 1 APPLIC TOPICAL ×2 (09:44→21:05)
[2021-07-08] MEDS: Pioglitazone Hydrochloride 15 MG Tablet PO (09:44)
[2021-07-08] MEDS: Chlorthalidone 50 MG Tablet 25 MG PO (09:45)
[2021-07-08] MEDS: Nystatin Powder 15gm Bottle 1 APPLIC TOPICAL ×2 (09:46→21:05)
[2021-07-08] MEDS: Gabapentin 300 MG Capsule PO (09:46)
--- NOTE | 2021-07-08 10:33 | CASEMGMT ---
Social Work Note SW received message from Nathalie stating their concern with pt is that last time pt refused PT/OT and asked if this worker could have a meeting with pt to let her know pt will need to participate in therapy while at SNF. LANEY in to speak with pt. LANEY updated pt that [facility] has concerns since the last time pt was there, pt did not participate in PT/OT. SW informed pt that she needs to participate in PT/OT so insurance will cover SNF stay. Pt states I promise I will do therapy. LANEY informed pt that this worker will let W know. LANEY placed a call to Nathalie at [facility] and left message informing her that this worker spoke with pt and pt promises that she will participate in PT/OT. LANEY asked for call back regarding referral. LANEY then received another call from Nathalie at [facility] stating it wasn't just PT/OT that pt was refusing. Pt was also refusing care, medications, pt had a care conference scheduled and right before it started the daughter came and took pt out of SNF. [facility] is not able to accept. LANEY attempted to update pt, pt currently in with staff getting cleaned up. LANEY will check back with pt. Plan: SNF pending acceptance and pre-cert Sheyla Hillman WAIST CUTTER, COAL GETTER
--- NOTE | 2021-07-08 10:56 | CASEMGMT ---
Social Work Note SW in to speak with pt. SW informed pt that [facility] is not able to accept pt. SW asked pt for additional choices. Pt states to try [facility] next and then if TCU cannot accept then to try [facility]. SW placed a call to [facility] with TCU and provided referral. TCU to review referral. Plan: TCU pending acceptance and pre-cert Sheyla Hillman SUPERVISOR PIT AND AUXILIARIES, CLOTH DESIZING RANGE TENDER
--- NOTE | 2021-07-08 11:41 | CASEMGMT ---
Social Work Note LANEY received call from Deedee with TCU stating that under [employer] pt has 20 skilled days that are covered and pt was on TCU back on April, days do not reset, so pt only has 10 skilled days left and then pt will be in copay days. Since pt's seconday is Medicaid, pt would be financially responsible for copay after 10 days are done. SW in to speak with pt. SW updated pt on the above information. LANEY informed pt that if she goes to a different SNF that takes Medicaid, then Medicaid would cover the copay days. Pt then placed a call to her daughter Lucita. SW updated Lucita on above information as well. Lucita states that if pt goes to TCU for 10 days, pt will need to come home with a Catheter, not Purewick, as those are too expensive. Pt and then Lucita discussed discharge plans. Pt states that she would like to go to TCU for 10 days and again confirmed she would need to return home with a Catheter. Pt states it is too difficult to try and get up to get to the bathroom when pt's daughter is not at home. Pt states having a Catheter would help her. LANEY placed a call to Deedee with TCU and updated her that pt is planning on going to TCU for 10 days and that pt is requesting Catheter when pt leaves TCU. LANEY will update TCU SW when pt discharges to TCU. Plan: TCU pending pre-cert Sheyla Hillman WARP TIER, EVENTS AND PROMOTIONS ASSISTANT
--- NOTE | 2021-07-08 11:57 | CASEMGMT ---
Social Work Note SW received call from Deedee with TCU stating pt has actually used her 20 days under [employer] so day one pt will be in copay days. TCU is not able to accept pt. SW in to speak with pt. SW informed pt that pt actually has used all of her 20 days under [employer], pt will be in copay days any SNF pt will be at. SW informed pt that if she goes to a different SNF then Medicaid will cone picker copay. Pt reviewed SNF list. SW spoke with pt regarding SNF options and asked about [facility] as pt mentioned that SNF if [facility] could not accept pt. Pt states that she owes [facility] money so they will not take her back. Pt states she will not go to [facility] or [facility]. Pt states to try [facility]. LANEY placed a call to [facility] and spoke with Jacquie in admissions. Jacquie states she is willing to review referral and does have female beds available. LANEY faxed referral to [facility]. Plan: SNF pending acceptance and pre-cert Sheyla Hillman PHYSICIAN OFFICE SECRETARY, QUALITY CONTROL INDUSTRIAL ENGINEER
[2021-07-08 12:00] LABS: Bedside Glucose 178 mg/dL (74-106)
--- NOTE | 2021-07-08 12:07 | PN.HOSP_ITS ---
Documented by User: Anthony SHRESTHA 07/08/21 12:12 Subjective Subjective Patient is a 80-year-old female comfortably resting in bed, alert and orient x3. Patient denies development of any new symptoms overnight. Does not appear in acute distress. Objective Data Objective Data Vital Signs: Vital Signs Temp Pulse Resp BP Pulse Ox 98.6 F 83 17 144/63 H 96 07/08/21 09:38 07/08/21 09:38 07/08/21 09:38 07/08/21 09:38 07/08/21 09:38 Oxygen Delivery Method Room Air Weight: 215 lb 9.793 oz Body Mass Index (BMI) 39.4 Intake & Output: Intake and Output for Last 24 Hours 07/06/21 07/07/21 07/08/21 23:59 23:59 23:59 Intake Total 1595 / 1595 2445.00 / 2445.00 Output Total 2500 / 2500 1480 / 1480 750 / 750 Balance -905 / -905 965.00 / 965.00 -750 / -750 Lab / Micro Data Result Diagrams: 07/07/21 05:49 07/08/21 04:54 Labs: Laboratory Results - last 24 hr 07/07/21 15:54: POC Glucose 186 H 07/07/21 22:25: POC Glucose 151 H 07/08/21 04:54: Sodium 140, Potassium 4.1, Chloride 115 H, Carbon Dioxide 21.0, Anion Gap 4 L, BUN 36 H, Creatinine 1.85 H, Estim Creat Clear Calc 19.82, Est GFR (MDRD) Af Amer 34 L, Est GFR (MDRD) Non-Af 28 L, BUN/Creatinine Ratio 19.5, Glucose 148 H, Calcium 9.5 07/08/21 07:44: POC Glucose 157 H 07/08/21 11:52: POC Glucose 178 H Physical Exam Const alert, oriented x3 and no apparent distress HEENT head/scalp atraumatic and moist oral mucous membranes Head and Scalp: normocephalic Eyes PERRL, EOMs intact bilaterally and conjunctivae normal Neck no lymphadenopathy, supple and no JVD Resp normal respiratory effort, no retractions and no use of accessory muscles Cardio regular rate, regular rhythm and no JVD GI normal to inspection, nondistended, normoactive bowel sounds Extremity normal to inspection Skin no rashes or lesions noted Neuro CN's II-XII intact bilaterally Psych affect normal Assessment & Plan Assessment/Plan (1) Generalized weakness: (2) ABILIO (acute kidney injury): (3) Declining functional status: (4) Debility: PLAN: Day 3 Discharge planning: Discharge to [facility] pending acceptance and pre-CERT. 1) generalized weakness/debility Patient was discharged from hospital on 06/20 to SNF for ongoing physical therapy. Left before physical therapy course could be completed and has had functional decline since leaving the nursing facility. Discharge plan as above. 2) ABILIO on CKD stage IIIb Resolved, creatinine currently 1.85, at baseline. 3) DM2 Better controlled than yesterday. We will continue bolus insulin, increase basal insulin to 8 units, continue Accu-Cheks and sliding scale insulin and pioglitazone. 4) diabetic neuropathy Continue gabapentin. 5) HTN Stable, given resolution of ABILIO, will reinitiate chlorthalidone. We will continue to monitor BMP. 6) history of DVT Continue Xarelto. DVT prophylaxis - Xarelto Patient seen by Anthony Cordova PA-C, under the supervision of Dr. Fair. Time spent on patient care: 8 minutes. Documented by User: Dr. Obinna Fair MD 07/08/21 13:24 Objective Data Lab / Micro Data Result Diagrams: 07/07/21 05:49 07/08/21 04:54 Physical Exam Narrative Seen and examined Patient and she can walk to the bathroom within room but cannot walk in the hallway because of knee joint pain and leg weakness. General: Alert, Oriented x3, Cooperative HEENT: Atraumatic, PERRLA, EOMI, Normocephalic Oral: No Gingival or Mucosal Lesions/ Ulcerations Neck: Supple, No JVD, Negative Carotid Bruits Lungs: Air entry diminished in bilateral lung bases. No crepitation/rhonchi Cardiovascular: Regular rate, Regular Rhythm, Normal S1, Normal S2, No murmurs Abdomen: Bowel Sounds Present, Soft, Non Tender, Non-Distended : No renal angle tenderness. No suprapubic tenderness. Extremities: No edema, Capillary Refill Less than 3 Seconds Skin: No rashes, No breakdown Musculoskeletal: Tenderness over both knees. Bilateral knees and hips arthritis Neurological: Cranial nerves II-XII grossly intact, DTR 2+/4, muscle strength 4+/5 at major joints of lower extremities Psych/Mental Status: Normal Affect, Appropriate Assessment & Plan Assessment/Plan (1) Generalized weakness: (2) ABILIO (acute kidney injury): PLAN: This patient was seen in conjunction with FADY Pérez. I have independently interviewed and examined the patient and reviewed pertinent his tory, examination findings, laboratory and plan of management. I have reviewed the note and agree with the documented findings with the few additional points. In brief, patient is admitted for further following diagnosis, assessment and management as mentioned below: 1. Acute kidney injury on baseline CKD stage G3B: Patient baseline creatinine is around 1.7. Admitted with 3.63. Today 2.15. Acute kidney injury resolved. Hold chlorthalidone. 2. Debility due to diffuse degenerative joint arthritis, musculoskeletal weakness: Patient also has low motivation. Discussed with the disease case manager rn. Continue PT and OT. Patient has history of multiple hospital admissions and fpc facilities. Patient has difficulty in walking due to bilateral knee arthritis and leg weakness. Waiting pre-CERT. 3. Other comorbidities include diverticulitis type II, complicated with diabetic neuropathy, hypertension and DVT: I have discussed my assessment with FADY Pérez and orders have been reviewed. Charges/Coding Visit Charges Inpatient E&M: 61241 Subs Hosp L2
--- NOTE | 2021-07-08 15:26 | CASEMGMT ---
Social Work Note LANEY received call from Jacquie at [facility] stating they can accept pt. Jacquie states that she reviewed pt's insurance and pt's Medicaid will cover copay but states it is showing pt has a patient liability of $912 for a month. Jacquie states she is not sure what that means or if pt will have to pay that but can submit for pre-cert. SW in to speak with pt. SW informed pt that [facility] is able to accept pt and will submit for pre-cert. SW informed pt that [facility] is stating that pt does have a patient liability of $912 for a month. Pt states she cannot pay for that. SW informed pt that [facility] is not sure if pt will have to pay that amount or not but did state that pt's Medicaid will cover pt's copay. Pt states well at this point, I might as well just go back home. Pt states I would be able to do that if I had a catheter. Pt states I can order one of those from [facility]. SW encouraged pt to discuss SNF vs Home with her daughter natalio and SW can follow up with pt tomorrow. Pt states understanding. Plan: [facility] pending pre-cert Sheyla Hillman SITE PLANNER, CHILD CENTER ASSISTANT
[2021-07-08] MEDS: Rivaroxaban 20 MG Tablet PO (16:41)
[2021-07-08 16:55] LABS: Bedside Glucose 83 mg/dL (74-106)
[2021-07-08] MEDS: Pravastatin 40 MG Tablet PO (21:06)
[2021-07-08 21:20] LABS: Bedside Glucose 73 mg/dL (74-106)
[2021-07-09 03:15] VITALS: BP 137/61; PULSE 80; RESP 16; TEMP 37; O2SAT 95
[2021-07-09 07:30] VITALS: O2SAT 94
[2021-07-09 07:33] VITALS: BP 139/64; PULSE 79; RESP 15; TEMP 36.7; O2SAT 95
[2021-07-09 07:50] LABS: Bedside Glucose 152 mg/dL (74-106)
[2021-07-09] MEDS: Insulin Lispro 100 UNIT/ML INSULN.PEN SC (08:41)
[2021-07-09] MEDS: Insulin Glargine-YFGN 100 UNIT/ML Pen 20 UNIT SC (08:42)
[2021-07-09] MEDS: Insulin Lispro 100 UNIT/ML INSULN.PEN 8 UNIT SC ×3 (08:42→17:29)
[2021-07-09 08:43] VITALS: O2SAT 97
[2021-07-09] MEDS: Chlorthalidone 50 MG Tablet 25 MG PO (08:45)
[2021-07-09] MEDS: Nystatin Powder 15gm Bottle 1 APPLIC TOPICAL (08:45)
[2021-07-09] MEDS: Gabapentin 300 MG Capsule PO (08:45)
[2021-07-09] MEDS: Pioglitazone Hydrochloride 15 MG Tablet PO (08:46)
[2021-07-09] MEDS: Menthol/Lanolin/Calamine/Znox 113 GM Tube 1 APPLIC TOPICAL (08:47)
--- NOTE | 2021-07-09 10:45 | CASEMGMT ---
Social Work Note LANEY updated that pt was crying earlier today stating she cannot pay the $912 a month to go to SNF. SW in to speak with pt. Pt states that she just wants to go home, doesn't want to be at [facility] anymore. SW informed pt that there are safety concerns with pt going home and that pt has tried to go home multiple times and been not able to take care of self. Pt states well my daughter and I have come up with a plan. SW asked pt what her plan is. Pt states I have Pullups that I can wear during the day when my daughter is not home so I can just use those to go to the bathroom and not have to get up and go to the bathroom. SW asked pt if she has a bedside commode. Pt states she does but she still has to transfer to her wheelchair to the bedside commode. SW asked pt if she could move the bedside commode closer to her chair and pt states she could and her and her daughter did talk about that. Pt very tearful throughout conversation. Pt states there is nothing I can do about this insurance and I feel like I have no say in any of this. SW informed pt that insurance does dictate a lot of medical care and that it is Medicaid rules/guidelines that are saying pt has that pt liability. SW spent much time offering support to pt and validating pt's feelings. Pt states that she misses her cat and doens't know what to do. Pt states that her daughter Lucita is off today and plans on coming to [facility] later today. SW informed pt that this worker, Lucita, pt and maybe RN CM can all meet with her to discuss discharge plans. Pt states that she will call her daughter around 12 to see when she will be in to [facility]. SW informed pt that this worker leaves around 4:00pm so Lucita will need to be in to [facility] before that. SW asked pt about any Mental Health Hx. Pt denied. Pt denied any history of sucidal thoughts/plans/ideations and denied any current suicidal thoughts/plans/ideations. SW asked pt if this worker could also call her daughter Lucita and talk to her about coming to [facility] and about what time. Pt gave this worker permission to call Lucita and told this worker to call her around 12:00pm. SW to call pt's daughter Lucita to continue discussion of discharge plans. Sheyla Hillman COLLECTION TELLER, INDUSTRIAL MAINTENANCE REPAIRER HELPER
--- NOTE | 2021-07-09 11:41 | PN.HOSP_ITS ---
Documented by User: Anthony SHRESTHA 07/09/21 11:46 Subjective Subjective Patient is a 80-year-old female resting in a chair, alert and orient x3. Is concerned about financial status in regards to going to a SNF, broke out into tears because she is tired of coming in and out of the hospital and going to [facility] facilities. Objective Data Objective Data Vital Signs: Vital Signs Temp Pulse Resp BP Pulse Ox 98.1 F 79 15 139/64 H 97 07/09/21 07:33 07/09/21 07:33 07/09/21 07:33 07/09/21 07:33 07/09/21 08:43 Oxygen Delivery Method Room Air Weight: 215 lb 9.793 oz Body Mass Index (BMI) 39.4 Intake & Output: Intake and Output for Last 24 Hours 07/07/21 07/08/21 07/09/21 23:59 23:59 23:59 Intake Total 2445.00 / 2445.00 Output Total 1480 / 1480 1050 / 1050 400 / 400 Balance 965.00 / 965.00 -1050 / -1050 -400 / -400 Lab / Micro Data Result Diagrams: 07/07/21 05:49 07/08/21 04:54 Labs: Laboratory Results - last 24 hr 07/08/21 11:52: POC Glucose 178 H 07/08/21 16:38: POC Glucose 83 07/08/21 21:09: POC Glucose 73 L 07/09/21 07:38: POC Glucose 152 H Physical Exam Const alert, oriented x3 and no apparent distress HEENT head/scalp atraumatic and moist oral mucous membranes Head and Scalp: normocephalic Eyes PERRL and conjunctivae normal Neck no lymphadenopathy, supple and no JVD Resp normal respiratory effort, no retractions and no use of accessory muscles Cardio regular rate, regular rhythm and no JVD GI normal to inspection, nondistended, normoactive bowel sounds Extremity normal to inspection Skin no rashes or lesions noted Neuro CN's II-XII intact bilaterally Psych Mood & Affect: depressed and anxious Assessment & Plan Assessment/Plan (1) Debility: (2) Declining functional status: (3) ABILIO (acute kidney injury): (4) Generalized weakness: PLAN: Day 4 Discharge planning: Discharge to [facility] pending acceptance and pre-CERT. 1) generalized weakness/debility Patient was discharged from hospital on 06/20 to SNF for ongoing physical therapy. Left before physical therapy course could be completed and has had functional decline since leaving the nursing facility. Discharge plan as above. 2) ABILIO on CKD stage IIIb Resolved, creatinine currently 1.85, at baseline. 3) DM2 Better controlled than yesterday. We will continue bolus insulin, increase basal insulin to 8 units, continue Accu-Cheks and sliding scale insulin and pioglitazone. 4) diabetic neuropathy Continue gabapentin. 5) HTN Stable, given resolution of ABILIO, will reinitiate chlorthalidone. We will continue to monitor BMP. 6) history of DVT Continue Xarelto. DVT prophylaxis - Xarelto Patient seen by Anthony Cordova PA-C, under the supervision of Dr. Fair. Time spent on patient care: 8 minutes. Documented by User: Dr. Obinna Fair MD 07/09/21 12:46 Subjective Subjective No acute change in physical or mental health. Patient is concerned about paying $900 [id number] for going to fpc. Discussed with the nurse case manager/licensed social worker. Objective Data Lab / Micro Data Result Diagrams: 07/07/21 05:49 07/08/21 04:54 Physical Exam Narrative General: Alert, Oriented x3, Cooperative HEENT: Atraumatic, PERRLA, EOMI, Normocephalic Oral: No Gingival or Mucosal Lesions/ Ulcerations Neck: Supple, No JVD, Negative Carotid Bruits Lungs: Air entry diminished in bilateral lung bases. No crepitation/rhonchi Cardiovascular: Regular rate, Regular Rhythm, Normal S1, Normal S2, No murmurs Abdomen: Bowel Sounds Present, Soft, Non Tender, Non-Distended : No renal angle tenderness. No suprapubic tenderness. Extremities: No edema, Capillary Refill Less than 3 Seconds Skin: No rashes, No breakdown Musculoskeletal: Tenderness over both knees. Bilateral knees and hips arthritis. Neurological: Cranial nerves II-XII grossly intact, DTR 2+/4, muscle strength 4+/5 at major joints of lower extremities Psych/Mental Status: Normal Affect, Appropriate Assessment & Plan Assessment/Plan (1) Generalized weakness: PLAN: This patient was seen in conjunction with FADY Pérez. I have independently interviewed and examined the patient and reviewed pertinent history, examination findings, laboratory and plan of management. I have reviewed the note and agree with the documented findings with the few additional points. In brief, patient is admitted for further following diagnosis, assessment and management as mentioned below: 1. Acute kidney injury on baseline CKD stage G3B: Patient baseline creatinine is around 1.7. Admitted with 3.63. 07/09: Last creatinine 1.85. Better. Acute kidney injury resolved. Hold chlorthalidone. Monitor kidney function. 2. Debility due to diffuse degenerative joint arthritis, musculoskeletal weakness: Patient also has low motivation. Discussed with the nurse case manager. Continue PT and OT. Patient has history of multiple hospital admissions and assisted facilities. Patient has difficulty in walking due to bilateral knee arthritis and leg weakness. Waiting pre-CERT. 07/09: Discussed with nurse case manager/licensed social worker regarding placement 3. Other comorbidities include diverticulitis type II, complicated with diabetic neuropathy, hypertension and DVT: I have discussed my assessment with FADY Pérez and orders have been reviewed. Charges/Coding Visit Charges Inpatient E&M: 20019 Subs Hosp L2
--- NOTE | 2021-07-09 12:30 | CASEMGMT ---
Social Work Note LANEY placed a call to pt's daughter Lucita and asked Lucita if she will be coming to [facility] today. Lucita states she will at [facility] pointe, is not sure about time. SW updated pt on the SNF situation and that pt will have a Patient Liability of $912 a month. Lucita states she was able to look at the numbers last night and have come up with a way that she can pay Patient's Liability. Lucita states that pt needs to go to SNF to get stronger so she doesn't keep falling at home. SW asked Lucita if pt is aware of this and Lucita states probably not as she was busy last night looking at their financials. SW in to speak with pt and took in phone with Lucita on the phone. Pt was updated that Lucita has confirmed that pt's liability will be covered and Lucita will have enough left over for rent, food, etc. Lucita and pt agreeable to paying Patient Liability and going to [facility]. SW informed pt and Lucita that pre-cert is still pending, pt will remain at [facility] until pre-cert is obtained. Pt and Lucita states understanding. Plan: [facility] pending pre-cert Sheyla Hillman AGRICULTURAL ECONOMICS TEACHER, YEAST SUPERVISOR
[2021-07-09 12:46] LABS: Bedside Glucose 141 mg/dL (74-106)
[2021-07-09 13:30] VITALS: BP 143/65; PULSE 76; RESP 17; TEMP 36.6; O2SAT 97
--- NOTE | 2021-07-09 16:00 | CASEMGMT ---
Social Work Note LANEY received call from Jacquie at [facility] stating pre-cert has been obtained and pt can discharge today. LANEY updated PA. LANEY placed a call to Jacquie at [facility], Jacquie confirms that physician will need to co sign Transfer to Extended Care document. LANEY updated PA. Physician to co sign document. SW in to speak with pt and pt's daughter Lucita present in room. LANEY updated pt and Lucita that pre-cert was obtained, pt will discharge to [facility] today. Pt and Lucita state understanding. LANEY completed [facility] in [place]. LANEY faxed Transfer to extended care facility, signed medication list, any scripts, and [facility] to [facility]. Original in SNF folder and copy on pt's chart. Plan: [facility] skilled today Sheyla Hillman INFUSION PHARMACIST, MEDIA PRODUCTION SUPPORT MANAGER
--- NOTE | 2021-07-09 16:16 | TREXTCAR_ITS ---
Diet 07/09/21 13:02 Diet: Carbohydrate Controlled Dietary Modifications:: No Added Salt Is pt able to select menu?: Yes Therapies Weight Bearing: Weight bearing as tolerated Extremity Affected:: Bilateral Lower Physical Therapy: Eval and Treat Occupational Therapy: Eval and Treat Problem/Diagnosis (1) Generalized weakness: Status: Acute Allergies/Procedures Done in Hospital Allergies empagliflozin [From Jardiance] Allergy (Verified 07/05/21 22:10) Itching/RASH furosemide [From Lasix] Allergy (Verified 07/05/21 22:10) Rash metformin Allergy (Verified 07/05/21 22:10) decreased appetite warfarin [From Coumadin] Allergy (Verified 07/05/21 22:10) Other pt/inr too low blood in urine apixaban [From Eliquis] Adverse Reaction (Verified 07/05/21 22:10) Other Type of Care/Length of Stay Estimated LOS: Convalescent Care Less Than 30 days Type of Care Needed: Skilled Rehab Potential: Good Prognosis: Good Additional Orders/Day of Discharge Day of Discharge: 07/09/21 Dietary and Speech Recommendations Dietitian Recommendations/Changes: will adjust diet to Carbohydrate Controlled, No added salt given poor PO intake at meals. Discharge Plan Admission Admit Date/Time: 07/05/21 23:39 Primary Reason for Your Visit: Debility Attending Provider: Obinna Fair Primary Care Provider: Vel Graham Discharge Orders/Prescriptions Prescriptions: Continued pravastatin 40 MG tablet 40 mg PO QHS RF: 0 acetaminophen 500 MG tablet 1,000 mg PO Q6H PRN PRN (Reason: Pain 1-10 Or Fever) RF: 0 rivaroxaban 20 MG tablet 20 mg PO DAILY RF: 0 donepezil 5 MG tablet 5 mg PO QHS RF: 0 medroxyprogesterone 10 mg tablet 10 mg PO DAILY RF: 0 pioglitazone 15 mg tablet 15 mg PO DAILY RF: 0 gabapentin 400 mg capsule 400 mg PO DAILY Qty: 0 RF: 0 Held chlorthalidone 50 mg Tablet 25 mg PO DAILY Qty: 30 RF: 0 Hold Instructions: Resume on 07/12/21. Hold due to Kidney function. Referrals / Follow Up: Vel Graham MD [Primary Care Provider] - Disposition Disposition (needs filled in before D/C Order can be placed): Residential Facility
--- NOTE | 2021-07-09 16:39 | DS.PCM_ITS ---
Documented by User: Anthony SHRESTHA 07/09/21 16:44 Providers Date of Admission: 07/05/21 Date of Discharge: 07/09/21 Primary Care Physician: Dr. Vel Graham MD Reason For Visit: ABILIO, DEBILITY Diagnosis Discharge Diagnosis (1) Generalized weakness: Status: Acute Code(s): R53.1 - Weakness Medications at Discharge Home Medications pravastatin 40 mg PO QHS 10/05/17 acetaminophen 1,000 mg PO Q6H PRN PRN 04/15/20 rivaroxaban 20 mg PO DAILY 06/23/20 donepezil 5 mg PO QHS 04/09/21 medroxyprogesterone 10 mg PO DAILY 06/05/21 chlorthalidone 25 mg PO DAILY #30 tab 06/07/21 pioglitazone 15 mg PO DAILY 06/18/21 gabapentin 400 mg PO DAILY #0 cap 06/20/21 Hospital Course Summary of Care Provided Minutes Spent on Discharge: 20 Hospital Course: Patient is a 80-year-old female who was admitted to [facility] on 07/05/2021 for evaluation management of generalized weakness/debility after leaving early from a care home before her course of skilled therapy could be completed. Hospital course and management as below. 1) generalized weakness/debility Patient was discharged from hospital on 06/20 to SNF for ongoing physical therapy. Left before physical therapy course could be completed and has had functional decline since leaving the nursing facility. Discharge plan as above. 2) ABILIO on CKD stage IIIb Resolved, creatinine currently 1.85, at baseline. Hold chlorthalidone for another 48 hours. 3) DM2 Better controlled than yesterday. We will continue bolus insulin, increase basal insulin to 8 units, continue Accu-Cheks and sliding scale insulin and pioglitazone. 4) diabetic neuropathy Continue gabapentin. 5) HTN Stable, hold chlorthalidone as above. 6) history of DVT Continue Xarelto. Patient seen by Anthony Cordova PA-C, under the supervision of Dr. Fair. Time spent on patient care: 20 minutes. Physical Exam Narrative Patient is a 80-year-old female comfortably resting in bed, alert and orient x3. Denies development of any new symptoms overnight. Does not appear in acute distress. HEENT normocephalic, head/scalp atraumatic and hearing grossly normal bilaterally Eyes PERRL and conjunctivae normal Neck no lymphadenopathy, supple and no JVD Resp normal respiratory effort, no retractions and no use of accessory muscles Cardio regular rate, regular rhythm and no JVD GI normal to inspection, nondistended, normoactive bowel sounds Extremity normal to inspection Skin no rashes or lesions noted Neuro CN's II-XII intact bilaterally Psych affect normal Weight / BMI Weight Weight: 215 lb 9.793 oz Body Mass Index (BMI) 39.4 ABG / Lab / Microbiology Data Result Diagrams: 07/07/21 05:49 07/08/21 04:54 Laboratory: Laboratory Results - last 24 hr 07/08/21 16:38: POC Glucose 83 07/08/21 21:09: POC Glucose 73 L 07/09/21 07:38: POC Glucose 152 H 07/09/21 12:43: POC Glucose 141 H Meaningful Use Info Meaningful Use Diagnoses (Choose all that apply): None applicable Discharge Plan Admission Admit Date/Time: 07/05/21 23:39 Primary Reason for Your Visit: Debility Attending Provider: Obinna Fair Primary Care Provider: Vel Graham Discharge Orders/Prescriptions Prescriptions: Continued pravastatin 40 MG tablet 40 mg PO QHS RF: 0 acetaminophen 500 MG tablet 1,000 mg PO Q6H PRN PRN (Reason: Pain 1-10 Or Fever) RF: 0 rivaroxaban 20 MG tablet 20 mg PO DAILY RF: 0 donepezil 5 MG tablet 5 mg PO QHS RF: 0 medroxyprogesterone 10 mg tablet 10 mg PO DAILY RF: 0 pioglitazone 15 mg tablet 15 mg PO DAILY RF: 0 gabapentin 400 mg capsule 400 mg PO DAILY Qty: 0 RF: 0 Held chlorthalidone 50 mg Tablet 25 mg PO DAILY Qty: 30 RF: 0 Hold Instructions: Resume on 07/12/21. Hold due to Kidney function. Referrals / Follow Up: Vel Graham MD [Primary Care Provider] - Disposition Disposition (needs filled in before D/C Order can be placed): [facility] Documented by User: Dr. Obinna Fair MD 07/10/21 16:14 Providers Date of Admission: 07/05/21 Reason For Visit: ABILIO, DEBILITY Medications at Discharge Home Medications pravastatin 40 mg PO QHS 10/05/17 acetaminophen 1,000 mg PO Q6H PRN PRN 04/15/20 rivaroxaban 20 mg PO DAILY 06/23/20 donepezil 5 mg PO QHS 04/09/21 medroxyprogesterone 10 mg PO DAILY 06/05/21 chlorthalidone 25 mg PO DAILY #30 tab 06/07/21 pioglitazone 15 mg PO DAILY 06/18/21 gabapentin 400 mg PO DAILY #0 cap 06/20/21 Hospital Course Summary of Care Provided Hospital Course: This patient was seen in conjunction with FADY Pérez. I have independently interviewed and examined the patient and reviewed pertinent history, examination findings, laboratory and plan of management. I have reviewed the note and agree with the documented findings with the few additional points. In brief, patient is admitted for further following diagnosis, assessment and management as mentioned below: 1. Acute kidney injury on baseline CKD stage G3B: Patient baseline creatinine is around 1.7. Admitted with 3.63. 07/09: Last creatinine 1.85. Better. Acute kidney injury resolved. Hold chlorthalidone. Monitor kidney function. Advised to hold chlorthalidone for 48 hours. 2. Debility due to diffuse degenerative joint arthritis, musculoskeletal weakness: Patient also has low motivation. Discussed with the returned case inspector. Continue PT and OT. Patient has history of multiple hospital admissions and fpc facilities. Patient has difficulty in walking due to bilateral knee arthritis and leg weakness. Patient discharged to SNF. 3. Other comorbidities include diverticulitis type II, complicated with diabetic neuropathy, hypertension and DVT: Patient on rivaroxaban Discharge medication reconciliation done. Discharge follow-up instructions completed. Discharge process discussed with the patient and all questions were answered to patient's satisfaction. Total time spent, exact 35 minutes on discharge meds reconciliation, examination, coordination of care with nurses and ancillary staff, review of imaging and blood test and discussion with the patient on follow-up instructions. I have discussed my assessment with FADY Pérez and orders have been reviewed. Physical Exam Narrative Patient was seen and examined on the day of discharge. Please see progress note on the same date. ABG / Lab / Microbiology Data Result Diagrams: 07/07/21 05:49 07/08/21 04:54 Discharge Plan Admission Admit Date/Time: 07/05/21 23:39 Primary Reason for Your Visit: Debility Attending Provider: Obinna Fair Primary Care Provider: Vel Graham Discharge Orders/Prescriptions Prescriptions: Continued pravastatin 40 MG tablet 40 mg PO QHS RF: 0 acetaminophen 500 MG tablet 1,000 mg PO Q6H PRN PRN (Reason: Pain 1-10 Or Fever) RF: 0 rivaroxaban 20 MG tablet 20 mg PO DAILY RF: 0 donepezil 5 MG tablet 5 mg PO QHS RF: 0 medroxyprogesterone 10 mg tablet 10 mg PO DAILY RF: 0 pioglitazone 15 mg tablet 15 mg PO DAILY RF: 0 gabapentin 400 mg capsule 400 mg PO DAILY Qty: 0 RF: 0 Held chlorthalidone 50 mg Tablet 25 mg PO DAILY Qty: 30 RF: 0 Hold Instructions: Resume on 07/12/21. Hold due to Kidney function. Referrals / Follow Up: Vel Graham MD [Primary Care Provider] - Disposition Disposition (needs filled in before D/C Order can be placed): [facility] Charges/Coding Addendum Addendum: Please cancel the billing charge of progress note of the same date. Visit Charges Inpatient E&M: [id number] Disch Hosp
[2021-07-09] MEDS: Rivaroxaban 20 MG Tablet PO (17:07)
[2021-07-09 17:10] LABS: Bedside Glucose 92 mg/dL (74-106)
--- NOTE | 2021-07-09 17:57 | NURSING ---
REPORT CALLED TO DEWAYNE AT [facility]. PT TO BE TRANSFERRED VIA W/C AT 1830
--- NOTE | 2021-07-09 18:15 | CASEMGMT ---
Social Work Note SW accessed trip assist and arranged transportation via wheelchair van for 6:30pm. Transportation form completed and placed on SNF folder and copy on pt's chart. SW in to speak with pt. SW updated pt on transportation time. Pt states she will call her daughter Lucita to update on transportation time. SW reviewed transfer summary, no co signature is showing up. SW discussed with Anthony SHRESTHA, FADY Corral and Physician. Physician to physically cosign the transfer summary. SW received co signed transfer to extended care document. SW faxed COVID test/tool and co signed transfer summary to [facility]. Original in SNF folder and copy on pt's chart. Plan: [facility] skilled today under [facility] with Physician's transporting pt via wheelchair van at 6:30pm. Sheyla Hillman HEAT TREAT PULLER, LINTING MACHINE OPERATOR
== END 2021-07-09 18:56 | disposition skilled nursing facility (03) | DRG 948 ==
LOC: ED 23:43 → MS3 23:48
PROVIDERS: Physician Assistant; Admitting Provider Hospitalist; Emergency Provider Emergency Medicine; PCP Family Medicine; Visit Provider Internal Medicine
DX: R53.1 Weakness (principal); N17.9 Acute kidney failure, unspecified; E11.21 Type 2 diabetes mellitus with diabetic nephropathy; E11.42 Type 2 diabetes mellitus with diabetic polyneuropathy; E11.65 Type 2 diabetes mellitus with hyperglycemia; Z79.4 Long term (current) use of insulin; E11.22 Type 2 diabetes mellitus with diabetic chronic kidney disease; G30.9 Alzheimer's disease, unspecified; F02.80 Dementia in other diseases classified elsewhere, unspecified severity, without behavioral disturbance, psychotic disturbance, mood disturbance, and anxiety; N18.32 Chronic kidney disease, stage 3b; E78.00 Pure hypercholesterolemia, unspecified; I12.9 Hypertensive chronic kidney disease with stage 1 through stage 4 chronic kidney disease, or unspecified chronic kidney disease; M17.0 Bilateral primary osteoarthritis of knee; G89.29 Other chronic pain; E66.9 Obesity, unspecified; R53.81 Other malaise; R62.7 Adult failure to thrive; Z68.39 Body mass index [BMI] 39.0-39.9, adult; Z79.01 Long term (current) use of anticoagulants; Z79.84 Long term (current) use of oral hypoglycemic drugs; Z79.899 Other long term (current) drug therapy; Z86.718 Personal history of other venous thrombosis and embolism
CPT/HCPCS: 36415; 80048; 81001; 82306; 82570; 82962; 83935; 84300; 84540; 85025; 87426; 97110; 97162; 97166; 97530; 97535; 99285; J7030; A4216